=== PATIENT | male | born 1950 | race Caucasian/White ===

== ENCOUNTER 2016-07-10 18:04 | Emergency (ER) | payer MEDICARE, OTHER ==
[2016-07-10 18:10] VITALS: BP 161/73; PULSE 85; RESP 18; TEMP 97.9
[2016-07-10] MEDS ORDERED: DOXYCYCLINE 50 MG CAP PO STA (18:24)
--- NOTE | 2016-07-10 18:27 | ED ---
Skin/Abscess/FB HPI - General Chief complaint: Skin/Abscess/Foreign Body Stated complaint: tick bite Time Seen by Provider: 07/10/16 18:23 Source: patient Mode of arrival: ambulatory Limitations: no limitations - History of Present Illness Initial comments: Patient is a 65-year-old male presenting to the emergency department with complaints of tick bite to his anterior chest inferior to his right nipple. Patient states he was in the shower yesterday and noticed the tick on his chest. Patient states that he applied soap in the tick came off with the head intact. Patient wants to make sure that he doesn't get Lyme disease and states that he has a friend who from it. 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 Patient denies chills, fevers, nausea, vomiting, shortness of breath, chest pain, or abdominal pain. Patient denies myalgias. Patient denies headache. Patient denies any other symptoms. - Related Data Home Medications Medication Instructions Recorded Confirmed Aspirin 325 mg PO DAILY 12/21/13 07/10/16 Digoxin [Lanoxin] 125 mcg PO DAILY 12/21/13 07/10/16 Furosemide [Lasix] 40 mg PO DAILY 12/21/13 07/10/16 Losartan [Cozaar] 100 mg PO DAILY 12/21/13 07/10/16 Metoprolol Tartrate [Lopressor] 25 mg PO BID 12/21/13 07/10/16 Omeprazole 40 mg PO AC-BRKFST 12/21/13 07/10/16 Nitroglycerin Sl Tabs [Nitrostat] 0.4 mg SL ONCE PRN 08/30/14 07/10/16 hydrALAZINE HCL [Apresoline] 25 mg PO TID 08/30/14 07/10/16 Simvastatin [Zocor] 40 mg PO HS 02/14/15 07/10/16 Digoxin [Digitek] 125 mcg PO DAILY 02/01/16 07/10/16 Finasteride [Proscar] 5 mg PO DAILY 02/01/16 07/10/16 Gabapentin [Neurontin] 100 mg PO TID 02/01/16 07/10/16 Tamsulosin HCl [Flomax] 0.4 mg PO DAILY 02/01/16 07/10/16 Previous Rx's Medication Instructions Recorded Albuterol Inhaler [Ventolin Hfa 1 - 2 puff INHALATION Q4-6H PRN #1 02/14/15 Inhaler] inhaler Acetaminophen with Codeine 1 tab PO Q4H PRN #20 tab 02/01/16 [Tylenol w/codeine #3] Albuterol Sulfate [Proair Hfa] 1 - 2 puff INHALATION Q4H PRN #1 02/01/16 inhaler Azithromycin [Zithromax Z-pack] 0 mg PO DIRECTED #1 pack 02/01/16 predniSONE 50 mg PO DAILY #5 tab 02/01/16 Allergies Allergy/AdvReac Type Severity Reaction Status Date / Time No Known Allergies Allergy Verified 07/10/16 18:10 Review of Systems ROS Statement: Those systems with pertinent positive or pertinent negative responses have been documented in the HPI. ROS Other: All systems not noted in ROS Statement are negative. Past Medical History Past Medical History: Chest Pain / Angina, Heart Failure, Hyperlipidemia, Hypertension Additional Past Medical History / Comment(s): defibillator History of Any Multi-Drug Resistant Organisms: None Reported Past Surgical History: Joint Replacement Additional Past Surgical History / Comment(s): defibillator Past Psychological History: No Psychological Hx Reported Smoking Status: Former smoker Past Alcohol Use History: Occasional Past Drug Use History: None Reported General Exam - General Exam Comments Initial Comments: GENERAL: Pt awake and alert, well-appearing, well-nourished, and in no acute distress. HEAD: Atraumatic, normocephalic. EYES: Pupils equal, round, and reactive to light, extraocular movements intact, sclera anicteric, conjunctiva are normal. ENT: Oropharynx clear without exudates. Moist mucous membranes. NECK:Normal range of motion, supple without lymphadenopathy or JVD. LUNGS: Breath sounds clear to auscultation bilaterally. No wheezes, rales, or rhonchi. HEART: Heart S1, S2, no S3 or S4. Regular rate and rhythm. No murmurs, rubs or gallops. ABDOMEN: Soft, nontender, nondistended, normoactive bowel sounds. No guarding, no rebound. No masses or organomegaly appreciated. EXTREMITIES: 2+ peripheral pulses. No edema. Full range of motion. NEUROLOGICAL: Pt oriented x 3. No focal deficits noted. Strength and sensation grossly intact. PSYCH: Normal mood, normal affect. SKIN: Warm, dry. Small puncture site noted inferior to right nipple on anterior chest with mild swelling and erythema. No drainage. Limitations: no limitations Course Vital Signs 07/10/16 18:07 Temperature 97.9 F Pulse Rate 85 Respiratory 18 Rate Blood Pressure 161/73 O2 Sat by Pulse 97 Oximetry Medical Decision Making - Medical Decision Making Tick bite to right chest. Patient did bring in tick with head intact. Patient prescribed doxycycline 200 mg by mouth prophylactically and instructed to follow -up with primary care physician. Patient agrees with treatment plan. Discharge instructions and return parameters reviewed. Disposition Clinical Impression: Tick bite Disposition: HOME SELF-CARE Condition: Good Instructions: Tick Bite (ED) Additional Instructions: Follow-up with primary care physician and inform them you were given prophylactic doxycycline 200 mg by mouth 1 dose in the emergency department. Please return to the emergency department with new or worsening symptoms. Referrals: Bree Dias DO [Primary Care Provider] - 1-2 days Time of Disposition: 18:27
== END 2016-07-10 18:46 | disposition home or self-care (01) ==
LOC: EC 18:04
DX: S20.361A Insect bite (nonvenomous) of right front wall of thorax, initial encounter (principal); I10 Essential (primary) hypertension; E78.5 Hyperlipidemia, unspecified; I50.9 Heart failure, unspecified; Z87.891 Personal history of nicotine dependence; Z79.82 Long term (current) use of aspirin; Z79.899 Other long term (current) drug therapy; Z86.79 Personal history of other diseases of the circulatory system; W57.XXXA Bitten or stung by nonvenomous insect and other nonvenomous arthropods, initial encounter
CPT/HCPCS: 99282

== ENCOUNTER → 2016-10-11 | Outpatient (CLI) | payer MEDICARE, OTHER ==
[2016-10-11 08:28] LABS: CH 31.5; HCT 44.8 % (39.0-53.0); HDW 2.56; HGB 15.2 gm/dL (13.0-17.5); MCH 31.6 pg (25.0-35.0); MCHC 33.9 g/dL (31.0-37.0); MCV 93.3 fL (80.0-100.0); Mean Platelet Volume 10.1; RBC 4.81 m/uL (4.30-5.90); RDW 14.7 % (11.5-15.5); WBC 7.8 k/uL (3.8-10.6)
[2016-10-11 10:29] LABS: ALT 85 U/L (21-72); AST 39 U/L (17-59); Alkaline Phosphatase 86 U/L (38-126); Anion Gap 14 mmol/L; Blood Urea Nitrogen 18 mg/dL (9-20); Calcium 9.2 mg/dL (8.4-10.2); Carbon Dioxide 23 mmol/L (22-30); Chloride 105 mmol/L (98-107); Cholesterol 140 mg/dL (<200); Glucose 106 mg/dL (74-99); HDL Cholesterol 45 mg/dL (40-60); Non-African American GFR(MDRD) >60 (>60 ml/min/1.73 sqM); Potassium 4.3 mmol/L (3.5-5.1); Sodium 142 mmol/L (137-145); Total Bilirubin 0.4 mg/dL (0.2-1.3); Total Protein 7.1 g/dL (6.3-8.2)
[2016-10-11 10:51] LABS: Prostate Specific Antigen 1.49 ng/mL (0.00-4.00)
== END | disposition home or self-care (01) ==
LOC: LABWHC1 07:59
PROVIDERS: ATTEND Internal Medicine Clinical Cardiac Electrophysiology
DX: E78.2 Mixed hyperlipidemia (principal); I25.10 Atherosclerotic heart disease of native coronary artery without angina pectoris; I25.5 Ischemic cardiomyopathy; I10 Essential (primary) hypertension; Z95.810 Presence of automatic (implantable) cardiac defibrillator
CPT/HCPCS: 36415; 80053; 80061; 80162; 83036; 84153; 84443; 85027

== ENCOUNTER 2016-10-26 14:43 | Day surgery (SDC) | payer MEDICARE, OTHER ==
[2016-10-19 10:27] VITALS: BMI 32.8
[~2016-10-26 14:43] MED LIST: LACTATED RINGERS 1,000 ML IV ONE; ceFAZolin 1,000 MG in SODIUM CHLORIDE 0.9% IRRIGATIO 250 ML IRRIGATION ONE; ceFAZolin 2 GM in SODIUM CHLORIDE 0.9% 100 ML IVPB ONE
[2016-10-26] MEDS ORDERED: IV FLUID CONTINUATION 450 ML IV ONE (16:12)
[2016-10-26] MEDS ORDERED: MIDAZOLAM 2 MG/2 ML VIAL ONE (16:12)
[2016-10-26] MEDS ORDERED: PROPOFOL 10 MG/ML 20 ML VIAL IV ONE (16:12)
[2016-10-26] MEDS ORDERED: fentaNYL (PF) 50 MCG/ML 2 ML AMP ONE (16:12)
[2016-10-26] MEDS ORDERED: LIDOCAINE 1% INJ 10MG/ML (20 ML MDV) SQ ONE ×2 (16:45→16:55)
[2016-10-26] MEDS ORDERED: ACETAMINOPHEN IV (For NPO) 1,000 MG in EMPTY BAG 1 BAG IVPB ONE (17:17)
[2016-10-26] MEDS ORDERED: ACETAMINOPHEN TAB 325 MG TAB PO PRN (17:17)
[2016-10-26 18:28] VITALS: RESP 18
[2016-10-26] MEDS: SODIUM CHLORIDE 0.9% 1,000 ML IV SCH (18:49)
[2016-10-26] MEDS: HYDROcodone/APAP 5-325MG 1 EACH TAB PO PRN (19:54)
[2016-10-26] MEDS ORDERED: ATORVASTATIN 20 MG TAB PO SCH (21:00)
[2016-10-26] MEDS: METOPROLOL TARTRATE 25 MG TAB PO SCH (21:14)
[2016-10-26] MEDS: hydrALAZINE HCL 25 MG TAB PO SCH (21:15)
[2016-10-26] MEDS: GABAPENTIN 100 MG CAP PO SCH (21:15)
[2016-10-26] MEDS: ceFAZolin 2 GM in SODIUM CHLORIDE 0.9% 100 ML IVPB SCH (23:13)
[2016-10-27] MEDS: HYDROcodone/APAP 5-325MG 1 EACH TAB PO PRN ×3 (02:28→16:59)
[2016-10-27] MEDS: ceFAZolin 2 GM in SODIUM CHLORIDE 0.9% 100 ML IVPB SCH ×3 (05:09→16:04)
[2016-10-27] MEDS ORDERED: PANTOPRAZOLE 40 MG TABLET PO SCH (07:30)
[2016-10-27] MEDS: METOPROLOL TARTRATE 25 MG TAB PO SCH (07:52)
[2016-10-27] MEDS: GABAPENTIN 100 MG CAP PO SCH (07:52)
[2016-10-27] MEDS: hydrALAZINE HCL 25 MG TAB PO SCH (07:52)
[2016-10-27] MEDS: SODIUM CHLORIDE 0.9% 1,000 ML IV SCH (08:02)
--- NOTE | 2016-10-27 08:02 | P.DS ---
Providers Attending physician: Iain Sosa Primary care physician: Bree [facility] Course: Patient is doing well. Other than discomfort at the ICD generator change site he has no other pain. No shortness of breath no dizziness lightheadedness he is sitting comfortably in bed. Breath sounds are clear and normal no rhonchi no crackles. Heart sounds S1 and S2 are normal no murmurs no gallops abdomen is soft nontender. Extremities warm no edema ICD site is healed well there is minimal to no hematoma. Impression Ischemic cardio myopathy Status post ICD generator change for normal battery depletion CHF class II Single-chamber ICD dual coil, [employer] DFT at or below 10 J Plan Discharge home after completion of IV antibiotics and follow-up in the device clinic in 5 days No change in medications Patient Condition at Discharge: Stable Plan - Discharge Summary New Discharge Prescriptions: Continue Losartan [Cozaar] 100 mg PO DAILY Omeprazole 40 mg PO AC-BRKFST Metoprolol Tartrate [Lopressor] 25 mg PO BID Furosemide [Lasix] 40 mg PO DAILY Digoxin [Lanoxin] 125 mcg PO DAILY Aspirin 325 mg PO DAILY hydrALAZINE HCL [Apresoline] 25 mg PO BID Nitroglycerin Sl Tabs [Nitrostat] 0.4 mg SL ONCE PRN PRN Reason: Chest Pain Simvastatin [Zocor] 40 mg PO HS Gabapentin [Neurontin] 100 mg PO BID Finasteride [Proscar] 5 mg PO DAILY Discharge Medication List Aspirin 325 mg PO DAILY 12/21/13 [History] Digoxin [Lanoxin] 125 mcg PO DAILY 12/21/13 [History] Furosemide [Lasix] 40 mg PO DAILY 12/21/13 [History] Losartan [Cozaar] 100 mg PO DAILY 12/21/13 [History] Metoprolol Tartrate [Lopressor] 25 mg PO BID 12/21/13 [History] Omeprazole 40 mg PO AC-BRKFST 12/21/13 [History] Nitroglycerin Sl Tabs [Nitrostat] 0.4 mg SL ONCE PRN 08/30/14 [History] hydrALAZINE HCL [Apresoline] 25 mg PO BID 08/30/14 [History] Simvastatin [Zocor] 40 mg PO HS 02/14/15 [History] Finasteride [Proscar] 5 mg PO DAILY 02/01/16 [History] Gabapentin [Neurontin] 100 mg PO BID 02/01/16 [History] Activity/Diet/Wound Care/Special Instructions: PATIENT EDUCATION MATERIAL Instructions following a heart rhythm device implant. 1. Keep dressing DRY for ONE week. You may cover the area with Saran or Cling Wrap, prior to a shower. 2. The dressing will be removed after one week in the Device Clinic @ [facility]. Absorbable sutures were used to close the wound. 3. Avoid raising the [left] arm above the shoulder level. [6 week restriction] 4. Avoid arm movements, like backscratching, rubbing the head, or pulling on a cord. (6 weeks restriction) 5. Gentle range of motion movements of the shoulder, closest to the incision should be performed to avoid a frozen shoulder. (Pendulum exercises of the shoulder) 6. The opposite arm may be used freely. 7. Avoid driving for 7 days. 8. Avoid activities such as golfing, swimming, weed whacking, lifting more than 10 pounds weight, bowling, gymnastics and weight training/lifting. (6 weeks restriction) 9. Activities such as wood chopping with an axe, pull-ups in the gymnasium, power lifting, arc-welding, being close to home induction cooktops will always be a problem. In case of any problems, please call [facility], Laron Sims, @ [phone], Attention: Device Clinic Discharge Disposition: HOME SELF-CARE
[2016-10-27] MEDS ORDERED: DIGOXIN 125 MCG TAB PO SCH (09:00)
[2016-10-27] MEDS ORDERED: FUROSEMIDE 40 MG TAB PO SCH (09:00)
[2016-10-27] MEDS ORDERED: LOSARTAN 50 MG TAB PO SCH (09:00)
[2016-10-27] MEDS ORDERED: FINASTERIDE 5 MG TAB PO SCH (09:00)
[2016-10-27] MEDS ORDERED: ASPIRIN 325 MG TAB PO SCH (09:00)
--- NOTE | 2016-10-27 09:02 | PCN ---
PROCEDURE NOTE PROCEDURE PERFORMED: ICD generator change Mr. Ibarra is a 66 -year-old male patient with known ischemic cardiomyopathy, coronary artery disease, on appropriate guideline directed medical treatment with Class 2 CHF. He has hypertension, diabetes, dyslipidemia, adult-onset diabetes. His original ejection fraction in 2009 was severely reduced. Now his ejection fraction was 40%. His single-chamber ICD is now at [facility] and he underwent ICD generator change for normal battery depletion. DESCRIPTION OF PROCEDURE: The patient was brought to the EP lab in a fasting state. Written informed consent was obtained prior to the procedure. The left shoulder was prepped and draped as per protocol. 1% Lidocaine was used for local anesthesia. A 4 cm incision was made directly over the previous surgical site and carried down to the level of the generator. The generator was explanted. Partial capsulectomy was performed. The new generator was implanted. The leads were interrogated and following that, the wound was closed in 3 layers and dressed per protocol. Thereafter DFT testing was performed. The new device implanted is in an [employer] VR 1411-36 C ICD serial #[id number], Pacing thresholds are 0.25 V at 0.5 milliseconds. R-waves 11.7 mV, pacing impedance 380 ohms. High-voltage impedance 70 ohms. The device is then programed according to programming with appropriate antitachycardia pacing cardioversion defibrillation. DFT testing under anesthesia: DC fib shock was used to induce ventricular fibrillation. This was adequately and appropriately detected at least sensitivity and successfully internally defibrillated with a 10 joule shock, , including SVC coil, charge time 1.8 seconds and shock impedance 72 ohms. No post shock noise. The device was appropriately programmed for tachy therapies. RESULTS: 1. Successful single-chamber ICD generator change. 2. DFT at or below 10 joules. MMODL / IJN: [id number] /
[2016-10-27 15:44] VITALS: BP 131/70; PULSE 67; TEMP 98.4
== END 2016-10-27 17:48 | disposition home or self-care (01) ==
LOC: CATHEP 14:43 → 3OBS 17:14 → CATHEP 10-27 17:48
PROVIDERS: ATTEND Internal Medicine Clinical Cardiac Electrophysiology
DX: Z45.02 Encounter for adjustment and management of automatic implantable cardiac defibrillator (principal); I25.5 Ischemic cardiomyopathy; I11.0 Hypertensive heart disease with heart failure; I50.9 Heart failure, unspecified; Z87.891 Personal history of nicotine dependence; E78.5 Hyperlipidemia, unspecified; E11.8 Type 2 diabetes mellitus with unspecified complications; Z79.82 Long term (current) use of aspirin; Z79.899 Other long term (current) drug therapy
CPT/HCPCS: 93641; 33262; C1722; S0138; J2250; J0690 ×3; J2001; J3010; J2704

== ENCOUNTER → 2016-11-02 | Outpatient (CLI) | payer MEDICARE, OTHER ==
[2016-11-02 16:34] LABS: CH 30.5; CHCM 33.6; HDW 2.68; HGB 13.5 gm/dL (13.0-17.5); MCH 30.1 pg (25.0-35.0); MCHC 33.1 g/dL (31.0-37.0); MCV 91.1 fL (80.0-100.0); Mean Platelet Volume 9.4; RBC 4.49 m/uL (4.30-5.90); RDW 13.9 % (11.5-15.5); WBC 5.2 k/uL (3.8-10.6)
[2016-11-02 16:51] LABS: ALT 65 U/L (21-72); AST 36 U/L (17-59); Alkaline Phosphatase 66 U/L (38-126); Anion Gap 12 mmol/L; Blood Urea Nitrogen 17 mg/dL (9-20); Calcium 9.1 mg/dL (8.4-10.2); Carbon Dioxide 25 mmol/L (22-30); Chloride 100 mmol/L (98-107); Glucose 126 mg/dL (74-99); Non-African American GFR(MDRD) >60 (>60 ml/min/1.73 sqM); Sodium 137 mmol/L (137-145); Total Bilirubin 0.4 mg/dL (0.2-1.3); Total Protein 7.1 g/dL (6.3-8.2)
--- NOTE | 2016-11-03 07:20 | XR ---
EXAMINATION TYPE: XR chest 2V DATE OF EXAM: 11/02/2016 COMPARISON: 02/01/16 HISTORY: Shortness of breath TECHNIQUE: Frontal and lateral views of the chest are obtained. FINDINGS: Scattered senescent parenchymal changes noted. Hyperinflation compatible with COPD. No evidence for infiltrate. No evidence for atelectasis. Heart size is stable. Mediastinal structures are stable and grossly unremarkable. No evidence for hilar prominence. Degenerative changes dorsal spine. IMPRESSION: 1. No evidence for acute pulmonary disease.
== END | disposition home or self-care (01) ==
LOC: LABWHC1 16:01
PROVIDERS: ATTEND Internal Medicine Interventional Cardiology
DX: I25.5 Ischemic cardiomyopathy (principal); I25.10 Atherosclerotic heart disease of native coronary artery without angina pectoris
CPT/HCPCS: 36415; 71020; 80053; 83880; 85027

== ENCOUNTER 2017-06-22 09:14 | Emergency (ER) | payer MEDICARE, OTHER ==
[2017-06-22 09:22] VITALS: RESP 18
[2017-06-22] MEDS ORDERED: DIAZEPAM 5 MG/ML 2 ML INJ IM STA (09:45)
[2017-06-22] MEDS ORDERED: KETOROLAC 60 MG/2 ML VIAL IM STA (09:45)
--- NOTE | 2017-06-22 09:48 | ED ---
Extremity Problem HPI - General Chief complaint: Extremity Problem,Nontraumatic Stated complaint: Right Arm Numbness Time Seen by Provider: 06/22/17 09:23 Source: patient, RN notes reviewed Mode of arrival: ambulatory Limitations: no limitations - History of Present Illness Initial comments: This a 66-year-old male presents emergency department to complaining neck pain, right arm paresthesias. Patient states he woke up with pain in the right side of his neck and feels that his arm was very numb feeling patient states that he has no associated weakness no chest pain or shortness of breath. Patient states that he feels that he slipped on his neck on it is worse with movement he tried taking some callus morning with no relief. Patient denies any fever, chills, cough, nausea vomiting. Denies any trauma. - Related Data Home Medications Medication Instructions Recorded Confirmed Aspirin 325 mg PO DAILY 12/21/13 06/22/17 Digoxin [Lanoxin] 125 mcg PO DAILY 12/21/13 06/22/17 Furosemide [Lasix] 40 mg PO DAILY 12/21/13 06/22/17 Losartan [Cozaar] 100 mg PO DAILY 12/21/13 06/22/17 Metoprolol Tartrate [Lopressor] 25 mg PO BID 12/21/13 06/22/17 Omeprazole 40 mg PO BID 12/21/13 06/22/17 Nitroglycerin Sl Tabs [Nitrostat] 0.4 mg SL ONCE PRN 08/30/14 06/22/17 hydrALAZINE HCL [Apresoline] 25 mg PO BID 08/30/14 06/22/17 Simvastatin [Zocor] 40 mg PO HS 02/14/15 06/22/17 Finasteride [Proscar] 5 mg PO DAILY 02/01/16 06/22/17 Previous Rx's Medication Instructions Recorded Diazepam [Valium] 5 mg PO TID PRN #10 tab 06/22/17 Allergies Allergy/AdvReac Type Severity Reaction Status Date / Time No Known Allergies Allergy Verified 06/22/17 10:14 Review of Systems ROS Statement: Those systems with pertinent positive or pertinent negative responses have been documented in the HPI. ROS Other: All systems not noted in ROS Statement are negative. Past Medical History Past Medical History: Coronary Artery Disease (CAD), Heart Failure, COPD, Hyperlipidemia, Hypertension, Myocardial Infarction ([place]) Additional Past Medical History / Comment(s): defibillator History of Any Multi-Drug Resistant Organisms: None Reported Past Surgical History: AICD, Joint Replacement, Orthopedic Surgery Additional Past Surgical History / Comment(s): right knee replaced Past Psychological History: No Psychological Hx Reported Smoking Status: Former smoker Past Alcohol Use History: Occasional Past Drug Use History: None Reported General Exam Limitations: no limitations General appearance: alert, in no apparent distress Head exam: Present: atraumatic, normocephalic, normal inspection Eye exam: Present: normal appearance, PERRL, EOMI. Absent: scleral icterus, conjunctival injection, periorbital swelling ENT exam: Present: normal exam, normal oropharynx, mucous membranes moist Neck exam: Present: normal inspection, full ROM. Absent: tenderness, meningismus, lymphadenopathy Respiratory exam: Present: wheezes (Mild). Absent: normal lung sounds bilaterally, respiratory distress, rales, rhonchi, stridor Cardiovascular Exam: Present: regular rate, normal rhythm, normal heart sounds. Absent: systolic murmur, diastolic murmur, rubs, gallop, clicks Back exam: Absent: CVA tenderness (R), CVA tenderness (L) Neurological exam: Present: alert, oriented X3, CN II-XII intact, normal gait, reflexes normal, other ([id number] intact). Absent: motor sensory deficit Skin exam: Present: warm, dry, intact, normal color. Absent: rash Course Vital Signs 06/22/17 06/22/17 09:17 10:20 Pulse Rate 63 66 Respiratory 18 18 Rate Blood Pressure 170/88 139/68 O2 Sat by Pulse 94 L 94 L Oximetry Medical Decision Making - Medical Decision Making 66-year-old male present with Department chief complaint right arm numbness in rectal pain. Patient has pain with range of motion of neck is symptoms started after sleeping on it. Patient had no dramatic injury has a normal neuro exam. Patient has no focal weakness. X-ray cervical spine reviewed shows moderate to severe degenerative changes. Patient will be discharged follow-up with orthopedics. Disposition Clinical Impression: Cervical radiculopathy Disposition: HOME SELF-CARE Condition: Stable Instructions: Cervical Radiculopathy (ED) Additional Instructions: Please return to the Emergency Department if symptoms worsen or any other concerns. Prescriptions: Diazepam [Valium] 5 mg PO TID PRN #10 tab PRN Reason: muscle spasms Is patient prescribed a controlled substance at d/c from ED?: Yes If prescribed controlled substance>3 days was MAPS reviewed?: No When asked, does pt state using other controlled substances?: No Referrals: Bree Dias DO [Primary Care Provider] - 1-2 days Hanh Trujillo DO [Doctor of Osteopathic Medicine] - 1-2 days
--- NOTE | 2017-06-22 10:32 | XR ---
EXAMINATION TYPE: XR cervical spine comp DATE OF EXAM: 06/22/2017 COMPARISON: NONE HISTORY: 66-year-old male with neck pain and tingling in fingers today TECHNIQUE: 6 views FINDINGS: No predental space widening or prevertebral soft tissue swelling. There is preserved alignment of the cervical spine though it at least moderate disc/endplate cervical spine along with moderate to advan abhishek facet and uncovertebral joint arthropathy as well. Normal odontoid view. On the right, there is [id number] bony neural foraminal narrowing at C5-C6 and mild at C4-C5 an d C6-C7, and C7-T1. On the left, there is moderate to severe bony neural foraminal narrowing at C5-C6 and mild at C3-C4. IMPRESSION: 1. Moderate spondylotic changes especially in the mid to lower cervical spine. 2. Moderate to severe bony neural foraminal narrowing on the left at C5-C6. Variable mild neuroforami nal narrowing at additional levels, mild to moderate on the right at C5-C6.
[2017-06-22 11:24] VITALS: BP 135/64; PULSE 60; TEMP 97.9
== END 2017-06-22 11:24 | disposition home or self-care (01) ==
LOC: EC 09:14
DX: M54.12 Radiculopathy, cervical region (principal); I25.10 Atherosclerotic heart disease of native coronary artery without angina pectoris; I11.0 Hypertensive heart disease with heart failure; I50.9 Heart failure, unspecified; E78.5 Hyperlipidemia, unspecified; I25.2 Old myocardial infarction; Z87.891 Personal history of nicotine dependence; Z79.899 Other long term (current) drug therapy; Z79.82 Long term (current) use of aspirin; Z95.810 Presence of automatic (implantable) cardiac defibrillator
CPT/HCPCS: 99284; 96372 ×2; 72050; J3360; J1885

== ENCOUNTER → 2017-08-27 | Outpatient (CLI) | payer MEDICARE, OTHER ==
[2017-08-27 08:53] LABS: Albumin 3.9 g/dL (3.5-5.0); Potassium 4.7 mmol/L (3.5-5.1); Total Bilirubin 0.4 mg/dL (0.2-1.3); Total Protein 6.7 g/dL (6.3-8.2)
== END | disposition home or self-care (01) ==
LOC: LABWHC1 08:03
PROVIDERS: ATTEND Internal Medicine Interventional Cardiology
DX: E78.2 Mixed hyperlipidemia (principal)
CPT/HCPCS: 36415; 80053; 80061

== ENCOUNTER → 2017-12-01 | Outpatient (CLI) | payer MEDICARE, OTHER ==
--- NOTE | 2017-12-02 07:03 | US ---
EXAMINATION TYPE: US abdomen complete DATE OF EXAM: 12/01/2017 COMPARISON: CT & US 2016 CLINICAL HISTORY: R94.4 Abnormal renal function test. EXAM MEASUREMENTS: Liver Length: 19.5 cm Gallbladder Wall: 0.2 cm CBD: 0.4 cm Spleen: 12.5 cm Right Kidney: 9.6 x 5.5 x 5.0 cm Left Kidney: 10.2 x 5.8 x 5.1 cm Difficult and limited study due to patient body habitus Pancreas: visualized portions wnl, limited by overlying midline bowel Liver: enlarged, increased echogenicity, heterogeneous Gallbladder: wnl Evidence for sonographic Turk's sign: no CBD: wnl Spleen: wnl Right Kidney: 1.3 x 1.2 x 1.8cm exophytic simple cyst inferior pole Left Kidney: wnl Upper IVC: wnl Abd Aorta: visualized portions wnl, mid and distal obscured by overlying midline bowel gas IMPRESSION: 1. Simple right renal cyst. 2. Fatty infiltration and hepatomegaly. 3. Some limitation due to bowel gas
== END | disposition home or self-care (01) ==
LOC: RADUSWWP 11-28 10:53
PROVIDERS: ATTEND Family Medicine
DX: N28.1 Cyst of kidney, acquired (principal); K76.0 Fatty (change of) liver, not elsewhere classified
CPT/HCPCS: 76700

== ENCOUNTER → 2018-02-27 | Outpatient (CLI) | payer MEDICARE, OTHER ==
[2018-02-27 17:28] LABS: Albumin 4.4 g/dL (3.80-4.90); Albumin/Globulin Ratio 1.69 (1.20-2.10); Anion Gap 8.8 mmol/L (4.00-12.00); Calcium 9.3 mg/dL (8.7-10.3); Carbon Dioxide 30.2 mmol/L (21.6-31.8); Globulin 2.6 g/dL (1.6-3.3); LDL Cholesterol,Calculated 74.4 mg/dL (0.0-131.0); Potassium 4.7 mmol/L (3.5-5.5); Total Bilirubin 0.5 mg/dL (0.2-1.2); VLDL Calculation 37.6 mg/dL (5.00-40.00)
== END | disposition home or self-care (01) ==
LOC: LABWHC1 08:12
PROVIDERS: ATTEND Internal Medicine Interventional Cardiology
DX: E78.2 Mixed hyperlipidemia (principal)
CPT/HCPCS: 36415; 80053; 80061

== ENCOUNTER → 2018-05-02 | Outpatient (CLI) | payer MEDICARE, OTHER | LOC: LABWHC1 10:05 | PROVIDERS: ATTEND Surgery | DX: I71.4 Abdominal aortic aneurysm, without rupture (principal) | CPT/HCPCS: 36415; 82565; 84520 ==

== ENCOUNTER → 2018-09-01 | Outpatient (CLI) | payer MEDICARE, OTHER ==
[2018-09-01 16:11] LABS: African American GFR (CKD) 60.7 (60.0-200.0); Albumin 4.3 g/dL (3.80-4.90); Albumin/Globulin Ratio 1.87 (1.60-3.17); Anion Gap 9.7 mmol/L (4.00-12.00); Calcium 9.8 mg/dL (8.7-10.3); Carbon Dioxide 25.3 mmol/L (21.6-31.8); Globulin 2.3 g/dL (1.6-3.3); Potassium 5.1 mmol/L (3.5-5.5); Total Bilirubin 0.5 mg/dL (0.3-1.2); Total Protein 6.6 g/dL (6.2-8.2)
== END | disposition home or self-care (01) ==
LOC: LABWHC1 08:26
PROVIDERS: ATTEND Internal Medicine Interventional Cardiology
DX: E78.2 Mixed hyperlipidemia (principal)
CPT/HCPCS: 36415; 80053; 80061

== ENCOUNTER 2018-09-08 17:54 | Emergency (ER) | payer MEDICARE, OTHER ==
[2018-09-08 18:53] VITALS: TEMP 97.7
--- NOTE | 2018-09-08 21:09 | CT ---
EXAMINATION TYPE: CT brain wo con DATE OF EXAM: 09/08/2018 COMPARISON: 10/27/2017 HISTORY: Headache, RT side, along with head swelling RT side. Hx aneurysm CT DLP: 1126.4 mGycm Automated exposure control for dose reduction was used. FINDINGS: There is some cerebral cortical atrophy. There is no mass effect nor midline shift. There is no sign of intracranial hemorrhage. Calvarium is intact. IMPRESSION: CEREBRAL MILD ATROPHY. NO ACUTE INTRACRANIAL ABNORMALITY. NO CHANGE.
--- NOTE | 2018-09-08 21:28 | ED ---
Skin/Abscess/FB HPI - General Chief complaint: Skin/Abscess/Foreign Body Stated complaint: Headache, Head Swelling Time Seen by Provider: 09/08/18 20:11 Source: patient Mode of arrival: ambulatory - History of Present Illness Initial comments: Patient is a 67-year-old male who presents to the emergency Department with complaints of a bump on the back of his head 2 days. Patient states this bump is also causing him headaches and pain down the back of his head. Patient describes the pain as burning when touched. Patient has past medical history of a brain aneurysm that was diagnosed about a 6 months ago. Patient denies having numbness, tingling, blurred vision, difficulty with walking or talking. Patient admits to history of chickenpox when he was little. Patient denies fever, chills, nausea, vomiting. No other complaints at this time. - Related Data Home Medications Medication Instructions Recorded Confirmed Aspirin 325 mg PO DAILY 12/21/13 10/27/17 Digoxin [Lanoxin] 125 mcg PO DAILY 12/21/13 10/27/17 Furosemide [Lasix] 40 mg PO DAILY 12/21/13 10/27/17 Losartan [Cozaar] 100 mg PO DAILY 12/21/13 10/27/17 Metoprolol Tartrate [Lopressor] 25 mg PO BID 12/21/13 10/27/17 Omeprazole 40 mg PO BID 12/21/13 10/27/17 Nitroglycerin Sl Tabs [Nitrostat] 0.4 mg SUBLINGUAL Q5M PRN 08/30/14 10/27/17 hydrALAZINE HCL [Apresoline] 25 mg PO BID 08/30/14 10/27/17 Finasteride [Proscar] 5 mg PO DAILY 02/01/16 10/27/17 Gabapentin 600 mg PO BID 10/27/17 10/27/17 Previous Rx's Medication Instructions Recorded valACYclovir HCL [Valtrex] 1,000 mg PO Q8HR 7 Days #21 tab 09/08/18 Allergies Allergy/AdvReac Type Severity Reaction Status Date / Time No Known Allergies Allergy Verified 09/08/18 18:49 Review of Systems ROS Statement: Those systems with pertinent positive or pertinent negative responses have been documented in the HPI. ROS Other: All systems not noted in ROS Statement are negative. Past Medical History Past Medical History: Coronary Artery Disease (CAD), Heart Failure, COPD, Hyperlipidemia, Hypertension, Myocardial Infarction ([place]) Additional Past Medical History / Comment(s): defibillator Last Myocardial Infarction Date:: unknown History of Any Multi-Drug Resistant Organisms: None Reported Past Surgical History: AICD, Joint Replacement, Orthopedic Surgery Additional Past Surgical History / Comment(s): right knee replaced Past Anesthesia/Blood Transfusion Reactions: No Reported Reaction Type of Cardiac Device: AICD Device Placement Date:: 2009 Past Psychological History: No Psychological Hx Reported Smoking Status: Former smoker Past Alcohol Use History: Occasional Past Drug Use History: None Reported - Past Family History Mother Family Medical History: No Reported History Father Family Medical History: Liver Disease General Exam - General Exam Comments Initial Comments: GENERAL: Well-appearing, well-nourished and in no acute distress. HEAD: Atraumatic, normocephalic. EYES: Pupils equal round and reactive to light, extraocular movements intact, sclera anicteric, conjunctiva are normal. ENT: TMs normal, nares patent, oropharynx clear without exudates. Moist mucous membranes. NECK: Normal range of motion, supple without lymphadenopathy or JVD. LUNGS: Breath sounds clear to auscultation bilaterally and equal. No wheezes rales or rhonchi. HEART: Regular rate and rhythm without murmurs, rubs or gallops. ABDOMEN: Soft, nontender, normoactive bowel sounds. No guarding, no rebound. No masses appreciated. : Deferred EXTREMITIES: Normal range of motion, no pitting or edema. No clubbing or cyanosis. NEUROLOGICAL: Cranial nerves II through XII grossly intact. Normal speech, normal gait. PSYCH: Normal mood, normal affect. Expanded Type of lesion: Present: rash Distribution of rash: head (Right posterior scalp) Description of rash: Present: tenderness, erythematous, macular, papular, vesicular Course Vital Signs 09/08/18 09/08/18 18:49 21:45 Temperature 97.7 F Pulse Rate 67 70 Respiratory 18 16 Rate Blood Pressure 121/68 123/72 O2 Sat by Pulse 95 Oximetry Medical Decision Making - Medical Decision Making Patient is a 67-year-old male presenting with a bump on the back of his head 2 days. Patient states the bump is causing him pain and burning. On exam patient has a series of vesicle, papules on the posterior aspect the right side of his scalp. It is very painful to the touch and causes headache. Due to patient's history of brain aneurysm, a CT of his head was performed. There is no acute intercranial abnormality present. Patient was counseled on the shingles virus. He was started on antivirals today and will be discharged home. The patient is in agreement with this plan. Patient will follow up with PCP if symptoms continue. Return parameters were discussed with the patient he verbalizes understanding. Case was discussed with Dr. Diez. Disposition Clinical Impression: Herpes zoster, Headache Disposition: HOME SELF-CARE Condition: Stable Instructions (If sedation given, give patient instructions): Shingles (ED) Additional Instructions: Please return to the Emergency Department if symptoms worsen or any other concer ns. Prescriptions: valACYclovir HCL [Valtrex] 1,000 mg PO Q8HR 7 Days #21 tab Is patient prescribed a controlled substance at d/c from ED?: No Referrals: Bree Dias DO [Primary Care Provider] - 1-2 days
[2018-09-08 21:46] VITALS: BP 123/72; PULSE 70; RESP 16
== END 2018-09-08 21:45 | disposition home or self-care (01) ==
LOC: EC 17:54
DX: B02.9 Zoster without complications (principal); I11.0 Hypertensive heart disease with heart failure; I50.9 Heart failure, unspecified; I25.2 Old myocardial infarction; I25.10 Atherosclerotic heart disease of native coronary artery without angina pectoris; Z79.82 Long term (current) use of aspirin; Z79.899 Other long term (current) drug therapy; Z87.891 Personal history of nicotine dependence; Z86.69 Personal history of other diseases of the nervous system and sense organs; Z96.651 Presence of right artificial knee joint; Z95.810 Presence of automatic (implantable) cardiac defibrillator
CPT/HCPCS: 70450; 99284

== ENCOUNTER → 2018-10-03 | Outpatient (CLI) | payer MEDICARE, OTHER ==
[2018-10-03 11:13] LABS: Calcium 9.7 mg/dL (8.4-10.2); Potassium 5.1 mmol/L (3.5-5.1)
== END | disposition home or self-care (01) ==
LOC: LABPAT 09:49
PROVIDERS: ATTEND Internal Medicine Clinical Cardiac Electrophysiology
DX: Z01.812 Encounter for preprocedural laboratory examination (principal); I25.10 Atherosclerotic heart disease of native coronary artery without angina pectoris; I10 Essential (primary) hypertension
CPT/HCPCS: 36415; 80048

== ENCOUNTER → 2018-10-10 | Day surgery (SDC) | payer MEDICARE, OTHER ==
[2018-10-03 09:49] VITALS: BMI 31.8
[~2018-10-10] MED LIST changes: -LACTATED RINGERS 1,000 ML IV ONE; +LIDOCAINE 1% INJ 10MG/ML (20 ML MDV) ONE; +MIDAZOLAM 2 MG/2 ML VIAL ONE; +PROPOFOL 10 MG/ML 20 ML VIAL IV ONE; +SODIUM CHLORIDE 0.9% 1,000 ML IV SCH; -ceFAZolin 1,000 MG in SODIUM CHLORIDE 0.9% IRRIGATIO 250 ML IRRIGATION ONE; -ceFAZolin 2 GM in SODIUM CHLORIDE 0.9% 100 ML IVPB ONE
[2018-10-10 06:43] VITALS: RESP 18; TEMP 97.9
[2018-10-10 06:59] LABS: Glucose,Whole Blood 105 mg/dL (75-99)
[2018-10-10 07:01] LABS: Calcium 9.2 mg/dL (8.4-10.2); Potassium 4.4 mmol/L (3.5-5.1)
--- NOTE | 2018-10-10 07:46 | P.HPCAR ---
History of Present Illness This is Dr. 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 However he does complain of dyspnea on exertion of long-standing No fever chills or rigors no cough no pulmonary symptoms suggestive of any infection No syncope ROS: No fever chills or rigors, no cough, phlegm or expectoration, no nausea, vomiting or diarrhea, no hematuria, dysuria, no musculoskeletal complaints, no strokes or seizures, no skin lesions. EXAMINATION: 97.9F, pulse rate in the 70s normal respirations no orthopnea Blood pressure 156 was 87 mmHg 96% oxygen saturation on room air No JVD Obesity Breath sounds are reduced but after the third no rhonchi no crackles Heart sounds are normal normal S1 normal S2 no murmurs no gallops line abdomen is soft nontender No lower extremity edema REVIEW OF LABS, ECG & MEDICAL DATA Reduced LV systolic function ejection fraction 40-45% with mild tricuspid regurgitation and mild MR Coronary angiography in 2009 revealed 100% proximal RCA and mild LAD and left circumflex disease Patient has a single chamber ICD in situ for primary prevention of sudden cardiac Physical Exam Vitals: Vital Signs Temp Pulse Resp BP Pulse Ox 10/10/18 06:42 97.9 F 77 18 156/87 96 Intake and Output 10/09/18 10/10/18 10/10/18 22:59 06:59 14:59 Intake Total 20 100 Balance 20 100 Intake: IV 20 100 Past Medical History Past Medical History: Coronary Artery Disease (CAD), Heart Failure, COPD, Hyperlipidemia, Hypertension, Myocardial Infarction ([place]) Additional Past Medical History / Comment(s): seen in er 09/09/18-shingles to back of head-resolved now. BRAIN ANEURSYM-DX 2018-BEING FOLLOWING BY DR. GILLESPIE IN [place] Last Myocardial Infarction Date:: 04/2009 History of Any Multi-Drug Resistant Organisms: None Reported Past Surgical History: AICD, Heart Catheterization, Joint Replacement Additional Past Surgical History / Comment(s): right knee replaced. COLONOSCOPY Past Anesthesia/Blood Transfusion Reactions: No Reported Reaction Type of Cardiac Device: AICD Device Placement Date:: 2009 Smoking Status: Former smoker - Past Family History Mother Family Medical History: No Reported History Father Family Medical History: Liver Disease Physical Examination Vital Signs Temp Pulse Resp BP Pulse Ox 10/10/18 06:42 97.9 F 77 18 156/87 96 Intake and Output 10/09/18 10/10/18 10/10/18 22:59 06:59 14:59 Intake Total 20 100 Balance 20 100 Intake: IV 20 100 Results 10/10/18 06:38 Comprehensive Metabolic Panel 10/10/18 Range/Units 06:38 Sodium 141 (137-145) mmol/L Potassium 4.4 (3.5-5.1) mmol/L Chloride 107 (98-107) mmol/L Carbon Dioxide 25 (22-30) mmol/L BUN 26 H (9-20) mg/dL Creatinine 1.08 (0.66-1.25) mg/dL Glucose 102 H (74-99) mg/dL Calcium 9.2 (8.4-10.2) mg/dL Current Medications Generic Name Dose Route Start Last Admin Trade Name Freq PRN Reason Stop Dose Admin Sodium Chloride 1,000 mls @ 20 mls/hr 10/10/18 06:00 10/10/18 06:43 Saline 0.9% IV 120 mls .Q24H HEAVEN Administration Intake and Output 10/09/18 10/10/18 10/10/18 22:59 06:59 14:59 Intake Total 20 100 Balance 20 100 Intake: IV 20 100 10/10/18 06:38
[2018-10-10 08:14] VITALS: PULSE 73
[2018-10-10 08:22] VITALS: BP 123/63
--- NOTE | 2018-10-10 08:23 | CE ---
CARDIAC ELECTROPHYSIOLOGY REPORT The patient has a single-chamber ICD [employer] VR 1411-36c, serial #[id number]. Battery life greater than 5 years. The RV pacing threshold 0.25 V at 0.8 milliseconds, sensing 11.7 mV, pacing impedance 340 ohms and high-voltage impedance RV to SVC 85 ohms. One episode of VT VF since September 07, 2018 and one delivered ICD shock. DFT testing was performed. DC fibber shock was used to induce ventricular fibrillation. This was adequately and appropriately detected at least sensitivity with one dropout. This was adequately appropriately and successfully internally defibrillated with a 10-joule shock. No post shock noise. The charge time was appropriate. Shocking impedance was within normal limits. IMPRESSION: Successful DFT testing under anesthesia. The ICD was interrogated and then reprogrammed. First cardioversion at 10 joules and first defibrillation at 30 joules. The VT enhancement therapies were reprogrammed. MMODL / IJN: [id number] /
== END ==
LOC: CATHEP 06:04
PROVIDERS: ATTEND Internal Medicine Clinical Cardiac Electrophysiology
DX: I42.8 Other cardiomyopathies (principal); Z45.02 Encounter for adjustment and management of automatic implantable cardiac defibrillator; I25.10 Atherosclerotic heart disease of native coronary artery without angina pectoris; I11.0 Hypertensive heart disease with heart failure; I50.9 Heart failure, unspecified; Z87.891 Personal history of nicotine dependence; E11.51 Type 2 diabetes mellitus with diabetic peripheral angiopathy without gangrene; E78.5 Hyperlipidemia, unspecified; J44.9 Chronic obstructive pulmonary disease, unspecified; I25.2 Old myocardial infarction; I67.1 Cerebral aneurysm, nonruptured; Z96.651 Presence of right artificial knee joint; Z83.79 Family history of other diseases of the digestive system; N28.9 Disorder of kidney and ureter, unspecified; K21.9 Gastro-esophageal reflux disease without esophagitis; Z79.84 Long term (current) use of oral hypoglycemic drugs; Z79.82 Long term (current) use of aspirin; Z79.899 Other long term (current) drug therapy
CPT/HCPCS: 93642; 80048; J2250; J2001; J2704

== ENCOUNTER 2018-11-07 19:06 | Emergency (ER) | payer MEDICARE, OTHER ==
[2018-11-07 19:38] VITALS: BP 121/77; PULSE 98; RESP 18; TEMP 98.1
--- NOTE | 2018-11-07 19:58 | XR ---
EXAMINATION TYPE: XR foot complete LT DATE OF EXAM: 11/07/2018 COMPARISON: NONE HISTORY: Pain TECHNIQUE: 3 views FINDINGS: I see no fracture nor dislocation. Metatarsals are intact. There is vascular calcification. There are no erosions. IMPRESSION: No acute abnormality of the left foot.
--- NOTE | 2018-11-07 19:59 | XR ---
EXAMINATION TYPE: XR ankle complete LT DATE OF EXAM: 11/07/2018 COMPARISON: NONE HISTORY: Pain TECHNIQUE: 3 views FINDINGS: Ankle mortise is anatomic. There is vascular calcification. I see no fracture nor dislocati on. There is calcaneal spurring. IMPRESSION: Calcaneal spurring. No fracture seen.
--- NOTE | 2018-11-07 20:28 | ED ---
Lower Extremity Injury HPI - General Chief Complaint: Extremity Injury, Lower Stated Complaint: ankle pain Time Seen by Provider: 11/07/18 19:46 Source: patient Mode of arrival: wheelchair Limitations: no limitations - History of Present Illness Initial Comments: Patient is a 68-year-old male presenting to emergency Department with complaints of left ankle pain after slipping and falling off his porch 3 days ago. Patient denies any other injuries from falling. Patient states he's been trying to put weight on his left ankle but states the pain has been increasing. Patient admits to prior fracture in the left ankle but does not remember what bone. This was approximately 10 years ago. Patient denies any surgeries to left ankle. Patient has no other complaints at this time. Patient denies numbness and tingling. Upon arrival to ER, vital signs are stable. - Related Data Home Medications Medication Instructions Recorded Confirmed Aspirin 325 mg PO DAILY 12/21/13 10/10/18 Digoxin [Lanoxin] 125 mcg PO DAILY 12/21/13 10/10/18 Furosemide [Lasix] 40 mg PO DAILY 12/21/13 10/10/18 Nitroglycerin Sl Tabs [Nitrostat] 0.4 mg SUBLINGUAL Q5M PRN 08/30/14 10/10/18 hydrALAZINE HCL [Apresoline] 25 mg PO BID 08/30/14 10/10/18 Finasteride [Proscar] 5 mg PO DAILY 02/01/16 10/10/18 Gabapentin 600 mg PO BID 10/27/17 10/10/18 Atorvastatin [Lipitor] 80 mg PO HS 10/03/18 10/10/18 Metoprolol Tartrate [Lopressor] 50 mg PO BID 10/03/18 10/10/18 Omeprazole 20 mg PO DAILY 10/03/18 10/10/18 Valsartan 100 mg PO DAILY 10/03/18 10/10/18 metFORMIN HCL [Glucophage] 500 mg PO BID 10/03/18 10/10/18 Allergies Allergy/AdvReac Type Severity Reaction Status Date / Time No Known Allergies Allergy Verified 11/07/18 19:38 Review of Systems ROS Statement: Those systems with pertinent positive or pertinent negative responses have been documented in the HPI. ROS Other: All systems not noted in ROS Statement are negative. Past Medical History Past Medical History: Coronary Artery Disease (CAD), Heart Failure, COPD, Hyperlipidemia, Hypertension, Myocardial Infarction ([place]) Additional Past Medical History / Comment(s): seen in er 09/09/18-shingles to back of head-resolved now. BRAIN ANEURSYM-DX 2018-BEING FOLLOWING BY DR. GILLESPIE IN [place] Last Myocardial Infarction Date:: 04/2009 History of Any Multi-Drug Resistant Organisms: None Reported Past Surgical History: AICD, Heart Catheterization, Joint Replacement Additional Past Surgical History / Comment(s): right knee replaced. COLONOSCOPY Past Anesthesia/Blood Transfusion Reactions: No Reported Reaction Type of Cardiac Device: AICD Device Placement Date:: 2009 Past Psychological History: No Psychological Hx Reported Smoking Status: Former smoker - Past Family History Mother Family Medical History: No Reported History Father Family Medical History: Liver Disease General Exam - General Exam Comments Initial Comments: GENERAL: Well-appearing, well-nourished and in no acute distress. HEAD: Atraumatic, normocephalic. EYES: Pupils equal round and reactive to light, extraocular movements intact, sclera anicteric, conjunctiva are normal. ENT: TMs normal, nares patent, oropharynx clear without exudates. Moist mucous membranes. NECK: Normal range of motion, supple without lymphadenopathy or JVD. LUNGS: Breath sounds clear to auscultation bilaterally and equal. No wheezes rales or rhonchi. HEART: Regular rate and rhythm without murmurs, rubs or gallops. ABDOMEN: Soft, nontender, normoactive bowel sounds. No guarding, no rebound. No masses appreciated. : Deferred EXTREMITIES: Pain with palpation of the medial and lateral malleolus. Patient does have normal range of motion of the left ankle although tight at the end range. Rachel ent has mild edema around both malleolus. Neurovascular intact. No clubbing or cyanosis. NEUROLOGICAL: Cranial nerves II through XII grossly intact. Normal speech, normal gait. PSYCH: Normal mood, normal affect. SKIN: Warm, Dry, normal turgor, no rashes or lesions noted. Limitations: no limitations Course Vital Signs 11/07/18 19:36 Temperature 98.1 F Pulse Rate 98 Respiratory 18 Rate Blood Pressure 121/77 O2 Sat by Pulse 97 Oximetry Medical Decision Making - Medical Decision Making Patient is a 68-year-old male presenting with left ankle pain after falling off his porch 3 days ago. On exam patient has pain with palpation of the medial and lateral malleolus. Neurovascular intact. Patient has full left ankle range of motion. X-rays reveal no acute abnormalities of the left foot. There is vascular calcification. There is discussed with patient this is most likely an ankle sprain. Patient will use ice, compression, elevation for pain and swelling relief. Patient will follow up with his PCP if symptoms persist after one to 2 weeks. Patient can weight-bear as tolerated. Return parameters were discussed with the patient he verbalizes understanding. Case discussed with Dr. Julien. Disposition Clinical Impression: Left ankle sprain Disposition: HOME SELF-CARE Condition: Stable Instructions (If sedation given, give patient instructions): Ankle Sprain (ED) Additional Instructions: Please return to the Emergency Department if symptoms worsen or any other concerns. Use ice, Motrin for pain relief. Follow-up with PCP if symptoms persist after one to 2 weeks. Gentle range of motion. Weight bear as tolerated. Is patient prescribed a controlled substance at d/c from ED?: No Referrals: Bree Dias DO [Primary Care Provider] - 1-2 days
== END 2018-11-07 20:40 | disposition home or self-care (01) ==
LOC: EC 19:06
DX: S93.402A Sprain of unspecified ligament of left ankle, initial encounter (principal); I25.10 Atherosclerotic heart disease of native coronary artery without angina pectoris; I11.0 Hypertensive heart disease with heart failure; I50.9 Heart failure, unspecified; E78.5 Hyperlipidemia, unspecified; I25.2 Old myocardial infarction; Z79.82 Long term (current) use of aspirin; Z79.899 Other long term (current) drug therapy; Z95.810 Presence of automatic (implantable) cardiac defibrillator; Z95.5 Presence of coronary angioplasty implant and graft; Z96.651 Presence of right artificial knee joint; W13.0XXA Fall from, out of or through balcony, initial encounter; Y92.009 Unspecified place in unspecified non-institutional (private) residence as the place of occurrence of the external cause
CPT/HCPCS: 99283

== ENCOUNTER 2018-11-29 20:42 | Inpatient (IN) | payer MEDICARE, OTHER ==
--- NOTE | 2018-11-29 21:34 | ED ---
General Adult HPI - General Chief complaint: Chest Pain Stated complaint: chest pain Time Seen by Provider: 11/29/18 20:54 Source: EMS, RN notes reviewed Mode of arrival: EMS Limitations: no limitations - History of Present Illness Initial comments: Patient is a pleasant 68-year-old male presenting to the emergency department after being shocked 3 times. Patient did feel slightly lightheaded otherwise had no symptoms prior to this. Patient felt a sudden intense shock from his defibrillator. Patient has never had this before. Patient felt this 3 times prior to arrival. Patient knows at least one time he did pass out. Patient did notice some bruising on the right side of his head. Patient denies any weakness or confusion. Patient has some discomfort over the area of the defibrillator that was not present earlier. No associated dyspnea, nausea, or diaphoresis. Patient is unclear why his pacemaker however adds that he does have a history of congestive heart failure. - Related Data Home Medications Medication Instructions Recorded Confirmed Aspirin 325 mg PO DAILY 12/21/13 11/29/18 Digoxin [Lanoxin] 125 mcg PO DAILY 12/21/13 11/29/18 Furosemide [Lasix] 40 mg PO DAILY 12/21/13 11/29/18 Nitroglycerin Sl Tabs [Nitrostat] 0.4 mg SUBLINGUAL Q5M PRN 08/30/14 11/29/18 hydrALAZINE HCL [Apresoline] 25 mg PO BID 08/30/14 11/29/18 Finasteride [Proscar] 5 mg PO DAILY 02/01/16 11/29/18 Gabapentin 600 mg PO BID 10/27/17 11/29/18 Atorvastatin [Lipitor] 80 mg PO HS 10/03/18 11/29/18 Metoprolol Tartrate [Lopressor] 50 mg PO BID 10/03/18 11/29/18 Valsartan 320 mg PO DAILY 10/03/18 11/29/18 metFORMIN HCL [Glucophage] 500 mg PO BID 10/03/18 11/29/18 Omeprazole 40 mg PO DAILY 11/29/18 11/29/18 Allergies Allergy/AdvReac Type Severity Reaction Status Date / Time No Known Allergies Allergy Verified 11/29/18 20:53 Review of Systems ROS Statement: Those systems with pertinent positive or pertinent negative responses have been documented in the HPI. ROS Other: All systems not noted in ROS Statement are negative. Constitutional: Denies: fever Eyes: Denies: eye pain ENT: Denies: ear pain Respiratory: Denies: cough Cardiovascular: Reports: as per HPI, chest pain Endocrine: Denies: fatigue Gastrointestinal: Denies: abdominal pain Genitourinary: Denies: dysuria Musculoskeletal: Denies: back pain Skin: Denies: rash Neurological: Denies: headache, weakness, confusion Past Medical History Past Medical History: Coronary Artery Disease (CAD), Heart Failure, COPD, Hyperlipidemia, Hypertension, Myocardial Infarction ([place]) Additional Past Medical History / Comment(s): seen in er 09/09/18-shingles to back of head-resolved now. BRAIN ANEURSYM-DX 2018-BEING FOLLOWING BY DR. GILLESPIE IN [place] Last Myocardial Infarction Date:: 04/2009 History of Any Multi-Drug Resistant Organisms: None Reported Past Surgical History: AICD, Heart Catheterization, Joint Replacement Additional Past Surgical History / Comment(s): right knee replaced. COLONOSCOPY Past Anesthesia/Blood Transfusion Reactions: No Reported Reaction Type of Cardiac Device: AICD Device Placement Date:: 2009 Past Psychological History: No Psychological Hx Reported Smoking Status: Former smoker Past Alcohol Use History: None Reported Past Drug Use History: None Reported - Past Family History Mother Family Medical History: No Reported History Father Family Medical History: Liver Disease General Exam Limitations: no limitations General appearance: alert, in no apparent distress Head exam: Present: other (Soft tissue swelling right forehead small abrasion) Eye exam: Present: normal appearance, PERRL, EOMI. Absent: nystagmus ENT exam: Present: normal oropharynx Neck exam: Present: normal inspection. Absent: tenderness Respiratory exam: Present: normal lung sounds bilaterally, chest wall tenderness (There is some tenderness over the defibrillator left anterior chest wall.) Cardiovascular Exam: Present: regular rate, normal rhythm Expanded Peripheral pulses: 2+: Radial (R), Radial (L), Posterior Tibialis (R), Posterior Tibialis (L), Dorsalis Pedis (R), Dorsalis Pedis (L) GI/Abdominal exam: Present: soft. Absent: tenderness Extremities exam: Present: normal inspection. Absent: pedal edema, calf tende rness Neurological exam: Present: alert, oriented X3, CN II-XII intact. Absent: motor sensory deficit Expanded Motor strength exam: RUE: 5, LUE: 5, RLE: 5, LLE: 5 Psychiatric exam: Present: normal affect, normal mood Skin exam: Present: abrasion (Small abrasion and bruising right forehead) Course Vital Signs 11/29/18 20:53 Temperature 97.7 F Pulse Rate 84 Respiratory 16 Rate Blood Pressure 119/63 O2 Sat by Pulse 97 Oximetry EKG Findings - EKG Comments: EKG Findings:: Sinus rhythm at 92. PVC is present. WA 188. QRS 104. QT 360. QTC 445. Borderline left axis. Normal QRS. Nonspecific T waves. Medical Decision Making - Medical Decision Making Patient reevaluated and resting comfortably in bed. Patient symptom-free at this time. Case discussed in detail with Dr. Mckee with cardiology who will consult and does recommend admission with heparin and amiodarone. Case also discussed in detail with Dr. Hunt, who will admit. Patient and family family updated. - Lab Data Result diagrams: 11/29/18 21:02 11/29/18 21:02 Lab Results 11/29/18 11/29/18 11/29/18 Range/Units 21:02 21:02 21:02 WBC 6.5 (3.8-10.6) k/uL RBC 3.63 L (4.30-5.90) m/uL Hgb 11.2 L (13.0-17.5) gm/dL Hct 34.2 L (39.0-53.0) % MCV 94.2 (80.0-100.0) fL MCH 30.9 (25.0-35.0) pg MCHC 32.8 (31.0-37.0) g/dL RDW 14.0 (11.5-15.5) % Plt Count 117 L (150-450) k/uL Neutrophils % 57 % Lymphocytes % 27 % Monocytes % 7 % Eosinophils % 5 % Basophils % 0 % Neutrophils # 3.7 (1.3-7.7) k/uL Lymphocytes # 1.8 (1.0-4.8) k/uL Monocytes # 0.5 (0-1.0) k/uL Eosinophils # 0.3 (0-0.7) k/uL Basophils # 0.0 (0-0.2) k/uL PT 10.3 (9.0-12.0) sec INR 1.0 (<1.2) APTT 23.6 (22.0-30.0) sec Sodium 142 (137-145) mmol/L Potassium 4.1 (3.5-5.1) mmol/L Chloride 108 H (98-107) mmol/L Carbon Dioxide 24 (22-30) mmol/L Anion Gap 10 mmol/L BUN 27 H (9-20) mg/dL Creatinine 1.48 H (0.66-1.25) mg/dL Est GFR (CKD-EPI)AfAm 56 (>60 ml/min/1.73 sqM) Est GFR (CKD-EPI)NonAf 49 (>60 ml/min/1.73 sqM) Glucose 105 H (74-99) mg/dL Calcium 8.8 (8.4-10.2) mg/dL Magnesium 1.5 L (1.6-2.3) mg/dL Total Bilirubin 0.4 (0.2-1.3) mg/dL AST 44 (17-59) U/L ALT 49 (21-72) U/L Alkaline Phosphatase 73 (38-126) U/L Troponin I (0.000-0.034) ng/mL Total Protein 6.9 (6.3-8.2) g/dL Albumin 3.9 (3.5-5.0) g/dL TSH 2.060 (0.465-4.680) mIU/L Free T4 0.85 (0.78-2.19) ng/dL Free T3 pg/mL 4.5 (2.8-5.3) pg/ml Digoxin <0.4 ng/mL 11/29/18 Range/Units 21:02 WBC (3.8-10.6) k/uL RBC (4.30-5.90) m/uL Hgb (13.0-17.5) gm/dL Hct (39.0-53.0) % MCV (80.0-100.0) fL MCH (25.0-35.0) pg MCHC (31.0-37.0) g/dL RDW (11.5-15.5) % Plt Count (150-450) k/uL Neutrophils % % Lymphocytes % % Monocytes % % Eosinophils % % Basophils % % Neutrophils # (1.3-7.7) k/uL Lymphocytes # (1.0-4.8) k/uL Monocytes # (0-1.0) k/uL Eosinophils # (0-0.7) k/uL Basophils # (0-0.2) k/uL PT (9.0-12.0) sec INR (<1.2) APTT (22.0-30.0) sec Sodium (137-145) mmol/L Potassium (3.5-5.1) mmol/L Chloride (98-107) mmol/L Carbon Dioxide (22-30) mmol/L Anion Gap mmol/L BUN (9-20) mg/dL Creatinine (0.66-1.25) mg/dL Est GFR (CKD-EPI)AfAm (>60 ml/min/1.73 sqM) Est GFR (CKD-EPI)NonAf (>60 ml/min/1.73 sqM) Glucose (74-99) mg/dL Calcium (8.4-10.2) mg/dL Magnesium (1.6-2.3) mg/dL Total Bilirubin (0.2-1.3) mg/dL AST (17-59) U/L ALT (21-72) U/L Alkaline Phosphatase (38-126) U/L Troponin I 0.434 H* (0.000-0.034) ng/mL Total Protein (6.3-8.2) g/dL Albumin (3.5-5.0) g/dL TSH (0.465-4.680) mIU/L Free T4 (0.78-2.19) ng/dL Free T3 pg/mL (2.8-5.3) pg/ml Digoxin ng/mL - Radiology Data Radiology results: image reviewed (Chest x-ray shows no acute process computed tomography scan of the brain shows atrophy. No acute intercranial abnormality.) Critical Care Time Critical Care Time: Yes Total Critical Care Time: 32 Disposition Clinical Impression: Ventricular fibrillation Disposition: ADMITTED IP TO THIS [facility] Condition: Serious Is patient prescribed a controlled substance at d/c from ED?: No Referrals: Bree Dias DO [Primary Care Provider] - 1-2 days Decision Time: 22:29
[2018-11-29 21:42] LABS: Partial Thromboplastin Time 23.6 sec (22.0-30.0); Prothrombin Time 10.3 sec (9.0-12.0)
--- NOTE | 2018-11-29 21:44 | XR ---
EXAMINATION TYPE: XR chest 2V DATE OF EXAM: 11/29/2018 COMPARISON: NONE HISTORY: Shock. Dysrhythmia. TECHNIQUE: Frontal and lateral views of the chest are obtained. FINDINGS: There is no heart failure nor confluent pneumonic infiltrate. There is left axillary pacem kayla. There is no pleural effusion. Bony thorax is intact. IMPRESSION: No active cardiopulmonary disease. No change.
[2018-11-29 21:45] LABS: ALT 49 U/L (21-72); AST 44 U/L (17-59); African American GFR (CKD) 56 (>60 ml/min/1.73 sqM); Albumin 3.9 g/dL (3.5-5.0); Alkaline Phosphatase 73 U/L (38-126); Anion Gap 10 mmol/L; Blood Urea Nitrogen 27 mg/dL (9-20); Calcium 8.8 mg/dL (8.4-10.2); Carbon Dioxide 24 mmol/L (22-30); Chloride 108 mmol/L (98-107); Digoxin <0.4 ng/mL; Glucose 105 mg/dL (74-99); Magnesium 1.5 mg/dL (1.6-2.3); Potassium 4.1 mmol/L (3.5-5.1); Sodium 142 mmol/L (137-145); Total Bilirubin 0.4 mg/dL (0.2-1.3); Total Protein 6.9 g/dL (6.3-8.2)
[2018-11-29 21:56] LABS: Basophils % (A) 0 %; Eosinophils # (A) 0.3 k/uL (0-0.7); Eosinophils % (A) 5 %; HCT 34.2 % (39.0-53.0); HGB 11.2 gm/dL (13.0-17.5); Lymphocytes # (A) 1.8 k/uL (1.0-4.8); Lymphocytes % (A) 27 %; MCH 30.9 pg (25.0-35.0); MCHC 32.8 g/dL (31.0-37.0); MCV 94.2 fL (80.0-100.0); Mean Platelet Volume 8.2; Monocytes # (A) 0.5 k/uL (0-1.0); Monocytes % (A) 7 %; Neutrophils # (A) 3.7 k/uL (1.3-7.7); Neutrophils % (A) 57 %; Platelet Count 117 k/uL (150-450); RBC 3.63 m/uL (4.30-5.90); WBC 6.5 k/uL (3.8-10.6)
[2018-11-29 22:00] LABS: T4, Free (Free Thyroxine) 0.85 ng/dL (0.78-2.19)
[2018-11-29] MEDS ORDERED: MAGNESIUM SULFATE-D5W PMX 1 GM in DEXTROSE/WATER 1 100ML.BAG IVPB ONE (22:01)
--- NOTE | 2018-11-29 22:12 | CT ---
EXAMINATION TYPE: CT brain wo con DATE OF EXAM: 11/29/2018 COMPARISON: 09/08/2018 HISTORY: Syncope with head injury CT DLP: 1084.4 mGycm Automated exposure control for dose reduction was used. FINDINGS: There is mild cerebral atrophy. There is no mass effect nor midline shift. There is no sign of intrac ranial hemorrhage. There is mild scalp frontal soft tissue swelling. The calvarium is intact. IMPRESSION: CEREBRAL ATROPHY. NO ACUTE INTRACRANIAL ABNORMALITY. BRAIN UNCHANGED.
[2018-11-29] MEDS ORDERED: DEXTROSE 5% IN WATER 100 ML with AMIODARONE 150 MG IV ONE (22:29)
[2018-11-29] MEDS ORDERED: AMIODARONE 360 MG in DEXTROSE 5% IN WATER 200 ML IV ONE ×2 (22:29)
[2018-11-29] MEDS ORDERED: HEPARIN SOD,PORK IN 0.45% NACL 25,000 UNIT in 0.45% NACL 1 250ML.BAG IV SCH (22:30)
[2018-11-29] MEDS ORDERED: NITROGLYCERIN SL TABS 0.4 MG TAB SUBLINGUAL PRN (22:30)
[2018-11-29] MEDS ORDERED: ASPIRIN 81 MG PO STA (22:30)
[2018-11-29] MEDS ORDERED: HEPARIN SODIUM,PORCINE 5,000 UNIT/ML 1 ML VIAL IV PRN (22:30)
[2018-11-29] MEDS ORDERED: HEPARIN SODIUM,PORCINE 5,000 UNIT/ML 1 ML VIAL IV ONE (22:30)
[2018-11-29 23:43] LABS: Glucose,Whole Blood 159 mg/dL (75-99)
[2018-11-30 03:16] LABS: HCT 30.8 % (39.0-53.0); HGB 10.3 gm/dL (13.0-17.5); MCH 31.6 pg (25.0-35.0); MCHC 33.3 g/dL (31.0-37.0); MCV 94.7 fL (80.0-100.0); Mean Platelet Volume 9.5; Platelet Count 109 k/uL (150-450); RBC 3.25 m/uL (4.30-5.90); RDW 14.1 % (11.5-15.5); WBC 7.1 k/uL (3.8-10.6)
[2018-11-30 03:43] LABS: Magnesium 1.8 mg/dL (1.6-2.3); Potassium 4.1 mmol/L (3.5-5.1)
[2018-11-30 03:53] LABS: Calcium 8.5 mg/dL (8.4-10.2)
[2018-11-30] MEDS ORDERED: Magnesium Replacement Protocol 1 EACH MISC MISCELLANE PRN (04:23)
[2018-11-30] MEDS ORDERED: AMIODARONE 300 MG in DEXTROSE 5% IN WATER 250 ML IV SCH ×2 (04:28)
[2018-11-30] MEDS: MAGNESIUM SULFATE-D5W PMX 1 GM in DEXTROSE/WATER 1 100ML.BAG IVPB SCH ×2 (05:01→05:55)
[2018-11-30] MEDS ORDERED: PANTOPRAZOLE 40 MG TABLET PO SCH (07:30)
--- NOTE | 2018-11-30 08:05 | CONS ---
CONSULTATION This is a 68-year-old gentleman with a known history of a combination of ischemic and nonischemic cardiomyopathy who had a single-chamber ICD that was replaced with a new pulse generator in October of 2016 and as recently as September of 2018, he had defibrillation thresholds performed and the device was functioning well. This gentleman was out hunting and while he was standing by the car talking to his friend he felt a shock for the ICD. This apparently was the first shock ever felt. He felt after that 2 additional shocks and then he completely was knocked out and had one more shock when he was unresponsive and with that 911 was called and he was brought into the hospital here. He hurt his right shoulder and also some bruising on his head, but no major injuries. He was brought in by the EMS after having 4 shocks totally. In the emergency room, he had runs of nonsustained ventricular tachycardia, was placed on an amiodarone bolus and drip and also his magnesium was 1.5 and this was supplemented. This gentleman has history of a combination of ischemic and nonischemic cardiomyopathy, hypertension, hyperlipidemia, type 2 diabetes mellitus. 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 He apparently had an ID at that time. He also has intracranial aneurysm which is being followed by a neurosurgeon in the [place] area, details of which are not available. At the time of my evaluation, patient is comfortable, has some right shoulder discomfort where he fell. Has no chest pain. Has recollection of the shocks, but seems to be doing better. His troponin is elevated. The exact precipitating factor for his ICD discharge is unclear whether it is ischemia or scar is somewhat unclear. Echo performed in October 2017 revealed a global decrease in contractility with ejection fraction in the range of 40% to 45% without pulmonary hypertension. PAST MEDICAL HISTORY: 1. Ischemic and nonischemic cardiomyopathy with an ID in 2009 when he was found to have a total occlusion of the right coronary artery, whether it was an actual ID or a post infarct angina is unclear. However, he has mild disease in LAD and circumflex at that time. His ejection fraction has been in the range of 35% or to 45%. The clinical picture suggests a combination of both ischemic and nonischemic cardiomyopathy type picture. 2. Patient also has type 2 diabetes, hypertension, hyperlipidemia, and has had an ICD for the last 9 years. MEDICATIONS: Medications at home include aspirin, atorvastatin 40 mg daily, Lasix 20 mg daily, losartan 100 mg daily, metoprolol tartrate 50 mg b.i.d., omeprazole 40 mg daily, metformin 500 mg b.i.d. ALLERGIES: None. REVIEW OF SYSTEMS: Unremarkable other than the above-mentioned facts. PHYSICAL EXAMINATION: On examination, blood pressure is 140/70, pulse rate is 70 per minute, regular. HEENT: Unremarkable. Fundus was not examined by me. Neck is supple. There is no JVD. I do not hear a carotid bruit. Heart exam reveals S1, S2 with distant heart sounds. Lungs reveal a diminished air entry in both lung pritchett with scattered rhonchi. Abdomen is soft, nontender. Lower extremities reveal diminished pulses. CENTRAL NERVOUS SYSTEM: Grossly no focal deficits. EKG revealed sinus mechanism, nonspecific ST changes, no acute findings. LABORATORY DATA: Laboratory data reveals that his magnesium was down to 1.5 and this is being supplemented. Potassium is 4.1. Creatinine is 1.31. Troponin has gone up to 3.6. Thyroid functions are normal. Hemoglobin is normal. IMPRESSION: 1. Status post ICD shock for what seems to be ventricular tachycardia for which he received ATP therapy and then had a defibrillation for ventricular fibrillation. 2. Ischemic cardiomyopathy as well as nonischemic cardiomyopathy with ejection fraction in the 40% to 45% range with a known occlusion of right coronary artery, chronic, with mild disease in left anterior descending artery and circumflex based on a cardiac catheterization in 2009. 3. Type 2 diabetes mellitus. 4. Hypertension. 5. Hyperlipidemia. RECOMMENDATIONS: I am recommending that we will continue the heparin drip including the amiodarone drip. We will supplement magnesium. I will obtain echocardiogram. This patient also has COPD and is a past smoker, 9 years ago he quit. We will perform coronary angiography either later on today or tomorrow to assess for any ischemia causing this arrhythmia and also seek an EP evaluation. I discussed my thoughts in detail with the patient. Thank you very much for the consult. SHANNAN / MARISELA: [id number] /
[2018-11-30] MEDS ORDERED: metFORMIN 500 MG TAB PO SCH (09:00)
[2018-11-30] MEDS ORDERED: VALSARTAN 160 MG TAB PO SCH (09:00)
[2018-11-30] MEDS ORDERED: FUROSEMIDE 40 MG TAB PO SCH (09:00)
[2018-11-30] MEDS ORDERED: ASPIRIN 325 MG TAB PO SCH (09:00)
[2018-11-30] MEDS ORDERED: DIGOXIN 125 MCG TAB PO SCH (09:00)
[2018-11-30] MEDS: hydrALAZINE HCL 25 MG TAB PO SCH ×2 (09:32→21:17)
[2018-11-30] MEDS: GABAPENTIN 300 MG CAP PO SCH ×2 (09:32→21:16)
[2018-11-30] MEDS: METOPROLOL TARTRATE 50 MG TAB PO SCH ×2 (09:32→21:16)
[2018-11-30] MEDS: FINASTERIDE 5 MG TAB PO SCH (09:32)
[2018-11-30] MEDS ORDERED: LIDOCAINE 1% INJ 10MG/ML (20 ML MDV) ONE (11:42)
[2018-11-30] MEDS ORDERED: VERAPAMIL 2.5 MG/ML 2 ML AMP ONE (11:42)
[2018-11-30] MEDS ORDERED: fentaNYL (PF) 50 MCG/ML 2 ML AMP ONE (11:42)
[2018-11-30] MEDS ORDERED: HEPARIN SODIUM 1,000 UN/ML (10ML VL) ONE (11:42)
[2018-11-30] MEDS ORDERED: IV FLUID CONTINUATION 800 ML IV ONE (11:51)
[2018-11-30] MEDS ORDERED: fentaNYL (PF) 50 MCG/ML 2 ML AMP IV ONE (12:00)
[2018-11-30] MEDS ORDERED: LIDOCAINE 1% INJ 10MG/ML (20 ML MDV) SQ ONE (12:05)
[2018-11-30] MEDS ORDERED: VERAPAMIL SYRINGE (5 MG/10 ML) INTRAARTER ONE (12:09)
[2018-11-30] MEDS ORDERED: HEPARIN SODIUM 1,000 UN/ML (10ML VL) IV ONE (12:21)
[2018-11-30] MEDS ORDERED: IOPAMIDOL-370 125ML BTL INJ ONE (12:22)
[2018-11-30] MEDS ORDERED: RX INFO: IV CONTRAST WAS GIVEN 1 EACH MISC MISCELLANE PRN (12:37)
[2018-11-30] MEDS ORDERED: HEPARIN SODIUM,PORCINE 5,000 UNIT/ML 1 ML VIAL IV PRN (12:40)
[2018-11-30] MEDS ORDERED: SODIUM CHLORIDE 0.9% 1,000 ML IV SCH (12:45)
--- NOTE | 2018-11-30 12:50 | ECHOF ---
Referral Reason:Vfib/Vtach MEASUREMENTS -------- HEIGHT: 160.0 cm WEIGHT: 82.6 kg BP: 135/70 RVIDd: 3.7 cm (< 3.3) IVSd: 1.3 cm (0.6 - 1.1) LVIDd: 4.6 cm (3.9 - 5.3) LVPWd: 1.6 cm (0.6 - 1.1) IVSs: 1.4 cm LVIDs: 4.2 cm LVPWs: 1.4 cm LA Diam: 4.6 cm (2.7 - 3.8) LAESV Index (A-L): 37.23 ml/m Ao Diam: 3.3 cm (2.0 - 3.7) LA Diam: 3.4 cm (2.7 - 3.8) MV EXCURSION: 25.380 mm (> 18.000) MV EF SLOPE: 83 mm/s (70 - 150) EPSS: 1.2 cm MV E Patric: 0.72 m/s MV DecT: 140 ms MV A Patric: 0.90 m/s MV E/A Ratio: 0.81 RAP: 5.00 mmHg RVSP: 50.22 mmHg TAPSE: 23.90 mm FINDINGS -------- Paced rhythm. This was a technically adequate study. The left ventricular size is normal. Left ventricular wall thickness is normal. There is severe g lobal hypokinesis of LV . Overall left ventricular systolic function is moderate-severely impaired with, an EF between 30 - 35 %. Left ventricular fillimg pressure cannot be estimated due to paced r hythm. The right ventricle is normal in size. The left atrium is moderately dilated. LA is moderately dilated 34-39 ml/m2 The right atrial size is normal. There is mild aortic valve sclerosis. There is no evidence of aortic regurgitation. Mild mitral annular calcification present. Mild mitral regurgitation is present. Mild tricuspid regurgitation present. There is moderate pulmonary hypertension. The right ventric ular systolic pressure, as measured by Doppler, is 50.22mmHg. There is no pulmonic regurgitation present. The aortic root size is normal. There is no pericardial effusion. CONCLUSIONS -------- 1. Paced rhythm. 2. This was a technically adequate study. 3. The left ventricular size is normal. 4. Left ventricular wall thickness is normal. 5. There is severe global hypokinesis of LV . 6. Left ventricular fillimg pressure cannot be estimated due to paced rhythm. 7. The right ventricle is normal in size. 8. The left atrium is moderately dilated. 9. LA is moderately dilated 34-39 ml/m2 10. The right atrial size is normal. 11. There is mild aortic valve sclerosis. 12. Mild mitral annular calcification present. 13. Mild mitral regurgitation is present. 14. Mild tricuspid regurgitation present. 15. There is moderate pulmonary hypertension. 16. The right ventricular systolic pressure, as measured by Doppler, is 50.22mmHg. 17. There is no pulmonic regurgitation present. 18. The aortic root size is normal. 19. There is no pericardial effusion. MACHINIST SUPERVISOR OUTSIDE: Ute Smith RDCS
--- NOTE | 2018-11-30 12:52 | CC ---
CARDIAC CATHETERIZATION REPORT Mr. Vance is a 68-year-old male with a known history of coronary artery disease, history of severe ischemic cardiomyopathy, history of ICD implantation who presented with discharge from his device. He was evaluated by Dr. Concepcion and because of his presentation, recommendation made regarding cardiac catheterization. The procedures, risks, and complications were discussed with the patient who is in full understanding and agreement. PROCEDURE: Patient was brought to the orthodontic laboratory technician in a fasting semi-sedated state after receiving fentanyl and Benadryl and achieving moderate conscious sedated state. Using Xylocaine anesthesia and Seldinger technique, a 6-Haitian sheath was introduced in the right radial artery. Selective right and left coronary angiography performed using 5-Haitian 3.5 bend right and left Joslyn catheter, multiple views of the coronary artery including hemiaxial views were obtained. Following that, the 5-Haitian right Joslyn was used to cross the aortic valve and pressures were calculated. Following that, catheter and sheaths were removed. Hemostasis was obtained with deployment of a TR band. There was no immediate complication and patient was returned to his room in stable condition. Of note, the patient received 5000 units of intravenous heparin as well as intra- arterial verapamil. 1. FLUOROSCOPY: There was severe calcification involving the left main and the proximal LAD as well as the right coronary artery. 2. LEFT MAIN: This is a large-sized vessel, bifurcating into left circumflex, left anterior descending artery. Left main coronary artery has a tubular stenosis of about 70% to the bifurcation. 3. LEFT ANTERIOR DESCENDING ARTERY: This is a large-sized vessel, reaching toward the apex with a wraparound apex segment, giving rise to 2 diagonal branches. The second diagonal branch is large in caliber. It has a 60% to 70% stenosis. The LAD has no evidence of high-grade stenosis. 4. LEFT CIRCUMFLEX: This is a nondominant vessel. giving rise to 2 obtuse marginal branches. The second one is large in caliber. The left circumflex has mild intimal disease without any evidence of high-grade stenosis. 5. RIGHT CORONARY ARTERY: This vessel is totally occluded proximally with no antegrade flow. 6. COLLATERALS: There is good collateral from the left coronary system toward the right PDA and the right PLV and feeding the RCA toward the mid segment. 7. HEMODYNAMICS: There was no gradient across the aortic valve. The left ventricular end-diastolic pressure was 12 mmHg. 8. LEFT VENTRICULOGRAM: Left ventriculogram is not performed. CONCLUSION: 1. Heavily calcified coronary arteries. 2. Significant disease in the left main. 3. Chronic occluded right coronary artery with collateral from the left coronary system. RECOMMENDATION: In view of finding anatomy and the presentation, recommend proceeding with evaluation for coronary artery bypass grafting. Those findings and recommendation were discussed with the patient and his family who are in full understanding and agreement. Duration of procedure is 20 minutes. MMODL / IJN: [id number] /
[2018-11-30] MEDS ORDERED: MD COMMUNICATION TO PHARMACY 1 EACH MISC PO ONE (13:08)
[2018-11-30 13:24] LABS: Glucose,Whole Blood 112 mg/dL (75-99)
[2018-11-30 13:26] LABS: Basophils # (A) 0.1 k/uL (0-0.2); Basophils % (A) 1 %; Eosinophils # (A) 0.3 k/uL (0-0.7); Eosinophils % (A) 4 %; HCT 31.7 % (39.0-53.0); HGB 10.6 gm/dL (13.0-17.5); Lymphocytes # (A) 1.7 k/uL (1.0-4.8); Lymphocytes % (A) 22 %; MCH 31.8 pg (25.0-35.0); MCHC 33.6 g/dL (31.0-37.0); MCV 94.7 fL (80.0-100.0); Mean Platelet Volume 8.3; Monocytes # (A) 0.5 k/uL (0-1.0); Monocytes % (A) 6 %; Neutrophils # (A) 4.9 k/uL (1.3-7.7); Neutrophils % (A) 64 %; Platelet Count 129 k/uL (150-450); RBC 3.35 m/uL (4.30-5.90); RDW 14.2 % (11.5-15.5); WBC 7.7 k/uL (3.8-10.6)
[2018-11-30] MEDS ORDERED: HEPARIN SOD,PORK IN 0.45% NACL 25,000 UNIT in 0.45% NACL 1 250ML.BAG IV SCH (15:00)
--- NOTE | 2018-11-30 15:24 | US ---
EXAMINATION TYPE: US carotid duplex BILAT DATE OF EXAM: 11/30/2018 COMPARISON: NONE CLINICAL HISTORY: Pre-Op Cardiac Surgery. EXAM MEASUREMENTS: RIGHT: Peak Systolic Velocity (PSV) cm/sec ----- Right CCA: 79.7 ----- Right ICA: 111.0 ----- Right ECA: 100.0 ICA/CCA ratio: 1.4 RIGHT: End Diastole cm/sec ----- Right CCA: 40.4 ----- Right ICA: 31.2 ----- Right ECA: 17.1 LEFT: Peak Systolic Velocity (PSV) cm/sec ----- Left CCA: 42.8 ----- Left ICA: no flow ----- Left ECA: 61.8 ICA/CCA ratio: -- LEFT: End Diastole cm/sec ----- Left CCA: 0.0 ----- Left ICA: no flow ----- Left ECA: 61.8 VERTEBRALS (direction of flow): Right Vertebral: not seen Left Vertebral: not seen Rhythm: Arrhythmia Pt unable to stay awake during exam, pulsatile vessels, technically difficult. Mild plaque seen on right, left shows severe plaque with occluded ICA. 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 Unable to identify flow in either vertebral artery noted. Consider follow-up CTA or MRA of the neck to better evaluate. Criteria for Assigning % of Stenosis / Diameter reduction (Estimation based on the indirect measurements of the internal carotid artery velocities (ICA PSV). 1. Normal (no stenosis)=ICA PSV < 125 cm/s: ratio < 2.0: ICA EDV<40 cm/s. 2. Less than 50% stenosis=ICA PSV < 125 cm/s: ratio < 2.0: ICA EDV<40 cm/s. 3. 50 to 69% stenosis=ICA PSV of 125 to 230 cm/s: ration 2.0 ? 4.0: ICA EDV 40-100 cm/s. 4. Greater than 70% stenosis to near occlusion= ICA PSV > 230 cm/s: ratio > 4.0: ICA EDV > 100 cm/s. 5. Near occlusion= ICA PSV velocities may be low or undetectable: variable ratio and ICA EDV. 6. Total occlusion=unable to detect flow.
[2018-11-30] MEDS ORDERED: PHENYLEPHRINE 10 MG/ML VIAL IV ONE (17:29)
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
[2018-11-30] MEDS ORDERED: DEXTROSE 5% IN WATER 1,000 ML with POTASSIUM CHLORIDE 110 MEQ, MAGNESIUM SULFATE 16 MEQ... IV SCH ×5 (17:30)
[2018-11-30] MEDS ORDERED: DEXTROSE 5% IN WATER 1,000 ML with POTASSIUM CHLORIDE 25 MEQ, SODIUM CHLORIDE 2.5MEQ/ML... IV SCH ×6 (17:30)
[2018-11-30 17:53] LABS: Appearance,Urine Clear (Clear); Bilirubin,Urine Negative (Negative); Blood,Urine Negative (Negative); Color,Urine Light Yellow; Glucose,Urine (UA) Negative (Negative); Ketones,Urine Negative (Negative); Leukocyte Esterase,Urine Negative (Negative); Nitrite,Urine Negative (Negative); Protein,Urine Negative (Negative); Specific Gravity,Urine 1.016 (1.001-1.035); Urobilinogen,Urine <2.0 mg/dL (<2.0)
[2018-11-30] MEDS: SODIUM CHLORIDE 0.9% 1,000 ML IV SCH (19:30)
--- NOTE | 2018-11-30 19:44 | CONS ---
CONSULTATION This is a Pulmonary/Critical care consultation. Rajiv Ibarra is a 68-year-old male who presented to the emergency room on November 29. He apparently was out hunting. He apparently collapsed and was found to be in cardiopulmonary arrest. He apparently was defibrillated or cardioverted 3-4 times. The patient does have an internal defibrillator. The patient apparently did lose consciousness. The patient fell and hit his head. He bruised the right side of his head. He presented and was very confused and weak. The patient was taken to the catheterization laboratory and found to have significant left main coronary artery disease. Apparently he is scheduled for open-heart surgery tomorrow with Dr. Welch. The patient is currently resting comfortably in bed. Nasal O2 in place. A basic IV started. He is also on amiodarone. He does have a history of probable underlying COPD from tobacco use. He does get short of breath on exertion which could relate to either cardiac or pulmonary disease. He also complains of coughing and wheezing from time to time. He does not smoke currently. He quit in 2009. HOME MEDICATIONS: Include aspirin, digoxin, Lasix, sublingual nitroglycerin, Apresoline, Proscar, gabapentin, Lipitor, Lopressor, valsartan, Glucophage, omeprazole. ALLERGIES: Denied. PAST MEDICAL HISTORY: Positive for CAD, CHF, COPD, hyperlipidemia, hypertension, myocardial infarction. He also has a history of shingles. He also was diagnosed as having a brain aneurysm in 2018. His last myocardial infarction was in 2009. SURGICAL HISTORY: Includes AICD placement, heart catheterization, and right knee replacement. He has also had a colonoscopy. SOCIAL HISTORY: Positive for previous tobacco use. He quit in 2009. He smoked for a number of years. Social history is otherwise unremarkable for alcohol or illicit drug use. FAMILY HISTORY: Positive for father with chronic liver disease. REVIEW OF SYSTEMS: CONSTITUTIONAL: Weakness, fatigue. NEUROLOGIC: Negative. HEENT negative. CARDIOVASCULAR negative. PULMONARY: Shortness of breath on exertion, cough, wheezing on exertion. GI negative. negative. RHEUMATOLOGIC negative. IMMUNOLOGIC negative. DERMATOLOGIC negative. PHYSICAL EXAMINATION: VITAL SIGNS: Current vital signs are reviewed. Temperature 97.6. Heart rate 75, respiratory rate 14, blood pressure 134/88, mean 103. Room air saturation 95%. Appears in no acute distress. HEENT examination is grossly unremarkable. Mucous membranes are moist. No oral lesions. NECK: Supple. Full range of motion. No adenopathy. Neck veins are flat. CARDIOVASCULAR examination reveals regular rhythm rate. Heart rate mid 80s. S1, S2 normal. Heart sounds are distant. LUNGS: Reveal mostly clear breath sounds. A few scattered mild rhonchi. No wheezes or crackles. ABDOMEN: Soft. Bowel sounds are heard. EXTREMITIES are intact. No cyanosis, clubbing, or edema. SKIN: Without rash. He does have a bruise on the right side of his forehead. NEUROLOGIC examination is brief but nonfocal. IMAGING PROCEDURE: The patient had a chest x-ray. The chest x-ray shows no active disease. A brain CT scan showed cerebral atrophy but no acute abnormalities. LABS: Reviewed. White count 7.7, hemoglobin 10.6, hematocrit 31.7, platelet count 129,000, PTT 36.8. Sodium, potassium, chloride, CO2 normal. Anion gap normal. The BUN and creatinine were 25 and 1.31. Troponins were 3.630 and 2.860. The carotid Doppler is pending as well as an ultrasound. I did ask the cardiothoracic nurses to order a bedside spirometry. ASSESSMENT: 1. Significant coronary artery disease including left main disease. 2. Status post defibrillator pacemaker insertion. 3. History of coronary artery disease. 4. Heart failure. 5. Probable chronic obstructive pulmonary disease. 6. Hyperlipidemia. 7. Hypertension. 8. Myocardial infarction. 9. History of shingles. PLAN: The patient will have a bedside spirometry. He does not smoke currently. Quit in 2009. The patient is currently being evaluated by cardiothoracic surgery. The plan is to take him to the operating room in the morning. Additional recommendations and suggestions are forthcoming. Prognosis is guarded. MMODL / IJN: [id number] /
[2018-11-30 20:11] LABS: Hepatitis A Antibody IgM Non-Reactive (Non-Reactive); Hepatitis B Core IgM Non-Reactive (Non-Reactive); Hepatitis B Surface Antigen Non-Reactive (Non-Reactive); Hepatitis C IgG Antibody Non-Reactive (Non-Reactive)
[2018-11-30 20:43] LABS: Hemoglobin A1C 5.6 % (4.0-6.0)
[2018-11-30] MEDS ORDERED: ATORVASTATIN 80 MG TAB PO SCH (21:00)
[2018-11-30] MEDS ORDERED: MUPIROCIN 2% OINT 22 GM TUBE NASAL SCH (21:00)
[2018-11-30] MEDS: AMIODARONE 200 MG TAB PO SCH (21:17)
[2018-11-30] MEDS: HYDROcodone/APAP 5-325MG 1 EACH TAB PO PRN (21:17)
[2018-11-30 21:28] LABS: Glucose,Whole Blood 120 mg/dL (75-99)
--- NOTE | 2018-11-30 23:20 | P.HPIM ---
History of Present Illness H&P Date: 11/30/18 Chief Complaint: fabiola Ibarra is a 68 yo M with hx CAD, cardiomyopathy with ICD in place, HTN, HLD, tobacco abuse. He presented to [facility] via EMS after his ICD shocked him while hunting yesterday. He states he had been out hunting a few hours and was standing with his friend when he felt his ICD shock him. He states this happened twice then he collapsed and EMS was called. Pt notes he was asymptomatic until his ICD went off. In the ED CXR clear, EKG in NSR with PVC, troponin positive and peaked at 3.6. Hgb 11.5, Cr 1.5, Mg 1.5. Review of Systems All systems: negative Constitutional: Denies chills, Denies fever Eyes: denies blurred vision, denies pain Ears, nose, mouth and throat: Denies headache, Denies sore throat Cardiovascular: Reports chest pain, Reports dyspnea on exertion, Reports syncope, Denies leg edema, Denies lightheadedness, Denies palpitations, Denies shortness of breath Respiratory: Denies cough Gastrointestinal: Denies abdominal pain, Denies diarrhea, Denies nausea, Denies vomiting Musculoskeletal: Denies myalgias Integumentary: Denies pruritus, Denies rash Neurological: Denies numbness, Denies weakness Psychiatric: Denies anxiety, Denies depression Endocrine: Denies fatigue, Denies weight change Past Medical History Past Medical History: Coronary Artery Disease (CAD), Heart Failure, COPD, Diabetes Mellitus, Hyperlipidemia, Hypertension, Myocardial Infarction (ID), Sleep Apnea/CPAP/BIPAP Additional Past Medical History / Comment(s): seen in er 09/09/18-shingles to back of head-resolved now. BRAIN ANEURSYM-DX 2018-BEING FOLLOW[place] BY DR. [place] Last Myocardial Infarction Date:: 04/2009 History of Any Multi-Drug Resistant Organisms: None Reported Past Surgical History: AICD, Heart Catheterization, Joint Replacement Additional Past Surgical History / Comment(s): right knee replaced. COLONOSCOPY Past Anesthesia/Blood Transfusion Reactions: No Reported Reaction Type of Cardiac Device: AICD Device Placement Date:: 2009 Past Psychological History: No Psychological Hx Reported Smoking Status: Former smoker Past Alcohol Use History: None Reported Additional Past Alcohol Use History / Comment(s): QUIT SMOKING 2008 Past Drug Use History: None Reported - Past Family History Mother Family Medical History: No Reported History Father Family Medical History: Liver Disease Brother(s) Family Medical History: Coronary Artery Disease (CAD) Medications and Allergies Home Medications Medication Instructions Recorded Confirmed Type Aspirin 325 mg PO DAILY 12/21/13 11/29/18 History Furosemide [Lasix] 20 mg PO DAILY 12/21/13 11/29/18 History Nitroglycerin Sl Tabs [Nitrostat] 0.4 mg SUBLINGUAL Q5M PRN 08/30/14 11/29/18 History hydrALAZINE HCL [Apresoline] 25 mg PO BID 08/30/14 11/29/18 History Finasteride [Proscar] 5 mg PO DAILY 02/01/16 11/29/18 History Gabapentin 600 mg PO BID 10/27/17 11/29/18 History Atorvastatin [Lipitor] 40 mg PO HS 10/03/18 11/29/18 History Metoprolol Tartrate [Lopressor] 50 mg PO BID 10/03/18 11/29/18 History metFORMIN HCL [Glucophage] 500 mg PO BID 10/03/18 11/29/18 History Losartan Potassium 100 mg PO DAILY 11/29/18 11/29/18 History Omeprazole 40 mg PO DAILY 11/29/18 11/29/18 History Allergies Allergy/AdvReac Type Severity Reaction Status Date / Time No Known Allergies Allergy Verified 11/29/18 20:53 Physical Exam Vitals: Vital Signs Temp Pulse Pulse Resp BP BP Pulse Ox 11/30/18 22:00 98.3 F 80 15 134/85 95 11/30/18 16:15 70 18 123/74 95 11/30/18 16:00 98 F 70 11 L 115/67 94 L 11/30/18 15:45 72 18 115/67 95 11/30/18 15:30 72 18 109/68 94 L 11/30/18 15:15 76 18 109/68 96 11/30/18 15:00 69 16 116/72 95 11/30/18 14:45 73 16 116/72 95 11/30/18 14:30 72 17 132/84 96 11/30/18 14:15 72 23 132/84 95 11/30/18 14:00 70 17 122/84 93 L 11/30/18 13:45 72 17 118/77 11/30/18 13:30 64 16 122/82 95 11/30/18 13:15 67 17 117/83 94 L 11/30/18 13:00 67 21 126/85 95 11/30/18 12:45 98 F 78 18 121/80 94 L 11/30/18 12:15 140/71 11/30/18 12:00 140/71 11/30/18 08:00 97.6 F 86 14 134/88 95 11/30/18 04:00 98.5 F 75 20 135/70 96 11/30/18 00:00 97.8 F 87 10 L 147/93 96 11/29/18 23:45 97.8 F 78 17 147/93 96 Intake and Output 11/30/18 11/30/18 12/01/18 14:59 22:59 06:59 Intake Total 50 484 Output Total 145 410 Balance -95 74 Intake: IV 50 434 Amiodarone 300 mg In 134 Dextrose 5% in Water 250 ml @ 0.5 MG/MIN 25 mls/hr IV .Q10H [facility] Rx#: [id number] Sodium Chloride 0.9% 1, 300 000 ml @ 100 mls/hr IV . Q10H [facility] Rx#:[id number] Oral 50 Output: Urine 145 410 Other: # Voids 1 General: well nourished, well developed, NAD. Vitals reviewed Eyes: PERRL, EOMI, conjunctiva normal HENT: normocephalic, mucus membranes moist Neck: supple, no JVD Lungs: normal respiratory effort, no wheezes or rales CV: Regular rate and rhythm, no murmur. Peripheral pulses 2+. No edema Abdomen: soft, nondistended, no organomegaly Lymph: no cervical or axillary LAD Skin: warm and dry. Results CBC & Chem 7: 11/30/18 13:00 11/30/18 03:04 Labs: Abnormal Lab Results - Last 24 Hours (Table) 11/29/18 11/30/18 11/30/18 Range/Units 23:31 03:04 03:04 RBC 3.25 L (4.30-5.90) m/uL Hgb 10.3 L (13.0-17.5) gm/dL Hct 30.8 L (39.0-53.0) % Plt Count 109 L (150-450) k/uL APTT (22.0-30.0) sec BUN (9-20) mg/dL Creatinine (0.66-1.25) mg/dL Glucose (74-99) mg/dL POC Glucose (mg/dL) 159 H (75-99) mg/dL Troponin I 3.630 H* (0.000-0.034) ng/mL HDL Cholesterol (40-60) mg/dL Crossmatch 11/30/18 11/30/18 11/30/18 Range/Units 03:04 04:26 09:14 RBC (4.30-5.90) m/uL Hgb (13.0-17.5) gm/dL Hct (39.0-53.0) % Plt Count (150-450) k/uL APTT 36.8 H (22.0-30.0) sec BUN 25 H (9-20) mg/dL Creatinine 1.31 H (0.66-1.25) mg/dL Glucose 175 H (74-99) mg/dL POC Glucose (mg/dL) (75-99) mg/dL Troponin I 2.860 H* (0.000-0.034) ng/mL HDL Cholesterol 35 L (40-60) mg/dL Crossmatch 11/30/18 11/30/18 11/30/18 Range/Units 13:00 13:11 13:20 RBC 3.35 L (4.30-5.90) m/uL Hgb 10.6 L (13.0-17.5) gm/dL Hct 31.7 L (39.0-53.0) % Plt Count 129 L (150-450) k/uL APTT (22.0-30.0) sec BUN (9-20) mg/dL Creatinine (0.66-1.25) mg/dL Glucose (74-99) mg/dL POC Glucose (mg/dL) 112 H (75-99) mg/dL Troponin I (0.000-0.034) ng/mL HDL Cholesterol (40-60) mg/dL Crossmatch See Detail 11/30/18 Range/Units 21:17 RBC (4.30-5.90) m/uL Hgb (13.0-17.5) gm/dL Hct (39.0-53.0) % Plt Count (150-450) k/uL APTT (22.0-30.0) sec BUN (9-20) mg/dL Creatinine (0.66-1.25) mg/dL Glucose (74-99) mg/dL POC Glucose (mg/dL) 120 H (75-99) mg/dL Troponin I (0.000-0.034) ng/mL HDL Cholesterol (40-60) mg/dL Crossmatch Microbiology - Last 24 Hours (Table) 11/30/18 19:25 Nasal Screen MRSA/MSSA - Preliminary Nasal Swab Thrombosis Risk Factor Assmnt - Choose All That Apply Each Factor Represents 1 point: Obesity (BMI >25) Each Risk Factor Represents 2 Points: Age 61-74 years Thrombosis Risk Factor Assessment Total Risk Factor Score: 3 Thrombosis Risk Factor Assessment Level: Moderate Risk Assessment and Plan (1) Elevated troponin Current Visit: Yes Status: Acute Code(s): R79.89 - OTHER SPECIFIED ABNORMAL FINDINGS OF BLOOD CHEMISTRY SNOMED Code(s): 345541906 (2) Ventricular fibrillation Current Visit: Yes Status: Acute Code(s): I49.01 - VENTRICULAR FIBRILLATION SNOMED Code(s): 24600780 (3) NSTEMI (non-ST elevated myocardial infarction) Current Visit: Yes Status: Acute Code(s): I21.4 - NON-ST ELEVATION (NSTEMI) MYOCARDIAL INFARCTION SNOMED Code(s): 87397001 (4) Hypertension Current Visit: Yes Status: Acute Code(s): I10 - ESSENTIAL (PRIMARY) HYPERTENSION SNOMED Code(s): 48927440 (5) Hyperlipidemia Current Visit: Yes Status: Acute Code(s): E78.5 - HYPERLIPIDEMIA, UNSPECIFIED SNOMED Code(s): 66568453 (6) Hypomagnesemia Current Visit: Yes Status: Acute Code(s): E83.42 - HYPOMAGNESEMIA SNOMED Code(s): 794649567 (7) Coronary artery disease involving [place] coronary artery Current Visit: Yes Status: Acute Code(s): I25.10 - ATHSCL HEART DISEASE OF [place] CORONARY ARTERY W/O ANG PCTRS SNOMED Code(s): 6521481057192 (8) Type 2 diabetes mellitus Current Visit: Yes Status: Acute Code(s): E11.9 - TYPE 2 DIABETES MELLITUS WITHOUT COMPLICATIONS SNOMED Code(s): 41230468 Plan: 1. Ventricular fibrillation. CAD. Ischemic cardiomyopathy. Cardiology consulted pt started on amiodarone. Continue heparin. Continue statin, BB and lasix 2. NSTEMI. Elevated troponin from ICD shock vs VF 3. Hypertension. Continue ARB 4. HLD. Continue lipitor 5. Hypomagnesemia. Replete 6. T2DM. continue metformin DVT prophylaxis heparin Time with Patient: Greater than 30
[2018-12-01] MEDS: SODIUM CHLORIDE 0.9% 1,000 ML IV SCH
[2018-12-01] MEDS: HYDROcodone/APAP 5-325MG 1 EACH TAB PO PRN (04:18)
[2018-12-01] MEDS ORDERED: PHENYLEPHRINE 40 MG in SODIUM CHLORIDE 0.9% 250 ML IV ONE (05:00)
[2018-12-01] MEDS ORDERED: PAPAVERINE 360 MG in SODIUM CHLORIDE 0.9% 90 ML IV ONE ×2 (05:00→09:27)
[2018-12-01] MEDS ORDERED: ceFAZolin 1,000 MG in SODIUM CHLORIDE 0.9% IRRIGATIO 1,000 ML IRRIGATION ONE (05:00)
[2018-12-01] MEDS ORDERED: SODIUM BICARB 8.4% 50 ML SYR (1 MEQ/ML) IV ONE (05:00)
[2018-12-01] MEDS ORDERED: PROTAMINE SULFATE 10 MG/ML 25 ML VIAL IV ONE ×2 (05:00→07:34)
[2018-12-01] MEDS ORDERED: CALCIUM CHLORIDE 100 MG/ML 10 ML SYRINGE IVP ONE (05:00)
[2018-12-01] MEDS ORDERED: CHLORHEXIDINE GLUCONATE 15 ML CUP MUCOUS MEM ONE (05:00)
[2018-12-01] MEDS ORDERED: NOREPINEPHRINE 4 MG in SODIUM CHLORIDE 0.9% 250 ML IV SCH (05:00)
[2018-12-01] MEDS ORDERED: METOPROLOL TARTRATE 12.5 MG TAB PO ONE (05:00)
[2018-12-01] MEDS ORDERED: ALBUMIN HUMAN 5% 500 ML in EMPTY BAG 1 BAG IVPB ONE ×6 (05:00)
[2018-12-01] MEDS ORDERED: CLEVIDIPINE BUTYRATE 25 MG in EMPTY BAG 1 BAG IV SCH (05:00)
[2018-12-01] MEDS ORDERED: PROPOFOL 1,000 MG in EMPTY BAG 1 BAG IV PRN (05:00)
[2018-12-01] MEDS ORDERED: ALBUMIN HUMAN 25% 50 ML in EMPTY BAG 1 BAG IVPB ONE (05:00)
[2018-12-01] MEDS ORDERED: NITROGLYCERIN-D5W PMX 25 MG/250 ML BTL IV ONE (05:00)
[2018-12-01] MEDS ORDERED: MANNITOL 25% 12.5 GM/50 ML VIAL IV ONE ×2 (05:00)
[2018-12-01] MEDS ORDERED: HEPARIN SODIUM,PORCINE 5,000 UNIT in SODIUM CHLORIDE 0.9% 500 ML 500 ML IV ONE (05:00)
[2018-12-01] MEDS ORDERED: MAGNESIUM SULFATE SYG 4.06 MEQ/ML SYRINGE IV ONE (05:00)
[2018-12-01] MEDS ORDERED: ATORVASTATIN 10 MG TAB PO ONE (05:00)
[2018-12-01] MEDS ORDERED: ceFAZolin 2,000 MG in SODIUM CHLORIDE 0.9% 30 ML IVPB ONE (05:00)
[2018-12-01] MEDS ORDERED: HEPARIN SODIUM 1,000 UN/ML (10ML VL) IV ONE (05:00)
[2018-12-01] MEDS ORDERED: TRANEXAMIC ACID 2,000 MG in SODIUM CHLORIDE 0.9% 80 ML IV ONE (05:00)
[2018-12-01] MEDS ORDERED: DILTIAZEM 125 MG in SODIUM CHLORIDE 0.9% 100 ML IV SCH (05:00)
[2018-12-01] MEDS ORDERED: PROTAMINE SULFATE 250 MG in EMPTY BAG 1 BAG IV ONE (05:00)
[2018-12-01] MEDS ORDERED: ASPIRIN 325 MG TAB PO ONE (05:00)
[2018-12-01] MEDS ORDERED: LACTATED RINGERS 1,000 ML IV SCH (05:00)
[2018-12-01] MEDS ORDERED: ceFAZolin 2 GM in SODIUM CHLORIDE 0.9% 30 ML IVPB ONE (05:00)
[2018-12-01 05:14] LABS: Basophils % (A) 0 %; Eosinophils # (A) 0.3 k/uL (0-0.7); Eosinophils % (A) 5 %; HCT 31.6 % (39.0-53.0); HGB 10.3 gm/dL (13.0-17.5); Lymphocytes # (A) 1.6 k/uL (1.0-4.8); Lymphocytes % (A) 25 %; MCH 31.3 pg (25.0-35.0); MCHC 32.7 g/dL (31.0-37.0); MCV 95.5 fL (80.0-100.0); Mean Platelet Volume 8.8; Monocytes # (A) 0.4 k/uL (0-1.0); Monocytes % (A) 6 %; Neutrophils # (A) 3.7 k/uL (1.3-7.7); Neutrophils % (A) 59 %; Platelet Count 116 k/uL (150-450); RBC 3.31 m/uL (4.30-5.90); WBC 6.2 k/uL (3.8-10.6)
[2018-12-01 05:21] LABS: INR 0.9 (<1.2); Partial Thromboplastin Time 25.5 sec (22.0-30.0); Prothrombin Time 10.1 sec (9.0-12.0)
[2018-12-01 05:28] LABS: Calcium 8.5 mg/dL (8.4-10.2); Magnesium 1.8 mg/dL (1.6-2.3); Potassium 4.4 mmol/L (3.5-5.1)
[2018-12-01] MEDS: MAGNESIUM SULFATE-D5W PMX 1 GM in DEXTROSE/WATER 1 100ML.BAG IVPB SCH ×2 (06:43→19:51)
[2018-12-01] MEDS ORDERED: MAGNESIUM SULFATE 4 MEQ/ML 10ML VIAL ONE (07:34)
[2018-12-01] MEDS ORDERED: SODIUM BICARB 8.4% 50 ML SYR (1 MEQ/ML) ONE (07:34)
[2018-12-01] MEDS ORDERED: PHENYLEPHRINE-0.9% NACL SYG 1 MG/10 ML SYRINGE ONE (07:34)
[2018-12-01] MEDS ORDERED: HEPARIN SODIUM,PORCINE 10,000 UNIT/ML 1 ML VIAL ONE (07:34)
[2018-12-01] MEDS ORDERED: fentaNYL (PF) 50 MCG/ML 50 ML VIAL ONE (07:34)
[2018-12-01] MEDS ORDERED: NITROGLYCERIN-D5W PMX 50 MG/250 ML BOTTLE IV ONE (07:34)
[2018-12-01] MEDS ORDERED: SODIUM CHLORIDE 0.9% 250 ML BAG ONE (07:34)
[2018-12-01] MEDS ORDERED: ELECTROLYTE-R (PH 7.4) 1,000 ML IV.SOLN IV ONE (07:34)
[2018-12-01] MEDS ORDERED: TRANEXAMIC ACID 1,000 MG/10 ML VIAL ONE (07:34)
[2018-12-01] MEDS ORDERED: INSULIN REGULAR 100 UNIT/ML VIAL ONE (07:34)
[2018-12-01] MEDS ORDERED: ALBUMIN HUMAN 5% (25gm) 500 ML VIAL IVPB ONE (07:34)
[2018-12-01] MEDS ORDERED: fentaNYL (PF) 50 MCG/ML 2 ML AMP ONE (07:34)
[2018-12-01] MEDS ORDERED: LIDOCAINE 2% SYG (PF) 100 MG/5 ML ONE (07:34)
[2018-12-01] MEDS ORDERED: SODIUM CHLORIDE 0.9% IRRIG 1,000 ML BTL IRRIGATION ONE (07:34)
[2018-12-01] MEDS ORDERED: VASOPRESSIN 20 UNIT/ML 1 ML VIAL ONE (07:34)
[2018-12-01] MEDS ORDERED: PROPOFOL 10 MG/ML 20 ML VIAL IV ONE (07:34)
[2018-12-01] MEDS ORDERED: MIDAZOLAM 2 MG/2 ML VIAL ONE (07:34)
[2018-12-01] MEDS ORDERED: VECURONIUM 10 MG VIAL IV ONE (07:34)
--- NOTE | 2018-12-01 08:08 | PN ---
PROGRESS NOTE PULMONARY/CRITICAL CARE PROGRESS NOTE: DATE OF SERVICE: December 01, 2018 A 68-year-old male we saw yesterday in consultation. He has a history of recently discovered significant coronary artery disease including left main disease. The patient is status post pacemaker defibrillator insertion, has a history of CAD, heart failure, COPD, hyperlipidemia, hypertension, myocardial infarction, and shingles. The patient was apparently out hunting. He apparently sustained a cardiopulmonary arrest. The patient apparently was defibrillated by his AICD device 3 or 4 times. He apparently did lose consciousness. He hit his head. He was brought in and was seen by Cardiothoracic yesterday. He is currently heading to the operating room as we speak. The patient is doing reasonably well otherwise. Not on any supplemental oxygen. I did look at his breathing test. His FEV1 is less than a liter. He was a heavy smoker in the past. Based on his lung function including the FEV1 and MVV, I did pass on to Cardiothoracic that he was a moderate to high increased operative risk. PHYSICAL EXAMINATION: VITAL SIGNS: Anyway, current vital signs are reviewed. His temperature is 97.9, heart rate 75, respiratory rate 20, blood pressure 121/83, mean 95, saturations on room air 94%. GENERAL: Appears in no acute distress. HEENT: Examination is grossly unremarkable. Mucous membranes are moist. NECK: Supple. Full range of motion. No adenopathy or thyromegaly. Neck veins are flat. CARDIOVASCULAR: Examination reveals regular rhythm and rate. Heart rate in the mid 70s. S1, S2 normal. No murmur. LUNGS: Reveal mostly clear breath sounds. A few scattered rhonchi. No wheezes or crackles. ABDOMEN: Soft. Bowel sounds are heard. EXTREMITIES: Are intact. No cyanosis, clubbing, or edema. SKIN: Without rash. NEUROLOGIC: Examination is brief but nonfocal. White count 6.2, hemoglobin 10.3, hematocrit 31.6, platelet count 116,000. PT, INR, PTT all normal. Sodium, potassium, chloride, CO2 normal. Anion gap normal. BUN and creatinine were normal. Troponin level 2.860. Urine was negative. ASSESSMENT: 1. Significant coronary artery disease including left main disease, with anticipated bypass grafting today, December 01, 2018. 2. Status post AICD placement. 3. History of coronary artery disease. 4. History of congestive heart failure. 5. Moderately severe chronic obstructive pulmonary disease. 6. Hyperlipidemia. 7. Hypertension. 8. Myocardial infarction. 9. History of shingles. PLAN: The patient is going to the operating room this morning. Apparently Dr. Owen is doing the surgery. Once he gets back from the operating room, we will continue to follow him and evaluate and concern ourself with his pulmonary status. We will make sure that he is on updrafts as well as Pulmicort and Perforomist. We will encourage deep breathing, coughing and clearing of secretions post extubation as well as hourly use of incentive spirometer. Additional recommendations and suggestions are forthcoming. His operative risks were passed on to Cardiothoracic Surgery yesterday. MMODL / IJN: [id number] /
[2018-12-01 08:55] LABS: ABG Base Excess -3.1 mmol/L; ABG Glucose Whole Blood 106 mg/dL (75-99); ABG HCO3 22 mmol/L (21-25); ABG Hematocrit 27 % (34.0-46.0); ABG Ionized Calcium 4.3 mg/dL (4.5-5.3); ABG Lactic Acid Whole Blood 1.2 mmol/L (0.5-1.6); ABG Oxygen Saturation 98.7 % (94-97); ABG PCO2 38 mmHg (35-45); ABG PH 7.37 (7.35-7.45); ABG PO2 125 mmHg (83-108); ABG Potassium Whole Blood 4.2 mmol/L (3.4-4.5); ABG Sodium Whole Blood 138 mmol/L (135-146); ABG TCO2 23 mmol/L (19-24)
[2018-12-01] MEDS ORDERED: ASPIRIN 81 MG PO SCH (09:00)
[2018-12-01] MEDS ORDERED: ceFAZolin 1,000 MG in SODIUM CHLORIDE 0.9% 1,000 ML IRRIGATION ONE (09:27)
[2018-12-01] MEDS ORDERED: SODIUM CHLORIDE 0.9% 500 ML 500 ML with HEPARIN SODIUM,PORCINE 5,000 UNIT IV ONE ×2 (09:27)
[2018-12-01 09:51] LABS: ABG Base Excess -2.8 mmol/L; ABG Glucose Whole Blood 119 mg/dL (75-99); ABG HCO3 23 mmol/L (21-25); ABG Hematocrit 28 % (34.0-46.0); ABG Ionized Calcium 4.5 mg/dL (4.5-5.3); ABG Lactic Acid Whole Blood 1.1 mmol/L (0.5-1.6); ABG PCO2 45 mmHg (35-45); ABG PH 7.32 (7.35-7.45); ABG PO2 166 mmHg (83-108); ABG Potassium Whole Blood 4.6 mmol/L (3.4-4.5); ABG Sodium Whole Blood 138 mmol/L (135-146); ABG TCO2 25 mmol/L (19-24)
[2018-12-01 11:05] LABS: ABG Base Excess -3.9 mmol/L; ABG Glucose Whole Blood 178 mg/dL (75-99); ABG HCO3 21 mmol/L (21-25); ABG Ionized Calcium 3.8 mg/dL (4.5-5.3); ABG Lactic Acid Whole Blood 1.4 mmol/L (0.5-1.6); ABG Oxygen Saturation 99.8 % (94-97); ABG PCO2 35 mmHg (35-45); ABG PH 7.38 (7.35-7.45); ABG PO2 381 mmHg (83-108); ABG Potassium Whole Blood 5.4 mmol/L (3.4-4.5); ABG Sodium Whole Blood 133 mmol/L (135-146); ABG TCO2 22 mmol/L (19-24)
[2018-12-01 11:30] LABS: ABG Base Excess -1.1 mmol/L; ABG Glucose Whole Blood 192 mg/dL (75-99); ABG HCO3 24 mmol/L (21-25); ABG Ionized Calcium 3.9 mg/dL (4.5-5.3); ABG Oxygen Saturation 99.9 % (94-97); ABG PCO2 38 mmHg (35-45); ABG PO2 383 mmHg (83-108); ABG Potassium Whole Blood 5.2 mmol/L (3.4-4.5); ABG Sodium Whole Blood 136 mmol/L (135-146); ABG TCO2 25 mmol/L (19-24)
[2018-12-01 11:48] LABS: ABG Hematocrit 22 % (34.0-46.0)
[2018-12-01 11:49] LABS: ABG Hematocrit 22 % (34.0-46.0); ABG Lactic Acid Whole Blood 2.3 mmol/L (0.5-1.6)
--- NOTE | 2018-12-01 14:11 | PN ---
PROGRESS NOTE This gentleman presented with multiple shocks of his AICD. Cardiac cath revealed that he had a significant left main lesion. He is going for aortocoronary bypass surgery, which will be performed today by Dr. Owen. Patient is hemodynamically stable, he is resting comfortably without symptoms. His vitals are stable. His cath site is clean and dry. Physical exam reveals S1, S2 heard normally, short systolic murmur. Lungs are clear. Abdomen and lower extremity exam unchanged. The patient will have aortocoronary bypass surgery today. He has a very calcified left main that is at least 60% to 70%. LAD is free of significant disease and diagonal is free of significant disease. The ostium of the circumflex also seems to have significant disease as well. Right coronary is chronically occluded totally. MMODL / IJN: [id number] /
--- NOTE | 2018-12-01 14:56 | P.ANPRN ---
Procedure Note - Anesthesia - Invasive Line Right Arterial Line Time Out Performed: Yes Date of Procedure: 12/01/18 Time of Procedure: 07:20 Location of Patient Procedure: PACU Preparation: Sterile Prep, Sterile Dressing Arterial Line Location: Radial Ultrasound Used: No Purpose - Visualization and Identification of Vasculature: No Needle Guage: 20 Image Stored and Saved: No Narrative: Right radial arterial line placement per sterile protocol utilized. Right Central Line Time Out Performed: Yes Date of Procedure: 12/01/18 Time of Procedure: 07:35 Location of Patient Procedure: PACU Preparation: Sterile Prep, Sterile Dressing Ultrasound Used: Yes Purpose - Visualization and Identification of Vasculature: Yes Needle Guage: 18 Image Stored and Saved: Yes Narrative: Central line placement per sterile protocol utilized. Right Eldridge Rosie Time Out Performed: Yes Date of Procedure: 12/01/18 Time of Procedure: 07:45 Location of Patient Procedure: PACU Preparation: Sterile Prep, Sterile Dressing Narrative: Eldridge Rosie secured at 42 cm - EDWAR Intraop Pre Bypass EDWAR Intraop - Anesthesia Indication: CABG Date of Procedure: 12/01/18 Pre-operative Diagnosis: CAD, CHF Post-operative Diagnosis: Same Surgeon: Iggy Owen Ejection Fraction: Other (EF 30%) Regional Wall Motion Abnormalities: Other (global hypokinesis. Akinesis inferoseptal) Left Ventricle Hypertrophy: No R. Ventricle Function: Hypokinesis Mild Anatomy: Trileaflet Aortic Stenosis: None Aortic Regurgitation: None Mitral Stenosis: None Mitral Regurgitation: Mild Tricuspid Stenosis: None Tricuspid Regurgitation: Moderate Pulmonic Stenosis: None Pulmonic Regurgitation: Trace R. Atrial Dilation: No R. Atrial PFO: No L. Atrial Dilation: No Aortic Dissection: No Aortic Calcification: Moderate Plural Effusion: None - EDWAR Intraop Post Bypass EDWAR Intraop Post Bypass Procedure Performed: CABG x 3 Ejection Fraction: Other (EF 45%) Regional Wall Motion Abnormalities: Other (Inferoseptal hypokinesis) R. Ventricle Function: Hypokinesis Mild Aortic Valve: Unchanged Mitral Valve: Unchanged Tricuspid: Unchanged Pulmonic: Unchanged Aortic Dissection: No
--- NOTE | 2018-12-01 15:01 | P.PN ---
<Jacque Pineda - Last Filed: 12/01/18 15:04> Subjective Progress Note Date: 12/01/18 Rajiv Ibarra is a 68 yo M with hx CAD, cardiomyopathy with ICD in place, HTN, HLD, tobacco abuse. He presented to [facility] via EMS after his ICD shocked him while hunting yesterday. He states he had been out hunting a few hours and was st anding with his friend when he felt his ICD shock him. He states this happened twice then he collapsed and EMS was called. Pt notes he was asymptomatic until his ICD went off. In the ED CXR clear, EKG in NSR with PVC, troponin positive and peaked at 3.6. Hgb 11.5, Cr 1.5, Mg 1.5. 12/01/2018 completed cardiac catheterization yesterday reporting 70% calcified left main stenosis, second diagonal branch of the LAD 60-70% stenosis and chronic total occlusion of RCA with collateral from left coronary system. Evaluated by cardiothoracic surgery, underwent CABG this morning. Objective - Vital Signs Vital signs: Vital Signs Temp 97.9 F 12/01/18 04:00 Pulse 75 12/01/18 04:00 Resp 21 12/01/18 04:00 BP 121/83 12/01/18 04:00 Pulse Ox 94 L 12/01/18 04:00 Intake & Output 11/30/18 12/01/18 12/01/18 18:59 06:59 18:59 Intake Total 534 1450 806 Output Total 555 1150 300 Balance -21 300 506 Weight 83.7 kg Intake: IV 484 950 806 Amiodarone 300 mg In 134 150 Dextrose 5% in Water 250 ml @ 0.5 MG/MIN 25 mls/hr IV .Q10H [facility] Rx#: [id number] Sodium Chloride 0.9% 1, 300 800 800 000 ml @ 100 mls/hr IV . Q10H [facility] Rx#:[id number] Oral 50 500 Output: Urine 555 1150 300 Other: # Voids 1 - Exam General: Lying in bed, intubated on mechanical ventilation and sedated Eyes: PERRL, EOMI, conjunctiva normal HENT: normocephalic Neck: supple, no JVD Lungs: normal respiratory effort, no wheezes or rales CV: Regular rate and rhythm, no murmur. Peripheral pulses 2+. No edema Abdomen: soft, nondistended, no organomegaly Lymph: no cervical or axillary LAD Skin: warm and dry. - Labs CBC & Chem 7: 12/01/18 04:42 12/01/18 04:42 Labs: Abnormal Lab Results - Last 24 Hours (Table) 11/30/18 11/30/18 11/30/18 Range/Units 13:00 13:11 13:20 RBC 3.35 L (4.30-5.90) m/uL Hgb 10.6 L (13.0-17.5) gm/dL Hct 31.7 L (39.0-53.0) % Plt Count 129 L (150-450) k/uL Glucose (74-99) mg/dL POC Glucose (mg/dL) 112 H (75-99) mg/dL Crossmatch See Detail 11/30/18 12/01/18 12/01/18 Range/Units 21:17 04:42 04:42 RBC 3.31 L (4.30-5.90) m/uL Hgb 10.3 L (13.0-17.5) gm/dL Hct 31.6 L (39.0-53.0) % Plt Count 116 L (150-450) k/uL Glucose 104 H (74-99) mg/dL POC Glucose (mg/dL) 120 H (75-99) mg/dL Crossmatch Microbiology - Last 24 Hours (Table) 11/30/18 19:25 Nasal Screen MRSA/MSSA - Preliminary Nasal Swab Assessment and Plan Assessment: (1)NSTEMI (non-ST elevated myocardial infarction),S/P cardiac catheterization reporting 70% calcified left main stenosis, second diagonal branch of the LAD 60-70% stenosis with chronic total occlusion of RCA.S/P CABG. Current Visit: Yes Status: Acute Code(s): I21.4 - NON-ST ELEVATION (NSTEMI) MYOCARDIAL INFARCTION SNOMED Code(s): 01253616 (2) Ventricular fibrillation Current Visit: Yes Status: Acute Code(s): I49.01 - VENTRICULAR FIBRILLATION SNOMED Code(s): 67718779 (3) Elevated troponin, Current Visit: Yes Status: Acute Code(s): R79.89 - OTHER SPECIFIED ABNORMAL FINDINGS OF BLOOD CHEMISTRY SNOMED Code(s): 733123893 (4) Hypertension Current Visit: Yes Status: Acute Code(s): I10 - ESSENTIAL (PRIMARY) HYPE RTENSION SNOMED Code(s): 99257029 (5) Hyperlipidemia Current Visit: Yes Status: Acute Code(s): E78.5 - HYPERLIPIDEMIA, UNSPECIFIED SNOMED Code(s): 12602953 (6) Hypomagnesemia Current Visit: Yes Status: Acute Code(s): E83.42 - HYPOMAGNESEMIA SNOMED Code(s): 426460148 (7) Coronary artery disease involving nooksack coronary artery Current Visit: Yes Status: Acute Code(s): I25.10 - ATHSCL HEART DISEASE OF [place] CORONARY ARTERY W/O ANG PCTRS SNOMED Code(s): 0921350613988 (8) Type 2 diabetes mellitus Current Visit: Yes Status: Acute Code(s): E11.9 - TYPE 2 DIABETES MELLITUS WITHOUT COMPLICATIONS SNOMED Code(s): 42661999 Plan: Continue on current medication regime ,monitoring and symptomatic treatment. Close monitoring of Accu-Cheks. The impression and plan of care has been dictated as directed. : I performed a history and examination of this patient, discussed the same with the dictator. I agree with the dictator's note ,documented as a scribe. Any ad ditional findings or plans will be noted. <Ed Dias - Last Filed: 12/01/18 23:27> Objective - Vital Signs Vital signs: Vital Signs Temp 98.6 F 12/01/18 18:11 Pulse 80 12/01/18 22:00 Resp 8 L 12/01/18 22:00 BP 93/57 12/01/18 21:30 Pulse Ox 99 12/01/18 22:00 Intake & Output 12/01/18 12/01/18 12/02/18 06:59 18:59 06:59 Intake Total 1450 1593 333.896 Output Total 1150 1983 252 Balance 300 -390 81.896 Weight 83.7 kg 84.2 kg Intake: IV 950 1066 288 Amiodarone 300 mg In 150 Dextrose 5% in Water 250 ml @ 0.5 MG/MIN 25 mls/hr IV .Q10H [facility] Rx#: [id number] Injectate 60 70 Kefzol 100 LR 100 200 Pressure bags 18 Sodium Chloride 0.9% 1, 800 800 000 ml @ 100 mls/hr IV . Q10H [facility] Rx#:[id number] Intake, IV Titration 45.896 Amount Dexmedetomidine/0.9% NaCl 14.033 (Pmx) 400 mcg In Empty Bag 1 bag @ Titrate IV . Q0M [facility] Rx#:[id number] Insulin Regular 100 unit 2.308 In Sodium Chloride 0.9% 100 ml @ Titrate IV .Q0M [facility] Rx#:[id number] Propofol 1,000 mg In 29.555 Empty Bag 1 bag @ Titrate IV .Q0M [facility] Rx#: [id number] Oral 500 Blood Product 527 Ffp 24 Cpda Unit 0 [id number] Platelet Pheresis Acda2 217 Unit [id number] Rc Pheresis 2 As3 Unit 310 [id number] Output: Chest Tube Drainage 123 47 LP 5 11 MS 118 36 Urine 1150 860 205 Estimated Blood Loss 1000 Other: Voiding Method Indwelling Catheter ABP, PAP, CO, CI - Last Documented Arterial Blood Pressure 121/62 Pulmonary Artery Pressure 47/28 Cardiac Output 5.6 Cardiac Index 2.9 - Labs CBC & Chem 7: 12/01/18 23:00 12/01/18 15:30 Labs: Abnormal Lab Results - Last 24 Hours (Table) 11/30/18 12/01/18 12/01/18 Range/Units 13:20 04:42 04:42 RBC 3.31 L (4.30-5.90) m/uL Hgb 10.3 L (13.0-17.5) gm/dL Hct 31.6 L (39.0-53.0) % Plt Count 116 L (150-450) k/uL Lymphocytes # (1.0-4.8) k/uL ABG pH (7.35-7.45) ABG pCO2 (35-45) mmHg ABG pO2 (83-108) mmHg ABG HCO3 (21-25) mmol/L ABG Total CO2 (19-24) mmol/L ABG O2 Saturation (94-97) % ABG Hematocrit (34.0-46.0) % ABG Sodium (135-146) mmol/L ABG Potassium (3.4-4.5) mmol/L ABG Ionized Calcium (4.5-5.3) mg/dL ABG Glucose (75-99) mg/dL ABG Lactic Acid (0.5-1.6) mmol/L Hemoglobin (13.0-17.5) gm/dL Chloride (98-107) mmol/L Glucose 104 H (74-99) mg/dL POC Glucose (mg/dL) (75-99) mg/dL Calcium (8.4-10.2) mg/dL Magnesium (1.6-2.3) mg/dL Alkaline Phosphatase (38-126) U/L Total Protein (6.3-8.2) g/dL Albumin (3.5-5.0) g/dL Arterial Blood Potassium (3.4-4.5) mmol/L Arterial Blood Glucose (75-99) mg/dL Crossmatch See Detail 12/01/18 12/01/18 12/01/18 Range/Units 08:58 09:54 11:08 RBC (4.30-5.90) m/uL Hgb (13.0-17.5) gm/dL Hct (39.0-53.0) % Plt Count (150-450) k/uL Lymphocytes # (1.0-4.8) k/uL ABG pH 7.32 L (7.35-7.45) ABG pCO2 (35-45) mmHg ABG pO2 125 H 166 H 381 H (83-108) mmHg ABG HCO3 (21-25) mmol/L ABG Total CO2 25 H (19-24) mmol/L ABG O2 Saturation 98.7 H 99.0 H 99.8 H (94-97) % ABG Hematocrit 27 L 28 L 22 L (34.0-46.0) % ABG Sodium 133 L (135-146) mmol/L ABG Potassium 4.6 H 5.4 H (3.4-4.5) mmol/L ABG Ionized Calcium 4.3 L 3.8 L (4.5-5.3) mg/dL ABG Glucose 106 H 119 H 178 H (75-99) mg/dL ABG Lactic Acid (0.5-1.6) mmol/L Hemoglobin 8.8 L 9.3 L 7.1 L (13.0-17.5) gm/dL Chloride (98-107) mmol/L Glucose (74-99) mg/dL POC Glucose (mg/dL) (75-99) mg/dL Calcium (8.4-10.2) mg/dL Magnesium (1.6-2.3) mg/dL Alkaline Phosphatase (38-126) U/L Total Protein (6.3-8.2) g/dL Albumin (3.5-5.0) g/dL Arterial Blood Potassium 4.6 H 5.4 H (3.4-4.5) mmol/L Arterial Blood Glucose 106 H 119 H 178 H (75-99) mg/dL Crossmatch 12/01/18 12/01/18 12/01/18 Range/Units 11:33 15:30 15:30 RBC 2.53 L (4.30-5.90) m/uL Hgb 7.9 L D (13.0-17.5) gm/dL Hct 24.0 L (39.0-53.0) % Plt Count 92 L (150-450) k/uL Lymphocytes # 0.9 L (1.0-4.8) k/uL ABG pH (7.35-7.45) ABG pCO2 (35-45) mmHg ABG pO2 383 H (83-108) mmHg ABG HCO3 (21-25) mmol/L ABG Total CO2 25 H (19-24) mmol/L ABG O2 Saturation 99.9 H (94-97) % ABG Hematocrit 22 L (34.0-46.0) % ABG Sodium (135-146) mmol/L ABG Potassium 5.2 H (3.4-4.5) mmol/L ABG Ionized Calcium 3.9 L (4.5-5.3) mg/dL ABG Glucose 192 H (75-99) mg/dL ABG Lactic Acid 2.3 H* (0.5-1.6) mmol/L Hemoglobin 7.2 L (13.0-17.5) gm/dL Chloride 109 H (98-107) mmol/L Glucose (74-99) mg/dL POC Glucose (mg/dL) (75-99) mg/dL Calcium 7.8 L (8.4-10.2) mg/dL Magnesium 3.0 H (1.6-2.3) mg/dL Alkaline Phosphatase 37 L (38-126) U/L Total Protein 4.4 L (6.3-8.2) g/dL Albumin 2.5 L (3.5-5.0) g/dL Arterial Blood Potassium 5.2 H (3.4-4.5) mmol/L Arterial Blood Glucose 192 H (75-99) mg/dL Crossmatch 12/01/18 12/01/18 12/01/18 Range/Units 16:07 18:08 19:00 RBC 2.30 L (4.30-5.90) m/uL Hgb 7.2 L (13.0-17.5) gm/dL Hct 21.7 L (39.0-53.0) % Plt Count 78 L (150-450) k/uL Lymphocytes # 0.3 L (1.0-4.8) k/uL ABG pH 7.32 L (7.35-7.45) ABG pCO2 52 H (35-45) mmHg ABG pO2 306 H (83-108) mmHg ABG HCO3 26 H (21-25) mmol/L ABG Total CO2 28 H (19-24) mmol/L ABG O2 Saturation 99.4 H (94-97) % ABG Hematocrit (34.0-46.0) % ABG Sodium (135-146) mmol/L ABG Potassium (3.4-4.5) mmol/L ABG Ionized Calcium (4.5-5.3) mg/dL ABG Glucose (75-99) mg/dL ABG Lactic Acid (0.5-1.6) mmol/L Hemoglobin (13.0-17.5) gm/dL Chloride (98-107) mmol/L Glucose (74-99) mg/dL POC Glucose (mg/dL) 145 H (75-99) mg/dL Calcium (8.4-10.2) mg/dL Magnesium (1.6-2.3) mg/dL Alkaline Phosphatase (38-126) U/L Total Protein (6.3-8.2) g/dL Albumin (3.5-5.0) g/dL Arterial Blood Potassium (3.4-4.5) mmol/L Arterial Blood Glucose (75-99) mg/dL Crossmatch 12/01/18 12/01/18 12/01/18 Range/Units 19:15 20:09 21:08 RBC (4.30-5.90) m/uL Hgb (13.0-17.5) gm/dL Hct (39.0-53.0) % Plt Count (150-450) k/uL Lymphocytes # (1.0-4.8) k/uL ABG pH (7.35-7.45) ABG pCO2 (35-45) mmHg ABG pO2 (83-108) mmHg ABG HCO3 (21-25) mmol/L ABG Total CO2 (19-24) mmol/L ABG O2 Saturation (94-97) % ABG Hematocrit (34.0-46.0) % ABG Sodium (135-146) mmol/L ABG Potassium (3.4-4.5) mmol/L ABG Ionized Calcium (4.5-5.3) mg/dL ABG Glucose (75-99) mg/dL ABG Lactic Acid (0.5-1.6) mmol/L Hemoglobin (13.0-17.5) gm/dL Chloride (98-107) mmol/L Glucose (74-99) mg/dL POC Glucose (mg/dL) 138 H 137 H 146 H (75-99) mg/dL Calcium (8.4-10.2) mg/dL Magnesium (1.6-2.3) mg/dL Alkaline Phosphatase (38-126) U/L Total Protein (6.3-8.2) g/dL Albumin (3.5-5.0) g/dL Arterial Blood Potassium (3.4-4.5) mmol/L Arterial Blood Glucose (75-99) mg/dL Crossmatch 12/01/18 12/01/18 12/01/18 Range/Units 22:04 23:00 23:04 RBC 2.26 L (4.30-5.90) m/uL Hgb 7.1 L (13.0-17.5) gm/dL Hct 21.2 L (39.0-53.0) % Plt Count 66 L (150-450) k/uL Lymphocytes # 0.5 L (1.0-4.8) k/uL ABG pH (7.35-7.45) ABG pCO2 (35-45) mmHg ABG pO2 (83-108) mmHg ABG HCO3 (21-25) mmol/L ABG Total CO2 (19-24) mmol/L ABG O2 Saturation (94-97) % ABG Hematocrit (34.0-46.0) % ABG Sodium (135-146) mmol/L ABG Potassium (3.4-4.5) mmol/L ABG Ionized Calcium (4.5-5.3) mg/dL ABG Glucose (75-99) mg/dL ABG Lactic Acid (0.5-1.6) mmol/L Hemoglobin (13.0-17.5) gm/dL Chloride (98-107) mmol/L Glucose (74-99) mg/dL POC Glucose (mg/dL) 138 H 141 H (75-99) mg/dL Calcium (8.4-10.2) mg/dL Magnesium (1.6-2.3) mg/dL Alkaline Phosphatase (38-126) U/L Total Protein (6.3-8.2) g/dL Albumin (3.5-5.0) g/dL Arterial Blood Potassium (3.4-4.5) mmol/L Arterial Blood Glucose (75-99) mg/dL Crossmatch Microbiology - Last 24 Hours (Table) 11/30/18 19:25 Nasal Screen MRSA/MSSA - Final Nasal Swab Assessment and Plan (1) Elevated troponin Current Visit: Yes Status: Acute Code(s): R79.89 - OTHER SPECIFIED ABNORMAL FINDINGS OF BLOOD CHEMISTRY SNOMED Code(s): 518076130 (2) Ventricular fibrillation Current Visit: Yes Status: Acute Code(s): I49.01 - VENTRICULAR FIBRILLATION SNOMED Code(s): 49386721 (3) NSTEMI (non-ST elevated myocardial infarction) Current Visit: Yes Status: Acute Code(s): I21.4 - NON-ST ELEVATION (NSTEMI) MYOCARDIAL INFARCTION SNOMED Code(s): 84356300 (4) Hypertension Current Visit: Yes Status: Acute Code(s): I10 - ESSENTIAL (PRIMARY) HYPERTENSION SNOMED Code(s): 36288799 (5) Hyperlipidemia Current Visit: Yes Status: Acute Code(s): E78.5 - HYPERLIPIDEMIA, UNSPECIFIED SNOMED Code(s): 27125242 (6) Hypomagnesemia Current Visit: Yes Status: Acute Code(s): E83.42 - HYPOMAGNESEMIA SNOMED Code(s): 742975265 (7) Coronary artery disease involving [place] coronary artery Current Visit: Yes Status: Acute Code(s): I25.10 - ATHSCL HEART DISEASE OF [place] CORONARY ARTERY W/O ANG PCTRS SNOMED Code(s): 1585284857720 (8) Type 2 diabetes mellitus Current Visit: Yes Status: Acute Code(s): E11.9 - TYPE 2 DIABETES MELLITUS WITHOUT COMPLICATIONS SNOMED Code(s): 67144297
[2018-12-01] MEDS ORDERED: PROPOFOL 1,000 MG in EMPTY BAG 1 BAG IV SCH (15:18)
[2018-12-01] MEDS ORDERED: Phosphorus Replacement Protoco 1 EACH MISC MISCELLANE PRN (15:18)
[2018-12-01] MEDS ORDERED: CALCIUM GLUCONATE 2 GM in SODIUM CHLORIDE 0.9% 100 ML IVPB PRN (15:18)
[2018-12-01] MEDS ORDERED: METOCLOPRAMIDE 5 MG/ML 2 ML VIAL IVP PRN (15:18)
[2018-12-01] MEDS ORDERED: BENZOCAINE/MENTHOL LOZENG 1 EACH LOZENGE MUCOUS MEM PRN (15:18)
[2018-12-01] MEDS ORDERED: DEXTROSE 5% IN WATER 100 ML with AMIODARONE 150 MG IV PRN (15:18)
[2018-12-01] MEDS ORDERED: IPRATROPIUM-ALBUTEROL 3 ML NEB INHALATION PRN (15:18)
[2018-12-01] MEDS ORDERED: Potassium Replacement Protocol 1 EACH MISC MISCELLANE PRN (15:18)
[2018-12-01] MEDS ORDERED: Magnesium Replacement Protocol 1 EACH MISC MISCELLANE PRN (15:18)
[2018-12-01 15:59] LABS: Glucose,Whole Blood 97 mg/dL (75-99)
[2018-12-01 16:17] LABS: Allen Test Performed? Yes
[2018-12-01 16:18] LABS: ABG Base Excess 0.2 mmol/L; ABG HCO3 26 mmol/L (21-25); ABG Oxygen Saturation 99.4 % (94-97); ABG PCO2 52 mmHg (35-45); ABG PH 7.32 (7.35-7.45); ABG PO2 306 mmHg (83-108); ABG TCO2 28 mmol/L (19-24)
[2018-12-01 16:21] LABS: Ionized Calcium 5.1 mg/dL (4.5-5.3)
[2018-12-01 16:22] LABS: Basophils # (A) 0.1 k/uL (0-0.2); Basophils % (A) 1 %; Eosinophils # (A) 0.1 k/uL (0-0.7); Eosinophils % (A) 1 %; Lymphocytes # (A) 0.9 k/uL (1.0-4.8); Lymphocytes % (A) 11 %; MCH 31.3 pg (25.0-35.0); MCHC 32.9 g/dL (31.0-37.0); MCV 94.9 fL (80.0-100.0); Mean Platelet Volume 8.7; Monocytes # (A) 0.8 k/uL (0-1.0); Monocytes % (A) 10 %; Neutrophils # (A) 6.3 k/uL (1.3-7.7); Neutrophils % (A) 76 %; RBC 2.53 m/uL (4.30-5.90); RDW 14.4 % (11.5-15.5); WBC 8.3 k/uL (3.8-10.6)
[2018-12-01 16:25] LABS: HGB 7.9 gm/dL (13.0-17.5)
[2018-12-01] MEDS ORDERED: SODIUM CHLORIDE 0.9% 150 ML with VASOPRESSIN 60 UNIT IV SCH ×2 (16:30)
[2018-12-01 16:32] LABS: INR 1.1 (<1.2); Partial Thromboplastin Time 29.9 sec (22.0-30.0); Prothrombin Time 11.5 sec (9.0-12.0)
--- NOTE | 2018-12-01 16:32 | XR ---
EXAMINATION TYPE: XR chest 1V portable DATE OF EXAM: 12/01/2018 CLINICAL HISTORY: Postopen cardiac surgery. TECHNIQUE: Single AP portable semiupright view of the chest is obtained. COMPARISON: Chest x-ray from 2 days earlier FINDINGS: An endotracheal tube terminates at superior clavicular level approximately 5 to 6 cm abov e mirian. There is new orogastric tube projecting below hemidiaphragm. There is new right internal ju gular Burna-Rosie catheter terminating at level of pulmonary outflow tract. There are 2 mediastinal simon inage catheters and left-sided chest tube. There is new right suprahilar linear atelectasis. Left candido g is clear. Cardiac size remains enlarged. Tracheal narrowing again seen. Osseous structures are inta ct. Diminished inspiration is noted. IMPRESSION: 1. New tubes and lines are satisfactory in position. 2. Cardiomegaly with new right suprahilar atelectasis.
[2018-12-01 16:34] LABS: Albumin 2.5 g/dL (3.5-5.0); Calcium 7.8 mg/dL (8.4-10.2); Potassium 4.1 mmol/L (3.5-5.1); Total Bilirubin 0.8 mg/dL (0.2-1.3); Total Protein 4.4 g/dL (6.3-8.2)
[2018-12-01 16:51] LABS: Platelet Count 92 k/uL (150-450)
[2018-12-01] MEDS: IPRATROPIUM-ALBUTEROL 3 ML NEB INHALATION SCH ×3 (17:14→19:39)
[2018-12-01 18:09] LABS: Glucose,Whole Blood 145 mg/dL (75-99)
[2018-12-01] MEDS: ACETAMINOPHEN IV (For NPO) 1,000 MG in EMPTY BAG 1 BAG IVPB SCH ×2 (18:35→23:18)
[2018-12-01 19:16] LABS: Glucose,Whole Blood 138 mg/dL (75-99)
[2018-12-01] MEDS: NITROGLYCERIN-D5W PMX 50 MG in DEXTROSE/WATER 1 250ML.BAG IV SCH (19:50)
[2018-12-01] MEDS: FINASTERIDE 5 MG TAB PO SCH (19:51)
[2018-12-01] MEDS: GABAPENTIN 300 MG CAP PO SCH ×2 (19:51→20:24)
[2018-12-01] MEDS: AMIODARONE 200 MG TAB PO SCH ×2 (19:51→20:24)
[2018-12-01] MEDS: CLEVIDIPINE BUTYRATE 25 MG in EMPTY BAG 1 BAG IV SCH (19:52)
[2018-12-01] MEDS: LACTATED RINGERS 1,000 ML IV SCH (19:52)
[2018-12-01] MEDS: NOREPINEPHRINE 4 MG in SODIUM CHLORIDE 0.9% 250 ML IV SCH (19:52)
[2018-12-01 20:05] LABS: Basophils % (A) 1 %; Eosinophils % (A) 1 %; HCT 21.7 % (39.0-53.0); HGB 7.2 gm/dL (13.0-17.5); Lymphocytes # (A) 0.3 k/uL (1.0-4.8); Lymphocytes % (A) 7 %; MCH 31.4 pg (25.0-35.0); MCHC 33.3 g/dL (31.0-37.0); MCV 94.4 fL (80.0-100.0); Mean Platelet Volume 8.9; Monocytes # (A) 0.4 k/uL (0-1.0); Monocytes % (A) 8 %; Neutrophils # (A) 3.8 k/uL (1.3-7.7); Neutrophils % (A) 81 %; RDW 14.4 % (11.5-15.5); WBC 4.7 k/uL (3.8-10.6)
[2018-12-01 20:11] LABS: Glucose,Whole Blood 137 mg/dL (75-99)
[2018-12-01 20:54] LABS: Platelet Count 78 k/uL (150-450)
--- NOTE | 2018-12-01 21:00 | OP ---
OPERATIVE REPORT DATE OF SURGERY: 12/01/2018 PREOPERATIVE DIAGNOSIS: Coronary artery disease. POSTOPERATIVE DIAGNOSIS: Coronary artery disease. PROCEDURES: 1. Coronary artery bypass grafting x4 vessels (left internal mammary artery to left anterior descending artery, saphenous vein graft to diagonal artery, saphenous vein graft to obtuse marginal artery, saphenous vein graft to posterolateral branch). 2. Endoscopic harvest of right greater saphenous vein. 3. Epiaortic ultrasound. 4. Transesophageal echocardiogram. SURGEON: Iggy Owen MD. ASSISTANTS: 1. HUBERT Alonso. 2. Suresh Long NP. ANESTHESIA: General. SPECIMENS: None. COMPLICATIONS: None. INDICATION: The patient is a 68-year-old male with a history of multiple medical problems, including myocardial infarction, hypertension, hyperlipidemia, chronic systolic heart failure, status post AICD, history of tobacco use, COPD, obstructive sleep apnea, diabetes mellitus and carotid artery disease, who presented to the hospital after an episode of unresponsiveness. Apparently the patient was shocked 4 times with his AICD secondary to ventricular fibrillation and he was brought emergently to [facility]. Cardiac catheterization did reveal a 70% lesion in the left main artery along with a chronic total occlusion of the right coronary artery with collateral flow noted. Echocardiogram revealed an ejection fraction of about 30% with mild mitral regurgitation. Preoperative workup revealed an FEV1 of 37% or less than 1 L along with a complete total occlusion of the left carotid artery. Despite these findings, it was felt that his ventricular fibrillation arrest necessitated urgent coronary revascularization. The risks, benefits and alternatives to coronary artery bypass, including but not limited to the risk of stroke, infection, bleeding, need for blood transfusion, prolonged ventilatory support, hemodialysis and , were discussed with the patient. All his questions were answered. Consent was obtained. FINDINGS: The left internal mammary artery was a good conduit with brisk flow. The saphenous vein was good conduit. The left radial artery appeared to be dependent based on our bedside examination. The LAD measured 1.5 mm. The diagonal artery measured 1.5 mm. The obtuse marginal artery measured 1.0 mm. The PLV measured 1.3 mm. PROCEDURE IN DETAIL: The patient was taken to the operating room, placed supine on the operating table. After induction of general anesthesia, he was prepped and draped in the usual sterile fashion. Preoperative transesophageal cardiogram confirmed an ejection fraction of about 25% to 30% with global hypokinesis. There was trace to mild mitral regurgitation noted. There was mild to moderate tricuspid regurgitation. The patient's systolic pulmonary artery pressures were in the 50s. A median sternotomy was performed. The left internal mammary artery was harvested in standard fashion, taking care to clip all branches. Intravenous heparin was administered and the vessel was transected distally, revealing brisk flow. Of note, there was a significant amount of fat noted on the chest wall. Simultaneously, greater saphenous vein was harvested from the right lower extremity using endoscopic technique. All branches were tied. The vein was a good conduit. A pericardial cradle was created. The ascending aorta was palpated. There was a small area of calcific plaque noted along the inferior wall of the aortic arch. Epiaortic ultrasound confirmed this area of calcific plaque, but there was no other obvious atheromatous or calcific disease noted. An arterial cannula was placed in an area free of disease in the distal ascending aorta. A venous cannula was placed through the right atrial appendage and directed into the IVC. Both antegrade and retrograde catheters were placed as well. The patient was then placed on cardiopulmonary bypass with good decompression of the heart. The aortic cross-clamp was applied. Cold blood potassium cardioplegia was delivered in both antegrade and retrograde fashion to achieve arrest of the heart. Of note, cardioplegia was delivered down a vein graft to the posterolateral branch with every dose of retrograde cardioplegia delivered as well. The inferior wall was inspected. The PDA was identified and appeared to be quite small. The PLV was then identified in its proximity. A small arteriotomy was created. This vessel accepted a 1 mm probe. Using the saphenous vein in reverse fashion, an end- to-side anastomosis was created. This was performed using running 7-0 Prolene suture. The graft was hemostatic and had great flow. This graft was then attached to the retrograde plegia line. Attention was then turned to the lateral wall. The obtuse marginal artery was identified. It appeared to be small in diameter, but I felt it was amenable for bypass. A small arteriotomy was created. This vessel accepted a 1 mm probe. Using saphenous vein in a reverse fashion, an end-to-side anastomosis was created. This was performed using running 7-0 Prolene suture. The graft was hemostatic and had good flow. Next, the anterior wall was identified. The diagonal artery was dissected free. A small arteriotomy was created. This vessel accepted a 1.5 mm probe. Using saphenous vein in a reverse fashion, end-to-side anastomosis was created. This was performed using running 7-0 Prolene suture. The graft was hemostatic and had great flow. Finally, the left anterior descending artery was identified in its mid portion. It was dissected free. A small arteriotomy was created. This vessel accepted a 1.5 mm probe. Using the left internal mammary artery, an end-to-side anastomosis was created. This was performed using running 8-0 Prolene suture. The graft was hemostatic. The mammary pedicle was then tacked on to the anterior surface of the heart. Attention was then turned to the proximal anastomoses. These were all performed in an end-to-side fashion using running 6-0 Prolene suture. One liter of warm blood was delivered in retrograde fashion. Both lidocaine and magnesium were administered as well. The aortic cross-clamp was removed. The grafts were de-aired in standard fashion. The retrograde catheter was removed. Temporary atrial and ventricular pacing wires were placed and brought through the skin. The patient was then carefully weaned off cardiopulmonary bypass. He with addition of Levophed and vasopressin. Follow-up transesophageal echocardiogram confirmed improvement of the left ventricular ejection fraction and no change in the trivial mitral regurgitation or mild to moderate tricuspid regurgitation. Protamine was administered. There were no adverse reactions. The remaining cannulas were then removed. The mediastinum was copiously irrigated with warm saline solution. All surgical sites were inspected and appeared to be hemostatic. Soft tissue was reapproximated over the ascending aorta as well as over the apex of the heart. Straight 32-Malian chest tubes were placed in both the left pleural space as well as the mediastinum. These were also secured to the skin using sutures. The sternum was then reapproximated using the [place] cable system. The wires were placed in a [id number] fashion. At the completion of the closure, the sternum was well aligned. The remainder of the wound was closed in layers. A sterile dressing was applied. The patient appeared to tolerate the procedure well. Every attempt was made to keep his perfusion pressure elevated. There were no immediate complications. He returned to the ICU in critical but stable condition. MMODL / IJN: [id number] /
[2018-12-01 21:09] LABS: Glucose,Whole Blood 146 mg/dL (75-99)
[2018-12-01] MEDS: INSULIN REGULAR 100 UNIT in SODIUM CHLORIDE 0.9% 100 ML IV SCH (21:13)
[2018-12-01] MEDS ORDERED: DEXMEDETOMIDINE/0.9% NACL(PMX) 400 MCG in EMPTY BAG 1 BAG IV SCH (21:15)
[2018-12-01] MEDS: MUPIROCIN 2% OINT 22 GM TUBE NASAL SCH (21:51)
[2018-12-01 22:06] LABS: Glucose,Whole Blood 138 mg/dL (75-99)
[2018-12-01 23:06] LABS: Glucose,Whole Blood 141 mg/dL (75-99)
[2018-12-01 23:11] LABS: Basophils % (A) 0 %; Eosinophils # (A) 0.1 k/uL (0-0.7); Eosinophils % (A) 1 %; HCT 21.2 % (39.0-53.0); HGB 7.1 gm/dL (13.0-17.5); Lymphocytes # (A) 0.5 k/uL (1.0-4.8); Lymphocytes % (A) 11 %; MCH 31.3 pg (25.0-35.0); MCHC 33.2 g/dL (31.0-37.0); Mean Platelet Volume 10.9; Monocytes # (A) 0.3 k/uL (0-1.0); Monocytes % (A) 7 %; Neutrophils # (A) 3.6 k/uL (1.3-7.7); Neutrophils % (A) 78 %; RBC 2.26 m/uL (4.30-5.90); RDW 14.2 % (11.5-15.5); WBC 4.6 k/uL (3.8-10.6)
[2018-12-01] MEDS: HEPARIN SODIUM,PORCINE 5,000 UNIT/ML 1 ML VIAL SQ SCH (23:16)
[2018-12-01 23:19] LABS: Platelet Count 66 k/uL (150-450)
[2018-12-01] MEDS: ALBUMIN HUMAN 5% 250 ML in EMPTY BAG 1 BAG IVPB PRN (23:42)
[2018-12-02 00:04] LABS: Glucose,Whole Blood 123 mg/dL (75-99)
[2018-12-02] MEDS: ALBUMIN HUMAN 5% 250 ML in EMPTY BAG 1 BAG IVPB PRN ×2 (00:24→01:44)
[2018-12-02 00:51] LABS: Glucose,Whole Blood 132 mg/dL (75-99)
[2018-12-02 00:54] LABS: ABG HCO3 24 mmol/L (21-25); ABG Oxygen Saturation 99.4 % (94-97); ABG PCO2 35 mmHg (35-45); ABG PH 7.45 (7.35-7.45); ABG PO2 209 mmHg (83-108); ABG TCO2 25 mmol/L (19-24); Allen Test Performed? Yes
[2018-12-02] MEDS: NOREPINEPHRINE 4 MG in SODIUM CHLORIDE 0.9% 250 ML IV SCH (01:45)
[2018-12-02 03:05] LABS: Glucose,Whole Blood 151 mg/dL (75-99)
[2018-12-02] MEDS ORDERED: HYDROcodone/APAP 5-325MG 1 EACH TAB PO PRN ×2 (03:11)
[2018-12-02 03:58] LABS: Glucose,Whole Blood 151 mg/dL (75-99)
[2018-12-02 04:14] LABS: Ionized Calcium 4.7 mg/dL (4.5-5.3)
[2018-12-02 04:20] LABS: Calcium 7.7 mg/dL (8.4-10.2); Magnesium 2.4 mg/dL (1.6-2.3); Potassium 5.3 mmol/L (3.5-5.1); Total Bilirubin 0.5 mg/dL (0.2-1.3)
[2018-12-02 04:24] LABS: Basophils % (A) 0 %; Eosinophils # (A) 0.1 k/uL (0-0.7); Eosinophils % (A) 2 %; Lymphocytes # (A) 0.6 k/uL (1.0-4.8); Lymphocytes % (A) 14 %; MCH 30.9 pg (25.0-35.0); MCHC 32.8 g/dL (31.0-37.0); MCV 94.2 fL (80.0-100.0); Mean Platelet Volume 9.9; Monocytes # (A) 0.3 k/uL (0-1.0); Monocytes % (A) 7 %; Neutrophils # (A) 2.9 k/uL (1.3-7.7); Neutrophils % (A) 73 %; RBC 2.03 m/uL (4.30-5.90); RDW 14.4 % (11.5-15.5)
[2018-12-02 04:29] LABS: HCT 19.1 % (39.0-53.0); HGB 6.3 gm/dL (13.0-17.5)
[2018-12-02 04:30] LABS: Platelet Count 60 k/uL (150-450)
[2018-12-02 05:14] LABS: Glucose,Whole Blood 143 mg/dL (75-99)
[2018-12-02] MEDS: NITROGLYCERIN-D5W PMX 50 MG in DEXTROSE/WATER 1 250ML.BAG IV SCH (05:14)
[2018-12-02 06:05] LABS: Glucose,Whole Blood 137 mg/dL (75-99)
--- NOTE | 2018-12-02 06:08 | XR ---
EXAMINATION TYPE: XR chest 1V portable DATE OF EXAM: 12/02/2018 HISTORY: Post Operative Cardiac Surgery. REFERENCE: Previous study dated 12/01/2018. FINDINGS: The patient has been extubated. The patient is NG tube is been removed. Duchesne-Rosie catheter is in place via a right internal jugular approach. Its tip is in the right interlobar artery. There i s a left pleural drain in place. There is a unipolar pacemaker place on the left. There has been a mi dline sternotomy. IMPRESSION: CONTINUING POSTOPERATIVE CHANGE.
[2018-12-02 06:10] LABS: HCT 20.8 % (39.0-53.0); MCH 30.3 pg (25.0-35.0); MCHC 31.9 g/dL (31.0-37.0); MCV 95.1 fL (80.0-100.0); Mean Platelet Volume 10.1; RBC 2.19 m/uL (4.30-5.90); RDW 14.6 % (11.5-15.5); WBC 5.4 k/uL (3.8-10.6)
[2018-12-02 06:16] LABS: HGB 6.6 gm/dL (13.0-17.5); Platelet Count 77 k/uL (150-450)
[2018-12-02 07:02] LABS: Glucose,Whole Blood 138 mg/dL (75-99)
[2018-12-02] MEDS: IPRATROPIUM-ALBUTEROL 3 ML NEB INHALATION SCH ×4 (07:57→19:28)
--- NOTE | 2018-12-02 08:23 | P.PN ---
Progress Note - Text Progress Note Date: 12/02/18 This is a pleasant 68-year-old gentleman who was admitted to the hospital initially was AICD shocks. He underwent a heart catheterization which revealed severe left main coronary artery disease. Subsequently the patient underwent coronary artery that is grafting. On follow-up with him today, he seems to be hemodynamically stable. The hemoglobin is below 7 and he is in process of receiving one unit of packed RBC. Otherwise he is on maximize medical treatment consistent of dual antiplatelet therapy along with beta jayant along with a statin.
[2018-12-02 08:24] LABS: Glucose,Whole Blood 132 mg/dL (75-99)
[2018-12-02] MEDS: GABAPENTIN 300 MG CAP PO SCH ×2 (08:30→21:13)
[2018-12-02] MEDS: METOPROLOL TARTRATE 12.5 MG TAB PO SCH ×2 (08:30→21:13)
[2018-12-02] MEDS: AMIODARONE 200 MG TAB PO SCH ×2 (08:30→21:14)
[2018-12-02] MEDS: ATORVASTATIN 40 MG TAB PO SCH (08:30)
[2018-12-02] MEDS: HEPARIN SODIUM,PORCINE 5,000 UNIT/ML 1 ML VIAL SQ SCH ×2 (08:30→16:21)
[2018-12-02] MEDS: CLOPIDOGREL 75 MG TAB PO SCH (08:31)
[2018-12-02] MEDS: FINASTERIDE 5 MG TAB PO SCH (08:31)
[2018-12-02] MEDS: MUPIROCIN 2% OINT 22 GM TUBE NASAL SCH ×2 (08:32→21:14)
[2018-12-02] MEDS: ASPIRIN 81 MG PO SCH (08:34)
[2018-12-02] MEDS ORDERED: PANTOPRAZOLE 40 MG/10 ML VIAL IVP SCH (09:00)
[2018-12-02] MEDS ORDERED: ASPIRIN 325 MG TAB PO SCH (09:00)
[2018-12-02] MEDS ORDERED: MAGNESIUM HYDROXIDE 2,400 MG/10 ML CUP PO PRN (09:00)
[2018-12-02] MEDS ORDERED: BISACODYL 10 MG SUPP RECTAL PRN (09:00)
--- NOTE | 2018-12-02 09:13 | P.PN ---
Subjective Progress Note Date: 12/02/18 Principal diagnosis: Coronary artery disease with left main disease, chronic total occlusion of the RCA, non-STEMI, V. tach/V. fib status post ICD shock, complete occlusion of the left internal carotid artery. Previous medical history of myocardial infarction, hypertension, hyperlipidemia, chronic systolic heart failure status post ICD placement, previous tobacco dependence, severe COPD with preoperative FEV1 37%, obstructive sleep apnea without home CPAP use, type 2 diabetes mellitus with preopertive HgbA1c 5.6%, family history of premature coronary artery disease. POD #1 urgent coronary artery bypass grafting 4 vessels, left internal mammary artery to the left anterior descending artery, reverse saphenous vein graft to the diagonal artery, reverse saphenous vein graft to the obtuse marginal artery, reverse saphenous vein graft to the posterior lateral branch of the RCA. Endoscopic harvest of the right greater saphenous vein. Epi-aortic ultrasound. Intraoperative transesophageal echocardiogram. Postoperative acute blood loss anemia, expected from hemodilution and cardiopulmonary bypass pump as well as preoperative anemia Postoperative thrombocytopenia, expected from hemodilution as well as preoperative thrombocytopenia The patient is sitting up in a recliner in no acute distress in the intensive care unit. He was successfully extubated at 1:24 AM. He does complain of postsurgical sternal pain, denies shortness of breath. Hemodynamically stable on no inotropes or pressors. Underlying rhythm normal sinus with heart rate in the 70s. Mediastinal and left pleural chest tubes in place. Hemoglobin low this morning at 6.6. No new complaints. Objective - Vital Signs Vital signs: Vital Signs Temp 98.6 F 12/01/18 18:11 Pulse 89 12/02/18 07:59 Resp 15 12/02/18 07:00 BP 85/62 12/02/18 02:00 Pulse Ox 98 12/02/18 08:01 Intake & Output 12/01/18 12/02/18 12/02/18 18:59 06:59 18:59 Intake Total 1593 1857.947 59 Output Total 1983 822 168 Balance -390 1035.947 -109 Weight 84.2 kg 88.2 kg Intake: IV 1066 1750 59 ACETAMINOPHEN IV (For NPO 100 ) 1,000 mg In Empty Bag 1 bag @ 400 mls/hr IVPB Q6HR [facility] Rx#:[id number] Albumin Human 5% 500 ml 750 In Empty Bag 1 bag @ 250 mls/hr IVPB ONCE ONE Rx#: [id number] Injectate 60 110 Kefzol 100 LR 100 600 50 Pressure bags 90 9 Sodium Chloride 0.9% 1, 800 000 ml @ 100 mls/hr IV . Q10H [facility] Rx#:[id number] ceFAZolin 2 gm In Sodium 100 Chloride 0.9% 50 ml @ 100 mls/hr IVPB Q8HR [facility] Rx# :[id number] Intake, IV Titration 107.947 Amount Dexmedetomidine/0.9% NaCl 45.257 (Pmx) 400 mcg In Empty Bag 1 bag @ Titrate IV . Q0M [facility] Rx#:[id number] Insulin Regular 100 unit 10.599 In Sodium Chloride 0.9% 100 ml @ Titrate IV .Q0M [facility] Rx#:[id number] Norepinephrine 4 mg In 22.536 Sodium Chloride 0.9% 250 ml @ 0.02 MCG/KG/MIN 6. 378 mls/hr IV .Q24H [facility] Rx#:[id number] Propofol 1,000 mg In 29.555 Empty Bag 1 bag @ Titrate IV .Q0M [facility] Rx#: [id number] Blood Product 527 Ffp 24 Cpda Unit 0 [id number] Platelet Pheresis Acda2 217 Unit [id number] Rc Pheresis 2 As3 Unit 310 [id number] Output: Chest Tube Drainage 123 232 118 LP 5 62 78 MS 118 170 40 Urine 860 590 50 Estimated Blood Loss 1000 Other: Voiding Method Indwelling Catheter ABP, PAP, CO, CI - Last Documented Arterial Blood Pressure 111/58 Pulmonary Artery Pressure 48/24 Cardiac Output 4.8 Cardiac Index 2.5 - Constitutional General appearance: Present: cooperative, no acute distress, obese - Respiratory Details: Lungs sounds diminished bilaterally. Respirations even, nonlabored. Currently on 5 L nasal cannula with oxygen saturation 97%. Only able to achieve 500 mL on his incentive spirometry. Weak cough. Mediastinal chest tube to continuous wall suction, 155 mL serosanguineous drainage overnight, 350 mL since surgery. Left pleural chest tube to continuous wall suction, 90 mL serosanguineous drainage overnight, 100 mL since surgery. No air leaks present. - Cardiovascular Details: S1, S2 present. Regular rate and rhythm, sinus rhythm on telemetry. Sternum stable. A/V epicardial pacemaker wires present, connected to generator, AAI mode with backup rate 50 bpm. Palpable peripheral pulses bilaterally. Bilateral upper extremity edema is present. No lower extremity edema present. Right internal jugular [place]ordis, right radial arterial line present. Last CO/CI 5.6/2.9 on no inotropes or pressors. Heart hugger in place with patient demonstrating appropriate use. Antiembolism stockings, SCDs present. - Gastrointestinal Gastrointestinal Comment(s): Abdomen soft, nontender, nondistended. Hypoactive bowel sounds present 4 quad rants. Tolerating clear liquids. Denies flatus. - Genitourinary Genitourinary Comment(s): Mejia present draining clear, yellow urine. Output 30-50 mL per hour overnight. - Integumentary Integumentary Comment(s): Skin is warm and dry with evidence of good perfusion. Anterior chest incision well approximated and covered with dry intact dressing. Right lower extremity EVH site well approximated, ecchymotic. - Neurologic Neurologic: Present: CNII-XII intact - Musculoskeletal Musculoskeletal: Present: generalized weakness, strength equal bilaterally - Psychiatric Psychiatric: Present: A&O x's 3, appropriate affect, intact judgment & insight - Allied health notes Allied health notes reviewed: nursing - Labs CBC & Chem 7: 12/02/18 05:00 12/02/18 04:00 Labs: Abnormal Lab Results - Last 24 Hours (Table) 11/30/18 12/01/18 12/01/18 Range/Units 13:20 08:58 09:54 RBC (4.30-5.90) m/uL Hgb (13.0-17.5) gm/dL Hct (39.0-53.0) % Plt Count (150-450) k/uL Lymphocytes # (1.0-4.8) k/uL ABG pH 7.32 L (7.35-7.45) ABG pCO2 (35-45) mmHg ABG pO2 125 H 166 H (83-108) mmHg ABG HCO3 (21-25) mmol/L ABG Total CO2 25 H (19-24) mmol/L ABG O2 Saturation 98.7 H 99.0 H (94-97) % ABG Hematocrit 27 L 28 L (34.0-46.0) % ABG Sodium (135-146) mmol/L ABG Potassium 4.6 H (3.4-4.5) mmol/L ABG Ionized Calcium 4.3 L (4.5-5.3) mg/dL ABG Glucose 106 H 119 H (75-99) mg/dL ABG Lactic Acid (0.5-1.6) mmol/L Hemoglobin 8.8 L 9.3 L (13.0-17.5) gm/dL Potassium (3.5-5.1) mmol/L Chloride (98-107) mmol/L BUN (9-20) mg/dL Creatinine (0.66-1.25) mg/dL Glucose (74-99) mg/dL POC Glucose (mg/dL) (75-99) mg/dL Calcium (8.4-10.2) mg/dL Magnesium (1.6-2.3) mg/dL AST (17-59) U/L Alkaline Phosphatase (38-126) U/L Total Protein (6.3-8.2) g/dL Albumin (3.5-5.0) g/dL Arterial Blood Potassium 4.6 H (3.4-4.5) mmol/L Arterial Blood Glucose 106 H 119 H (75-99) mg/dL Crossmatch See Detail 12/01/18 12/01/18 12/01/18 Range/Units 11:08 11:33 15:30 RBC 2.53 L (4.30-5.90) m/uL Hgb 7.9 L D (13.0-17.5) gm/dL Hct 24.0 L (39.0-53.0) % Plt Count 92 L (150-450) k/uL Lymphocytes # 0.9 L (1.0-4.8) k/uL ABG pH (7.35-7.45) ABG pCO2 (35-45) mmHg ABG pO2 381 H 383 H (83-108) mmHg ABG HCO3 (21-25) mmol/L ABG Total CO2 25 H (19-24) mmol/L ABG O2 Saturation 99.8 H 99.9 H (94-97) % ABG Hematocrit 22 L 22 L (34.0-46.0) % ABG Sodium 133 L (135-146) mmol/L ABG Potassium 5.4 H 5.2 H (3.4-4.5) mmol/L ABG Ionized Calcium 3.8 L 3.9 L (4.5-5.3) mg/dL ABG Glucose 178 H 192 H (75-99) mg/dL ABG Lactic Acid 2.3 H* (0.5-1.6) mmol/L Hemoglobin 7.1 L 7.2 L (13.0-17.5) gm/dL Potassium (3.5-5.1) mmol/L Chloride (98-107) mmol/L BUN (9-20) mg/dL Creatinine (0.66-1.25) mg/dL Glucose (74-99) mg/dL POC Glucose (mg/dL) (75-99) mg/dL Calcium (8.4-10.2) mg/dL Magnesium (1.6-2.3) mg/dL AST (17-59) U/L Alkaline Phosphatase (38-126) U/L Total Protein (6.3-8.2) g/dL Albumin (3.5-5.0) g/dL Arterial Blood Potassium 5.4 H 5.2 H (3.4-4.5) mmol/L Arterial Blood Glucose 178 H 192 H (75-99) mg/dL Crossmatch 12/01/18 12/01/18 12/01/18 Range/Units 15:30 16:07 18:08 RBC (4.30-5.90) m/uL Hgb (13.0-17.5) gm/dL Hct (39.0-53.0) % Plt Count (150-450) k/uL Lymphocytes # (1.0-4.8) k/uL ABG pH 7.32 L (7.35-7.45) ABG pCO2 52 H (35-45) mmHg ABG pO2 306 H (83-108) mmHg ABG HCO3 26 H (21-25) mmol/L ABG Total CO2 28 H (19-24) mmol/L ABG O2 Saturation 99.4 H (94-97) % ABG Hematocrit (34.0-46.0) % ABG Sodium (135-146) mmol/L ABG Potassium (3.4-4.5) mmol/L ABG Ionized Calcium (4.5-5.3) mg/dL ABG Glucose (75-99) mg/dL ABG Lactic Acid (0.5-1.6) mmol/L Hemoglobin (13.0-17.5) gm/dL Potassium (3.5-5.1) mmol/L Chloride 109 H (98-107) mmol/L BUN (9-20) mg/dL Creatinine (0.66-1.25) mg/dL Glucose (74-99) mg/dL POC Glucose (mg/dL) 145 H (75-99) mg/dL Calcium 7.8 L (8.4-10.2) mg/dL Magnesium 3.0 H (1.6-2.3) mg/dL AST (17-59) U/L Alkaline Phosphatase 37 L (38-126) U/L Total Protein 4.4 L (6.3-8.2) g/dL Albumin 2.5 L (3.5-5.0) g/dL Arterial Blood Potassium (3.4-4.5) mmol/L Arterial Blood Glucose (75-99) mg/dL Crossmatch 12/01/18 12/01/18 12/01/18 Range/Units 19:00 19:15 20:09 RBC 2.30 L (4.30-5.90) m/uL Hgb 7.2 L (13.0-17.5) gm/dL Hct 21.7 L (39.0-53.0) % Plt Count 78 L (150-450) k/uL Lymphocytes # 0.3 L (1.0-4.8) k/uL ABG pH (7.35-7.45) ABG pCO2 (35-45) mmHg ABG pO2 (83-108) mmHg ABG HCO3 (21-25) mmol/L ABG Total CO2 (19-24) mmol/L ABG O2 Saturation (94-97) % ABG Hematocrit (34.0-46.0) % ABG Sodium (135-146) mmol/L ABG Potassium (3.4-4.5) mmol/L ABG Ionized Calcium (4.5-5.3) mg/dL ABG Glucose (75-99) mg/dL ABG Lactic Acid (0.5-1.6) mmol/L Hemoglobin (13.0-17.5) gm/dL Potassium (3.5-5.1) mmol/L Chloride (98-107) mmol/L BUN (9-20) mg/dL Creatinine (0.66-1.25) mg/dL Glucose (74-99) mg/dL POC Glucose (mg/dL) 138 H 137 H (75-99) mg/dL Calcium (8.4-10.2) mg/dL Magnesium (1.6-2.3) mg/dL AST (17-59) U/L Alkaline Phosphatase (38-126) U/L Total Protein (6.3-8.2) g/dL Albumin (3.5-5.0) g/dL Arterial Blood Potassium (3.4-4.5) mmol/L Arterial Blood Glucose (75-99) mg/dL Crossmatch 12/01/18 12/01/18 12/01/18 Range/Units 21:08 22:04 23:00 RBC 2.26 L (4.30-5.90) m/uL Hgb 7.1 L (13.0-17.5) gm/dL Hct 21.2 L (39.0-53.0) % Plt Count 66 L (150-450) k/uL Lymphocytes # 0.5 L (1.0-4.8) k/uL ABG pH (7.35-7.45) ABG pCO2 (35-45) mmHg ABG pO2 (83-108) mmHg ABG HCO3 (21-25) mmol/L ABG Total CO2 (19-24) mmol/L ABG O2 Saturation (94-97) % ABG Hematocrit (34.0-46.0) % ABG Sodium (135-146) mmol/L ABG Potassium (3.4-4.5) mmol/L ABG Ionized Calcium (4.5-5.3) mg/dL ABG Glucose (75-99) mg/dL ABG Lactic Acid (0.5-1.6) mmol/L Hemoglobin (13.0-17.5) gm/dL Potassium (3.5-5.1) mmol/L Chloride (98-107) mmol/L BUN (9-20) mg/dL Creatinine (0.66-1.25) mg/dL Glucose (74-99) mg/dL POC Glucose (mg/dL) 146 H 138 H (75-99) mg/dL Calcium (8.4-10.2) mg/dL Magnesium (1.6-2.3) mg/dL AST (17-59) U/L Alkaline Phosphatase (38-126) U/L Total Protein (6.3-8.2) g/dL Albumin (3.5-5.0) g/dL Arterial Blood Potassium (3.4-4.5) mmol/L Arterial Blood Glucose (75-99) mg/dL Crossmatch 12/01/18 12/02/18 12/02/18 Range/Units 23:04 00:03 00:49 RBC (4.30-5.90) m/uL Hgb (13.0-17.5) gm/dL Hct (39.0-53.0) % Plt Count (150-450) k/uL Lymphocytes # (1.0-4.8) k/uL ABG pH (7.35-7.45) ABG pCO2 (35-45) mmHg ABG pO2 (83-108) mmHg ABG HCO3 (21-25) mmol/L ABG Total CO2 (19-24) mmol/L ABG O2 Saturation (94-97) % ABG Hematocrit (34.0-46.0) % ABG Sodium (135-146) mmol/L ABG Potassium (3.4-4.5) mmol/L ABG Ionized Calcium (4.5-5.3) mg/dL ABG Glucose (75-99) mg/dL ABG Lactic Acid (0.5-1.6) mmol/L Hemoglobin (13.0-17.5) gm/dL Potassium (3.5-5.1) mmol/L Chloride (98-107) mmol/L BUN (9-20) mg/dL Creatinine (0.66-1.25) mg/dL Glucose (74-99) mg/dL POC Glucose (mg/dL) 141 H 123 H 132 H (75-99) mg/dL Calcium (8.4-10.2) mg/dL Magnesium (1.6-2.3) mg/dL AST (17-59) U/L Alkaline Phosphatase (38-126) U/L Total Protein (6.3-8.2) g/dL Albumin (3.5-5.0) g/dL Arterial Blood Potassium (3.4-4.5) mmol/L Arterial Blood Glucose (75-99) mg/dL Crossmatch 12/02/18 12/02/18 12/02/18 Range/Units 00:50 03:03 03:57 RBC (4.30-5.90) m/uL Hgb (13.0-17.5) gm/dL Hct (39.0-53.0) % Plt Count (150-450) k/uL Lymphocytes # (1.0-4.8) k/uL ABG pH (7.35-7.45) ABG pCO2 (35-45) mmHg ABG pO2 209 H (83-108) mmHg ABG HCO3 (21-25) mmol/L ABG Total CO2 25 H (19-24) mmol/L ABG O2 Saturation 99.4 H (94-97) % ABG Hematocrit (34.0-46.0) % ABG Sodium (135-146) mmol/L ABG Potassium (3.4-4.5) mmol/L ABG Ionized Calcium (4.5-5.3) mg/dL ABG Glucose (75-99) mg/dL ABG Lactic Acid (0.5-1.6) mmol/L Hemoglobin (13.0-17.5) gm/dL Potassium (3.5-5.1) mmol/L Chloride (98-107) mmol/L BUN (9-20) mg/dL Creatinine (0.66-1.25) mg/dL Glucose (74-99) mg/dL POC Glucose (mg/dL) 151 H 151 H (75-99) mg/dL Calcium (8.4-10.2) mg/dL Magnesium (1.6-2.3) mg/dL AST (17-59) U/L Alkaline Phosphatase (38-126) U/L Total Protein (6.3-8.2) g/dL Albumin (3.5-5.0) g/dL Arterial Blood Potassium (3.4-4.5) mmol/L Arterial Blood Glucose (75-99) mg/dL Crossmatch 12/02/18 12/02/18 12/02/18 Range/Units 04:00 04:00 05:00 RBC 2.03 L 2.19 L (4.30-5.90) m/uL Hgb 6.3 L* 6.6 L* (13.0-17.5) gm/dL Hct 19.1 L* 20.8 L (39.0-53.0) % Plt Count 60 L 77 L (150-450) k/uL Lymphocytes # 0.6 L (1.0-4.8) k/uL ABG pH (7.35-7.45) ABG pCO2 (35-45) mmHg ABG pO2 (83-108) mmHg ABG HCO3 (21-25) mmol/L ABG Total CO2 (19-24) mmol/L ABG O2 Saturation (94-97) % ABG Hematocrit (34.0-46.0) % ABG Sodium (135-146) mmol/L ABG Potassium (3.4-4.5) mmol/L ABG Ionized Calcium (4.5-5.3) mg/dL ABG Glucose (75-99) mg/dL ABG Lactic Acid (0.5-1.6) mmol/L Hemoglobin (13.0-17.5) gm/dL Potassium 5.3 H (3.5-5.1) mmol/L Chloride (98-107) mmol/L BUN 21 H (9-20) mg/dL Creatinine 1.48 H (0.66-1.25) mg/dL Glucose 132 H (74-99) mg/dL POC Glucose (mg/dL) (75-99) mg/dL Calcium 7.7 L (8.4-10.2) mg/dL Magnesium 2.4 H (1.6-2.3) mg/dL AST 70 H (17-59) U/L Alkaline Phosphatase 36 L (38-126) U/L Total Protein 5.0 L (6.3-8.2) g/dL Albumin 3.0 L (3.5-5.0) g/dL Arterial Blood Potassium (3.4-4.5) mmol/L Arterial Blood Glucose (75-99) mg/dL Crossmatch 12/02/18 12/02/18 12/02/18 Range/Units 05:07 06:03 07:01 RBC (4.30-5.90) m/uL Hgb (13.0-17.5) gm/dL Hct (39.0-53.0) % Plt Count (150-450) k/uL Lymphocytes # (1.0-4.8) k/uL ABG pH (7.35-7.45) ABG pCO2 (35-45) mmHg ABG pO2 (83-108) mmHg ABG HCO3 (21-25) mmol/L ABG Total CO2 (19-24) mmol/L ABG O2 Saturation (94-97) % ABG Hematocrit (34.0-46.0) % ABG Sodium (135-146) mmol/L ABG Potassium (3.4-4.5) mmol/L ABG Ionized Calcium (4.5-5.3) mg/dL ABG Glucose (75-99) mg/dL ABG Lactic Acid (0.5-1.6) mmol/L Hemoglobin (13.0-17.5) gm/dL Potassium (3.5-5.1) mmol/L Chloride (98-107) mmol/L BUN (9-20) mg/dL Creatinine (0.66-1.25) mg/dL Glucose (74-99) mg/dL POC Glucose (mg/dL) 143 H 137 H 138 H (75-99) mg/dL Calcium (8.4-10.2) mg/dL Magnesium (1.6-2.3) mg/dL AST (17-59) U/L Alkaline Phosphatase (38-126) U/L Total Protein (6.3-8.2) g/dL Albumin (3.5-5.0) g/dL Arterial Blood Potassium (3.4-4.5) mmol/L Arterial Blood Glucose (75-99) mg/dL Crossmatch Microbiology - Last 24 Hours (Table) 11/30/18 19:25 Nasal Screen MRSA/MSSA - Final Nasal Swab - Imaging and Cardiology Chest x-ray: report reviewed, image reviewed Assessment and Plan Assessment: 1. Coronary artery disease with left main disease, chronic total occlusion of the RCA 2. Previous myocardial infarction, non-STEMI this admission 3. V. tach/V. fib prehospital with ICD shock 4. Complete occlusion of the left internal carotid artery. 5. Hypertension 6. Hyperlipidemia 7. Chronic systolic heart failure status post ICD placement 8. Previous tobacco dependence 9. Severe COPD with preoperative FEV1 37% 10. Obstructive sleep apnea without home CPAP use 11. Type 2 diabetes with preoperative hemoglobin A1c 5.6% 12. Family history of premature coronary artery disease 13. Postoperative acute blood loss anemia 14. Postoperative thrombocytopenia Plan: 1. Continue low-dose aspirin, statin, beta jayant therapy. Will increase beta jayant therapy as tolerated. Will hold Plavix today secondary to thrombocytopenia 2. Continue amiodarone for DVT prophylaxis. [employer] rep to turn ICD back on. 3. Wean O2 as tolerated. Encourage incentive spirometry use 10 times every hour while awake. 4. Increase activity, ambulate as tolerated. PT/OT/cardiac rehab following. 5. Will monitor daily labs and x-rays. Electrolyte replacement per protocol. Will transfuse 1 unit packed red blood cells today. 6. Discontinue [place]-Rosie catheter. Connected Cordis to continue CVP monitoring. 7. GI/DVT prophylaxis. 8. Insulin management per primary care service. 9. Pain control with current medication regimen. No Toradol secondary to increased creatinine, thrombocytopenia 10. Continue chest tubes for another 24 hours. Continue Mejia for another 24 hours for strict accurate intake and output. 11. More recommendations to follow based on patient's progress Time with Patient: Greater than 30
[2018-12-02] MEDS: HYDROcodone/APAP 7.5-325MG 1 EACH TAB PO PRN ×5 (09:31→21:58)
[2018-12-02 09:42] LABS: Glucose,Whole Blood 135 mg/dL (75-99)
--- NOTE | 2018-12-02 10:30 | PN ---
PROGRESS NOTE Pulmonary/Critical Care Progress Note DATE OF SERVICE: 12/02/2018 This is a 68-year-old male who is postop day #1 status post 4-vessel bypass grafting. The surgery was done by Dr. Owen. He was found on catheterization to have left main disease. He has a history of previous AICD placement, CAD, heart failure, COPD, hyperlipidemia, hypertension, myocardial infarction, and shingles. The patient had an FEV1 that was less than a L. Based on lung function, he was at moderately high increased operative risk. He was extubated after surgery at 1:24 am. Currently, he is on 5 L nasal cannula. He is getting lactated Ringer's fluid at 30 mL an hour and 1.5 units of insulin per hour. He is also going to receive 1 unit of PRBCs for hemoglobin less than 7. Currently, the patient is doing reasonably well. Only getting about 500 on his incentive spirometer. I did speak to Dr. Owen after the surgery about the patient, yesterday. PHYSICAL EXAMINATION: VITAL SIGNS: Currently, his vital signs are reviewed. Temperature 99. Heart rate 79, respiratory rate 16, blood pressure 145/68, and saturations are 98% on 5 L. Appears in no acute distress. HEENT examination is grossly unremarkable. Nasal O2 in place. NECK: Supple. Full range of motion. No adenopathy. CARDIOVASCULAR examination reveals regular rhythm rate. Heart rate 84 beats per minute. S1, S2 normal. Heart sounds are distant. LUNGS: Reveal severely diminished breath sounds. He does not take deep breaths. A few scattered rhonchi noted. ABDOMEN: Soft. Bowel sounds are heard. EXTREMITIES are intact. No cyanosis, clubbing, or edema. SKIN: Without rash. NEUROLOGIC: Examination is nonfocal. LABS: Reviewed. White count 5.4, hemoglobin 6.6, hematocrit 20.8, platelet count 77,000. Blood gases this morning included a pO2 of 209, pCO2 of 35, and a pH is 7.45. These blood gases consistent with hyperoxia and mild respiratory alkalosis. Sodium 138, potassium 5.3, chloride 107, CO2 24, BUN and creatinine were 21 and 1.48. Calcium 7.7, albumin 3. X-RAY: Chest x-ray shows postsurgical changes. Appears to have some fluid overload. There is bibasilar atelectasis, left side worse than right. There are small bilateral pleural effusions. Lung volumes are small. ASSESSMENT: 1. Postoperative day #1 status post 4-vessel bypass grafting. 2. Severe left main disease. 3. Status post AICD placement. 4. History of coronary artery disease. 5. History of congestive heart failure. 6. Moderately severe chronic obstructive pulmonary disease. 7. Hyperlipidemia. 8. Hypertension. 9. Myocardial infarction. 10.History of shingles. PLAN: We will encourage deep breathing, coughing, clearing of secretions. The patient was extubated at 1:24 am. The patient is currently still on 5 L nasal cannula. He is on an insulin drip at 1.5 units an hour. Because of postoperative anemia, the patient will get 1 unit of blood. Medications are reviewed. Lab data reviewed. I did speak to the cardiothoracic nurse. Additional recommendations and suggestions are forthcoming. The nurses are really focused on deep breathing coughing clearing of secretions and hourly use of incentive spirometer. Critical care time 32 minutes. MMCANDIDOL / IJN: [id number] /
[2018-12-02 10:44] LABS: Glucose,Whole Blood 139 mg/dL (75-99)
[2018-12-02 11:51] LABS: Glucose,Whole Blood 140 mg/dL (75-99)
[2018-12-02 12:12] LABS: Basophils % (A) 0 %; Eosinophils # (A) 0.1 k/uL (0-0.7); Eosinophils % (A) 2 %; Lymphocytes # (A) 0.7 k/uL (1.0-4.8); Lymphocytes % (A) 11 %; MCH 31.5 pg (25.0-35.0); MCHC 33.2 g/dL (31.0-37.0); MCV 94.8 fL (80.0-100.0); Mean Platelet Volume 9.8; Monocytes # (A) 0.5 k/uL (0-1.0); Monocytes % (A) 7 %; Neutrophils % (A) 76 %; RBC 2.53 m/uL (4.30-5.90); RDW 14.2 % (11.5-15.5); WBC 6.5 k/uL (3.8-10.6)
[2018-12-02 12:17] LABS: Platelet Count 70 k/uL (150-450)
[2018-12-02 13:22] LABS: Glucose,Whole Blood 143 mg/dL (75-99)
[2018-12-02] MEDS: LACTATED RINGERS 1,000 ML IV SCH (13:27)
[2018-12-02 14:15] VITALS: BMI 34.4
[2018-12-02 14:20] LABS: Glucose,Whole Blood 164 mg/dL (75-99)
[2018-12-02] MEDS: CLEVIDIPINE BUTYRATE 25 MG in EMPTY BAG 1 BAG IV SCH (14:59)
[2018-12-02 15:15] LABS: Glucose,Whole Blood 172 mg/dL (75-99)
[2018-12-02 16:25] LABS: Glucose,Whole Blood 168 mg/dL (75-99)
[2018-12-02] MEDS: FERROUS SULFATE 325 MG TAB PO SCH (17:25)
[2018-12-02] MEDS: ASCORBIC ACID 500 MG TAB PO SCH (17:25)
[2018-12-02] MEDS ORDERED: metFORMIN 500 MG TAB PO SCH (17:30)
[2018-12-02 17:38] LABS: Glucose,Whole Blood 155 mg/dL (75-99)
[2018-12-02 18:29] LABS: Glucose,Whole Blood 130 mg/dL (75-99)
[2018-12-02 19:47] LABS: Glucose,Whole Blood 127 mg/dL (75-99)
[2018-12-02 21:04] LABS: Glucose,Whole Blood 108 mg/dL (75-99)
[2018-12-02] MEDS: SENNOSIDES-DOCUSATE SODIUM 1 EACH TAB PO SCH (21:13)
--- NOTE | 2018-12-02 21:28 | P.PN ---
Subjective Progress Note Date: 12/02/18 Principal diagnosis: CAD - s/p CABG - post op Day #1 Rajiv Ibarra is a 68 yo M with hx CAD, cardiomyopathy with ICD in place, HTN, HLD, tobacco abuse. He presented to [facility] via EMS after his ICD shocked him while hunting yesterday. He states he had been out hunting a few hours and was standing with his friend when he felt his ICD shock him. He states this happened twice then he collapsed and EMS was called. Pt notes he was asymptomatic until his ICD went off. In the ED CXR clear, EKG in NSR with PVC, troponin positive and peaked at 3.6. Hgb 11.5, Cr 1.5, Mg 1.5. On 11/30/2018 completed cardiac catheterization - reporting 70% calcified left main stenosis, second diagonal branch of the LAD 60-70% stenosis and chronic total occlusion of RCA with collateral from left coronary system. Evaluated by cardiothoracic surgery, underwent CABG on 12/01/18. On 12/02/18 - He is POD #1 . Pt has been extubated around 1 AM today. Postop he had acute blood loss anemia and thrombocytopenia. So he received 1 # PRBCs today. The patient is sitting up in a chair by the bed side having some juice. He is in no acute distress in the intensive care unit. He has chest discomfort and soreness at the surgical site. Both the mediastinal and left pleural chest tubes in place. Hemoglobin low this morning at 6.6. He also c/o swelling in all his 4 extremities. No SOB. He has Mejia's catheter in place with good urine output. Active Medications Hydrocodone Bitart/Acetaminophen ([place] 7.5-325) 1 each PO Q4H PRN PRN Reason: Pain SCALE 1-5 Last Admin: 12/02/18 10:29 Dose: 1 each Documented by: Hydrocodone Bitart/Acetaminophen ([place] 7.5-325) 2 each PO Q4H PRN PRN Reason: Pain SCALE 6-10 Last Admin: 12/02/18 18:21 Dose: 2 each Documented by: Albuterol/Ipratropium (Duoneb 0.5 Mg-3 Mg/3 Ml Soln) 3 ml INHALATION RT-Q2H PRN PRN Reason: Shortness Of Breath Or Wheezing Last Admin: 12/02/18 01:25 Dose: 3 ml Documented by: Albuterol/Ipratropium (Duoneb 0.5 Mg-3 Mg/3 Ml Soln) 3 ml INHALATION RT-QID [facility] Last Admin: 12/02/18 19:28 Dose: 3 ml Documented by: Amiodarone HCl (Cordarone) 400 mg PO BID [facility] Last Admin: 12/02/18 21:14 Dose: 400 mg Documented by: Ascorbic Acid (Vitamin C) 500 mg PO BID-W/MEALS [facility] Last Admin: 12/02/18 17:25 Dose: 500 mg Documented by: Aspirin (Aspirin) 81 mg PO DAILY [facility] Last Admin: 12/02/18 08:34 Dose: 81 mg Documented by: Atorvastatin Calcium (Lipitor) 40 mg PO DAILY [facility] Last Admin: 12/02/18 08:30 Dose: 40 mg Documented by: Benzocaine/Menthol (Cepacol Lozenge) 1 each MUCOUS MEM Q2H PRN PRN Reason: Sore Throat Bisacodyl (Dulcolax) 10 mg RECTAL DAILY PRN PRN Reason: Constipation Clopidogrel Bisulfate (Plavix) 75 mg PO DAILY [facility] Last Admin: 12/02/18 08:31 Dose: Not Given Documented by: Ferrous Sulfate (Feosol) 325 mg PO BID-W/MEALS [facility] Last Admin: 12/02/18 17:25 Dose: 325 mg Documented by: Finasteride (Proscar) 5 mg PO DAILY [facility] Last Admin: 12/02/18 08:31 Dose: 5 mg Documented by: Gabapentin (Neurontin) 600 mg PO BID [facility] Last Admin: 12/02/18 21:13 Dose: 600 mg Documented by: Heparin Sodium (Porcine) (Heparin) 5,000 unit SQ Q8HR [facility] Last Admin: 12/02/18 16:21 Dose: 5,000 unit Documented by: Insulin Human Regular 100 unit (/ Sodium Chloride) 100 mls @ 0 mls/hr IV .Q0M [facility]; Protocol Last Titration: 12/02/18 21:10 Dose: 0 units/hr, 0 mls/hr Documented by: Clevidipine 25 mg/ IV Solution 50 mls @ 2 mls/hr IV .Q24H [facility]; Protocol Last Admin: 12/02/18 14:59 Dose: Not Given Documented by: Amiodarone HCl 150 mg/ (Dextrose/Water) 103 mls @ 618 mls/hr IV .Q10M PRN; Protocol PRN Reason: A.FIB/FLUTTER Albumin Human 250 ml/ IV (Solution) 250 mls @ 250 mls/hr IVPB Q1HR PRN PRN Reason: For Volume Stop: 12/03/18 15:19 Last Admin: 12/02/18 01:44 Dose: 250 mls/hr Documented by: Lactated Ringer's (Lactated Ringers) 1,000 mls @ 30 mls/hr IV .Q24H [facility] Last Admin: 12/02/18 13:27 Dose: 30 mls/hr Documented by: Calcium Gluconate 2 gm/ Sodium (Chloride) 120 mls @ 100 mls/hr IVPB ONCE PRN PRN Reason: Ionized Calcium less than 4.4 Stop: 12/31/18 15:19 Magnesium Hydroxide (Milk Of Magnesia) 2,400 mg PO BID PRN PRN Reason: Constipation Metoclopramide HCl (Reglan) 10 mg IVP Q4H PRN PRN Reason: Nausea And Vomiting Metoprolol Tartrate (Lopressor) 12.5 mg PO BID [facility] Last Admin: 12/02/18 21:13 Dose: 12.5 mg Documented by: Miscellaneous Information (Magnesium Per Protocol) 1 each MISCELLANE DAILY PRN; Protocol PRN Reason: Per Protocol Miscellaneous Information (Potassium Per Protocol) 1 each MISCELLANE DAILY PRN; Protocol PRN Reason: Per Protocol Miscellaneous Information (Phosphorus Per Protocol) 1 each MISCELLANE DAILY PRN; Protocol PRN Reason: Per Protocol Mupirocin (Bactroban Oint) 1 applic NASAL BID [facility] Stop: 12/04/18 21:01 Last Admin: 12/02/18 21:14 Dose: 1 applic Documented by: Ondansetron HCl (Zofran) 4 mg IVP Q6HR PRN PRN Reason: Nausea And Vomiting Pantoprazole Sodium (Protonix) 40 mg PO AC-BRKFST [facility] Senna/Docusate Sodium (Senokot-S) 2 each PO HS [facility] Last Admin: 12/02/18 21:13 Dose: 2 each Documented by: Sodium Chloride (Saline Flush) 10 ml IV BID [facility] Last Admin: 12/02/18 21:14 Dose: 10 ml Documented by: Objective - Vital Signs Vital signs: Vital Signs Temp 98 F 12/02/18 16:00 Pulse 85 12/02/18 17:00 Resp 15 12/02/18 17:00 BP 85/62 12/02/18 10:00 Pulse Ox 98 12/02/18 17:00 Intake & Output 12/01/18 12/02/18 12/02/18 18:59 06:59 18:59 Intake Total 1593 0048.276 7741.800 Output Total 1983 822 678 Balance -390 1035.947 635.800 Weight 84.2 kg 88.2 kg 88.2 kg Intake: IV 1066 1750 198 ACETAMINOPHEN IV (For NPO 100 ) 1,000 mg In Empty Bag 1 bag @ 400 mls/hr IVPB Q6HR [facility] Rx#:[id number] Albumin Human 5% 500 ml 750 In Empty Bag 1 bag @ 250 mls/hr IVPB ONCE ONE Rx#: [id number] Injectate 60 110 20 Kefzol 100 LR 100 600 50 Pressure bags 90 78 Sodium Chloride 0.9% 1, 800 000 ml @ 100 mls/hr IV . Q10H [facility] Rx#:[id number] ceFAZolin 2 gm In Sodium 100 50 Chloride 0.9% 50 ml @ 100 mls/hr IVPB Q8HR [facility] Rx# :[id number] Intake, IV Titration 107.947 295.800 Amount Dexmedetomidine/0.9% NaCl 45.257 (Pmx) 400 mcg In Empty Bag 1 bag @ Titrate IV . Q0M [facility] Rx#:[id number] Insulin Regular 100 unit 10.599 25.800 In Sodium Chloride 0.9% 100 ml @ Titrate IV .Q0M [facility] Rx#:[id number] Lactated Ringers 1,000 ml 270 @ 30 mls/hr IV .Q24H [facility] Rx#:[id number] Norepinephrine 4 mg In 22.536 Sodium Chloride 0.9% 250 ml @ 0.02 MCG/KG/MIN 6. 378 mls/hr IV .Q24H [facility] Rx#:[id number] Propofol 1,000 mg In 29.555 Empty Bag 1 bag @ Titrate IV .Q0M [facility] Rx#: [id number] Oral 460 Blood Product 527 310 Ffp 24 Cpda Unit 0 [id number] Platelet Pheresis Acda2 217 Unit [id number] Rc As-1 Unit 310 [id number] Pheresis 2 As3 Unit 310 [id number] Other 50 Rc As-1 Unit 50 [id number] Output: Chest Tube Drainage 123 232 308 LP 5 62 158 MS 118 170 150 Urine 860 590 370 Estimated Blood Loss 1000 Other: Voiding Method Indwelling Catheter Indwelling Catheter ABP, PAP, CO, CI - Last Documented Arterial Blood Pressure 103/54 Pulmonary Artery Pressure 51/22 Cardiac Output 5.6 Cardiac Index 2.9 - Exam General: sittng up in a chair by the bed side. No acute distress. Eyes: Mild pallor , No icterus. HENT: normocephalic Neck: supple, no JVD Lungs: Bilateral BS psoitive. No wheezing , few crackles at he lower lung bases. CV: S 1 , S2 heard. Mediastinal and left pleural chest tubes in place. Heart hugger in place. Abdomen: soft, nondistended, no organomegaly. Floey's catheter in place. Extremitie: slight edema in both the hands. Lymph: no cervical or axillary LAD Skin: warm and dry. - Labs CBC & Chem 7: 12/02/18 11:50 12/02/18 04:00 Labs: Abnormal Lab Results - Last 24 Hours (Table) 11/30/18 12/01/18 12/01/18 Range/Units 13:20 18:08 19:00 RBC 2.30 L (4.30-5.90) m/uL Hgb 7.2 L (13.0-17.5) gm/dL Hct 21.7 L (39.0-53.0) % Plt Count 78 L (150-450) k/uL Lymphocytes # 0.3 L (1.0-4.8) k/uL ABG pO2 (83-108) mmHg ABG Total CO2 (19-24) mmol/L ABG O2 Saturation (94-97) % Potassium (3.5-5.1) mmol/L BUN (9-20) mg/dL Creatinine (0.66-1.25) mg/dL Glucose (74-99) mg/dL POC Glucose (mg/dL) 145 H (75-99) mg/dL Calcium (8.4-10.2) mg/dL Magnesium (1.6-2.3) mg/dL AST (17-59) U/L Alkaline Phosphatase (38-126) U/L Total Protein (6.3-8.2) g/dL Albumin (3.5-5.0) g/dL Crossmatch See Detail 12/01/18 12/01/18 12/01/18 Range/Units 19:15 20:09 21:08 RBC (4.30-5.90) m/uL Hgb (13.0-17.5) gm/dL Hct (39.0-53.0) % Plt Count (150-450) k/uL Lymphocytes # (1.0-4.8) k/uL ABG pO2 (83-108) mmHg ABG Total CO2 (19-24) mmol/L ABG O2 Saturation (94-97) % Potassium (3.5-5.1) mmol/L BUN (9-20) mg/dL Creatinine (0.66-1.25) mg/dL Glucose (74-99) mg/dL POC Glucose (mg/dL) 138 H 137 H 146 H (75-99) mg/dL Calcium (8.4-10.2) mg/dL Magnesium (1.6-2.3) mg/dL AST (17-59) U/L Alkaline Phosphatase (38-126) U/L Total Protein (6.3-8.2) g/dL Albumin (3.5-5.0) g/dL Crossmatch 12/01/18 12/01/18 12/01/18 Range/Units 22:04 23:00 23:04 RBC 2.26 L (4.30-5.90) m/uL Hgb 7.1 L (13.0-17.5) gm/dL Hct 21.2 L (39.0-53.0) % Plt Count 66 L (150-450) k/uL Lymphocytes # 0.5 L (1.0-4.8) k/uL ABG pO2 (83-108) mmHg ABG Total CO2 (19-24) mmol/L ABG O2 Saturation (94-97) % Potassium (3.5-5.1) mmol/L BUN (9-20) mg/dL Creatinine (0.66-1.25) mg/dL Glucose (74-99) mg/dL POC Glucose (mg/dL) 138 H 141 H (75-99) mg/dL Calcium (8.4-10.2) mg/dL Magnesium (1.6-2.3) mg/dL AST (17-59) U/L Alkaline Phosphatase (38-126) U/L Total Protein (6.3-8.2) g/dL Albumin (3.5-5.0) g/dL Crossmatch 12/02/18 12/02/18 12/02/18 Range/Units 00:03 00:49 00:50 RBC (4.30-5.90) m/uL Hgb (13.0-17.5) gm/dL Hct (39.0-53.0) % Plt Count (150-450) k/uL Lymphocytes # (1.0-4.8) k/uL ABG pO2 209 H (83-108) mmHg ABG Total CO2 25 H (19-24) mmol/L ABG O2 Saturation 99.4 H (94-97) % Potassium (3.5-5.1) mmol/L BUN (9-20) mg/dL Creatinine (0.66-1.25) mg/dL Glucose (74-99) mg/dL POC Glucose (mg/dL) 123 H 132 H (75-99) mg/dL Calcium (8.4-10.2) mg/dL Magnesium (1.6-2.3) mg/dL AST (17-59) U/L Alkaline Phosphatase (38-126) U/L Total Protein (6.3-8.2) g/dL Albumin (3.5-5.0) g/dL Crossmatch 12/02/18 12/02/18 12/02/18 Range/Units 03:03 03:57 04:00 RBC 2.03 L (4.30-5.90) m/uL Hgb 6.3 L* (13.0-17.5) gm/dL Hct 19.1 L* (39.0-53.0) % Plt Count 60 L (150-450) k/uL Lymphocytes # 0.6 L (1.0-4.8) k/uL ABG pO2 (83-108) mmHg ABG Total CO2 (19-24) mmol/L ABG O2 Saturation (94-97) % Potassium (3.5-5.1) mmol/L BUN (9-20) mg/dL Creatinine (0.66-1.25) mg/dL Glucose (74-99) mg/dL POC Glucose (mg/dL) 151 H 151 H (75-99) mg/dL Calcium (8.4-10.2) mg/dL Magnesium (1.6-2.3) mg/dL AST (17-59) U/L Alkaline Phosphatase (38-126) U/L Total Protein (6.3-8.2) g/dL Albumin (3.5-5.0) g/dL Crossmatch 12/02/18 12/02/18 12/02/18 Range/Units 04:00 05:00 05:07 RBC 2.19 L (4.30-5.90) m/uL Hgb 6.6 L* (13.0-17.5) gm/dL Hct 20.8 L (39.0-53.0) % Plt Count 77 L (150-450) k/uL Lymphocytes # (1.0-4.8) k/uL ABG pO2 (83-108) mmHg ABG Total CO2 (19-24) mmol/L ABG O2 Saturation (94-97) % Potassium 5.3 H (3.5-5.1) mmol/L BUN 21 H (9-20) mg/dL Creatinine 1.48 H (0.66-1.25) mg/dL Glucose 132 H (74-99) mg/dL POC Glucose (mg/dL) 143 H (75-99) mg/dL Calcium 7.7 L (8.4-10.2) mg/dL Magnesium 2.4 H (1.6-2.3) mg/dL AST 70 H (17-59) U/L Alkaline Phosphatase 36 L (38-126) U/L Total Protein 5.0 L (6.3-8.2) g/dL Albumin 3.0 L (3.5-5.0) g/dL Crossmatch 12/02/18 12/02/18 12/02/18 Range/Units 06:03 07:01 08:20 RBC (4.30-5.90) m/uL Hgb (13.0-17.5) gm/dL Hct (39.0-53.0) % Plt Count (150-450) k/uL Lymphocytes # (1.0-4.8) k/uL ABG pO2 (83-108) mmHg ABG Total CO2 (19-24) mmol/L ABG O2 Saturation (94-97) % Potassium (3.5-5.1) mmol/L BUN (9-20) mg/dL Creatinine (0.66-1.25) mg/dL Glucose (74-99) mg/dL POC Glucose (mg/dL) 137 H 138 H 132 H (75-99) mg/dL Calcium (8.4-10.2) mg/dL Magnesium (1.6-2.3) mg/dL AST (17-59) U/L Alkaline Phosphatase (38-126) U/L Total Protein (6.3-8.2) g/dL Albumin (3.5-5.0) g/dL Crossmatch 12/02/18 12/02/18 12/02/18 Range/Units 09:40 10:39 11:49 RBC (4.30-5.90) m/uL Hgb (13.0-17.5) gm/dL Hct (39.0-53.0) % Plt Count (150-450) k/uL Lymphocytes # (1.0-4.8) k/uL ABG pO2 (83-108) mmHg ABG Total CO2 (19-24) mmol/L ABG O2 Saturation (94-97) % Potassium (3.5-5.1) mmol/L BUN (9-20) mg/dL Creatinine (0.66-1.25) mg/dL Glucose (74-99) mg/dL POC Glucose (mg/dL) 135 H 139 H 140 H (75-99) mg/dL Calcium (8.4-10.2) mg/dL Magnesium (1.6-2.3) mg/dL AST (17-59) U/L Alkaline Phosphatase (38-126) U/L Total Protein (6.3-8.2) g/dL Albumin (3.5-5.0) g/dL Crossmatch 12/02/18 12/02/18 12/02/18 Range/Units 11:50 13:15 14:18 RBC 2.53 L (4.30-5.90) m/uL Hgb 8.0 L (13.0-17.5) gm/dL Hct 24.0 L (39.0-53.0) % Plt Count 70 L (150-450) k/uL Lymphocytes # 0.7 L (1.0-4.8) k/uL ABG pO2 (83-108) mmHg ABG Total CO2 (19-24) mmol/L ABG O2 Saturation (94-97) % Potassium (3.5-5.1) mmol/L BUN (9-20) mg/dL Creatinine (0.66-1.25) mg/dL Glucose (74-99) mg/dL POC Glucose (mg/dL) 143 H 164 H (75-99) mg/dL Calcium (8.4-10.2) mg/dL Magnesium (1.6-2.3) mg/dL AST (17-59) U/L Alkaline Phosphatase (38-126) U/L Total Protein (6.3-8.2) g/dL Albumin (3.5-5.0) g/dL Crossmatch 12/02/18 12/02/18 12/02/18 Range/Units 15:13 16:16 17:27 RBC (4.30-5.90) m/uL Hgb (13.0-17.5) gm/dL Hct (39.0-53.0) % Plt Count (150-450) k/uL Lymphocytes # (1.0-4.8) k/uL ABG pO2 (83-108) mmHg ABG Total CO2 (19-24) mmol/L ABG O2 Saturation (94-97) % Potassium (3.5-5.1) mmol/L BUN (9-20) mg/dL Creatinine (0.66-1.25) mg/dL Glucose (74-99) mg/dL POC Glucose (mg/dL) 172 H 168 H 155 H (75-99) mg/dL Calcium (8.4-10.2) mg/dL Magnesium (1.6-2.3) mg/dL AST (17-59) U/L Alkaline Phosphatase (38-126) U/L Total Protein (6.3-8.2) g/dL Albumin (3.5-5.0) g/dL Crossmatch Microbiology - Last 24 Hours (Table) 11/30/18 19:25 Nasal Screen MRSA/MSSA - Final Nasal Swab Assessment and Plan Assessment: Assessment: Coronary artery disease s/p CABD - post op day #1 Acute blood loss anemia - s/p surgery Thromobcytopenia NSTEMI V. tach/V. fib prehospital with ICD shock Hypertension Hyperlipidemia Chronic systolic heart failure status post ICD placement Previous tobacco dependence Severe COPD Obstructive sleep apnea without home CPAP use Type 2 diabetes Plan: He got 2 unit of PRBCs and 1 platelets transfused for post - op blood loss anemia and Thrombocytopenia . Continue low-dose aspirin, statin, beta jayant therapy. Plavix on hold due to thrombocytopenia. No active signs of bleeding. Continue to monitor blood glucose levels, he is on an Insulin drip. CT surgery, Cardiology following him closely. Continue with the current medication regimen.
[2018-12-02 22:02] LABS: Glucose,Whole Blood 119 mg/dL (75-99)
[2018-12-03 00:18] LABS: Glucose,Whole Blood 167 mg/dL (75-99)
[2018-12-03] MEDS: HEPARIN SODIUM,PORCINE 5,000 UNIT/ML 1 ML VIAL SQ SCH ×3 (00:20→16:31)
[2018-12-03] MEDS ORDERED: AMIODARONE 360 MG in DEXTROSE 5% IN WATER 200 ML IV ONE ×2 (00:29)
[2018-12-03] MEDS: HYDROcodone/APAP 7.5-325MG 1 EACH TAB PO PRN ×2 (00:42→05:51)
[2018-12-03 00:54] LABS: Glucose,Whole Blood 146 mg/dL (75-99)
[2018-12-03 03:06] LABS: Glucose,Whole Blood 124 mg/dL (75-99)
[2018-12-03 03:59] LABS: Glucose,Whole Blood 131 mg/dL (75-99)
[2018-12-03 04:04] LABS: Basophils % (A) 0 %; Eosinophils # (A) 0.2 k/uL (0-0.7); Eosinophils % (A) 3 %; HCT 24.2 % (39.0-53.0); HGB 7.7 gm/dL (13.0-17.5); Lymphocytes % (A) 15 %; MCH 30.6 pg (25.0-35.0); MCHC 31.9 g/dL (31.0-37.0); MCV 95.9 fL (80.0-100.0); Mean Platelet Volume 11.1; Monocytes # (A) 0.6 k/uL (0-1.0); Monocytes % (A) 9 %; Neutrophils # (A) 4.7 k/uL (1.3-7.7); Neutrophils % (A) 68 %; RBC 2.52 m/uL (4.30-5.90); RDW 14.5 % (11.5-15.5); WBC 6.9 k/uL (3.8-10.6)
[2018-12-03 04:08] LABS: Ionized Calcium 4.8 mg/dL (4.5-5.3)
[2018-12-03 04:13] LABS: Platelet Count 82 k/uL (150-450)
[2018-12-03 04:17] LABS: Albumin 3.1 g/dL (3.5-5.0); Calcium 8.1 mg/dL (8.4-10.2); Potassium 4.6 mmol/L (3.5-5.1); Total Bilirubin 0.5 mg/dL (0.2-1.3); Total Protein 5.5 g/dL (6.3-8.2)
[2018-12-03] MEDS: INSULIN REGULAR 100 UNIT in SODIUM CHLORIDE 0.9% 100 ML IV SCH (05:38)
[2018-12-03] MEDS: AMIODARONE 300 MG in DEXTROSE 5% IN WATER 250 ML IV SCH ×4 (05:38→16:31)
[2018-12-03 05:55] LABS: Glucose,Whole Blood 127 mg/dL (75-99)
--- NOTE | 2018-12-03 06:09 | XR ---
EXAMINATION TYPE: XR chest 1V portable DATE OF EXAM: 12/03/2018 HISTORY: Post Operative Cardiac Surgery. REFERENCE: Previous study dated 12/02/2018. FINDINGS: There has been a midline sternotomy. A unipolar pacemaker is in place on the left. A left p leural drain remains in place. The patient [place] catheter is been removed. There is mild cardiomegaly. There is vascular congestion without santiago edema. There is left basilar a irspace disease, likely representing atelectasis. This has improved. I suspect small, bilateral effus ions. IMPRESSION: IMPROVING POSTOPERATIVE CHANGE.
[2018-12-03 07:01] LABS: Glucose,Whole Blood 128 mg/dL (75-99)
[2018-12-03] MEDS: IPRATROPIUM-ALBUTEROL 3 ML NEB INHALATION SCH ×4 (07:36→20:41)
[2018-12-03 08:10] LABS: Glucose,Whole Blood 121 mg/dL (75-99)
--- NOTE | 2018-12-03 08:11 | P.PN ---
Subjective Progress Note Date: 12/03/18 Principal diagnosis: Coronary artery disease with left main disease, chronic total occlusion of the RCA, non-STEMI, V. tach/V. fib status post ICD shock, complete occlusion of the left internal carotid artery. Previous medical history of myocardial infarction, hypertension, hyperlipidemia, chronic systolic heart failure status post ICD placement, previous tobacco dependence, severe COPD with preoperative FEV1 37%, obstructive sleep apnea without home CPAP use, type 2 diabetes mellitus with preopertive HgbA1c 5.6%, family history of premature coronary artery disease. POD #2 urgent coronary artery bypass grafting 4 vessels, left internal mammary artery to the left anterior descending artery, reverse saphenous vein graft to the diagonal artery, reverse saphenous vein graft to the obtuse marginal artery, reverse saphenous vein graft to the posterior lateral branch of the RCA. Endoscopic harvest of the right greater saphenous vein. Epi-aortic ultrasound. Intraoperative transesophageal echocardiogram. Postoperative acute blood loss anemia, expected from hemodilution and cardiopulmonary bypass pump as well as preoperative anemia Postoperative thrombocytopenia, expected from hemodilution as well as preoperative thrombocytopenia Postoperative atrial fibrillation, unexpected but potential and common outcome secondary to inflammatory process of surgery The patient is sitting up in a recliner in no acute distress in the intensive care unit. He continues to complain of postsurgical sternal pain although he falls back to sleep readily when no one is in the room, denies shortness of breath. Hemodynamically stable on no inotropes or pressors. He did go into atrial fibrillation this morning, re-started on IV amiodarone, remains in a fib with heart rate in the 90s. Mediastinal and left pleural chest tubes in place. Hemoglobin 6.6 yesterday morning, received 1 unit PRBCs, hgb 8.0 2 hours post transfusion and 7.7 this morning. AICD was turned back on yesterday by [employer] rep. No new complaints. Objective - Vital Signs Vital signs: Vital Signs Temp 98.4 F 12/03/18 04:00 Pulse 86 12/03/18 07:45 Resp 15 12/03/18 07:00 BP 85/62 12/02/18 10:00 Pulse Ox 95 12/03/18 07:00 Intake & Output 12/02/18 12/03/18 12/03/18 18:59 06:59 18:59 Intake Total 1473.300 708.059 36 Output Total 718 545 30 Balance 755.300 163.059 6 Weight 88.2 kg Intake: IV 204 405 36 Injectate 20 LR 50 Lactated Ringers 1,000 ml 330 30 @ 30 mls/hr IV .Q24H [facility] Rx#:[id number] Pressure bags 84 75 6 ceFAZolin 2 gm In Sodium 50 Chloride 0.9% 50 ml @ 100 mls/hr IVPB Q8HR [facility] Rx# :[id number] Intake, IV Titration 329.300 53.059 Amount Insulin Regular 100 unit 29.300 23.059 In Sodium Chloride 0.9% 100 ml @ Titrate IV .Q0M [facility] Rx#:[id number] Lactated Ringers 1,000 ml 300 30 @ 30 mls/hr IV .Q24H [facility] Rx#:[id number] Oral 580 250 Blood Product 310 Rc As-1 Unit 310 [id number] Other 50 Rc As-1 Unit 50 [id number] Output: Chest Tube Drainage 318 120 LP 168 40 MS 150 80 Urine 400 425 30 Other: Voiding Method Indwelling Catheter Indwelling Catheter ABP, PAP, CO, CI - Last Documented Arterial Blood Pressure 105/57 Pulmonary Artery Pressure 51/22 Cardiac Output 5.6 Cardiac Index 2.9 - Constitutional General appearance: Present: cooperative, no acute distress, obese - Respiratory Details: Lungs sounds diminished bilaterally with expiratory wheeze present. Respirations even, nonlabored. Currently on 3 L nasal cannula with oxygen saturation 95%. Only able to achieve 750 mL on his incentive spirometry. Weak cough unless encouraged to cough hard. Mediastinal chest tube to continuous wall suction, 60 mL serosanguineous drainage overnight, 250 mL in the last 24 hours. Left pleural chest tube to continuous wall suction, 28 mL serosanguineous drainage overnight, 150 mL in the last 24 hours. No air leaks present. - Cardiovascular Details: S1, S2 present. Irregular rate and rhythm, atrial fibrillation on telemetry. Sternum stable. A/V epicardial pacemaker wires present, grounded. Palpable peripheral pulses bilaterally. Bilateral upper extremity edema is present. No lower extremity edema present. Right internal jugular Cordis, right radial arterial line present. Heart hugger in place with patient demonstrating appropriate use. Antiembolism stockings, SCDs present. - Gastrointestinal Gastrointestinal Comment(s): Abdomen soft, nontender, nondistended. Hypoactive bowel sounds present 4 quadrants. Tolerating clear liquids. Positive flatus, negative bowel movement. - Genitourinary Genitourinary Comment(s): Mejia catheter discontinued this morning, drained clear yellow urine over night, output 30-50 mL per hour. - Integumentary Integumentary Comment(s): Skin is warm and dry with evidence of good perfusion. Anterior chest incision well approximated and covered with dry intact dressing. Right lower extremity EVH site well approximated, ecchymotic. - Neurologic Neurologic: Present: CNII-XII intact - Musculoskeletal Musculoskeletal: Present: strength equal bilaterally - Psychiatric Psychiatric: Present: A&O x's 3, appropriate affect - Allied health notes Allied health notes reviewed: nursing - Labs CBC & Chem 7: 12/03/18 04:00 12/03/18 04:00 Labs: Abnormal Lab Results - Last 24 Hours (Table) 11/30/18 12/02/18 12/02/18 Range/Units 13:20 08:20 09:40 RBC (4.30-5.90) m/uL Hgb (13.0-17.5) gm/dL Hct (39.0-53.0) % Plt Count (150-450) k/uL Lymphocytes # (1.0-4.8) k/uL Sodium (137-145) mmol/L BUN (9-20) mg/dL Creatinine (0.66-1.25) mg/dL Glucose (74-99) mg/dL POC Glucose (mg/dL) 132 H 135 H (75-99) mg/dL Calcium (8.4-10.2) mg/dL Alkaline Phosphatase (38-126) U/L Total Protein (6.3-8.2) g/dL Albumin (3.5-5.0) g/dL Crossmatch See Detail 12/02/18 12/02/18 12/02/18 Range/Units 10:39 11:49 11:50 RBC 2.53 L (4.30-5.90) m/uL Hgb 8.0 L (13.0-17.5) gm/dL Hct 24.0 L (39.0-53.0) % Plt Count 70 L (150-450) k/uL Lymphocytes # 0.7 L (1.0-4.8) k/uL Sodium (137-145) mmol/L BUN (9-20) mg/dL Creatinine (0.66-1.25) mg/dL Glucose (74-99) mg/dL POC Glucose (mg/dL) 139 H 140 H (75-99) mg/dL Calcium (8.4-10.2) mg/dL Alkaline Phosphatase (38-126) U/L Total Protein (6.3-8.2) g/dL Albumin (3.5-5.0) g/dL Crossmatch 12/02/18 12/02/18 12/02/18 Range/Units 13:15 14:18 15:13 RBC (4.30-5.90) m/uL Hgb (13.0-17.5) gm/dL Hct (39.0-53.0) % Plt Count (150-450) k/uL Lymphocytes # (1.0-4.8) k/uL Sodium (137-145) mmol/L BUN (9-20) mg/dL Creatinine (0.66-1.25) mg/dL Glucose (74-99) mg/dL POC Glucose (mg/dL) 143 H 164 H 172 H (75-99) mg/dL Calcium (8.4-10.2) mg/dL Alkaline Phosphatase (38-126) U/L Total Protein (6.3-8.2) g/dL Albumin (3.5-5.0) g/dL Crossmatch 12/02/18 12/02/18 12/02/18 Range/Units 16:16 17:27 18:26 RBC (4.30-5.90) m/uL Hgb (13.0-17.5) gm/dL Hct (39.0-53.0) % Plt Count (150-450) k/uL Lymphocytes # (1.0-4.8) k/uL Sodium (137-145) mmol/L BUN (9-20) mg/dL Creatinine (0.66-1.25) mg/dL Glucose (74-99) mg/dL POC Glucose (mg/dL) 168 H 155 H 130 H (75-99) mg/dL Calcium (8.4-10.2) mg/dL Alkaline Phosphatase (38-126) U/L Total Protein (6.3-8.2) g/dL Albumin (3.5-5.0) g/dL Crossmatch 12/02/18 12/02/18 12/02/18 Range/Units 19:45 21:03 22:01 RBC (4.30-5.90) m/uL Hgb (13.0-17.5) gm/dL Hct (39.0-53.0) % Plt Count (150-450) k/uL Lymphocytes # (1.0-4.8) k/uL Sodium (137-145) mmol/L BUN (9-20) mg/dL Creatinine (0.66-1.25) mg/dL Glucose (74-99) mg/dL POC Glucose (mg/dL) 127 H 108 H 119 H (75-99) mg/dL Calcium (8.4-10.2) mg/dL Alkaline Phosphatase (38-126) U/L Total Protein (6.3-8.2) g/dL Albumin (3.5-5.0) g/dL Crossmatch 12/03/18 12/03/18 12/03/18 Range/Units 00:16 00:53 03:04 RBC (4.30-5.90) m/uL Hgb (13.0-17.5) gm/dL Hct (39.0-53.0) % Plt Count (150-450) k/uL Lymphocytes # (1.0-4.8) k/uL Sodium (137-145) mmol/L BUN (9-20) mg/dL Creatinine (0.66-1.25) mg/dL Glucose (74-99) mg/dL POC Glucose (mg/dL) 167 H 146 H 124 H (75-99) mg/dL Calcium (8.4-10.2) mg/dL Alkaline Phosphatase (38-126) U/L Total Protein (6.3-8.2) g/dL Albumin (3.5-5.0) g/dL Crossmatch 12/03/18 12/03/18 12/03/18 Range/Units 03:57 04:00 04:00 RBC 2.52 L (4.30-5.90) m/uL Hgb 7.7 L (13.0-17.5) gm/dL Hct 24.2 L (39.0-53.0) % Plt Count 82 L (150-450) k/uL Lymphocytes # (1.0-4.8) k/uL Sodium 135 L (137-145) mmol/L BUN 32 H (9-20) mg/dL Creatinine 1.67 H (0.66-1.25) mg/dL Glucose 119 H (74-99) mg/dL POC Glucose (mg/dL) 131 H (75-99) mg/dL Calcium 8.1 L (8.4-10.2) mg/dL Alkaline Phosphatase 33 L (38-126) U/L Total Protein 5.5 L (6.3-8.2) g/dL Albumin 3.1 L (3.5-5.0) g/dL Crossmatch 12/03/18 12/03/18 Range/Units 05:53 07:00 RBC (4.30-5.90) m/uL Hgb (13.0-17.5) gm/dL Hct (39.0-53.0) % Plt Count (150-450) k/uL Lymphocytes # (1.0-4.8) k/uL Sodium (137-145) mmol/L BUN (9-20) mg/dL Creatinine (0.66-1.25) mg/dL Glucose (74-99) mg/dL POC Glucose (mg/dL) 127 H 128 H (75-99) mg/dL Calcium (8.4-10.2) mg/dL Alkaline Phosphatase (38-126) U/L Total Protein (6.3-8.2) g/dL Albumin (3.5-5.0) g/dL Crossmatch - Imaging and Cardiology Chest x-ray: report reviewed, image reviewed Assessment and Plan Assessment: 1. Coronary artery disease with left main disease, chronic total occlusion of the RCA 2. Previous myocardial infarction, non-STEMI this admission 3. V. tach/V. fib prehospital with ICD shock 4. Complete occlusion of the left internal carotid artery. 5. Hypertension 6. Hyperlipidemia 7. Chronic systolic heart failure status post ICD placement 8. Previous tobacco dependence 9. Severe COPD with preoperative FEV1 37% 10. Obstructive sleep apnea without home CPAP use 11. Type 2 diabetes with preoperative hemoglobin A1c 5.6% 12. Family history of premature coronary artery disease 13. Postoperative acute blood loss anemia 14. Postoperative thrombocytopenia 15. Postoperative atrial fibrillation Plan: 1. Continue low-dose aspirin, statin, Plavix, beta jayant therapy. Will increase beta jayant therapy as tolerated. 2. Continue amiodarone for VT prophylaxis, a fib. No anticoagulation at this time, will need to have all lines and tubes removed first. 3. Wean O2 as tolerated. Encourage incentive spirometry use 10 times every hour while awake. 4. Increase activity, ambulate as tolerated. PT/OT/cardiac rehab following. Patient needs much encouragement for activity. 5. Will monitor daily labs and x-rays. Electrolyte replacement per protocol. No further transfusions at this time. No lasix at this time 6. Will discontinue mediastinal chest tubes. Keep pleural chest tubes for another 24 hours 7. GI/DVT prophylaxis. 8. Insulin management per primary care service. 9. Pain control with current medication regimen. No Toradol secondary to increased creatinine, thrombocytopenia 10. Mejia discontinued. Monitor for voiding. Bladder scan every 6 hours, may straight cath for residual > 300 cc. 11. More recommendations to follow based on patient's progress Time with Patient: Greater than 30
--- NOTE | 2018-12-03 08:42 | P.PN ---
Subjective Progress Note Date: 12/03/18 Principal diagnosis: This is a pleasant 68-year-old gentleman with a past medical history significant for cardiomyopathy and status post AICD who was admitted to the hospital with AICD shocks and underwent a heart catheterization which revealed severe disease involving the left main coronary artery and subsequently the patient underwent coronary artery bypass grafting. On follow-up with him today, 12/03/2018, the patient did go into atrial fibrillation last night and he was started on amiodarone IV. He continues to be in atrial fibrillation. Her pressure has been marginally low. The creatinine is worse as well which could be related to the marginally low blood pressure. The hemoglobin has improved after he received one unit of packed RBC. Hemoglobin this morning is about 7. He continues to be on dual antiplatelet therapy as well as he is on metoprolol. Objective - Vital Signs Vital signs: Vital Signs Temp 98.4 F 12/03/18 04:00 Pulse 86 12/03/18 07:45 Resp 15 12/03/18 07:00 BP 85/62 12/02/18 10:00 Pulse Ox 95 12/03/18 07:00 Intake & Output 12/02/18 12/03/18 12/03/18 18:59 06:59 18:59 Intake Total 1473.300 708.059 42.583 Output Total 718 545 30 Balance 755.300 163.059 12.583 Weight 88.2 kg Intake: IV 204 405 36 Injectate 20 LR 50 Lactated Ringers 1,000 ml 330 30 @ 30 mls/hr IV .Q24H [facility] Rx#:[id number] Pressure bags 84 75 6 ceFAZolin 2 gm In Sodium 50 Chloride 0.9% 50 ml @ 100 mls/hr IVPB Q8HR [facility] Rx# :[id number] Intake, IV Titration 329.300 53.059 6.583 Amount Insulin Regular 100 unit 29.300 23.059 6.583 In Sodium Chloride 0.9% 100 ml @ Titrate IV .Q0M [facility] Rx#:[id number] Lactated Ringers 1,000 ml 300 30 @ 30 mls/hr IV .Q24H [facility] Rx#:[id number] Oral 580 250 Blood Product 310 Rc As-1 Unit 310 [id number] Other 50 Rc As-1 Unit 50 [id number] Output: Chest Tube Drainage 318 120 LP 168 40 MS 150 80 Urine 400 425 30 Other: Voiding Method Indwelling Catheter Indwelling Catheter ABP, PAP, CO, CI - Last Documented Arterial Blood Pressure 105/57 Pulmonary Artery Pressure 51/22 Cardiac Output 5.6 Cardiac Index 2.9 - Constitutional General appearance: Present: no acute distress - Respiratory Respiratory: bilateral: diminished - Cardiovascular Rhythm: irregularly irregular Heart sounds: normal: S1, S2 - Labs CBC & Chem 7: 12/03/18 04:00 12/03/18 04:00 Labs: Abnormal Lab Results - Last 24 Hours (Table) 11/30/18 12/02/18 12/02/18 Range/Units 13:20 09:40 10:39 RBC (4.30-5.90) m/uL Hgb (13.0-17.5) gm/dL Hct (39.0-53.0) % Plt Count (150-450) k/uL Lymphocytes # (1.0-4.8) k/uL Sodium (137-145) mmol/L BUN (9-20) mg/dL Creatinine (0.66-1.25) mg/dL Glucose (74-99) mg/dL POC Glucose (mg/dL) 135 H 139 H (75-99) mg/dL Calcium (8.4-10.2) mg/dL Alkaline Phosphatase (38-126) U/L Total Protein (6.3-8.2) g/dL Albumin (3.5-5.0) g/dL Crossmatch See Detail 12/02/18 12/02/18 12/02/18 Range/Units 11:49 11:50 13:15 RBC 2.53 L (4.30-5.90) m/uL Hgb 8.0 L (13.0-17.5) gm/dL Hct 24.0 L (39.0-53.0) % Plt Count 70 L (150-450) k/uL Lymphocytes # 0.7 L (1.0-4.8) k/uL Sodium (137-145) mmol/L BUN (9-20) mg/dL Creatinine (0.66-1.25) mg/dL Glucose (74-99) mg/dL POC Glucose (mg/dL) 140 H 143 H (75-99) mg/dL Calcium (8.4-10.2) mg/dL Alkaline Phosphatase (38-126) U/L Total Protein (6.3-8.2) g/dL Albumin (3.5-5.0) g/dL Crossmatch 12/02/18 12/02/18 12/02/18 Range/Units 14:18 15:13 16:16 RBC (4.30-5.90) m/uL Hgb (13.0-17.5) gm/dL Hct (39.0-53.0) % Plt Count (150-450) k/uL Lymphocytes # (1.0-4.8) k/uL Sodium (137-145) mmol/L BUN (9-20) mg/dL Creatinine (0.66-1.25) mg/dL Glucose (74-99) mg/dL POC Glucose (mg/dL) 164 H 172 H 168 H (75-99) mg/dL Calcium (8.4-10.2) mg/dL Alkaline Phosphatase (38-126) U/L Total Protein (6.3-8.2) g/dL Albumin (3.5-5.0) g/dL Crossmatch 12/02/18 12/02/18 12/02/18 Range/Units 17:27 18:26 19:45 RBC (4.30-5.90) m/uL Hgb (13.0-17.5) gm/dL Hct (39.0-53.0) % Plt Count (150-450) k/uL Lymphocytes # (1.0-4.8) k/uL Sodium (137-145) mmol/L BUN (9-20) mg/dL Creatinine (0.66-1.25) mg/dL Glucose (74-99) mg/dL POC Glucose (mg/dL) 155 H 130 H 127 H (75-99) mg/dL Calcium (8.4-10.2) mg/dL Alkaline Phosphatase (38-126) U/L Total Protein (6.3-8.2) g/dL Albumin (3.5-5.0) g/dL Crossmatch 12/02/18 12/02/18 12/03/18 Range/Units 21:03 22:01 00:16 RBC (4.30-5.90) m/uL Hgb (13.0-17.5) gm/dL Hct (39.0-53.0) % Plt Count (150-450) k/uL Lymphocytes # (1.0-4.8) k/uL Sodium (137-145) mmol/L BUN (9-20) mg/dL Creatinine (0.66-1.25) mg/dL Glucose (74-99) mg/dL POC Glucose (mg/dL) 108 H 119 H 167 H (75-99) mg/dL Calcium (8.4-10.2) mg/dL Alkaline Phosphatase (38-126) U/L Total Protein (6.3-8.2) g/dL Albumin (3.5-5.0) g/dL Crossmatch 12/03/18 12/03/18 12/03/18 Range/Units 00:53 03:04 03:57 RBC (4.30-5.90) m/uL Hgb (13.0-17.5) gm/dL Hct (39.0-53.0) % Plt Count (150-450) k/uL Lymphocytes # (1.0-4.8) k/uL Sodium (137-145) mmol/L BUN (9-20) mg/dL Creatinine (0.66-1.25) mg/dL Glucose (74-99) mg/dL POC Glucose (mg/dL) 146 H 124 H 131 H (75-99) mg/dL Calcium (8.4-10.2) mg/dL Alkaline Phosphatase (38-126) U/L Total Protein (6.3-8.2) g/dL Albumin (3.5-5.0) g/dL Crossmatch 12/03/18 12/03/18 12/03/18 Range/Units 04:00 04:00 05:53 RBC 2.52 L (4.30-5.90) m/uL Hgb 7.7 L (13.0-17.5) gm/dL Hct 24.2 L (39.0-53.0) % Plt Count 82 L (150-450) k/uL Lymphocytes # (1.0-4.8) k/uL Sodium 135 L (137-145) mmol/L BUN 32 H (9-20) mg/dL Creatinine 1.67 H (0.66-1.25) mg/dL Glucose 119 H (74-99) mg/dL POC Glucose (mg/dL) 127 H (75-99) mg/dL Calcium 8.1 L (8.4-10.2) mg/dL Alkaline Phosphatase 33 L (38-126) U/L Total Protein 5.5 L (6.3-8.2) g/dL Albumin 3.1 L (3.5-5.0) g/dL Crossmatch 12/03/18 12/03/18 Range/Units 07:00 08:06 RBC (4.30-5.90) m/uL Hgb (13.0-17.5) gm/dL Hct (39.0-53.0) % Plt Count (150-450) k/uL Lymphocytes # (1.0-4.8) k/uL Sodium (137-145) mmol/L BUN (9-20) mg/dL Creatinine (0.66-1.25) mg/dL Glucose (74-99) mg/dL POC Glucose (mg/dL) 128 H 121 H (75-99) mg/dL Calcium (8.4-10.2) mg/dL Alkaline Phosphatase (38-126) U/L Total Protein (6.3-8.2) g/dL Albumin (3.5-5.0) g/dL Crossmatch Assessment and Plan Assessment: Assessment #1 severe coronary artery disease and status post coronary artery bypass grafting #2 cardio myopathy #3 status post AICD #4 paroxysmal atrial fibrillation Plan #1 continue the amiodarone IV #2 start the patient on oral anticoagulation if she continues to be in atrial fibrillation after 48 hours #3 continue monitoring the kidney function and electrolytes #4 continue the current medical regimen including dual antiplatelet therapy as well as high intensity statin #5 continue monitoring the hemoglobin
[2018-12-03 09:16] LABS: Glucose,Whole Blood 155 mg/dL (75-99)
[2018-12-03] MEDS: PANTOPRAZOLE 40 MG TABLET PO SCH (09:22)
[2018-12-03] MEDS: ASCORBIC ACID 500 MG TAB PO SCH ×2 (09:22→16:31)
[2018-12-03] MEDS: AMIODARONE 200 MG TAB PO SCH ×2 (09:22→21:07)
[2018-12-03] MEDS: ASPIRIN 81 MG PO SCH (09:22)
[2018-12-03] MEDS: FERROUS SULFATE 325 MG TAB PO SCH ×2 (09:22→16:31)
[2018-12-03] MEDS: CLOPIDOGREL 75 MG TAB PO SCH (09:23)
[2018-12-03] MEDS: METOPROLOL TARTRATE 12.5 MG TAB PO SCH ×2 (09:23→21:07)
[2018-12-03] MEDS: GABAPENTIN 300 MG CAP PO SCH ×2 (09:23→21:07)
[2018-12-03] MEDS: ATORVASTATIN 40 MG TAB PO SCH (09:23)
[2018-12-03] MEDS: MUPIROCIN 2% OINT 22 GM TUBE NASAL SCH ×2 (09:24→21:07)
[2018-12-03] MEDS: FINASTERIDE 5 MG TAB PO SCH (09:26)
--- NOTE | 2018-12-03 09:43 | PN ---
PROGRESS NOTE DATE OF SERVICE: December 03, 2018 This is a 68-year-old male, postop day #2, status post 4-vessel bypass grafting. The surgery was done by Dr. Owen. Last night, he developed atrial fibrillation, was started on amiodarone. He remains on amiodarone at 0.5 mg/minute. He is getting lactated Ringer's at 30 mL an hour and insulin drip at 3 units an hour. He is getting O2 at 3 L by nasal cannula. His chest x-ray is actually a bit improved. The patient really does need to be up out of bed and up out of the chair. He needs to walk in the unit. He needs to deep breathe, cough, clear secretions and use the incentive spirometer more. The patient otherwise is doing reasonably well. Denies any pain. He is not short of breath. No fever or chills. No cough or phlegm production. PHYSICAL EXAMINATION: VITAL SIGNS: Currently, vital signs are relatively stable. His temperature is 98.4, heart rate 86, respiratory rate 15, blood pressure 105/57, mean is 88. His saturations are 95% on 3 L. GENERAL: Appears in no acute distress. HEENT examination is grossly unremarkable. Mucous membranes are moist. Nasal O2 noted. NECK: Supple. Full range of motion. No adenopathy, thyromegaly or neck vein distention. CARDIOVASCULAR examination reveals a regular rhythm and rate. Heart rate about 100 beats per minute. S1, S2 normal. No murmur. LUNGS: A few scattered coarse rhonchi. There are some crackles. Breath sounds equal bilaterally. He does not take deep breaths. ABDOMEN: Soft. Bowel sounds are heard. EXTREMITIES are intact. No cyanosis, clubbing, or edema. SKIN: Without rash. NEUROLOGIC: Examination is brief but nonfocal. LABS: Reviewed. White count 6.9, hemoglobin 7.7, hematocrit 24.2, platelet count 82,000. Sodium 135, potassium 4.6, chloride 103, CO2 22, anion gap is 10, BUN and creatinine were 32 and 1.67. Albumin 3.1. Chest x-ray shows postsurgical changes. There are some bibasilar atelectasis. There are small effusions. His device is noted. Sternal wires are intact. Medications are reviewed. ASSESSMENT: 1. Postoperative day number two status post 4-vessel bypass grafting. 2. Severe left main coronary artery disease. 3. New onset atrial fibrillation, now on Cordarone. 4. Status post AICD placement. 5. History of coronary artery disease. 6. History of congestive heart failure. 7. Mildly severe chronic obstructive pulmonary disease. 8. Hyperlipidemia. 9. Hypertension. 10.Previous history of myocardial infarction. 11.History of shingles. PLAN: The patient is stable. I am concerned because the patient really is not working real hard on his deep breathing, coughing, clearing of secretions and incentive spirometer. In addition, unfortunately, he developed atrial fibrillation last night. He is currently on amiodarone drip 0.5 mg/minute. We encourage him to take deep breaths and use his incentive spirometer. Hopefully, the nurse will get him up out of bed and get him walking in the hallway. Additional recommendations and suggestions are forthcoming. MMODL / IJN: [id number] /
[2018-12-03 11:06] LABS: Glucose,Whole Blood 117 mg/dL (75-99)
[2018-12-03 14:28] LABS: Glucose,Whole Blood 129 mg/dL (75-99)
[2018-12-03 16:09] LABS: Glucose,Whole Blood 130 mg/dL (75-99)
[2018-12-03] MEDS: LACTATED RINGERS 1,000 ML IV SCH (16:28)
--- NOTE | 2018-12-03 17:36 | P.PN ---
Subjective Progress Note Date: 12/03/18 Principal diagnosis: CAD - s/p CABG - post op Day # 2 Rajiv Ibarra is a 68 yo M with hx CAD, cardiomyopathy with ICD in place, HTN, HLD, tobacco abuse. He presented to [facility] via EMS after his ICD shocked him while hunting yesterday. He states he had been out hunting a few hours and was standing with his friend when he felt his ICD shock him. He states this happened twice then he collapsed and EMS was called. Pt notes he was asymptomatic until his ICD went off. In the ED CXR clear, EKG in NSR with PVC, troponin positive and peaked at 3.6. Hgb 11.5, Cr 1.5, Mg 1.5. On 11/30/2018 completed cardiac catheterization - reporting 70% calcified left main stenosis, second diagonal branch of the LAD 60-70% stenosis and chronic total occlusion of RCA with collateral from left coronary system. Evaluated by cardiothoracic surgery, underwent CABG on 12/01/18. On 12/02/18 - He is POD #1 . Pt has been extubated around 1 AM today. Postop he had acute blood loss anemia and thrombocytopenia. So he received 1 # PRBCs today. The patient is sitting up in a chair by the bed side having some juice. He is in no acute distress in the intensive care unit. He has chest discomfort and soreness at the surgical site. Both the mediastinal and left pleural chest tubes in place. Hemoglobin low this morning at 6.6. He also c/o swelling in all his 4 extremities. No SOB. He has Mejia's catheter in place with good urine output. On 12/03/2018 - overnight patient went to atrial fibrillation, so he was started on amiodarone drip. Patient's blood pressure also was running on the lower side and his creatinine creep up this morning. Patient's Mejia's catheter has been discontinued. His mediastinal chest tubes have been removed. Patient's hemoglobin has been stable around 7.5-8. Now patient's heart rate is around 60s. He continues to be on the insulin drip. Overall the patient has generalized weakness and fatigue. He states that he is trying to do his incentive spirometry but has chest soreness. He denies having any chest pain or palpitations. Denies having any fevers chills or rigors. No reports of coughing. Active Medications Hydrocodone Bitart/Acetaminophen ([place] 7.5-325) 1 each PO Q4H PRN PRN Reason: Pain SCALE 1-5 Last Admin: 12/02/18 10:29 Dose: 1 each Documented by: Hydrocodone Bitart/Acetaminophen ([place] 7.5-325) 2 each PO Q4H PRN PRN Reason: Pain SCALE 6-10 Last Admin: 12/03/18 05:51 Dose: 2 each Documented by: Albuterol/Ipratropium (Duoneb 0.5 Mg-3 Mg/3 Ml Soln) 3 ml INHALATION RT-Q2H PRN PRN Reason: Shortness Of Breath Or Wheezing Last Admin: 12/02/18 01:25 Dose: 3 ml Documented by: Albuterol/Ipratropium (Duoneb 0.5 Mg-3 Mg/3 Ml Soln) 3 ml INHALATION RT-QID [facility] Last Admin: 12/03/18 15:30 Dose: 3 ml Documented by: Amiodarone HCl (Cordarone) 400 mg PO BID [facility] Last Admin: 12/03/18 09:22 Dose: 400 mg Documented by: Ascorbic Acid (Vitamin C) 500 mg PO BID-W/MEALS [facility] Last Admin: 12/03/18 16:31 Dose: 500 mg Documented by: Aspirin (Aspirin) 81 mg PO DAILY [facility] Last Admin: 12/03/18 09:22 Dose: 81 mg Documented by: Atorvastatin Calcium (Lipitor) 40 mg PO DAILY [facility] Last Admin: 12/03/18 09:23 Dose: 40 mg Documented by: Benzocaine/Menthol (Cepacol Lozenge) 1 each MUCOUS MEM Q2H PRN PRN Reason: Sore Throat Bisacodyl (Dulcolax) 10 mg RECTAL DAILY PRN PRN Reason: Constipation Clopidogrel Bisulfate (Plavix) 75 mg PO DAILY [facility] Last Admin: 12/03/18 09:23 Dose: 75 mg Documented by: Ferrous Sulfate (Feosol) 325 mg PO BID-W/MEALS [facility] Last Admin: 12/03/18 16:31 Dose: 325 mg Documented by: Finasteride (Proscar) 5 mg PO DAILY [facility] Last Admin: 12/03/18 09:26 Dose: 5 mg Documented by: Gabapentin (Neurontin) 600 mg PO BID [facility] Last Admin: 12/03/18 09:23 Dose: 600 mg Documented by: Heparin Sodium (Porcine) (Heparin) 5,000 unit SQ Q8HR [facility] Last Admin: 12/03/18 16:31 Dose: 5,000 unit Documented by: Insulin Human Regular 100 unit (/ Sodium Chloride) 100 mls @ 0 mls/hr IV .Q0M [facility]; Protocol Last Titration: 12/03/18 16:00 Dose: 2.5 units/hr, 2.5 mls/hr Documented by: Amiodarone HCl 150 mg/ (Dextrose/Water) 103 mls @ 618 mls/hr IV .Q10M PRN; Pro tocol PRN Reason: A.FIB/FLUTTER Last Admin: 12/03/18 00:10 Dose: 618 mls/hr Documented by: Lactated Ringer's (Lactated Ringers) 1,000 mls @ 30 mls/hr IV .Q24H [facility] Last Admin: 12/03/18 16:28 Dose: 30 mls/hr Documented by: Amiodarone HCl 300 mg/ (Dextrose/Water) 250 mls @ 25 mls/hr IV .Q10H [facility]; Protocol Stop: 12/04/18 00:29 Last Admin: 12/03/18 16:31 Dose: Not Given Documented by: Magnesium Hydroxide (Milk Of Magnesia) 2,400 mg PO BID PRN PRN Reason: Constipation Metoclopramide HCl (Reglan) 10 mg IVP Q4H PRN PRN Reason: Nausea And Vomiting Metoprolol Tartrate (Lopressor) 12.5 mg PO BID [facility] Last Admin: 12/03/18 09:23 Dose: 12.5 mg Documented by: Miscellaneous Information (Magnesium Per Protocol) 1 each MISCELLANE DAILY PRN; Protocol PRN Reason: Per Protocol Miscellaneous Information (Potassium Per Protocol) 1 each MISCELLANE DAILY PRN; Protocol PRN Reason: Per Protocol Miscellaneous Information (Phosphorus Per Protocol) 1 each MISCELLANE DAILY PRN; Protocol PRN Reason: Per Protocol Mupirocin (Bactroban Oint) 1 applic NASAL BID [facility] Stop: 12/04/18 21:01 Last Admin: 12/03/18 09:24 Dose: 1 applic Documented by: Ondansetron HCl (Zofran) 4 mg IVP Q6HR PRN PRN Reason: Nausea And Vomiting Pantoprazole Sodium (Protonix) 40 mg PO AC-BRKFST [facility] Last Admin: 12/03/18 09:22 Dose: 40 mg Documented by: Senna/Docusate Sodium (Senokot-S) 2 each PO HS [facility] Last Admin: 12/02/18 21:13 Dose: 2 each Documented by: Sodium Chloride (Saline Flush) 10 ml IV BID [facility] Last Admin: 12/03/18 09:23 Dose: 10 ml Documented by: Objective - Vital Signs Vital signs: Vital Signs Temp 98.1 F 12/03/18 16:00 Pulse 61 12/03/18 16:00 Resp 15 12/03/18 16:00 BP 85/54 12/03/18 12:00 Pulse Ox 98 12/03/18 15:30 Intake & Output 12/02/18 12/03/18 12/03/18 18:59 06:59 18:59 Intake Total 1473.300 708.059 564.200 Output Total 718 545 140 Balance 755.300 163.059 424.200 Weight 88.2 kg Intake: IV 204 405 510.3 Amiodarone 300 mg In 150.3 Dextrose 5% in Water 250 ml @ 0.5 MG/MIN 25 mls/hr IV .Q10H [facility] Rx#: [id number] Injectate 20 LR 50 Lactated Ringers 1,000 ml 330 300 @ 30 mls/hr IV .Q24H [facility] Rx#:[id number] Pressure bags 84 75 60 ceFAZolin 2 gm In Sodium 50 Chloride 0.9% 50 ml @ 100 mls/hr IVPB Q8HR [facility] Rx# :[id number] Intake, IV Titration 329.300 53.059 23.900 Amount Insulin Regular 100 unit 29.300 23.059 23.900 In Sodium Chloride 0.9% 100 ml @ Titrate IV .Q0M [facility] Rx#:[id number] Lactated Ringers 1,000 ml 300 30 @ 30 mls/hr IV .Q24H [facility] Rx#:[id number] Oral 580 250 30 Blood Product 310 Rc As-1 Unit 310 [id number] Other 50 Rc As-1 Unit 50 [id number] Output: Chest Tube Drainage 318 120 10 LP 168 40 10 MS 150 80 Urine 400 425 130 Other: Voiding Method Indwelling Catheter Indwelling Catheter ABP, PAP, CO, CI - Last Documented Arterial Blood Pressure 104/56 Pulmonary Artery Pressure 51/22 Cardiac Output 5.6 Cardiac Index 2.9 - Exam General: sittng up in a chair by the bed side. No acute distress. Eyes: Mild pallor , No icterus. HENT: normocephalic Neck: supple, no JVD Lungs: Bilateral BS psoitive. No wheezing , few crackles at he lower lung bases. CV: S 1 , S2 heard. Left pleural chest tubes in place. Heart hugger in place. Abdomen: soft, nondistended, no organomegaly. Extremitie: slight edema in both the hands. Lymph: no cervical or axillary lymphadenopathy Skin: warm and dry. - Labs CBC & Chem 7: 12/03/18 04:00 12/03/18 04:00 Labs: Abnormal Lab Results - Last 24 Hours (Table) 12/02/18 12/02/18 12/02/18 Range/Units 17:27 18:26 19:45 RBC (4.30-5.90) m/uL Hgb (13.0-17.5) gm/dL Hct (39.0-53.0) % Plt Count (150-450) k/uL Sodium (137-145) mmol/L BUN (9-20) mg/dL Creatinine (0.66-1.25) mg/dL Glucose (74-99) mg/dL POC Glucose (mg/dL) 155 H 130 H 127 H (75-99) mg/dL Calcium (8.4-10.2) mg/dL Alkaline Phosphatase (38-126) U/L Total Protein (6.3-8.2) g/dL Albumin (3.5-5.0) g/dL 12/02/18 12/02/18 12/03/18 Range/Units 21:03 22:01 00:16 RBC (4.30-5.90) m/uL Hgb (13.0-17.5) gm/dL Hct (39.0-53.0) % Plt Count (150-450) k/uL Sodium (137-145) mmol/L BUN (9-20) mg/dL Creatinine (0.66-1.25) mg/dL Glucose (74-99) mg/dL POC Glucose (mg/dL) 108 H 119 H 167 H (75-99) mg/dL Calcium (8.4-10.2) mg/dL Alkaline Phosphatase (38-126) U/L Total Protein (6.3-8.2) g/dL Albumin (3.5-5.0) g/dL 12/03/18 12/03/18 12/03/18 Range/Units 00:53 03:04 03:57 RBC (4.30-5.90) m/uL Hgb (13.0-17.5) gm/dL Hct (39.0-53.0) % Plt Count (150-450) k/uL Sodium (137-145) mmol/L BUN (9-20) mg/dL Creatinine (0.66-1.25) mg/dL Glucose (74-99) mg/dL POC Glucose (mg/dL) 146 H 124 H 131 H (75-99) mg/dL Calcium (8.4-10.2) mg/dL Alkaline Phosphatase (38-126) U/L Total Protein (6.3-8.2) g/dL Albumin (3.5-5.0) g/dL 12/03/18 12/03/18 12/03/18 Range/Units 04:00 04:00 05:53 RBC 2.52 L (4.30-5.90) m/uL Hgb 7.7 L (13.0-17.5) gm/dL Hct 24.2 L (39.0-53.0) % Plt Count 82 L (150-450) k/uL Sodium 135 L (137-145) mmol/L BUN 32 H (9-20) mg/dL Creatinine 1.67 H (0.66-1.25) mg/dL Glucose 119 H (74-99) mg/dL POC Glucose (mg/dL) 127 H (75-99) mg/dL Calcium 8.1 L (8.4-10.2) mg/dL Alkaline Phosphatase 33 L (38-126) U/L Total Protein 5.5 L (6.3-8.2) g/dL Albumin 3.1 L (3.5-5.0) g/dL 12/03/18 12/03/18 12/03/18 Range/Units 07:00 08:06 09:14 RBC (4.30-5.90) m/uL Hgb (13.0-17.5) gm/dL Hct (39.0-53.0) % Plt Count (150-450) k/uL Sodium (137-145) mmol/L BUN (9-20) mg/dL Creatinine (0.66-1.25) mg/dL Glucose (74-99) mg/dL POC Glucose (mg/dL) 128 H 121 H 155 H (75-99) mg/dL Calcium (8.4-10.2) mg/dL Alkaline Phosphatase (38-126) U/L Total Protein (6.3-8.2) g/dL Albumin (3.5-5.0) g/dL 12/03/18 12/03/18 12/03/18 Range/Units 11:04 14:26 16:06 RBC (4.30-5.90) m/uL Hgb (13.0-17.5) gm/dL Hct (39.0-53.0) % Plt Count (150-450) k/uL Sodium (137-145) mmol/L BUN (9-20) mg/dL Creatinine (0.66-1.25) mg/dL Glucose (74-99) mg/dL POC Glucose (mg/dL) 117 H 129 H 130 H (75-99) mg/dL Calcium (8.4-10.2) mg/dL Alkaline Phosphatase (38-126) U/L Total Protein (6.3-8.2) g/dL Albumin (3.5-5.0) g/dL Assessment and Plan Assessment: Assessment: Coronary artery disease s/p CABD - post op day #2 Acute blood loss anemia - s/p surgery Thromobcytopenia NSTEMI V. tach/V. fib prehospital with ICD shock Hypertension Hyperlipidemia Chronic systolic heart failure status post ICD placement Previous tobacco dependence Severe COPD Obstructive sleep apnea without home CPAP use Type 2 diabetes Plan: Patient continues to be on amiodarone drip, as he was in A. fib last night. He is on insulin drip as well. Currently his heart rate is in sinus rhythm and rate controlled. His Mejia's catheter and his mediastinal chest tubes have been discontinued. Patient is encouraged to continue using his incentive spirometer. We will continue to monitor his electrolytes and hemoglobin. As the patient's blood pressure is slowly improving, hopefully his kidney functioning will improve by tomorrow. We will repeat electrolytes for tomorrow morning. Continue with the rest of his current medication regimen. Further recommendations to follow depending on the progress of the patient.
[2018-12-03 18:36] LABS: Glucose,Whole Blood 119 mg/dL (75-99)
[2018-12-03 20:05] LABS: Glucose,Whole Blood 118 mg/dL (75-99)
[2018-12-03] MEDS: SENNOSIDES-DOCUSATE SODIUM 1 EACH TAB PO SCH (21:06)
[2018-12-03 22:07] LABS: Glucose,Whole Blood 106 mg/dL (75-99)
[2018-12-04 00:09] LABS: Glucose,Whole Blood 109 mg/dL (75-99)
[2018-12-04] MEDS: HEPARIN SODIUM,PORCINE 5,000 UNIT/ML 1 ML VIAL SQ SCH ×4 (00:42→23:52)
[2018-12-04 02:08] LABS: Glucose,Whole Blood 103 mg/dL (75-99)
[2018-12-04 03:59] LABS: Glucose,Whole Blood 112 mg/dL (75-99)
[2018-12-04 04:22] LABS: Albumin 3.2 g/dL (3.5-5.0); Calcium 8.5 mg/dL (8.4-10.2); Potassium 5.8 mmol/L (3.5-5.1); Total Bilirubin 0.7 mg/dL (0.2-1.3); Total Protein 5.7 g/dL (6.3-8.2)
[2018-12-04 04:35] LABS: Basophils % (A) 0 %; Eosinophils # (A) 0.2 k/uL (0-0.7); Eosinophils % (A) 2 %; HCT 25.9 % (39.0-53.0); HGB 8.7 gm/dL (13.0-17.5); Lymphocytes # (A) 1.3 k/uL (1.0-4.8); Lymphocytes % (A) 15 %; MCH 32.4 pg (25.0-35.0); MCHC 33.6 g/dL (31.0-37.0); MCV 96.5 fL (80.0-100.0); Mean Platelet Volume 10.2; Monocytes # (A) 0.6 k/uL (0-1.0); Monocytes % (A) 7 %; Neutrophils # (A) 5.9 k/uL (1.3-7.7); Neutrophils % (A) 72 %; Platelet Count 119 k/uL (150-450); RBC 2.69 m/uL (4.30-5.90); RDW 14.5 % (11.5-15.5); WBC 8.3 k/uL (3.8-10.6)
[2018-12-04 06:02] LABS: Glucose,Whole Blood 114 mg/dL (75-99)
--- NOTE | 2018-12-04 06:33 | P.CONS ---
History of Present Illness - Chief Complaint Cardiac debility - History of Present Illness I had the opportunity to see patient for inpatient rehab consultation with regard to cardiac debility. He was admitted to [facility] November 29 with V. fib and elevated troponin. Evaluated and underwent [address] Owen. Chest x-rays followed for atelectasis and postoperative change. PT and OT prescribed. Previous functional history as elicited patient: 68-year-old left-handed white male who is lives in one floor home with grandson and great granddaughter. Patient independent with driving, standing shower and gait without device. Patient on disability. works full-time and does cooking and laundry. Dr. Dias is regular doctor. Patient denies tobacco and has occasional alcohol. Family history mother with stroke. Review of Systems Review of systems: ENT: Denies sneezes or discharge. Eyes: Denies discharge or photophobia. Cardiac: Mild sternal discomfort. Pulmonary: Mild shortness of breath. Gastrointestinal: Denies nausea, emesis, constipation, diarrhea. Genitourinary: Denies discharge or frequency. Musculoskeletal: Denies muscle or bone aches. Neurologic: Generalized weakness. Endocrine: Denies shakes or sweats. Oncology: Denies cancers. Dermatologic: Denies rash, itching, pruritus. ALLERGY/immunology: Denies sneezes, rashes. Past Medical History Past Medical History: Coronary Artery Disease (CAD), Heart Failure, COPD, Diabetes Mellitus, Hyperlipidemia, Hypertension, Myocardial Infarction ([place]), Sleep Apnea/CPAP/BIPAP Additional Past Medical History / Comment(s): seen in er 09/09/18-shingles to back of head-resolved now. BRAIN ANEURSYM-DX 2018-BEING FOLLOWING BY DR. GILLESPIE IN [place] Last Myocardial Infarction Date:: 04/2009 History of Any Multi-Drug Resistant Organisms: None Reported Past Surgical History: AICD, Heart Catheterization, Joint Replacement Additional Past Surgical History / Comment(s): right knee replaced. COLONOSCOPY Past Anesthesia/Blood Transfusion Reactions: No Reported Reaction Type of Cardiac Device: AICD Device Placement Date:: 2009 Past Psychological History: No Psychological Hx Reported Smoking Status: Former smoker Past Alcohol Use History: None Reported Additional Past Alcohol Use History / Comment(s): QUIT SMOKING 2008 Past Drug Use History: None Reported - Past Family History Mother Family Medical History: No Reported History Father Family Medical History: Liver Disease Brother(s) Family Medical History: Coronary Artery Disease (CAD) Medications and Allergies Home Medications Medication Instructions Recorded Confirmed Type Aspirin 325 mg PO DAILY 12/21/13 11/29/18 History Furosemide [Lasix] 20 mg PO DAILY 12/21/13 11/29/18 History Nitroglycerin Sl Tabs [Nitrostat] 0.4 mg SUBLINGUAL Q5M PRN 08/30/14 11/29/18 History hydrALAZINE HCL [Apresoline] 25 mg PO BID 08/30/14 11/29/18 History Finasteride [Proscar] 5 mg PO DAILY 02/01/16 11/29/18 History Gabapentin 600 mg PO BID 10/27/17 11/29/18 History Atorvastatin [Lipitor] 40 mg PO HS 10/03/18 11/29/18 History Metoprolol Tartrate [Lopressor] 50 mg PO BID 10/03/18 11/29/18 History metFORMIN HCL [Glucophage] 500 mg PO BID 10/03/18 11/29/18 History Losartan Potassium 100 mg PO DAILY 11/29/18 11/29/18 History Omeprazole 40 mg PO DAILY 11/29/18 11/29/18 History Allergies Allergy/AdvReac Type Severity Reaction Status Date / Time No Known Allergies Allergy Verified 11/29/18 20:53 Physical Exam Vitals: Vital Signs Temp Pulse Resp BP Pulse Ox 12/04/18 05:00 63 8 L 95 12/04/18 04:00 98.0 F 73 17 96 12/04/18 03:00 70 10 L 95 12/04/18 02:00 66 11 L 97 12/04/18 01:00 62 8 L 96 12/04/18 00:00 98.0 F 64 10 L 95 12/03/18 23:00 66 9 L 94 L 12/03/18 22:08 70 12 94 L 12/03/18 22:00 74 8 L 95 12/03/18 21:00 65 8 L 96 12/03/18 20:56 64 12/03/18 20:41 64 12/03/18 20:00 97.7 F 63 7 L 97 12/03/18 19:00 63 12 98 12/03/18 18:00 61 13 95 12/03/18 17:00 61 15 96 12/03/18 16:00 98.1 F 61 15 12/03/18 15:41 62 12/03/18 15:30 64 98 12/03/18 15:00 59 L 15 12/03/18 14:00 61 13 12/03/18 13:00 60 15 97 12/03/18 12:00 97.9 F 59 L 13 85/54 97 12/03/18 11:54 68 12/03/18 11:42 60 12/03/18 11:00 62 13 84/61 90 L 12/03/18 10:00 90 12 134/84 95 12/03/18 09:00 95 12 95 12/03/18 08:00 98.3 F 101 H 12 94 L 12/03/18 07:45 86 12/03/18 07:38 92 12/03/18 07:00 98 15 95 Intake and Output 12/03/18 12/03/18 12/04/18 14:59 22:59 06:59 Intake Total 449.000 944.908 252 Output Total 40 230 360 Balance 409.000 714.908 -108 Intake: IV 404.9 371.5 252 Amiodarone 300 mg In 116.9 83.5 Dextrose 5% in Water 250 ml @ 0.5 MG/MIN 25 mls/hr IV .Q10H [facility] Rx#: [id number] Lactated Ringers 1,000 ml 240 240 210 @ 30 mls/hr IV .Q24H [facility] Rx#:[id number] Pressure bags 48 48 42 Intake, IV Titration 14.100 23.408 Amount Insulin Regular 100 unit 14.100 23.408 In Sodium Chloride 0.9% 100 ml @ Titrate IV .Q0M [facility] Rx#:[id number] Oral 30 550 Output: Chest Tube Drainage 10 30 60 LP 10 30 60 Urine 30 200 300 Other: Voiding Method Urinal Urinal ABP, PAP, CO, CI - Last 8 Hours Arterial Blood Pressure 112/54 Arterial Blood Pressure 147/68 Arterial Blood Pressure 121/59 Arterial Blood Pressure 117/58 Arterial Blood Pressure 102/52 Arterial Blood Pressure 116/57 Arterial Blood Pressure 113/55 Cardiac Output 5.6 Cardiac Output 5.6 Cardiac Index 2.9 Cardiac Index 2.9 Skin: Good color, texture, turgor. General: Obese build and comfortable appearance. Head: Normocephalic, atraumatic. Eyes: Symmetric. Pupils equal round. Ears: Symmetric. Hearing within normal limits. Mouth: Clear. Neck: Supple. Carotid without bruit. Cardiac: Regular rate and rhythm. Wearing harness. Sternum clean and dressed. Lungs: Clear anteriorly and posteriorly. Abdomen: Soft active nontender. Extremities: Normal tone. At least mild edema lower legs. Neurological: Mental status: Alert, cooperative, pleasant. Cranial nerves: Symmetric facial tone and trapezius. Motor: Active movement and elevation all 4 limbs. Sensation: Intact throughout. DTRs: Symmetric and equal throughout. Mobility: Requires assistance from nursing for bedside transferred to [facility] chair. Results CBC & Chem 7: 12/04/18 04:00 12/04/18 04:00 Labs: Abnormal Lab Results - Last 24 Hours (Table) 12/03/18 12/03/18 12/03/18 Range/Units 07:00 08:06 09:14 RBC (4.30-5.90) m/uL Hgb (13.0-17.5) gm/dL Hct (39.0-53.0) % Plt Count (150-450) k/uL Sodium (137-145) mmol/L Potassium (3.5-5.1) mmol/L BUN (9-20) mg/dL Creatinine (0.66-1.25) mg/dL Glucose (74-99) mg/dL POC Glucose (mg/dL) 128 H 121 H 155 H (75-99) mg/dL AST (17-59) U/L ALT (21-72) U/L Total Protein (6.3-8.2) g/dL Albumin (3.5-5.0) g/dL 12/03/18 12/03/18 12/03/18 Range/Units 11:04 14:26 16:06 RBC (4.30-5.90) m/uL Hgb (13.0-17.5) gm/dL Hct (39.0-53.0) % Plt Count (150-450) k/uL Sodium (137-145) mmol/L Potassium (3.5-5.1) mmol/L BUN (9-20) mg/dL Creatinine (0.66-1.25) mg/dL Glucose (74-99) mg/dL POC Glucose (mg/dL) 117 H 129 H 130 H (75-99) mg/dL AST (17-59) U/L ALT (21-72) U/L Total Protein (6.3-8.2) g/dL Albumin (3.5-5.0) g/dL 12/03/18 12/03/18 12/03/18 Range/Units 18:34 20:04 22:05 RBC (4.30-5.90) m/uL Hgb (13.0-17.5) gm/dL Hct (39.0-53.0) % Plt Count (150-450) k/uL Sodium (137-145) mmol/L Potassium (3.5-5.1) mmol/L BUN (9-20) mg/dL Creatinine (0.66-1.25) mg/dL Glucose (74-99) mg/dL POC Glucose (mg/dL) 119 H 118 H 106 H (75-99) mg/dL AST (17-59) U/L ALT (21-72) U/L Total Protein (6.3-8.2) g/dL Albumin (3.5-5.0) g/dL 12/04/18 12/04/18 12/04/18 Range/Units 00:07 02:05 03:57 RBC (4.30-5.90) m/uL Hgb (13.0-17.5) gm/dL Hct (39.0-53.0) % Plt Count (150-450) k/uL Sodium (137-145) mmol/L Potassium (3.5-5.1) mmol/L BUN (9-20) mg/dL Creatinine (0.66-1.25) mg/dL Glucose (74-99) mg/dL POC Glucose (mg/dL) 109 H 103 H 112 H (75-99) mg/dL AST (17-59) U/L ALT (21-72) U/L Total Protein (6.3-8.2) g/dL Albumin (3.5-5.0) g/dL 12/04/18 12/04/18 12/04/18 Range/Units 04:00 04:00 06:01 RBC 2.69 L (4.30-5.90) m/uL Hgb 8.7 L (13.0-17.5) gm/dL Hct 25.9 L (39.0-53.0) % Plt Count 119 L (150-450) k/uL Sodium 132 L (137-145) mmol/L Potassium 5.8 H (3.5-5.1) mmol/L BUN 49 H (9-20) mg/dL Creatinine 2.08 H (0.66-1.25) mg/dL Glucose 103 H (74-99) mg/dL POC Glucose (mg/dL) 114 H (75-99) mg/dL AST 290 H (17-59) U/L ALT 270 H (21-72) U/L Total Protein 5.7 L (6.3-8.2) g/dL Albumin 3.2 L (3.5-5.0) g/dL Assessment and Plan (1) Coronary artery disease involving [place] coronary artery Current Visit: Yes Status: Acute Code(s): I25.10 - ATHSCL HEART DISEASE OF [place] CORONARY ARTERY W/O ANG PCTRS SNOMED Code(s): 0232378674054 (2) NSTEMI (non-ST elevated myocardial infarction) Current Visit: Yes Status: Acute Code(s): I21.4 - NON-ST ELEVATION (NSTEMI) MYOCARDIAL INFARCTION SNOMED Code(s): 09447676 (3) Ventricular fibrillation Current Visit: Yes Status: Acute Code(s): I49.01 - VENTRICULAR FIBRILLATION SNOMED Code(s): 64587560 Plan: Impression: 1. Cardiac debility. 2. Non-STEMI, coronary disease with recent 4 vessel CABG. 3. V. fib. 4. Diabetes. 5. Obese. 6. COPD. 7. Dyslipidemia. Constant plan: At this time PT and OT prescribed. We will follow therapies with yourself. Discussed possible inpatient rehab with patient and he seems agreeable if necessary.
[2018-12-04] MEDS ORDERED: HYDROcodone/APAP 5-325MG 1 EACH TAB PO PRN (06:45)
[2018-12-04] MEDS ORDERED: SODIUM CHLORIDE 0.9% 1,000 ML IV SCH (06:45)
[2018-12-04] MEDS: ASCORBIC ACID 500 MG TAB PO SCH (06:55)
[2018-12-04] MEDS: PANTOPRAZOLE 40 MG TABLET PO SCH (06:55)
[2018-12-04] MEDS: FERROUS SULFATE 325 MG TAB PO SCH (06:55)
--- NOTE | 2018-12-04 07:22 | XR ---
EXAMINATION TYPE: XR chest 1V portable DATE OF EXAM: 12/04/2018 COMPARISON: 12/03/2018 HISTORY: Status post cardiac surgery TECHNIQUE: Single frontal view of the chest is obtained. FINDINGS: Multifocal linear opacities are seen in the upper lobes representing atelectasis. Overall low lung volumes. Left thoracostomy tube remains in place. No gross residual pneumothorax. Again trac e left pleural effusion is suspected. Pulmonary vascular congestion has resolved area The cardiac yasmine houette size is enlarged with postoperative changes and single lead left-sided cardiac device. The osseous structures are intact. IMPRESSION: Resolved pulmonary vascular congestion with multifocal atelectasis remaining. No residua l pneumothorax is seen in this patient with left thoracostomy tube.
[2018-12-04] MEDS: IPRATROPIUM-ALBUTEROL 3 ML NEB INHALATION SCH ×4 (07:24→19:58)
--- NOTE | 2018-12-04 07:41 | P.PN ---
Subjective Progress Note Date: 12/04/18 Principal diagnosis: Coronary artery disease with left main disease, chronic total occlusion of the RCA, non-STEMI, V. tach/V. fib status post ICD shock, complete occlusion of the left internal carotid artery. Previous medical history of myocardial infarction, hypertension, hyperlipidemia, chronic systolic heart failure status post ICD placement, previous tobacco dependence, severe COPD with preoperative FEV1 37%, obstructive sleep apnea without home CPAP use, type 2 diabetes mellitus with preopertive HgbA1c 5.6%, family history of premature coronary artery disease. POD #3 urgent coronary artery bypass grafting 4 vessels, left internal mammary artery to the left anterior descending artery, reverse saphenous vein graft to the diagonal artery, reverse saphenous vein graft to the obtuse marginal artery, reverse saphenous vein graft to the posterior lateral branch of the RCA. Endoscopic harvest of the right greater saphenous vein. Epi-aortic ultrasound. Intraoperative transesophageal echocardiogram. Postoperative acute blood loss anemia, expected from hemodilution and cardiopulmonary bypass pump as well as preoperative anemia Postoperative thrombocytopenia, expected from hemodilution as well as preoperative thrombocytopenia Postoperative atrial fibrillation, unexpected but potential and common outcome secondary to inflammatory process of surgery Postoperative transaminitis, unexpected, possibly from amiodarone The patient is sitting up in a recliner in mild distress in the intensive care unit. He continues to complain of postsurgical sternal pain, complains of shortness of breath. Exhibits expiratory wheezes, no nebulizer treatments since last night, has been coughing up yellow sputum. Hemodynamically stable on no inotropes or pressors. Currently in normal sinus. Mediastinal chest tube discontinued yesterday, left pleural chest tube in place. No new complaints. Objective - Vital Signs Vital signs: Vital Signs Temp 98.0 F 12/04/18 04:00 Pulse 73 12/04/18 07:00 Resp 23 12/04/18 07:00 BP 128/70 12/04/18 07:00 Pulse Ox 94 L 12/04/18 07:00 Intake & Output 12/03/18 12/04/18 12/04/18 18:59 06:59 18:59 Intake Total 1176.475 505.433 36 Output Total 140 590 Balance 1036.475 -84.567 36 Weight 99.2 kg Intake: IV 615.7 448.7 36 Amiodarone 300 mg In 183.7 16.7 Dextrose 5% in Water 250 ml @ 0.5 MG/MIN 25 mls/hr IV .Q10H [facility] Rx#: [id number] Lactated Ringers 1,000 ml 360 360 @ 30 mls/hr IV .Q24H [facility] Rx#:[id number] Pressure bags 72 72 6 Sodium Chloride 0.9% 1, 30 000 ml @ 30 mls/hr IV . Q24H [facility] Rx#:[id number] Intake, IV Titration 30.775 6.733 Amount Insulin Regular 100 unit 30.775 6.733 In Sodium Chloride 0.9% 100 ml @ Titrate IV .Q0M [facility] Rx#:[id number] Oral 530 50 Output: Chest Tube Drainage 10 90 LP 10 90 Urine 130 500 Other: Voiding Method Urinal ABP, PAP, CO, CI - Last Documented Arterial Blood Pressure 144/64 Pulmonary Artery Pressure 51/22 Cardiac Output 5.6 Cardiac Index 2.9 - Constitutional General appearance: Present: cooperative, mild distress, obese - Respiratory Details: Lungs sounds diminished bilaterally with expiratory wheeze present. Respirations even, slightly labored. Currently on 3 L nasal cannula with oxygen saturation 95%. Only able to achieve 750 mL on his incentive spirometry. Strong cough with occasional productive yellow sputum. Left pleural chest tube to continuous wall suction, 60 mL serous drainage overnight, 100 mL in the last 24 hours. No air leaks present. - Cardiovascular Details: S1, S2 present. Regular rate and rhythm, sinus rhythm on telemetry. Sternum stable. A/V epicardial pacemaker wires present, grounded. Palpable peripheral pulses bilaterally. Bilateral upper extremity edema is present. No lower extremity edema present. Right internal jugular Cordis, right radial arterial line present. Heart hugger in place with patient demonstrating appropriate use. Antiembolism stockings, SCDs present. - Gastrointestinal Gastrointestinal Comment(s): Abdomen soft, nontender, nondistended. Hypoactive bowel sounds present 4 quadrants. Tolerating diet but only eating minimal amounts of food. Positive flatus, negative bowel movement. - Genitourinary Genitourinary Comment(s): Mejia discontinued yesterday, continues to void clear yellow urine, 100-200 mL at a time. - Integumentary Integumentary Comment(s): Skin is warm and dry with evidence of good perfusion. Anterior chest incision well approximated and covered with dry intact dressing. Right lower extremity EVH site well approximated, ecchymotic. - Neurologic Neurologic: Present: CNII-XII intact - Musculoskeletal Musculoskeletal: Present: generalized weakness, strength equal bilaterally - Psychiatric Psychiatric: Present: A&O x's 3, appropriate affect - Allied health notes Allied health notes reviewed: nursing - Labs CBC & Chem 7: 12/04/18 04:00 12/04/18 04:00 Labs: Abnormal Lab Results - Last 24 Hours (Table) 12/03/18 12/03/18 12/03/18 Range/Units 08:06 09:14 11:04 RBC (4.30-5.90) m/uL Hgb (13.0-17.5) gm/dL Hct (39.0-53.0) % Plt Count (150-450) k/uL Sodium (137-145) mmol/L Potassium (3.5-5.1) mmol/L BUN (9-20) mg/dL Creatinine (0.66-1.25) mg/dL Glucose (74-99) mg/dL POC Glucose (mg/dL) 121 H 155 H 117 H (75-99) mg/dL AST (17-59) U/L ALT (21-72) U/L Total Protein (6.3-8.2) g/dL Albumin (3.5-5.0) g/dL 12/03/18 12/03/18 12/03/18 Range/Units 14:26 16:06 18:34 RBC (4.30-5.90) m/uL Hgb (13.0-17.5) gm/dL Hct (39.0-53.0) % Plt Count (150-450) k/uL Sodium (137-145) mmol/L Potassium (3.5-5.1) mmol/L BUN (9-20) mg/dL Creatinine (0.66-1.25) mg/dL Glucose (74-99) mg/dL POC Glucose (mg/dL) 129 H 130 H 119 H (75-99) mg/dL AST (17-59) U/L ALT (21-72) U/L Total Protein (6.3-8.2) g/dL Albumin (3.5-5.0) g/dL 12/03/18 12/03/18 12/04/18 Range/Units 20:04 22:05 00:07 RBC (4.30-5.90) m/uL Hgb (13.0-17.5) gm/dL Hct (39.0-53.0) % Plt Count (150-450) k/uL Sodium (137-145) mmol/L Potassium (3.5-5.1) mmol/L BUN (9-20) mg/dL Creatinine (0.66-1.25) mg/dL Glucose (74-99) mg/dL POC Glucose (mg/dL) 118 H 106 H 109 H (75-99) mg/dL AST (17-59) U/L ALT (21-72) U/L Total Protein (6.3-8.2) g/dL Albumin (3.5-5.0) g/dL 12/04/18 12/04/18 12/04/18 Range/Units 02:05 03:57 04:00 RBC 2.69 L (4.30-5.90) m/uL Hgb 8.7 L (13.0-17.5) gm/dL Hct 25.9 L (39.0-53.0) % Plt Count 119 L (150-450) k/uL Sodium (137-145) mmol/L Potassium (3.5-5.1) mmol/L BUN (9-20) mg/dL Creatinine (0.66-1.25) mg/dL Glucose (74-99) mg/dL POC Glucose (mg/dL) 103 H 112 H (75-99) mg/dL AST (17-59) U/L ALT (21-72) U/L Total Protein (6.3-8.2) g/dL Albumin (3.5-5.0) g/dL 12/04/18 12/04/18 Range/Units 04:00 06:01 RBC (4.30-5.90) m/uL Hgb (13.0-17.5) gm/dL Hct (39.0-53.0) % Plt Count (150-450) k/uL Sodium 132 L (137-145) mmol/L Potassium 5.8 H (3.5-5.1) mmol/L BUN 49 H (9-20) mg/dL Creatinine 2.08 H (0.66-1.25) mg/dL Glucose 103 H (74-99) mg/dL POC Glucose (mg/dL) 114 H (75-99) mg/dL AST 290 H (17-59) U/L ALT 270 H (21-72) U/L Total Protein 5.7 L (6.3-8.2) g/dL Albumin 3.2 L (3.5-5.0) g/dL - Imaging and Cardiology Chest x-ray: report reviewed, image reviewed Assessment and Plan Assessment: 1. Coronary artery disease with left main disease, chronic total occlusion of the RCA 2. Previous myocardial infarction, non-STEMI this admission 3. V. tach/V. fib prehospital with ICD shock 4. Complete occlusion of the left internal carotid artery. 5. Hypertension 6. Hyperlipidemia 7. Chronic systolic heart failure status post ICD placement 8. Previous tobacco dependence 9. Severe COPD with preoperative FEV1 37% 10. Obstructive sleep apnea without home CPAP use 11. Type 2 diabetes with preoperative hemoglobin A1c 5.6% 12. Family history of premature coronary artery disease 13. Postoperative acute blood loss anemia 14. Postoperative thrombocytopenia 15. Postoperative atrial fibrillation 16. Postoperative transaminitis Plan: 1. Continue low-dose aspirin, Plavix, beta jayant therapy. Will increase beta jayant therapy as tolerated. Hold statin secondary to increased liver enzymes. 2. Continue amiodarone for VT prophylaxis, a fib, decrease to 200 mg twice daily. No anticoagulation at this time. 3. Wean O2 as tolerated. Encourage incentive spirometry use 10 times every hour while awake. 4. Increase activity, ambulate as tolerated. PT/OT/cardiac rehab following. Patient needs much encouragement for activity. 5. Will monitor daily labs and x-rays. Electrolyte replacement per protocol. No further transfusions at this time. No lasix at this time 6. Will discontinue left pleural chest tube. 7. GI/DVT prophylaxis. 8. Insulin management per primary care service. 9. Pain control with current medication regimen. No Toradol secondary to increased creatinine, thrombocytopenia 10. Dr. Grayson consulted for recommendations for inpatient rehab at discharge. 11. More recommendations to follow based on patient's progress Time with Patient: Greater than 30
[2018-12-04] MEDS ORDERED: guaiFENesin 600 MG TABLET.ER PO PRN (08:08)
[2018-12-04 08:12] LABS: Glucose,Whole Blood 154 mg/dL (75-99)
[2018-12-04] MEDS: METOPROLOL TARTRATE 12.5 MG TAB PO SCH (08:12)
[2018-12-04] MEDS: FINASTERIDE 5 MG TAB PO SCH (08:12)
[2018-12-04] MEDS: AMIODARONE 200 MG TAB PO SCH ×2 (08:13→21:06)
[2018-12-04] MEDS: SODIUM POLYSTYRENE SULFONATE 15 GM/60 ML BOTTLE PO STA ×2 (08:13→08:25)
[2018-12-04] MEDS: CLOPIDOGREL 75 MG TAB PO SCH (08:13)
[2018-12-04] MEDS: GABAPENTIN 300 MG CAP PO SCH ×2 (08:13→21:06)
[2018-12-04] MEDS: ASPIRIN 81 MG PO SCH (08:13)
[2018-12-04] MEDS ORDERED: METOPROLOL TARTRATE 12.5 MG TAB PO STA (09:03)
[2018-12-04] MEDS ORDERED: FUROSEMIDE 10 MG/ML 4 ML VIAL IV STA (11:10)
[2018-12-04 12:02] LABS: Glucose,Whole Blood 142 mg/dL (75-99)
[2018-12-04] MEDS: INSULIN ASPART (NovoLOG) 100 UNIT/ML VIAL SQ SCH ×3 (12:24→21:06)
--- NOTE | 2018-12-04 12:55 | P.PN ---
Subjective Patient is stable from a cardiac standpoint but he is in a lot of pain and is unable to take a deep breath. He is mildly short of breath today. His incisional pain and is unable to take a full breath In addition he has bilateral rhonchi with reduced breath sounds Pulse rate in the 80s afebrile 98.1F respirations 16-18 and somewhat labored and he is short of breath Blood pressure 124/68 and 138/70 mmHg Breath sounds are reduced bilaterally with bilateral rhonchi Heart sounds are distant but soft Impression Known cardiac myopathy Recent coronary artery bypass grafting for left main disease Suggest His BUN/creatinine is elevated, but may give small dose of IV Lasix today. Discussed with CT surgery team Bronchodilators Incentive spirometry Continue cardiac medications Objective - Vital Signs Vital signs: Vital Signs Temp 98.1 F 12/04/18 12:00 Pulse 80 12/04/18 12:00 Resp 16 12/04/18 12:00 BP 124/68 12/04/18 12:00 Pulse Ox 94 L 12/04/18 12:00 Intake & Output 12/03/18 12/04/18 12/04/18 18:59 06:59 18:59 Intake Total 1176.475 505.433 387 Output Total 140 590 825 Balance 1036.475 -84.567 -438 Weight 99.2 kg Intake: IV 615.7 448.7 174 Amiodarone 300 mg In 183.7 16.7 Dextrose 5% in Water 250 ml @ 0.5 MG/MIN 25 mls/hr IV .Q10H [facility] Rx#: [id number] Lactated Ringers 1,000 ml 360 360 @ 30 mls/hr IV .Q24H [facility] Rx#:[id number] Pressure bags 72 72 24 Sodium Chloride 0.9% 1, 150 000 ml @ 30 mls/hr IV . Q24H [facility] Rx#:[id number] Intake, IV Titration 30.775 6.733 Amount Insulin Regular 100 unit 30.775 6.733 In Sodium Chloride 0.9% 100 ml @ Titrate IV .Q0M [facility] Rx#:[id number] Oral 530 50 Blood Product 213 Ffp 24 Cpda Unit 213 [id number] Output: Chest Tube Drainage 10 90 LP 10 90 Urine 130 500 825 Other: Voiding Method Urinal Urinal ABP, PAP, CO, CI - Last Documented Arterial Blood Pressure 141/66 Pulmonary Artery Pressure 51/22 Cardiac Output 5.6 Cardiac Index 2.9 - Labs CBC & Chem 7: 12/04/18 04:00 12/04/18 04:00 Labs: Abnormal Lab Results - Last 24 Hours (Table) 12/03/18 12/03/18 12/03/18 Range/Units 14:26 16:06 18:34 RBC (4.30-5.90) m/uL Hgb (13.0-17.5) gm/dL Hct (39.0-53.0) % Plt Count (150-450) k/uL Sodium (137-145) mmol/L Potassium (3.5-5.1) mmol/L BUN (9-20) mg/dL Creatinine (0.66-1.25) mg/dL Glucose (74-99) mg/dL POC Glucose (mg/dL) 129 H 130 H 119 H (75-99) mg/dL AST (17-59) U/L ALT (21-72) U/L Total Protein (6.3-8.2) g/dL Albumin (3.5-5.0) g/dL 12/03/18 12/03/18 12/04/18 Range/Units 20:04 22:05 00:07 RBC (4.30-5.90) m/uL Hgb (13.0-17.5) gm/dL Hct (39.0-53.0) % Plt Count (150-450) k/uL Sodium (137-145) mmol/L Potassium (3.5-5.1) mmol/L BUN (9-20) mg/dL Creatinine (0.66-1.25) mg/dL Glucose (74-99) mg/dL POC Glucose (mg/dL) 118 H 106 H 109 H (75-99) mg/dL AST (17-59) U/L ALT (21-72) U/L Total Protein (6.3-8.2) g/dL Albumin (3.5-5.0) g/dL 12/04/18 12/04/18 12/04/18 Range/Units 02:05 03:57 04:00 RBC 2.69 L (4.30-5.90) m/uL Hgb 8.7 L (13.0-17.5) gm/dL Hct 25.9 L (39.0-53.0) % Plt Count 119 L (150-450) k/uL Sodium (137-145) mmol/L Potassium (3.5-5.1) mmol/L BUN (9-20) mg/dL Creatinine (0.66-1.25) mg/dL Glucose (74-99) mg/dL POC Glucose (mg/dL) 103 H 112 H (75-99) mg/dL AST (17-59) U/L ALT (21-72) U/L Total Protein (6.3-8.2) g/dL Albumin (3.5-5.0) g/dL 12/04/18 12/04/18 12/04/18 Range/Units 04:00 06:01 08:10 RBC (4.30-5.90) m/uL Hgb (13.0-17.5) gm/dL Hct (39.0-53.0) % Plt Count (150-450) k/uL Sodium 132 L (137-145) mmol/L Potassium 5.8 H (3.5-5.1) mmol/L BUN 49 H (9-20) mg/dL Creatinine 2.08 H (0.66-1.25) mg/dL Glucose 103 H (74-99) mg/dL POC Glucose (mg/dL) 114 H 154 H (75-99) mg/dL AST 290 H (17-59) U/L ALT 270 H (21-72) U/L Total Protein 5.7 L (6.3-8.2) g/dL Albumin 3.2 L (3.5-5.0) g/dL 12/04/18 Range/Units 12:01 RBC (4.30-5.90) m/uL Hgb (13.0-17.5) gm/dL Hct (39.0-53.0) % Plt Count (150-450) k/uL Sodium (137-145) mmol/L Potassium (3.5-5.1) mmol/L BUN (9-20) mg/dL Creatinine (0.66-1.25) mg/dL Glucose (74-99) mg/dL POC Glucose (mg/dL) 142 H (75-99) mg/dL AST (17-59) U/L ALT (21-72) U/L Total Protein (6.3-8.2) g/dL Albumin (3.5-5.0) g/dL
[2018-12-04 16:49] LABS: Glucose,Whole Blood 145 mg/dL (75-99)
[2018-12-04] MEDS: HYDROcodone/APAP 5-325MG 1 EACH TAB PO PRN ×2 (16:54→23:52)
--- NOTE | 2018-12-04 16:59 | P.PN ---
Subjective Progress Note Date: 12/04/18 On today's evaluation of 12/04/2018 the patient is postop day #3 following an urgent coronary artery bypass surgery and the patient had a four-vessel bypass. The patient is doing well. All of the chest is a been removed. The patient had an expected drop in hemoglobin postop and the patient also developed some thrombocytopenia. The patient also developed postoperative atrial fibrillation. The patient is back to normal sinus rhythm. Sternum stable clean and intact. No chest pain. No respiratory difficulties. No cough or sputum production. Pain is under good control. Mother the patient has severe COPD secondary to smoking and the patient's preop FEV1 is in the order of 37% of predicted. The patient has obstructive sleep apnea without CPAP therapy and the patient is diabetic with a preoperative hemoglobin A1c of 5.6. No nausea. No vomiting. No altered mentation. His resting comfortably. Objective - Vital Signs Vital signs: Vital Signs Temp 98.1 F 12/04/18 12:00 Pulse 74 12/04/18 16:25 Resp 14 12/04/18 16:00 BP 138/80 12/04/18 16:00 Pulse Ox 97 12/04/18 16:00 Intake & Output 12/03/18 12/04/18 12/04/18 18:59 06:59 18:59 Intake Total 1176.475 505.433 387 Output Total 051 982 6199 Balance 1036.475 -84.567 -988 Weight 99.2 kg Intake: IV 615.7 448.7 174 Amiodarone 300 mg In 183.7 16.7 Dextrose 5% in Water 250 ml @ 0.5 MG/MIN 25 mls/hr IV .Q10H [facility] Rx#: [id number] Lactated Ringers 1,000 ml 360 360 @ 30 mls/hr IV .Q24H [facility] Rx#:[id number] Pressure bags 72 72 24 Sodium Chloride 0.9% 1, 150 000 ml @ 30 mls/hr IV . Q24H [facility] Rx#:[id number] Intake, IV Titration 30.775 6.733 Amount Insulin Regular 100 unit 30.775 6.733 In Sodium Chloride 0.9% 100 ml @ Titrate IV .Q0M [facility] Rx#:[id number] Oral 530 50 Blood Product 213 Ffp 24 Cpda Unit 213 [id number] Output: Chest Tube Drainage 10 90 LP 10 90 Urine 107 654 5751 Other: Voiding Method Urinal Urinal ABP, PAP, CO, CI - Last Documented Arterial Blood Pressure 141/66 Pulmonary Artery Pressure 51/22 Cardiac Output 5.6 Cardiac Index 2.9 - Exam - Constitutional General appearance: Present: cooperative, mild distress, obese - Respiratory Details: Lungs sounds diminished bilaterally with expiratory wheeze present. Respirations even, slightly labored. Currently on 3 L nasal cannula with oxygen saturation 95%. Only able to achieve 750 mL on his incentive spirometry. Strong cough with occasional productive yellow sputum. Left pleural chest tube to continuous wall suction, 60 mL serous drainage overnight, 100 mL in the last 24 hours. No air leaks present. - Cardiovascular Details: S1, S2 present. Regular rate and rhythm, sinus rhythm on telemetry. Sternum stable. A/V epicardial pacemaker wires present, grounded. Palpable peripheral pulses bilaterally. Bilateral upper extremity edema is present. No lower extremity edema present. Right internal jugular Cordis, right radial arterial line present. Heart hugger in place with patient demonstrating appropriate use. Antiembolism stockings, SCDs present. - Gastrointestinal Gastrointestinal Comment(s): Abdomen soft, nontender, nondistended. Hypoactive bowel sounds present 4 quadrants. Tolerating diet but only eating minimal amounts of food. Positive flatus, negative bowel movement. - Genitourinary Genitourinary Comment(s): Mejia discontinued yesterday, continues to void clear yellow urine, 100-200 mL at a time. - Integumentary Integumentary Comment(s): Skin is warm and dry with evidence of good perfusion. Anterior chest incision well approximated and covered with dry intact dressing. Right lower extremity EVH site well approximated, ecchymotic. - Neurologic Neurologic: Present: CNII-XII intact - Musculoskeletal Musculoskeletal: Present: generalized weakness, strength equal bilaterally - Psychiatric Psychiatric: Present: A&O x's 3, appropriate affect - Labs CBC & Chem 7: 12/04/18 04:00 12/04/18 14:45 Labs: Abnormal Lab Results - Last 24 Hours (Table) 12/03/18 12/03/18 12/03/18 Range/Units 18:34 20:04 22:05 RBC (4.30-5.90) m/uL Hgb (13.0-17.5) gm/dL Hct (39.0-53.0) % Plt Count (150-450) k/uL Sodium (137-145) mmol/L Potassium (3.5-5.1) mmol/L BUN (9-20) mg/dL Creatinine (0.66-1.25) mg/dL Glucose (74-99) mg/dL POC Glucose (mg/dL) 119 H 118 H 106 H (75-99) mg/dL AST (17-59) U/L ALT (21-72) U/L Total Protein (6.3-8.2) g/dL Albumin (3.5-5.0) g/dL 12/04/18 12/04/18 12/04/18 Range/Units 00:07 02:05 03:57 RBC (4.30-5.90) m/uL Hgb (13.0-17.5) gm/dL Hct (39.0-53.0) % Plt Count (150-450) k/uL Sodium (137-145) mmol/L Potassium (3.5-5.1) mmol/L BUN (9-20) mg/dL Creatinine (0.66-1.25) mg/dL Glucose (74-99) mg/dL POC Glucose (mg/dL) 109 H 103 H 112 H (75-99) mg/dL AST (17-59) U/L ALT (21-72) U/L Total Protein (6.3-8.2) g/dL Albumin (3.5-5.0) g/dL 12/04/18 12/04/18 12/04/18 Range/Units 04:00 04:00 06:01 RBC 2.69 L (4.30-5.90) m/uL Hgb 8.7 L (13.0-17.5) gm/dL Hct 25.9 L (39.0-53.0) % Plt Count 119 L (150-450) k/uL Sodium 132 L (137-145) mmol/L Potassium 5.8 H (3.5-5.1) mmol/L BUN 49 H (9-20) mg/dL Creatinine 2.08 H (0.66-1.25) mg/dL Glucose 103 H (74-99) mg/dL POC Glucose (mg/dL) 114 H (75-99) mg/dL AST 290 H (17-59) U/L ALT 270 H (21-72) U/L Total Protein 5.7 L (6.3-8.2) g/dL Albumin 3.2 L (3.5-5.0) g/dL 12/04/18 12/04/18 12/04/18 Range/Units 08:10 12:01 16:47 RBC (4.30-5.90) m/uL Hgb (13.0-17.5) gm/dL Hct (39.0-53.0) % Plt Count (150-450) k/uL Sodium (137-145) mmol/L Potassium (3.5-5.1) mmol/L BUN (9-20) mg/dL Creatinine (0.66-1.25) mg/dL Glucose (74-99) mg/dL POC Glucose (mg/dL) 154 H 142 H 145 H (75-99) mg/dL AST (17-59) U/L ALT (21-72) U/L Total Protein (6.3-8.2) g/dL Albumin (3.5-5.0) g/dL Assessment and Plan Plan: 1 coronary artery bypass surgery. The patient underwent four-vessel bypass surgery for severe coronary artery disease involving left main and chronic a totally occluded RCA. Patient is postop day #3 2 previous non-STEMI related to multivessel coronary artery disease 3 V. tach/V. fib with AICD shock 4 left internal carotid artery occlusion 5 hypertension 6 hyperlipidemia 7 systolic heart failure post AICD placement 8 severe COPD with an FEV1 of 37% of predicted 9 smoker 10 obstructive sleep apnea without CPAP therapy 11 diabetes mellitus type 2 12 acute anemia, expected outcome of surgery, hemoglobin is at 8.7 13 atrial fibrillation, expected outcome of surgery and current rhythm is sinus 14 acute kidney injury on top of chronic kidney disease, and expected outcome of surgery, and the creatinine is at 2.08. Plan Continue same treatment. Encouraged increased level of activity as tolerated. Low-dose aspirin and Plavix. Continue beta blockers. Continue amiodarone drop the dose to 20 mg by mouth twice a day. Chest x-ray was reviewed. Avoid nephrotoxic agents. Encourage oral intake. Blood sugar control. Blood pressure control. We'll continue to follow.
[2018-12-04 20:26] LABS: Glucose,Whole Blood 140 mg/dL (75-99)
[2018-12-04] MEDS ORDERED: METOPROLOL TARTRATE 25 MG TAB PO SCH (21:00)
[2018-12-04 21:03] LABS: Glucose,Whole Blood 140 mg/dL (75-99)
[2018-12-04] MEDS: SENNOSIDES-DOCUSATE SODIUM 1 EACH TAB PO SCH (21:06)
[2018-12-04] MEDS: ONDANSETRON 4 MG/2 ML VIAL IVP PRN (23:56)
[2018-12-05 04:53] LABS: HGB 8.4 gm/dL (13.0-17.5); MCH 31.1 pg (25.0-35.0); MCHC 32.4 g/dL (31.0-37.0); Mean Platelet Volume 7.7; Platelet Count 177 k/uL (150-450); RBC 2.71 m/uL (4.30-5.90); RDW 14.1 % (11.5-15.5); WBC 7.8 k/uL (3.8-10.6)
[2018-12-05 05:03] LABS: Albumin 3.2 g/dL (3.5-5.0); Calcium 8.9 mg/dL (8.4-10.2); Magnesium 2.5 mg/dL (1.6-2.3); Potassium 5.2 mmol/L (3.5-5.1); Total Bilirubin 0.7 mg/dL (0.2-1.3); Total Protein 5.9 g/dL (6.3-8.2)
[2018-12-05] MEDS: HYDROcodone/APAP 5-325MG 1 EACH TAB PO PRN (05:46)
[2018-12-05] MEDS: ONDANSETRON 4 MG/2 ML VIAL IVP PRN (06:06)
[2018-12-05] MEDS ORDERED: ACETAMINOPHEN TAB 500 MG TAB PO PRN (06:33)
[2018-12-05 06:56] LABS: Glucose,Whole Blood 145 mg/dL (75-99)
[2018-12-05] MEDS: INSULIN ASPART (NovoLOG) 100 UNIT/ML VIAL SQ SCH ×4 (07:10→20:22)
[2018-12-05] MEDS: PANTOPRAZOLE 40 MG TABLET PO SCH (07:11)
[2018-12-05] MEDS ORDERED: FUROSEMIDE 10 MG/ML 4 ML VIAL IV STA (07:14)
[2018-12-05] MEDS: IPRATROPIUM-ALBUTEROL 3 ML NEB INHALATION SCH ×4 (07:17→19:17)
--- NOTE | 2018-12-05 07:45 | P.PN ---
Subjective Progress Note Date: 12/05/18 Principal diagnosis: Coronary artery disease with left main disease, chronic total occlusion of the RCA, non-STEMI, V. tach/V. fib status post ICD shock, complete occlusion of the left internal carotid artery. Previous medical history of myocardial infarction, hypertension, hyperlipidemia, chronic systolic heart failure status post ICD placement, previous tobacco dependence, severe COPD with preoperative FEV1 37%, obstructive sleep apnea without home CPAP use, type 2 diabetes mellitus with preopertive HgbA1c 5.6%, family history of premature coronary artery disease. POD #4 urgent coronary artery bypass grafting 4 vessels, left internal mammary artery to the left anterior descending artery, reverse saphenous vein graft to the diagonal artery, reverse saphenous vein graft to the obtuse marginal artery, reverse saphenous vein graft to the posterior lateral branch of the RCA. Endoscopic harvest of the right greater saphenous vein. Epi-aortic ultrasound. Intraoperative transesophageal echocardiogram. Postoperative acute blood loss anemia, expected from hemodilution and cardiopulmonary bypass pump as well as preoperative anemia Postoperative thrombocytopenia, expected from hemodilution as well as preoperative thrombocytopenia Postoperative atrial fibrillation, unexpected but potential and common outcome secondary to inflammatory process of surgery Postoperative transaminitis, unexpected, possibly from amiodarone The patient is sitting up in a recliner in no acute distress in the intensive care unit. He continues to complain of postsurgical sternal pain, complains of shortness of breath, did have emesis x 1 last night. Hemodynamically stable on no inotropes or pressors. Currently in normal sinus, no more afib. Left pleural chest tube, arterial line, cordis discontinued yesterday, transfer orders placed for 3S cardiac step-down unit. He did ambulate in the hallway yesterday 3 times with assist x 3-4, was unable to go far secondary to hip pain which he states is chronic. No new complaints. Objective - Vital Signs Vital signs: Vital Signs Temp 98.2 F 12/05/18 04:00 Pulse 86 12/05/18 07:17 Resp 15 12/05/18 07:17 BP 157/88 12/05/18 04:00 Pulse Ox 94 L 12/05/18 04:00 Intake & Output 12/04/18 12/05/18 12/05/18 18:59 06:59 18:59 Intake Total 387 240 Output Total 1525 500 Balance -1138 -260 Intake: IV 174 Pressure bags 24 Sodium Chloride 0.9% 1, 150 000 ml @ 30 mls/hr IV . Q24H [facility] Rx#:[id number] Oral 240 Blood Product 213 Ffp 24 Cpda Unit 213 [id number] Output: Urine 1525 500 Other: Voiding Method Urinal Urinal # Voids 3 ABP, PAP, CO, CI - Last Documented Arterial Blood Pressure 141/66 Pulmonary Artery Pressure 51/22 Cardiac Output 5.6 Cardiac Index 2.9 - Constitutional General appearance: Present: cooperative, no acute distress, obese - Respiratory Details: Lungs sounds diminished bilaterally. Respirations even, non-labored. Currently on room air with oxygen saturation 95%. Able to achieve 1495-0271 mL on his incentive spirometry. Strong cough with occasional productive yellow sputum. - Cardiovascular Details: S1, S2 present. Regular rate and rhythm, sinus rhythm on telemetry. Sternum stable. A/V epicardial pacemaker wires present, grounded. Palpable peripheral pulses bilaterally. Bilateral upper extremity edema is present but much less than yesterday. No lower extremity edema present. Heart hugger in place with patient demonstrating appropriate use. Antiembolism stockings, SCDs present. - Gastrointestinal Gastrointestinal Comment(s): Abdomen soft, nontender, slightly distended. Active bowel sounds present 4 quadrants. Tolerating diet. Positive flatus, negative bowel movement. - Genitourinary Genitourinary Comment(s): Continues to void clear yellow urine per urinal, excellent diuresis after IV lasix yesterday - Integumentary Integumentary Comment(s): Skin is warm and dry with evidence of good perfusion. Anterior chest incision well approximated and covered with dry intact dressing. Right lower extremity EVH site well approximated, ecchymotic. - Neurologic Neurologic: Present: CNII-XII intact - Musculoskeletal Musculoskeletal: Present: generalized weakness, strength equal bilaterally - Psychiatric Psychiatric: Present: A&O x's 3, appropriate affect, intact judgment & insight - Allied health notes Allied health notes reviewed: nursing - Labs CBC & Chem 7: 12/05/18 03:48 12/05/18 03:52 Labs: Abnormal Lab Results - Last 24 Hours (Table) 12/04/18 12/04/18 12/04/18 Range/Units 08:10 12:01 16:47 RBC (4.30-5.90) m/uL Hgb (13.0-17.5) gm/dL Hct (39.0-53.0) % Potassium (3.5-5.1) mmol/L BUN (9-20) mg/dL Creatinine (0.66-1.25) mg/dL Glucose (74-99) mg/dL POC Glucose (mg/dL) 154 H 142 H 145 H (75-99) mg/dL Magnesium (1.6-2.3) mg/dL AST (17-59) U/L ALT (21-72) U/L Total Protein (6.3-8.2) g/dL Albumin (3.5-5.0) g/dL 12/04/18 12/04/18 12/05/18 Range/Units 20:25 21:01 03:48 RBC 2.71 L (4.30-5.90) m/uL Hgb 8.4 L (13.0-17.5) gm/dL Hct 26.0 L (39.0-53.0) % Potassium (3.5-5.1) mmol/L BUN (9-20) mg/dL Creatinine (0.66-1.25) mg/dL Glucose (74-99) mg/dL POC Glucose (mg/dL) 140 H 140 H (75-99) mg/dL Magnesium (1.6-2.3) mg/dL AST (17-59) U/L ALT (21-72) U/L Total Protein (6.3-8.2) g/dL Albumin (3.5-5.0) g/dL 12/05/18 12/05/18 Range/Units 03:52 06:54 RBC (4.30-5.90) m/uL Hgb (13.0-17.5) gm/dL Hct (39.0-53.0) % Potassium 5.2 H (3.5-5.1) mmol/L BUN 45 H (9-20) mg/dL Creatinine 1.50 H (0.66-1.25) mg/dL Glucose 121 H (74-99) mg/dL POC Glucose (mg/dL) 145 H (75-99) mg/dL Magnesium 2.5 H (1.6-2.3) mg/dL AST 127 H (17-59) U/L ALT 201 H (21-72) U/L Total Protein 5.9 L (6.3-8.2) g/dL Albumin 3.2 L (3.5-5.0) g/dL - Imaging and Cardiology Chest x-ray: image reviewed Assessment and Plan Assessment: 1. Coronary artery disease with left main disease, chronic total occlusion of the RCA, status post 4 vessel bypass 2. Previous myocardial infarction, non-STEMI this admission 3. V. tach/V. fib prehospital with ICD shock 4. Complete occlusion of the left internal carotid artery. 5. Hypertension 6. Hyperlipidemia 7. Chronic systolic heart failure status post ICD placement 8. Previous tobacco dependence 9. Severe COPD with preoperative FEV1 37% 10. Obstructive sleep apnea without home CPAP use 11. Type 2 diabetes with preoperative hemoglobin A1c 5.6% 12. Family history of premature coronary artery disease 13. Postoperative acute blood loss anemia, status post blood transfusion 14. Postoperative thrombocytopenia 15. Postoperative atrial fibrillation, currently sinus rhythm 16. Postoperative transaminitis, resolving Plan: 1. Continue low-dose aspirin, Plavix, beta jayant therapy. Will increase beta jayant therapy as tolerated. Hold statin secondary to increased liver enzymes, will re-initiate when liver enzymes normalize. 2. Continue amiodarone for VT prophylaxis, a fib. No anticoagulation at this time. 3. Encourage incentive spirometry use 10 times every hour while awake. 4. Increase activity, ambulate as tolerated. PT/OT/cardiac rehab following. Patient needs much encouragement for activity. 5. Will monitor daily labs and x-rays. Electrolyte replacement per protocol. No further transfusions at this time. Lasix 40 mg IVP x 1 today 6. Will discontinue epicardial pacemaker wires. Bedrest x 1 hour post. 7. GI/DVT prophylaxis. 8. Insulin/diabetic management per primary care service. 9. Pain control with current medication regimen. No Toradol. Decrease narcotic use 10. Dr. Grayson consulted for recommendations for inpatient rehab at discharge. 11. Transfer orders placed yesterday for 3S cardiac step-down unit. May tr [facility] when bed available. 12. Discharge planning in progress. Anticipate discharge to [facility] in the next 24-48 hours. 13. More recommendations to follow based on patient's progress Time with Patient: Greater than 30
--- NOTE | 2018-12-05 08:15 | P.PN ---
Subjective Progress Note Date: 12/05/18 Today's evaluation of 12/05/2018 the patient is postop day #4 following coronary bypass surgery. The patient underwent four-vessel bypass. The patient is doing well. All of the chest is a been removed. The pacemaker needs will be also removed today. Sternum stable clean and intact. Chest x-ray shows some atelectatic changes and left lung base along with some mild component of pulmonary vessel congestion. The patient otherwise doing well. No chest pain. He is pulling more than 1500 on the incentive spirometer. His abdomen is slightly distended. He is having some issues with constipation and is placed on a combination of laxatives including Dulcolax, MiraLAX and Senokot. The patient has bowel sounds. Has not had any bowel activity yet. He is ambulating in the ablated around 3 times yesterday. He is known to have COPD which is currently inactive in stable with an FEV1 of 37% of predicted. He also has history of obstructive sleep apnea without CPAP therapy. Is diabetic. No nausea. No vomiting. As mentioned, abdomen is slightly distended and the patient is being given laxatives for now. At the jayant doses and increase in the patient is currently on Lopressor 50 mg by mouth twice a day. Objective - Vital Signs Vital signs: Vital Signs Temp 98.2 F 12/05/18 04:00 Pulse 86 12/05/18 07:17 Resp 15 12/05/18 07:17 BP 157/88 12/05/18 04:00 Pulse Ox 94 L 12/05/18 04:00 Intake & Output 12/04/18 12/05/18 12/05/18 18:59 06:59 18:59 Intake Total 387 240 Output Total 1525 500 Balance -1138 -260 Intake: IV 174 Pressure bags 24 Sodium Chloride 0.9% 1, 150 000 ml @ 30 mls/hr IV . Q24H [facility] Rx#:[id number] Oral 240 Blood Product 213 Ffp 24 Cpda Unit 213 [id number] Output: Urine 1525 500 Other: Voiding Method Urinal Urinal # Voids 3 ABP, PAP, CO, CI - Last Documented Arterial Blood Pressure 141/66 Pulmonary Artery Pressure 51/22 Cardiac Output 5.6 Cardiac Index 2.9 - Exam - Constitutional General appearance: Present: cooperative, no acute distress, obese - Respiratory Details: Lungs sounds diminished bilaterally. Respirations even, non-labored. Currently on room air with oxygen saturation 95%. Able to achieve 4106-1760 mL on his incentive spirometry. Strong cough with occasional productive yellow sputum. - Cardiovascular Details: S1, S2 present. Regular rate and rhythm, sinus rhythm on telemetry. Sternum stable. A/V epicardial pacemaker wires present, grounded. Palpable peripheral pulses bilaterally. Bilateral upper extremity edema is present but much less than yesterday. No lower extremity edema present. Heart hugger in place with patient demonstrating appropriate use. Antiembolism stockings, SCDs present. - Gastrointestinal Gastrointestinal Comment(s): Abdomen soft, nontender, slightly distended. Active bowel sounds present 4 quadrants. Tolerating diet. Positive flatus, negative bowel movement. - Genitourinary Genitourinary Comment(s): Continues to void clear yellow urine per urinal, excellent diuresis after IV lasix yesterday - Integumentary Integumentary Comment(s): Skin is warm and dry with evidence of good perfusion. Anterior chest incision well approximated and covered with dry intact dressing. Right lower extremity EVH site well approximated, ecchymotic. - Neurologic Neurologic: Present: CNII-XII intact - Musculoskeletal Musculoskeletal: Present: generalized weakness, strength equal bilaterally - Psychiatric Psychiatric: Present: A&O x's 3, appropriate affect, intact judgment & insight - Labs CBC & Chem 7: 12/05/18 03:48 12/05/18 03:52 Labs: Abnormal Lab Results - Last 24 Hours (Table) 12/04/18 12/04/18 12/04/18 Range/Units 08:10 12:01 16:47 RBC (4.30-5.90) m/uL Hgb (13.0-17.5) gm/dL Hct (39.0-53.0) % Potassium (3.5-5.1) mmol/L BUN (9-20) mg/dL Creatinine (0.66-1.25) mg/dL Glucose (74-99) mg/dL POC Glucose (mg/dL) 154 H 142 H 145 H (75-99) mg/dL Magnesium (1.6-2.3) mg/dL AST (17-59) U/L ALT (21-72) U/L Total Protein (6.3-8.2) g/dL Albumin (3.5-5.0) g/dL 12/04/18 12/04/18 12/05/18 Range/Units 20:25 21:01 03:48 RBC 2.71 L (4.30-5.90) m/uL Hgb 8.4 L (13.0-17.5) gm/dL Hct 26.0 L (39.0-53.0) % Potassium (3.5-5.1) mmol/L BUN (9-20) mg/dL Creatinine (0.66-1.25) mg/dL Glucose (74-99) mg/dL POC Glucose (mg/dL) 140 H 140 H (75-99) mg/dL Magnesium (1.6-2.3) mg/dL AST (17-59) U/L ALT (21-72) U/L Total Protein (6.3-8.2) g/dL Albumin (3.5-5.0) g/dL 12/05/18 12/05/18 Range/Units 03:52 06:54 RBC (4.30-5.90) m/uL Hgb (13.0-17.5) gm/dL Hct (39.0-53.0) % Potassium 5.2 H (3.5-5.1) mmol/L BUN 45 H (9-20) mg/dL Creatinine 1.50 H (0.66-1.25) mg/dL Glucose 121 H (74-99) mg/dL POC Glucose (mg/dL) 145 H (75-99) mg/dL Magnesium 2.5 H (1.6-2.3) mg/dL AST 127 H (17-59) U/L ALT 201 H (21-72) U/L Total Protein 5.9 L (6.3-8.2) g/dL Albumin 3.2 L (3.5-5.0) g/dL Assessment and Plan Plan: 1 coronary artery bypass surgery. The patient underwent four-vessel bypass surgery for severe coronary artery disease involving left main and chronic a totally occluded RCA. Patient is postop day #4 2 previous non-STEMI related to multivessel coronary artery disease 3 V. tach/V. fib with AICD shock 4 left internal carotid artery occlusion 5 hypertension 6 hyperlipidemia 7 systolic heart failure post AICD placement 8 severe COPD with an FEV1 of 37% of predicted 9 smoker 10 obstructive sleep apnea without CPAP therapy 11 diabetes mellitus type 2 12 acute anemia, expected outcome of surgery, hemoglobin is at 8.4 13 atrial fibrillation, expected outcome of surgery and current rhythm is sinus 14 acute kidney injury on top of chronic kidney disease, and expected outcome of surgery, and the creatinine is improving and the creatinine is down to 1.50. 15 constipation along with some abdominal distention. No indication of bowel obstruction. Plan Continue same treatment. Encouraged increased level of activity as tolerated. Low-dose aspirin and Plavix. Continue beta blockers and the patient is on Lopressor 50 mg by mouth twice a day.. Continue amiodarone drop the dose to 200 mg by mouth twice a day. Chest x-ray was reviewed. Avoid nephrotoxic agents. The renal function continues to improve. Proceed with laxatives regarding his abdominal distention and constipation. Ambulate this patient the hallway. Given another dose of Lasix. Chest x-ray was reviewed. Cardiac rhythm is sinus. Remove epicardial leads. Encourage oral intake. Blood sugar control. Blood pressure control. We'll continue to follow.
[2018-12-05] MEDS: POLYETHYLENE GLYCOL 3350 17 GM POWD.PACK PO SCH (08:30)
[2018-12-05] MEDS: HEPARIN SODIUM,PORCINE 5,000 UNIT/ML 1 ML VIAL SQ SCH ×3 (08:30→22:39)
[2018-12-05] MEDS: METOPROLOL TARTRATE 50 MG TAB PO SCH ×2 (08:31→20:29)
[2018-12-05] MEDS: AMIODARONE 200 MG TAB PO SCH ×2 (08:31→20:29)
--- NOTE | 2018-12-05 08:47 | P.PN ---
Subjective Progress Note Date: 12/04/18 Pt is POD#3 after CABG x4 complicated by post operative anemia and atrial fibrillation. He was transfused 1 U PRBC and remains on amiodarone. He is hemodynamically stable and has been ambulatory today. Complaining of chest pain with inspiration. Blood sugars controlled with sliding scale. Objective - Vital Signs Vital signs: Vital Signs Temp 98.2 F 12/05/18 04:00 Pulse 86 12/05/18 07:17 Resp 15 12/05/18 07:17 BP 157/88 12/05/18 04:00 Pulse Ox 94 L 12/05/18 04:00 Intake & Output 12/04/18 12/05/18 12/05/18 18:59 06:59 18:59 Intake Total 387 240 Output Total 1525 500 Balance -1138 -260 Intake: IV 174 Pressure bags 24 Sodium Chloride 0.9% 1, 150 000 ml @ 30 mls/hr IV . Q24H [facility] Rx#:[id number] Oral 240 Blood Product 213 Ffp 24 Cpda Unit 213 [id number] Output: Urine 1525 500 Other: Voiding Method Urinal Urinal # Voids 3 ABP, PAP, CO, CI - Last Documented Arterial Blood Pressure 141/66 Pulmonary Artery Pressure 51/22 Cardiac Output 5.6 Cardiac Index 2.9 - Exam Gen: well developed, well nourished, NAD CV: regular rate and rhythm, distant heart sounds Lungs: clear throughout Abd: soft, nontender Ext: no edema Neuro: alert and oriented x3 - Labs CBC & Chem 7: 12/05/18 03:48 12/05/18 03:52 Labs: Abnormal Lab Results - Last 24 Hours (Table) 12/04/18 12/04/18 12/04/18 Range/Units 12:01 16:47 20:25 RBC (4.30-5.90) m/uL Hgb (13.0-17.5) gm/dL Hct (39.0-53.0) % Potassium (3.5-5.1) mmol/L BUN (9-20) mg/dL Creatinine (0.66-1.25) mg/dL Glucose (74-99) mg/dL POC Glucose (mg/dL) 142 H 145 H 140 H (75-99) mg/dL Magnesium (1.6-2.3) mg/dL AST (17-59) U/L ALT (21-72) U/L Total Protein (6.3-8.2) g/dL Albumin (3.5-5.0) g/dL 12/04/18 12/05/18 12/05/18 Range/Units 21:01 03:48 03:52 RBC 2.71 L (4.30-5.90) m/uL Hgb 8.4 L (13.0-17.5) gm/dL Hct 26.0 L (39.0-53.0) % Potassium 5.2 H (3.5-5.1) mmol/L BUN 45 H (9-20) mg/dL Creatinine 1.50 H (0.66-1.25) mg/dL Glucose 121 H (74-99) mg/dL POC Glucose (mg/dL) 140 H (75-99) mg/dL Magnesium 2.5 H (1.6-2.3) mg/dL AST 127 H (17-59) U/L ALT 201 H (21-72) U/L Total Protein 5.9 L (6.3-8.2) g/dL Albumin 3.2 L (3.5-5.0) g/dL 12/05/18 Range/Units 06:54 RBC (4.30-5.90) m/uL Hgb (13.0-17.5) gm/dL Hct (39.0-53.0) % Potassium (3.5-5.1) mmol/L BUN (9-20) mg/dL Creatinine (0.66-1.25) mg/dL Glucose (74-99) mg/dL POC Glucose (mg/dL) 145 H (75-99) mg/dL Magnesium (1.6-2.3) mg/dL AST (17-59) U/L ALT (21-72) U/L Total Protein (6.3-8.2) g/dL Albumin (3.5-5.0) g/dL Assessment and Plan (1) Elevated troponin Current Visit: Yes Status: Acute Code(s): R79.89 - OTHER SPECIFIED ABNORMAL FINDINGS OF BLOOD CHEMISTRY SNOMED Code(s): 447213466 (2) Ventricular fibrillation Current Visit: Yes Status: Acute Code(s): I49.01 - VENTRICULAR FIBRILLATION SNOMED Code(s): 87703423 (3) NSTEMI (non-ST elevated myocardial infarction) Current Visit: Yes Status: Acute Code(s): I21.4 - NON-ST ELEVATION (NSTEMI) MYOCARDIAL INFARCTION SNOMED Code(s): 63057536 (4) Hypertension Current Visit: Yes Status: Acute Code(s): I10 - ESSENTIAL (PRIMARY) HYPERTENSION SNOMED Code(s): 98957109 (5) Hyperlipidemia Current Visit: Yes Status: Acute Code(s): E78.5 - HYPERLIPIDEMIA, UNSPECIF IED SNOMED Code(s): 87059414 (6) Hypomagnesemia Current Visit: Yes Status: Acute Code(s): E83.42 - HYPOMAGNESEMIA SNOMED Code(s): 794115161 (7) Coronary artery disease involving [place] coronary artery Current Visit: Yes Status: Acute Code(s): I25.10 - ATHSCL HEART DISEASE OF [place] CORONARY ARTERY W/O ANG PCTRS SNOMED Code(s): 7868363601745 (8) Type 2 diabetes mellitus Current Visit: Yes Status: Acute Code(s): E11.9 - TYPE 2 DIABETES MELLITUS WITHOUT COMPLICATIONS SNOMED Code(s): 59497593 Plan: Continue with current medications and therapies. Agree with lasix today. Insulin gtt discontinued and sliding scale. Encourage ambulation. PMR consulted for cardiac rehab
--- NOTE | 2018-12-05 09:09 | XR ---
EXAMINATION TYPE: XR chest 2V DATE OF EXAM: 12/05/2018 COMPARISON: 04/06/2018 HISTORY: Status post cardiac surgery. Follow-up evaluation. TECHNIQUE: Frontal and lateral views of the chest are obtained. FINDINGS: There are trace bilateral pleural effusions. Left perihilar airspace disease remains. No d iscrete pulmonary vascular congestion. Cardia mediastinal silhouette is enlarged with post CABG jackson e in single lead cardiac defibrillator. Mild degenerative changes of the spine. IMPRESSION: Left perihilar airspace disease is unchanged. No residual pneumothorax.
[2018-12-05] MEDS: CLOPIDOGREL 75 MG TAB PO SCH (09:38)
[2018-12-05] MEDS: GABAPENTIN 300 MG CAP PO SCH ×2 (09:38→20:29)
[2018-12-05] MEDS: FINASTERIDE 5 MG TAB PO SCH (09:38)
[2018-12-05] MEDS: ASPIRIN 81 MG PO SCH (09:38)
--- NOTE | 2018-12-05 10:09 | CDI ---
Documentation Clarification Form Date: 12/05/2018 9:49:22 AM From: Nida Gonzalez RN, CCDS Admit Date: 11/29/2018 10:30:00 PM Patient Name: Rajiv Ibarra Visit Number: [id number] ATTENTION: The Clinical Documentation Specialists (CDI) and [facility] Coding Staff appreciate your assistance in clarifying documentation. Please respond to the clarification below the line at the bottom and electronically sign. The CDI & [facility] Coding staff will review the response and follow-up if needed. Please note: Queries are made part of the Legal Health Record. If you have any questions, please contact the author of this message via ITS. Dr. Iggy Owen DEVIN with CKD is now documented in the Medical record and requires further clarification History/Risk Factors: NSTEMI, AICD Fired for V-Tach/VFIB, DM2, HTN, CAD, Chronic Left ICA occlusion, Chronic RCA occlusion, smoker, HTN 10/10/18 Patients baseline BUN/CR/GFR: 26/1. Clinical Indicators: 12/03 Medical Progress Note: "As the patient's blood pressure is slowly improving, hopefully his kidney functioning will improve by tomorrow. 12/04 -12/05 Pulmonary Progress Notes: "acute kidney injury on top of chronic kidney disease, and expected outcome of surgery, and the creatinine is at 2.08." Current BUN: 27/25/17/21/32/49/45 Cr: 1.48/1.31/1.17/1.48/1.67/ 2.08/1.5 GFR: 49/57/65/49/42/32/48 Treatment: IVF at varying rates throughout stay ranging from 100 cc /hr, to 75 cc/hr to KVO 500ml Albumin given 2 Units PRBC's transfused, 1 unit FFP transfused, 1 unit Platelets transfused Lasix 40 mg IVP QD x 2 days followed by 40 mg PO QD d/c 11/30 In order to capture the severity of condition, please clarify if the condition signifies: Acute renal failure, Please specify etiology (if known): Cortical Necrosis Medullary Necrosis Tubular Necrosis Acute kidney injury Acute on chronic renal failure CKD Stage 1 GFR >90 CKD Stage 2 GFR 60-89 CKD Stage 3 GFR 30-59 CKD Stage 4 GFR 15-29 CKD Stage 5 GFR <15 Chronic renal failure/Chronic Kidney disease (CKD) please stage (if known): CKD Stage 1 GFR >90 CKD Stage 2 GFR 60-89 CKD Stage 3 GFR 30-59 CKD Stage 4 GFR 15-29 CKD Stage 5 GFR <15 Other, please specify Unable to determine Please also identify onset of condition. Condition was POA and is unrelated to surgical procedure An expected post-procedural or post-surgical condition An unexpected post-procedural or post-surgical condition related to surgical care (a complication of care) An unexpected post-procedural or post-surgical condition, related to the patients underlying medical comorbidities Other, please specify ____ Unable to determine (Last Revision: May 2017) MTDD
--- NOTE | 2018-12-05 11:19 | P.PN ---
Subjective This is Adelia Grissom PA-C dictating a progress note on this patient The patient was interviewed and examined by me as well as by Dr. Sosa Case discussed with Dr. Sosa and he agrees with the plan of care IMPRESSION / ASSESSMENT: CAD status post CABG 4, postop day #4 Ischemic cardiomyopathy status post ICD NSTEMI V. tach status post ICD shock post operative a fib, currently in sinus rhythm Hypertension Dyslipidemia COPD Diabetes PLAN: Continue maximizing medical management of CAD as tolerated Continue to encourage ambulation as tolerated and incentive spirometry HPI/interval history Patient is a 68-year-old male with a past medical history significant for CAD, [place], hypertension, dyslipidemia, ischemic cardiomyopathy status post ICD placement, COPD, diabetes who presented after an ICD shock and was diagnosed with an NSTEMI. He underwent a coronary angiogram and was found to have significant disease in the left main and chronically occluded RCA. He subsequently underwent a coronary artery bypass graft 4. Patient seen and examined sitting up in his chair. Continues to complain of postoperative pain and shortness of breath secondary to the pain. Also complains of pain in his legs. He is going to get up and walk with the nurses. EXAMINATION Temperature 97.4F, pulse 75, respirations 13, blood pressure 125/86, oxygen saturation 95% on room air Patient seen and examined sitting up in his chair, in no acute distress Lungs slightly diminished bilaterally secondary to decreased effort Heart is regular, no murmurs appreciated No elevated JVD No lower extremity edema REVIEW OF LABS, ECG Bedside telemetry revealed sinus rhythm WBC 7.8, hemoglobin 8.4, platelets 177, potassium 5.2, BUN 45, creatinine 1.5, magnesium 2.5 Objective - Vital Signs Vital signs: Vital Signs Temp 97.4 F L 12/05/18 08:01 Pulse 75 12/05/18 10:00 Resp 13 12/05/18 10:00 BP 125/86 12/05/18 10:00 Pulse Ox 95 12/05/18 10:00 Intake & Output 12/04/18 12/05/18 12/05/18 18:59 06:59 18:59 Intake Total 387 240 Output Total 2359 500 725 Balance -1138 -260 -725 Intake: IV 174 Pressure bags 24 Sodium Chloride 0.9% 1, 150 000 ml @ 30 mls/hr IV . Q24H [facility] Rx#:[id number] Oral 240 Blood Product 213 Ffp 24 Cpda Unit 213 [id number] Output: Urine 1525 500 725 Other: Voiding Method Urinal Urinal Urinal # Voids 3 # Bowel Movements 1 ABP, PAP, CO, CI - Last Documented Arterial Blood Pressure 141/66 Pulmonary Artery Pressure 51/22 Cardiac Output 5.6 Cardiac Index 2.9 - Labs CBC & Chem 7: 12/05/18 03:48 12/05/18 03:52 Labs: Abnormal Lab Results - Last 24 Hours (Table) 12/04/18 12/04/18 12/04/18 Range/Units 12:01 16:47 20:25 RBC (4.30-5.90) m/uL Hgb (13.0-17.5) gm/dL Hct (39.0-53.0) % Potassium (3.5-5.1) mmol/L BUN (9-20) mg/dL Creatinine (0.66-1.25) mg/dL Glucose (74-99) mg/dL POC Glucose (mg/dL) 142 H 145 H 140 H (75-99) mg/dL Magnesium (1.6-2.3) mg/dL AST (17-59) U/L ALT (21-72) U/L Total Protein (6.3-8.2) g/dL Albumin (3.5-5.0) g/dL 12/04/18 12/05/18 12/05/18 Range/Units 21:01 03:48 03:52 RBC 2.71 L (4.30-5.90) m/uL Hgb 8.4 L (13.0-17.5) gm/dL Hct 26.0 L (39.0-53.0) % Potassium 5.2 H (3.5-5.1) mmol/L BUN 45 H (9-20) mg/dL Creatinine 1.50 H (0.66-1.25) mg/dL Glucose 121 H (74-99) mg/dL POC Glucose (mg/dL) 140 H (75-99) mg/dL Magnesium 2.5 H (1.6-2.3) mg/dL AST 127 H (17-59) U/L ALT 201 H (21-72) U/L Total Protein 5.9 L (6.3-8.2) g/dL Albumin 3.2 L (3.5-5.0) g/dL 12/05/18 Range/Units 06:54 RBC (4.30-5.90) m/uL Hgb (13.0-17.5) gm/dL Hct (39.0-53.0) % Potassium (3.5-5.1) mmol/L BUN (9-20) mg/dL Creatinine (0.66-1.25) mg/dL Glucose (74-99) mg/dL POC Glucose (mg/dL) 145 H (75-99) mg/dL Magnesium (1.6-2.3) mg/dL AST (17-59) U/L ALT (21-72) U/L Total Protein (6.3-8.2) g/dL Albumin (3.5-5.0) g/dL
[2018-12-05 11:58] LABS: Glucose,Whole Blood 123 mg/dL (75-99)
--- NOTE | 2018-12-05 13:54 | P.PN ---
Subjective Progress Note Date: 12/05/18 Pt is POD#4 after CABG x4 complicated by post operative anemia and atrial fibrillation. 12/05. He is feeling better today but continues to complain of chest pain with movement. His vitals are stable and he remains on amiodarone. He did vomit after eating a hamburger last night. His abdomen is distended today and he is receiving miralax and sennekot. Objective - Vital Signs Vital signs: Vital Signs Temp 97.4 F L 12/05/18 12:00 Pulse 70 12/05/18 12:00 Resp 22 12/05/18 12:00 BP 125/86 12/05/18 12:00 Pulse Ox 97 12/05/18 12:00 Intake & Output 12/04/18 12/05/18 12/05/18 18:59 06:59 18:59 Intake Total 387 240 Output Total 2474 409 9509 Balance -1138 -260 -1025 Intake: IV 174 Pressure bags 24 Sodium Chloride 0.9% 1, 150 000 ml @ 30 mls/hr IV . Q24H [facility] Rx#:[id number] Oral 240 Blood Product 213 Ffp 24 Cpda Unit 213 [id number] Output: Urine 2472 013 0076 Other: Voiding Method Urinal Urinal Urinal # Voids 3 # Bowel Movements 1 ABP, PAP, CO, CI - Last Documented Arterial Blood Pressure 141/66 Pulmonary Artery Pressure 51/22 Cardiac Output 5.6 Cardiac Index 2.9 - Exam Gen: well developed, well nourished, NAD CV: regular rate and rhythm, distant heart sounds Lungs: clear throughout Abd: soft, nontender. mildly distended Ext: no edema Neuro: alert and oriented x3 - Labs CBC & Chem 7: 12/05/18 03:48 12/05/18 03:52 Labs: Abnormal Lab Results - Last 24 Hours (Table) 12/04/18 12/04/18 12/04/18 Range/Units 16:47 20:25 21:01 RBC (4.30-5.90) m/uL Hgb (13.0-17.5) gm/dL Hct (39.0-53.0) % Potassium (3.5-5.1) mmol/L BUN (9-20) mg/dL Creatinine (0.66-1.25) mg/dL Glucose (74-99) mg/dL POC Glucose (mg/dL) 145 H 140 H 140 H (75-99) mg/dL Magnesium (1.6-2.3) mg/dL AST (17-59) U/L ALT (21-72) U/L Total Protein (6.3-8.2) g/dL Albumin (3.5-5.0) g/dL 12/05/18 12/05/18 12/05/18 Range/Units 03:48 03:52 06:54 RBC 2.71 L (4.30-5.90) m/uL Hgb 8.4 L (13.0-17.5) gm/dL Hct 26.0 L (39.0-53.0) % Potassium 5.2 H (3.5-5.1) mmol/L BUN 45 H (9-20) mg/dL Creatinine 1.50 H (0.66-1.25) mg/dL Glucose 121 H (74-99) mg/dL POC Glucose (mg/dL) 145 H (75-99) mg/dL Magnesium 2.5 H (1.6-2.3) mg/dL AST 127 H (17-59) U/L ALT 201 H (21-72) U/L Total Protein 5.9 L (6.3-8.2) g/dL Albumin 3.2 L (3.5-5.0) g/dL 12/05/18 Range/Units 11:57 RBC (4.30-5.90) m/uL Hgb (13.0-17.5) gm/dL Hct (39.0-53.0) % Potassium (3.5-5.1) mmol/L BUN (9-20) mg/dL Creatinine (0.66-1.25) mg/dL Glucose (74-99) mg/dL POC Glucose (mg/dL) 123 H (75-99) mg/dL Magnesium (1.6-2.3) mg/dL AST (17-59) U/L ALT (21-72) U/L Total Protein (6.3-8.2) g/dL Albumin (3.5-5.0) g/dL Assessment and Plan (1) Elevated troponin Current Visit: Yes Status: Acute Code(s): R79.89 - OTHER SPECIFIED ABNORMAL FINDINGS OF BLOOD CHEMISTRY SNOMED Code(s): 435952175 (2) Ventricular fibrillation Current Visit: Yes Status: Acute Code(s): I49.01 - VENTRICULAR FIBRILLATION SNOMED Code(s): 21576845 (3) NSTEMI (non-ST elevated myocardial infarction) Current Visit: Yes Status: Acute Code(s): I21.4 - NON-ST ELEVATION (NSTEMI) MYOCARDIAL INFARCTION SNOMED Code(s): 55448084 (4) Hypertension Current Visit: Yes Status: Acute Code(s): I10 - ESSENTIAL (PRIMARY) HYPERTENSION SNOMED Code(s): 92784588 (5) Hyperlipidemia Current Visit: Yes Status: Acute Code(s): E78.5 - HYPERLIPIDEMIA, UNSPECIFIED SNOMED Code(s): 72225448 (6) Hypomagnesemia Current Visit: Yes Status: Acute Code(s): E83.42 - HYPOMAGNESEMIA SNOMED Code(s): 720701942 (7) Coronary artery disease involving [place] coronary artery Current Visit: Yes Status: Acute Code(s): I25.10 - ATHSCL HEART DISEASE OF [place] CORONARY ARTERY W/O ANG PCTRS SNOMED Code(s): 8051144268751 (8) Type 2 diabetes mellitus Current Visit: Yes Status: Acute Code(s): E11.9 - TYPE 2 DIABETES MELLITUS WITHOUT COMPLICATIONS SNOMED Code(s): 59992766 Plan: Continue with current medications and therapies. Encourage ambulation. Miralax today for constipation. Continue insulin sliding scale
[2018-12-05 17:06] LABS: Glucose,Whole Blood 109 mg/dL (75-99)
[2018-12-05] MEDS: SENNOSIDES-DOCUSATE SODIUM 1 EACH TAB PO SCH (20:30)
[2018-12-05 20:34] LABS: Glucose,Whole Blood 104 mg/dL (75-99)
[2018-12-05] MEDS ORDERED: LOSARTAN 25 MG TAB PO SCH (21:00)
[2018-12-06] MEDS: INSULIN ASPART (NovoLOG) 100 UNIT/ML VIAL SQ SCH (07:44)
[2018-12-06 07:45] LABS: Glucose,Whole Blood 105 mg/dL (75-99)
[2018-12-06 07:48] LABS: HCT 26.8 % (39.0-53.0); HGB 8.3 gm/dL (13.0-17.5); MCH 30.2 pg (25.0-35.0); MCHC 31.1 g/dL (31.0-37.0); MCV 97.2 fL (80.0-100.0); Platelet Count 211 k/uL (150-450); RBC 2.76 m/uL (4.30-5.90); RDW 14.4 % (11.5-15.5)
[2018-12-06 08:04] LABS: Albumin 3.1 g/dL (3.5-5.0); Calcium 8.7 mg/dL (8.4-10.2); Potassium 4.9 mmol/L (3.5-5.1); Total Bilirubin 0.9 mg/dL (0.2-1.3); Total Protein 5.8 g/dL (6.3-8.2)
--- NOTE | 2018-12-06 08:10 | XR ---
EXAMINATION TYPE: XR chest 2V DATE OF EXAM: 12/06/2018 COMPARISON: 12/05/2018 INDICATION: Post cardiac surgery TECHNIQUE: Single frontal view of the chest is obtained. FINDINGS: The heart size is enlarged. The pulmonary vasculature is normal. The lungs are clear. Sternotomy wires are present from prior surgery. Electronic device overlies left chest. IMPRESSION: 1. No acute pulmonary process. 2. Cardiomegaly
[2018-12-06] MEDS: IPRATROPIUM-ALBUTEROL 3 ML NEB INHALATION SCH (08:12)
[2018-12-06 08:16] VITALS: RESP 17
[2018-12-06] MEDS: GABAPENTIN 300 MG CAP PO SCH (08:22)
[2018-12-06] MEDS: CLOPIDOGREL 75 MG TAB PO SCH (08:22)
[2018-12-06] MEDS: POLYETHYLENE GLYCOL 3350 17 GM POWD.PACK PO SCH (08:22)
[2018-12-06] MEDS: PANTOPRAZOLE 40 MG TABLET PO SCH (08:22)
[2018-12-06] MEDS: METOPROLOL TARTRATE 50 MG TAB PO SCH (08:22)
[2018-12-06] MEDS: HEPARIN SODIUM,PORCINE 5,000 UNIT/ML 1 ML VIAL SQ SCH (08:22)
[2018-12-06] MEDS: FINASTERIDE 5 MG TAB PO SCH (08:22)
[2018-12-06] MEDS: ASPIRIN 81 MG PO SCH (08:22)
[2018-12-06] MEDS: AMIODARONE 200 MG TAB PO SCH (08:22)
[2018-12-06] MEDS: HYDROcodone/APAP 5-325MG 1 EACH TAB PO PRN (08:24)
[2018-12-06 08:26] VITALS: BP 141/77; PULSE 74; TEMP 98.2
--- NOTE | 2018-12-06 09:20 | P.PN ---
Subjective Progress Note Date: 12/06/18 On today's evaluation of 12/06/2018 the patient is postop day #5 following four-vessel bypass surgery. He is still having some substernal chest chest wall pain. He is taking [place] for pain control. His cough and is bringing up some clear sputum. On the incentive spirometer and is pulling approximately 1000. The chest x-ray showing no acute abnormalities. There is some cardiomegaly. Sternum stable clean and intact. Some atelectatic changes are seen in the lung bases. Of significance also is improvement in his bowel activity. He had several bowel movements and since then his breathing is improved as abdominal distention is also improved. The patient is being considered for rehabilitation at [facility] and he may be transferred today. He is known to have COPD with an FEV1 of 37%. His cardiac rhythm is sinus. There are have a short bout of atrial fibrillation postop which recovers. Adequate urine output. No Mejia catheter. He is on oxygen at 2 L per minute nasal cannula. Objective - Vital Signs Vital signs: Vital Signs Temp 98.2 F 12/06/18 08:00 Pulse 74 12/06/18 08:23 Resp 17 12/06/18 08:12 BP 141/77 12/06/18 08:00 Pulse Ox 97 12/06/18 08:00 Intake & Output 12/05/18 12/06/18 12/06/18 18:59 06:59 18:59 Intake Total 660 240 Output Total 1225 700 250 Balance -1225 -40 -10 Weight 86.5 kg Intake: Oral 660 240 Output: Urine 1225 700 250 Other: Voiding Method Urinal Urinal Urinal # Bowel Movements 1 ABP, PAP, CO, CI - Last Documented Arterial Blood Pressure 141/66 Pulmonary Artery Pressure 51/22 Cardiac Output 5.6 Cardiac Index 2.9 - Exam - Constitutional General appearance: Present: cooperative, no acute distress, obese - Respiratory Details: Lungs sounds diminished bilaterally. Respirations even, non-labored. Currently on room air with oxygen saturation 95%. Able to achieve 1524-7769 mL on his incentive spirometry. Strong cough with occasional productive yellow sputum. - Cardiovascular Details: S1, S2 present. Regular rate and rhythm, sinus rhythm on telemetry. Sternum stable. A/V epicardial pacemaker wires present, grounded. Palpable peripheral pulses bilaterally. Bilateral upper extremity edema is present but much less than yesterday. No lower extremity edema present. Heart hugger in place with patient demonstrating appropriate use. Antiembolism stockings, SCDs present. - Gastrointestinal Gastrointestinal Comment(s): Abdomen soft, nontender, slightly distended. Active bowel sounds present 4 quadrants. Tolerating diet. Positive flatus, negative bowel movement. - Genitourinary Genitourinary Comment(s): Continues to void clear yellow urine per urinal, excellent diuresis after IV lasix yesterday - Integumentary Integumentary Comment(s): Skin is warm and dry with evidence of good perfusion. Anterior chest incision well approximated and covered with dry intact dressing. Right lower extremity EVH site well approximated, ecchymotic. - Neurologic Neurologic: Present: CNII-XII intact - Musculoskeletal Musculoskeletal: Present: generalized weakness, strength equal bilaterally - Psychiatric Psychiatric: Present: A&O x's 3, appropriate affect, intact judgment & insight - Labs CBC & Chem 7: 12/05/18 03:48 12/05/18 03:52 Labs: Abnormal Lab Results - Last 24 Hours (Table) 12/05/18 12/05/18 12/05/18 Range/Units 11:57 17:04 20:22 POC Glucose (mg/dL) 123 H 109 H 104 H (75-99) mg/dL 12/06/18 Range/Units 07:43 POC Glucose (mg/dL) 105 H (75-99) mg/dL Assessment and Plan Plan: 1 coronary artery bypass surgery. The patient underwent four-vessel bypass surgery for severe coronary artery disease involving left main and chronic a totally occluded RCA. Patient is postop day #5 2 previous non-STEMI related to multivessel coronary artery disease, post carotid bypass surgery 3 V. tach/V. fib with AICD shock, current rhythm is sinus. This was noted preoperatively. 4 left internal carotid artery occlusion 5 hypertension 6 hyperlipidemia 7 systolic heart failure post AICD placement 8 severe COPD with an FEV1 of 37% of predicted 9 smoker 10 obstructive sleep apnea without CPAP therapy 11 diabetes mellitus type 2 12 acute anemia, expected outcome of surgery, hemoglobin is at 8.3 13 atrial fibrillation, expected outcome of surgery and current rhythm is sinus 14 acute kidney injury on top of chronic kidney disease, improving and the creatinine is down to 1.19 15 constipation along with some abdominal distention. Improved with a combination of laxatives. Plan Continue same treatment. Encouraged increased level of activity as tolerated. Low-dose aspirin and Plavix. Continue beta blockers and the patient is on Lopressor 50 mg by mouth twice a day.. Continue amiodarone drop the dose to 200 mg by mouth twice a day. Chest x-ray was reviewed. He continues to improve. We will was stable at 8.3. The patient is ambulating. Pain is under good control. Is having good bowel movements. The patient will be transferred to [facility] today.
[2018-12-06] MEDS ORDERED: FUROSEMIDE 10 MG/ML 4 ML VIAL IV STA (09:41)
--- NOTE | 2018-12-06 10:17 | P.DS ---
Providers Date of admission: 11/29/18 22:30 Expected date of discharge: 12/06/18 Attending physician: Ed Dias MD Consults: 11/30/18 12:40 Consult Physician Routine Consulting Provider: Mat Welch Consult Reason/Comments: cabg Do you want consulting provider notified?: Yes 11/30/18 13:08 Consult Physician Routine Consulting Provider: Ranjeet Porras Consult Reason/Comments: preop cabg Do you want consulting provider notified?: Yes 11/30/18 17:30 Consult to Anesthesia Routine Consulting Provider: Anesthesia,Services Consult Reason/Comments: Cardiac Surgery Pre-Op 12/01/18 15:18 Consult Physician Routine Consulting Provider: Ed Dias Consult Reason/Comments: med mgmt Do you want consulting provider notified?: Already Contacted Consult Physician Routine Consulting Provider: Jose L Duong Consult Reason/Comments: Rrt Consult: post cardiac surgery Do you want consulting provider notified?: Yes 12/03/18 09:08 Consult Physician Routine Consulting Provider: Uriah Grayson Consult Reason/Comments: inpatient rehab Do you want consulting provider notified?: Yes Primary care physician: Bree Dias Hospital Course: FINAL DIAGNOSIS: 1. Coronary artery disease with left main disease, chronic total occlusion of the RCA 2. Previous myocardial infarction, non-STEMI this admission 3. V. tach/V. fib prehospital with multiple ICD shocks 4. Complete occlusion of the left internal carotid artery 5. Hypertension 6. Hyperlipidemia 7. Chronic systolic heart failure status post [facility] [place] ICD placement 8. Previous tobacco dependence 9. Severe COPD with preoperative FEV1 37% of predicted 10. Obstructive sleep apnea without home CPAP use 11. Type 2 diabetes with preoperative hemoglobin A1c 5.6% 12. Family history of premature coronary artery disease 13. Postoperative acute blood loss anemia, status post blood transfusion 14. Postoperative thrombocytopenia 15. Postoperative atrial fibrillation, currently sinus rhythm 16. Postoperative transaminitis, resolving 17. Acute on chronic kidney disease, stage III, present on admission PRINCIPAL PROCEDURE: 1. Left heart catheterization 2. Urgent coronary artery bypass grafting 4 vessels, left internal mammary artery to the left anterior descending artery, reverse saphenous vein graft to the diagonal artery, reverse saphenous vein graft to the obtuse marginal artery, reverse saphenous vein graft to the posterior lateral branch of the RCA 3. Endoscopic harvesting of the right greater saphenous vein 4. Epi-aortic ultrasound 5. Intraoperative transesophageal echocardiogram HISTORY OF PRESENT ILLNESS: This is a 68-year-old gentleman who follows on an outpatient basis with Dr. Bree Dias. Apparently he was hunting with a friend, was taking a break and standing at the friends truck when he experienced V. tach then V. fib, he was shocked and subsequently became unresponsive, and was shocked again from his ICD. EMS was called and he was brought to [facility] emergency room for evaluation and treatment. EKG demonstrated sinus rhythm with frequent PVCs. Troponins were positive, and he was ruled in for non-STEMI. He was admitted for further evaluation and treatment with consultation placed to cardiology. Transesophageal echocardiogram and was completed demonstrate severe global hypokinesis of the left ventricle, moderate to severely impaired left ventricular systolic function with EF 30-35%, mild mitral regurgitation, and mild tricuspid regurgitation. Heart catheterization was completed by Dr. Duong demonstrating calcified left main stenosis 70%, second diagonal branch of the LAD with 60-70% stenosis, and chronic total occlusion of the right coronary artery with good collateral flow from the left coronary system. Consultation was placed to Dr. Welch from cardiothoracic surgery. He was recommended to undergo urgent coronary artery bypass surgery. The usual perioperative course was discussed in detail with the patient and his family, all risks and benefits were explained, all questions were answered, and consent was obtained to proceed with surgery. The patient was kept inpatient due to the nature of his disease process. HOSPITAL COURSE: The patient was brought to the preoperative area in 12/01/2018, prepared in the usual fashion, and subsequently taken to the operating room where Dr. Owen performed urgent coronary artery bypass grafting 4 vessels, left internal mammary artery to the left anterior descending artery, reverse saphenous vein graft to the diagonal artery, reverse saphenous vein graft to the obtuse marginal artery, reverse saphenous vein graft to the posterior lateral branch of the RCA, endoscopic harvesting of the right greater saphenous vein, epi-aortic ultrasound, and intraoperative transesophageal echocardiogram. Upon completion of surgery the patient was transferred to the cardiovascular intensive care unit where he was recovered, monitored hemodynamically, and where he progressed to cardiac rehabilitation phase 1. He was extubated, all lines, tubes, and drips were discontinued when appropriate, and transfer orders were placed for 3 S. cardiac stepdown unit, however there was no bed availability and the patient remained on ICU as a stepdown patient until discharge. He did develop intraoperative and postoperative acute blood loss anemia which was treat ed with blood transfusion, postoperative thrombocytopenia, postoperative atrial fibrillation which was successfully treated with amiodarone, and postoperative transaminitis which continues to resolve. His oxygen was titrated down, he continued to work with physical and occupational therapy, he was tolerating oral diet, his pain was controlled, and he was ready to be discharged to [facility] inpatient rehab on postoperative day #5. He received written and verbal instruction regarding his medications, activity restrictions, signs and symptoms requiring physician notification, and follow-up appointments. COMPLICATIONS: The patient experienced postoperative complications of acute blood loss anemia, thrombocytopenia, atrial fibrillation, and transaminitis, all of which were treated accordingly. Patient Condition at Discharge: Stable Plan - Discharge Summary Discharge Rx Participant: Yes New Discharge Prescriptions: New Aspirin 81 mg PO DAILY chew Amiodarone [Cordarone] 200 mg PO BID tab Losartan [Cozaar] 50 mg PO HS tab Ipratropium-Albuterol Nebulize [Duoneb 0.5 mg-3 mg/3 ml Soln] 3 ml INHALATION RT-QID ampul.neb Ipratropium-Albuterol Nebulize [Duoneb 0.5 mg-3 mg/3 ml Soln] 3 ml INHALATION RT-Q2H PRN ampul.neb PRN Reason: Shortness Of Breath Or Wheezing Heparin Sodium,Porcine [Heparin Sodium] 5,000 unit SQ Q8HR vial Magnesium Hydroxide [Milk of Magnesia Concentrate] 2,400 mg PO BID PRN ml PRN Reason: Constipation guaiFENesin [Mucinex] 600 mg PO Q12HR PRN tablet.er PRN Reason: Cough INSULIN ASPART (NovoLOG) [NovoLOG (formulary)] 0 unit SQ ACHS vial Clopidogrel [Plavix] 75 mg PO DAILY tab Pantoprazole [Protonix] 40 mg PO AC-BRKFST tablet. Sennosideruy-Docusate Sodium [Senokot-S] 2 each PO HS tab Acetaminophen Tab [Tylenol] 1,000 mg PO Q6HR PRN #0 tab PRN Reason: Fever And/ Or Pain Continue Finasteride [Proscar] 5 mg PO DAILY Gabapentin 600 mg PO BID metFORMIN HCL [Glucophage] 500 mg PO BID Metoprolol Tartrate [Lopressor] 50 mg PO BID Atorvastatin [Lipitor] 40 mg PO HS Changed Furosemide [Lasix] 40 mg PO DAILY #0 Discontinued Aspirin 325 mg PO DAILY hydrALAZINE HCL [Apresoline] 25 mg PO BID Nitroglycerin Sl Tabs [Nitrostat] 0.4 mg SUBLINGUAL Q5M PRN PRN Reason: Chest Pain Omeprazole 40 mg PO DAILY Losartan Potassium 100 mg PO DAILY Discharge Medication List Finasteride [Proscar] 5 mg PO DAILY 02/01/16 [History] Gabapentin 600 mg PO BID 10/27/17 [History] Atorvastatin [Lipitor] 40 mg PO HS 10/03/18 [History] Metoprolol Tartrate [Lopressor] 50 mg PO BID 10/03/18 [History] metFORMIN HCL [Glucophage] 500 mg PO BID 10/03/18 [History] Acetaminophen Tab [Tylenol] 1,000 mg PO Q6HR PRN #0 tab 12/06/18 [Rx] Amiodarone [Cordarone] 200 mg PO BID tab 12/06/18 [Rx] Aspirin 81 mg PO DAILY chew 12/06/18 [Rx] Clopidogrel [Plavix] 75 mg PO DAILY tab 12/06/18 [Rx] Furosemide [Lasix] 40 mg PO DAILY #0 12/06/18 [Rx] Heparin Sodium,Porcine [Heparin Sodium] 5,000 unit SQ Q8HR vial 12/06/18 [Rx] INSULIN ASPART (NovoLOG) [NovoLOG (formulary)] 0 unit SQ ACHS vial 12/06/18 [Rx] Ipratropium-Albuterol Nebulize [Duoneb 0.5 mg-3 mg/3 ml Soln] 3 ml INHALATION RT-Q2H PRN ampul.neb 12/06/18 [Rx] Ipratropium-Albuterol Nebulize [Duoneb 0.5 mg-3 mg/3 ml Soln] 3 ml INHALATION RT-QID ampul.neb 12/06/18 [Rx] Losartan [Cozaar] 50 mg PO HS tab 12/06/18 [Rx] Magnesium Hydroxide [Milk of Magnesia Concentrate] 2,400 mg PO BID PRN ml 12/06/18 [Rx] Pantoprazole [Protonix] 40 mg PO AC-BRKFST tablet. 12/06/18 [Rx] Sennosides-Docusate Sodium [Senokot-S] 2 each PO HS tab 12/06/18 [Rx] guaiFENesin [Mucinex] 600 mg PO Q12HR PRN tablet.er 12/06/18 [Rx] Follow up Appointment(s)/Referral(s): Jose L Duong MD [STAFF PHYSICIAN] - 1 Week (Please call to make appointment upon discharge from [facility]patient [facility]) Bree Dias DO [Primary Care Provider] - 1 Week (Please call to make appointment upon discharge from [facility]) Ranjeet Porras DO [Doctor of Osteopathic Medicine] - 1 Week (Please call to make appointment upon discharge from [facility]) Iggy Owen MD [STAFF PHYSICIAN] - 01/05/19 10:00 am Activity/Diet/Wound Care/Special Instructions: CONSULTS AT [facility] IN[facility]IENT [facility]: 1. Dr. Duong for cardiology 2. Dr. Porras for pulmonology DISCHARGE INSTRUCTIONS: 1. No driving for 4 weeks, or until physician gives their ok. 2. The patient should sleep in their own bed, no medical bed needed. 3. Stairs are not an issue. If the bedroom is upstairs, it is advised that the patient go up at night and down in the morning for the first week. Go slowly, using handrail and take 1 step at a time. 4. SHARONA hose are to be worn for 30 days or until physician discontinues. 5. Heart hugger is to be worn 100% of the time until physician discontinues.(except when showering) 6. No lifting, pushing, or pulling more than 10 pounds for 12 weeks. The physician will advise of any restriction changes. 7. The patient is expected to continue the prescribed walking program. 8. Continue pain control per as needed orders. 9. Continue with incentive spirometry and splinting/heart hugger until otherwise directed by the physician. 10. Must shower daily using liquid antibacterial soap and a separate white washcloth for each individual incision. 11. Routine sternal incision care. No powders, lotions, ointments on incisions. 12. Please call surgeon/CLERGY MEMBER for temp greater than 101 F or purulent drainage from incisions. 13. All prescriptions given by surgeon for 30 days. Refills need to be filled through family dinner service specialist/primary care physician. 14. A Red armband has been placed on the patient. It should be worn for 30 days post surgery and will be removed by the cardiac surgeons. If an ER visit is necessary, please make sure the number on the Red armband is called. 15. ABSOLUTELY NO NARCOTICS EXCEPT GABAPENTIN. IF PATIENT NEEDS NARCOTIC PAIN MEDICATION PLEASE CALL SURGEON. REHAB/HOME HEALTH SERVICES TO PROVIDE: RN SKILLED HOME CARE SERVICES FOR POST-OP SURGICAL PATIENTS WITH THE FOLLOWING: Coronary Artery Bypass Surgery (CABG), Mitral Valve Replacement/Repair ( MVR), Aortic Valve Replacement/Repair (AVR) RN TO CONTINUE EDUCATION FROM ``ROAD TO A HEALTH HEART PATIENT EDUCATION MANUAL (GIVEN TO PATIENT IN THE HOSPITAL) MEDICATION RECONCILIATION WITH EDUCATION NEEDED ON FIRST HOME VISIT EMPHASIZE IMPORTANCE OF WEARING BREAST SUPPORT/HEART HUGGER ENCOURAGE USE OF INCENTIVE SPIROMETER 10 X EVERY HOUR WHILE AWAKE ENCOURAGE UTILIZATION OF LOWER EXTREMITY COMPRESSION STOCKINGS/SHARONA HOSE and ELEVATE LEGS ABOVE LEVEL OF HEART WHILE AT REST. ENCOURAGE AMBULATION 3-5x/day INCREASING TOLERATES, WHILE AVOID EXTREMES IN TEMPERATURE FREQUENCY: RN TO OPEN THE PATIENT WITHIN 24 HOURS OF DISCHARGE FROM REHAB WITH TELEHEALTH INSTALLED AT [facility], RN TO VISIT 2-3 X A WEEK FOR 4 WEEKS ESTABLISHED BY PATIENT NEEDS. LABORATORY: CBC, CMP TO BE DRAWN PER REHAB PROTOCOL, (RAN STAT) FAX RESULTS TO [phone]. TELEHEALTH PARAMETERS: WEIGHT: NOTIFY MD OF WEIGHT GAIN OF 2 LBS IN 24 HOURS OR 5 LBS IN ONE WEEK HR: NOTIFY MD OF HR <55 BPM OR HR>100 BPM BP: NOTIFY MD IF BP <90/55 OR BP>140/100 O2 SAT: NOTIFY MD IF PO2<93% ON ROOM AIR SEND TELEHEALTH REPORT TO ATTENDANT COIN OPERATED LAUNDRY AND CARDIOVASCULAR SURGEON THE FIRST WEEK OF CARE AND THEN BI-WEEKLY. PLEASE ADDITIONALLY COMMUNICATE ANY ABNORMALS AND NEW FINDINGS TO THE SURGEONS OFFICE. Discharge Disposition: DISCH/TRANS TO A [facility]
--- NOTE | 2018-12-06 13:15 | P.PN ---
Subjective This is Adelia Grissom PA-C dictating a progress note on this patient The patient was interviewed and examined by me as well as by Dr. Sosa Case discussed with Dr. Sosa and he agrees with the plan of care IMPRESSION / ASSESSMENT: CAD status post CABG 4, postop day #5 Ischemic cardiomyopathy status post ICD NSTEMI V. tach status post ICD shock post operative a fib, has been maintaining in sinus rhythm Hypertension Dyslipidemia COPD Diabetes PLAN: Continue maximizing medical management of CAD as tolerated he is being discharged to rehab today HPI/interval history Patient is a 68-year-old male with a past medical history significant for CAD, VA, hypertension, dyslipidemia, ischemic cardiomyopathy status post ICD placement, COPD, diabetes who presented after an ICD shock and was diagnosed with an NSTEMI. He underwent a coronary angiogram and was found to have significant disease in the left main and chronically occluded RCA. He subsequently underwent a coronary artery bypass graft 4. Bedside telemetry reveals sinus rhythm. Patient seen and examined laying in bed. Continues to complain of postoperative pain and soreness in his chest. Also complains of pain in his legs. Has been up walking with the nurses. No dizziness. EXAMINATION Temperature 98.2F, pulse 70, respirations 14, blood pressure 141/77, oxygen saturation 97% on 2 L nasal cannula Patient seen and examined laying in bed, in no acute distress Lungs mildly diminished bilaterally Heart is regular, no murmurs appreciated No elevated JVD No lower extremity edema REVIEW OF LABS, ECG Bedside telemetry revealed sinus rhythm WBC 7.0, hemoglobin 8.3, platelets 211, potassium 4.9, BUN 43, creatinine 1.19, Objective - Vital Signs Vital signs: Vital Signs Temp 98.2 F 12/06/18 08:00 Pulse 74 12/06/18 08:23 Resp 17 12/06/18 08:12 BP 141/77 12/06/18 08:00 Pulse Ox 97 12/06/18 08:00 Intake & Output 12/05/18 12/06/18 12/06/18 18:59 06:59 18:59 Intake Total 660 240 Output Total 1225 700 750 Balance -1225 -40 -510 Weight 86.5 kg Intake: Oral 660 240 Output: Urine 1225 700 750 Other: Voiding Method Urinal Urinal Urinal # Bowel Movements 1 1 ABP, PAP, CO, CI - Last Documented Arterial Blood Pressure 141/66 Pulmonary Artery Pressure 51/22 Cardiac Output 5.6 Cardiac Index 2.9 - Labs CBC & Chem 7: 12/06/18 04:51 12/06/18 04:51 Labs: Abnormal Lab Results - Last 24 Hours (Table) 11/30/18 12/05/18 12/05/18 Range/Units 13:20 17:04 20:22 RBC (4.30-5.90) m/uL Hgb (13.0-17.5) gm/dL Hct (39.0-53.0) % BUN (9-20) mg/dL Glucose (74-99) mg/dL POC Glucose (mg/dL) 109 H 104 H (75-99) mg/dL AST (17-59) U/L ALT (21-72) U/L Total Protein (6.3-8.2) g/dL Albumin (3.5-5.0) g/dL Crossmatch See Detail 12/06/18 12/06/18 12/06/18 Range/Units 04:51 04:51 07:43 RBC 2.76 L (4.30-5.90) m/uL Hgb 8.3 L (13.0-17.5) gm/dL Hct 26.8 L (39.0-53.0) % BUN 43 H (9-20) mg/dL Glucose 105 H (74-99) mg/dL POC Glucose (mg/dL) 105 H (75-99) mg/dL AST 113 H (17-59) U/L ALT 191 H (21-72) U/L Total Protein 5.8 L (6.3-8.2) g/dL Albumin 3.1 L (3.5-5.0) g/dL Crossmatch
--- NOTE | 2018-12-06 15:18 | P.VSCSTY ---
Greater Saphenous Vein Mapping This is bilateral lower extremity greater saphenous vein mapping. Date of service: 11/30/2018 Vein quality and ultrasound appearance: No endoluminal thrombus or wall changes are seen. Vein size groin right : 4.9 x 4.9 groin left: 4.9 x 3.8 High thigh right: 4.1 x 4.7 high thigh left: 5.8 x 4.2 Mid thigh right: 4.3 x 2.6 mid thigh left: 3.9 x 4.5 Above-knee right: 3.5 x 3.3 above- knee left: 3.6 x 3.2 Below knee right: 3.6 x 2.4 below-knee left: 4.1 x 2.6 Mid calf right: 3.0 x 2.4 mid calf left: 1.7 x 1.4 Ankle right: 2.2 x 1.7 ankle left: 2.8 x 1.6 Impression: Usable bilateral greater saphenous vein. Small mid calf on the left and below and small at the right ankle..
[2018-12-06] MEDS ORDERED: LOSARTAN 50 MG TAB PO SCH (21:00)
[2018-12-06] MEDS ORDERED: ATORVASTATIN 40 MG TAB PO SCH (21:00)
== END 2018-12-06 11:41 | DRG 233 ==
LOC: EC 20:42 → 2SICU 22:30
PROVIDERS: ADMIT Family Medicine; ATTEND Family Medicine
PROC: 4A023N7 Measurement of Cardiac Sampling and Pressure, Left Heart, Percutaneous Approach (ICD-10-PCS; 2018-11-30)
PROC: B2111ZZ Fluoroscopy of Multiple Coronary Arteries using Low Osmolar Contrast (ICD-10-PCS; 2018-11-30)
PROC: B246ZZ4 Ultrasonography of Right and Left Heart, Transesophageal (ICD-10-PCS; principal; 2018-11-30 11:30)
PROC: 021209W Bypass Coronary Artery, Three Arteries from Aorta with Autologous Venous Tissue, Open Approach (ICD-10-PCS; principal; 2018-11-30 11:30)
PROC: B241ZZ3 Ultrasonography of Multiple Coronary Arteries, Intravascular (ICD-10-PCS; principal; 2018-11-30 11:30)
PROC: 02100Z9 Bypass Coronary Artery, One Artery from Left Internal Mammary, Open Approach (ICD-10-PCS; principal; 2018-11-30 11:30)
PROC: 06BP4ZZ Excision of Right Saphenous Vein, Percutaneous Endoscopic Approach (ICD-10-PCS; principal; 2018-11-30 11:30)
DX: I21.4 Non-ST elevation (NSTEMI) myocardial infarction (principal); I49.01 Ventricular fibrillation; D62 Acute posthemorrhagic anemia; I13.0 Hypertensive heart and chronic kidney disease with heart failure and stage 1 through stage 4 chronic kidney disease, or unspecified chronic kidney disease; I47.2 Ventricular tachycardia; I48.92 Unspecified atrial flutter; I50.22 Chronic systolic (congestive) heart failure; J98.11 Atelectasis; N17.9 Acute kidney failure, unspecified; D69.6 Thrombocytopenia, unspecified; E11.22 Type 2 diabetes mellitus with diabetic chronic kidney disease; E66.9 Obesity, unspecified; Z68.33 Body mass index [BMI] 33.0-33.9, adult; E78.5 Hyperlipidemia, unspecified; E83.42 Hypomagnesemia; F17.200 Nicotine dependence, unspecified, uncomplicated; G47.33 Obstructive sleep apnea (adult) (pediatric); I07.1 Rheumatic tricuspid insufficiency; I25.10 Atherosclerotic heart disease of native coronary artery without angina pectoris; I25.2 Old myocardial infarction; I25.5 Ischemic cardiomyopathy; I48.0 Paroxysmal atrial fibrillation; I49.3 Ventricular premature depolarization; I65.22 Occlusion and stenosis of left carotid artery; I67.1 Cerebral aneurysm, nonruptured; J44.9 Chronic obstructive pulmonary disease, unspecified; K59.00 Constipation, unspecified; N18.3 Chronic kidney disease, stage 3 (moderate); W19.XXXA Unspecified fall, initial encounter; Z79.02 Long term (current) use of antithrombotics/antiplatelets; Z79.82 Long term (current) use of aspirin; Z79.84 Long term (current) use of oral hypoglycemic drugs; Z79.899 Other long term (current) drug therapy; Z82.3 Family history of stroke; Z82.49 Family history of ischemic heart disease and other diseases of the circulatory system; Z86.19 Personal history of other infectious and parasitic diseases; Z95.1 Presence of aortocoronary bypass graft; Z95.810 Presence of automatic (implantable) cardiac defibrillator; Z96.651 Presence of right artificial knee joint; T46.2X5A Adverse effect of other antidysrhythmic drugs, initial encounter; R74.0 Nonspecific elevation of levels of transaminase and lactic acid dehydrogenase [LDH]
CPT/HCPCS: 36415; 70450; 71045; 71046; 80048; 80053; 80061; 80074; 80162; 81003; 82330; 82805; 83036; 83735; 84132; 84439; 84443; 84481; 84484; 85025; 85027; 85049; 85520; 85610; 85730; 86850; 86891; 86900; 86901; 86920; 87070; 93306; 93458; 93880; 93970; 94002; 94003; 94150; 94640

== ENCOUNTER → 2019-01-10 | Outpatient (CLI) | payer MEDICARE, OTHER ==
[2019-01-10 16:05] LABS: African American GFR (CKD) 90.5 (60.0-200.0); Albumin 4.3 g/dL (3.80-4.90); Albumin/Globulin Ratio 1.79 (1.60-3.17); Calcium 9.1 mg/dL (8.7-10.3); Chol/HDL Ratio 3.19; Globulin 2.4 g/dL (1.6-3.3); Non-African American GFR(CKD) 78.1 (60.0-200.0); Potassium 4.1 mmol/L (3.5-5.5); Total Bilirubin 0.3 mg/dL (0.3-1.2); Total Protein 6.7 g/dL (6.2-8.2)
== END | disposition home or self-care (01) ==
LOC: LABWHC1 07:45
PROVIDERS: ATTEND Internal Medicine Interventional Cardiology
DX: E78.2 Mixed hyperlipidemia (principal); I47.2 Ventricular tachycardia
CPT/HCPCS: 36415; 80053; 80061; 84443

== ENCOUNTER 2019-03-29 07:07 | Emergency (ER) | payer MEDICARE, OTHER ==
[2019-03-29 07:17] VITALS: TEMP 97.8
[2019-03-29] MEDS ORDERED: IPRATROPIUM-ALBUTEROL 3 ML NEB INHALATION STA (07:32)
--- NOTE | 2019-03-29 07:53 | ED ---
SOB HPI - General Chief Complaint: Shortness of Breath Stated Complaint: SOB Time Seen by Provider: 03/29/19 07:16 Source: patient Mode of arrival: ambulatory Limitations: no limitations - History of Present Illness Initial Comments: Patient is a 68-year-old male past medical history of coronary disease with bypass who presents emergency room with reported cough since Tuesday. He states that he was by his grandson who has been sick and diagnosed with influenza B. Patient reports that it is a productive cough with thick sputum. He reports to chest wall pain because of his persistent cough. Denies any shortness of breath. He has been drinking whiskey at home in order to help the symptoms which he states has helped the cough. He denies any chest palpitations or hemoptysis. Denies abdominal pain. No fevers reports to chills. Denies rippin g or tearing sensation to his back. No numbness or tingling in his lower trauma. There are alleviating, precipitating or modifying factors - Related Data Home Medications Medication Instructions Recorded Confirmed Finasteride [Proscar] 5 mg PO DAILY 02/01/16 11/29/18 Gabapentin 600 mg PO BID 10/27/17 11/29/18 Atorvastatin [Lipitor] 40 mg PO HS 10/03/18 11/29/18 Metoprolol Tartrate [Lopressor] 50 mg PO BID 10/03/18 11/29/18 metFORMIN HCL [Glucophage] 500 mg PO BID 10/03/18 11/29/18 Previous Rx's Medication Instructions Recorded Acetaminophen Tab [Tylenol] 1,000 mg PO Q6HR PRN #0 tab 12/06/18 Amiodarone [Cordarone] 200 mg PO BID tab 12/06/18 Aspirin 81 mg PO DAILY chew 12/06/18 Clopidogrel [Plavix] 75 mg PO DAILY tab 12/06/18 Furosemide [Lasix] 40 mg PO DAILY #0 12/06/18 Heparin Sodium,Porcine [Heparin 5,000 unit SQ Q8HR vial 12/06/18 Sodium] INSULIN ASPART (NovoLOG) [NovoLOG 0 unit SQ ACHS vial 12/06/18 (formulary)] Ipratropium-Albuterol Nebulize 3 ml INHALATION RT-Q2H PRN 12/06/18 [Duoneb 0.5 mg-3 mg/3 ml Soln] ampul.neb Ipratropium-Albuterol Nebulize 3 ml INHALATION RT-QID ampul.neb 12/06/18 [Duoneb 0.5 mg-3 mg/3 ml Soln] Losartan [Cozaar] 50 mg PO HS tab 12/06/18 Magnesium Hydroxide [Milk of 2,400 mg PO BID PRN ml 12/06/18 Magnesia Concentrate] Pantoprazole [Protonix] 40 mg PO AC-BRKFST tablet. 12/06/18 Sennosides-Docusate Sodium 2 each PO HS tab 12/06/18 [Senokot-S] guaiFENesin [Mucinex] 600 mg PO Q12HR PRN tablet.er 12/06/18 Oseltamivir [Tamiflu] 75 mg PO Q12HR #10 cap 03/29/19 Allergies Allergy/AdvReac Type Severity Reaction Status Date / Time No Known Allergies Allergy Verified 03/29/19 07:13 Review of Systems ROS Statement: Those systems with pertinent positive or pertinent negative responses have been documented in the HPI. ROS Other: All systems not noted in ROS Statement are negative. Past Medical History Past Medical History: Coronary Artery Disease (CAD), Heart Failure, COPD, Diabetes Mellitus, Hyperlipidemia, Hypertension, Myocardial Infarction ([place]), Sleep Apnea/CPAP/BIPAP Additional Past Medical History / Comment(s): seen in er 09/09/18-shingles to back of head-resolved now. BRAIN ANEURSYM-DX 2018-BEING FOLLOWING BY DR. GILLESPIE IN [place] Last Myocardial Infarction Date:: 04/2009 History of Any Multi-Drug Resistant Organisms: None Reported Past Surgical History: AICD, Coronary Bypass/CABG, Heart Catheterization, Joint Replacement Additional Past Surgical History / Comment(s): right knee replaced. COLONOSCOPY Past Anesthesia/Blood Transfusion Reactions: No Reported Reaction Type of Cardiac Device: AICD Device Placement Date:: 2009 Past Psychological History: No Psychological Hx Reported Smoking Status: Former smoker Past Alcohol Use History: None Reported Past Drug Use History: None Reported - Past Family History Mother Family Medical History: No Reported History Father Family Medical History: Liver Disease Brother(s) Family Medical History: Coronary Artery Disease (CAD) General Exam Limitations: no limitations Course Vital Signs 03/29/19 03/29/19 03/29/19 07:13 07:59 08:07 Temperature 97.8 F Pulse Rate 70 72 78 Respiratory 18 Rate Blood Pressure 114/70 O2 Sat by Pulse 98 Oximetry 03/29/19 09:15 Temperature Pulse Rate 69 Respiratory 19 Rate Blood Pressure 123/75 O2 Sat by Pulse 96 Oximetry Medical Decision Making - Medical Decision Making Upon arrival the patient was placed in room 5. He is diffusely wheezy and therefore is given a DuoNeb breathing treatment. CBC demonstrates a hemoglobin of 12. Chemistries show a glucose of 100. BNP is elevated at 3120. Influenza B is positive. Chest x-ray done inserts no acute distress process. Discusses patient. He is within the Tamiflu window. I offered to write the patient protection for codeine cough syrup however he refused stating that he wanted to continue drink his whiskey at home for cough. I did prescribe him Tamiflu. Prescription was sent to the pharmacy. He needs to follow up with his primary care doctor to 4 days. Return to the emergency room for any new worsening symptoms. Patient was discharged - Lab Data Result diagrams: 03/29/19 07:45 03/29/19 07:45 Lab Results 03/29/19 03/29/19 03/29/19 Range/Units 07:45 07:45 07:45 WBC 4.9 (3.8-10.6) k/uL RBC 4.56 (4.30-5.90) m/uL Hgb 12.0 L (13.0-17.5) gm/dL Hct 37.9 L (39.0-53.0) % MCV 83.1 (80.0-100.0) fL MCH 26.2 (25.0-35.0) pg MCHC 31.6 (31.0-37.0) g/dL RDW 16.1 H (11.5-15.5) % Plt Count 100 L (150-450) k/uL Neutrophils % (Manual) 58 % Lymphocytes % (Manual) 22 % Monocytes % (Manual) 14 % Eosinophils % (Manual) 5 % Basophils % (Manual) 1 % Neutrophils # (Manual) 2.84 (1.3-7.7) k/uL Lymphocytes # (Manual) 1.08 (1.0-4.8) k/uL Monocytes # (Manual) 0.69 (0-1.0) k/uL Eosinophils # (Manual) 0.25 (0-0.7) k/uL Basophils # (Manual) 0.05 (0-0.2) k/uL Nucleated RBCs 0 (0-0) /100 WBC Manual Slide Review Performed Anisocytosis Slight Sodium 143 (137-145) mmol/L Potassium 3.9 (3.5-5.1) mmol/L Chloride 106 (98-107) mmol/L Carbon Dioxide 23 (22-30) mmol/L Anion Gap 14 mmol/L BUN 14 (9-20) mg/dL Creatinine 1.03 (0.66-1.25) mg/dL Est GFR (CKD-EPI)AfAm 88 (>60 ml/min/1.73 sqM) Est GFR (CKD-EPI)NonAf 76 (>60 ml/min/1.73 sqM) Glucose 100 H (74-99) mg/dL Plasma Lactic Acid Josue 1.7 (0.7-2.0) mmol/L Calcium 9.0 (8.4-10.2) mg/dL Total Bilirubin 0.6 (0.2-1.3) mg/dL AST 27 (17-59) U/L ALT 25 (4-49) U/L Alkaline Phosphatase 91 (38-126) U/L NT-Pro-B Natriuret Pep pg/mL Total Protein 7.5 (6.3-8.2) g/dL Albumin 4.1 (3.5-5.0) g/dL Influenza Type A RNA (Not Detectd) Influenza Type B (PCR) (Not Detectd) 03/29/19 03/29/19 Range/Units 07:45 07:45 WBC (3.8-10.6) k/uL RBC (4.30-5.90) m/uL Hgb (13.0-17.5) gm/dL Hct (39.0-53.0) % MCV (80.0-100.0) fL MCH (25.0-35.0) pg MCHC (31.0-37.0) g/dL RDW (11.5-15.5) % Plt Count (150-450) k/uL Neutrophils % (Manual) % Lymphocytes % (Manual) % Monocytes % (Manual) % Eosinophils % (Manual) % Basophils % (Manual) % Neutrophils # (Manual) (1.3-7.7) k/uL Lymphocytes # (Manual) (1.0-4.8) k/uL Monocytes # (Manual) (0-1.0) k/uL Eosinophils # (Manual) (0-0.7) k/uL Basophils # (Manual) (0-0.2) k/uL Nucleated RBCs (0-0) /100 WBC Manual Slide Review Anisocytosis Sodium (137-145) mmol/L Potassium (3.5-5.1) mmol/L Chloride (98-107) mmol/L Carbon Dioxide (22-30) mmol/L Anion Gap mmol/L BUN (9-20) mg/dL Creatinine (0.66-1.25) mg/dL Est GFR (CKD-EPI)AfAm (>60 ml/min/1.73 sqM) Est GFR (CKD-EPI)NonAf (>60 ml/min/1.73 sqM) Glucose (74-99) mg/dL Plasma Lactic Acid Josue (0.7-2.0) mmol/L Calcium (8.4-10.2) mg/dL Total Bilirubin (0.2-1.3) mg/dL AST (17-59) U/L ALT (4-49) U/L Alkaline Phosphatase (38-126) U/L NT-Pro-B Natriuret Pep 3120 pg/mL Total Protein (6.3-8.2) g/dL Albumin (3.5-5.0) g/dL Influenza Type A RNA Not Detected (Not Detectd) Influenza Type B (PCR) Detected H (Not Detectd) - EKG Data EKG Comments: EKG demonstrates a sinus rhythm with frequent PVCs. Rate of 75. MA interval 198. QRS was 106. QTC 408. No acute ST segment elevations or depressions concerning for ischemic changes Disposition Clinical Impression: Cough, Influenza B Disposition: HOME SELF-CARE Condition: Stable Instructions (If sedation given, give patient instructions): Influenza (ED) Additional Instructions: Please follow-up with your primary care doctor in 2 to 4 days. Return to the emergency room for any new worsening symptoms Prescriptions: Oseltamivir [Tamiflu] 75 mg PO Q12HR #10 cap Is patient prescribed a controlled substance at d/c from ED?: No Referrals: Ed Dias MD [Primary Care Provider] - 1-2 days Time of Disposition: 09:31
[2019-03-29 08:10] LABS: Anisocytosis Slight; HCT 37.9 % (39.0-53.0); MCH 26.2 pg (25.0-35.0); MCHC 31.6 g/dL (31.0-37.0); MCV 83.1 fL (80.0-100.0); Mean Platelet Volume 11.5; Platelet Count 100 k/uL (150-450); RBC 4.56 m/uL (4.30-5.90); RDW 16.1 % (11.5-15.5); WBC 4.9 k/uL (3.8-10.6)
[2019-03-29 08:14] LABS: Albumin 4.1 g/dL (3.5-5.0); Potassium 3.9 mmol/L (3.5-5.1); Total Bilirubin 0.6 mg/dL (0.2-1.3); Total Protein 7.5 g/dL (6.3-8.2)
[2019-03-29 08:47] LABS: Basophils # (M) 0.05 k/uL (0-0.2); Eosinophils # (M) 0.25 k/uL (0-0.7); Lymphocytes # (M) 1.08 k/uL (1.0-4.8); Monocytes # (M) 0.69 k/uL (0-1.0); Neutrophils # (M) 2.84 k/uL (1.3-7.7); Neutrophils % (M) 58 %; Nucleated Red Blood Cells 0 /100 WBC (0-0); Total Cells Counted 100
--- NOTE | 2019-03-29 08:52 | XR ---
EXAMINATION TYPE: XR chest 2V DATE OF EXAM: 03/29/2019 COMPARISON: 12/06/2018 HISTORY: Difficulty breathing TECHNIQUE: Frontal and lateral views of the chest are obtained. FINDINGS: There is no focal air space opacity, pleural effusion, or pneumothorax seen. The cardiac silhouette size is enlarged with single lead left-sided cardiac defibrillator and median sternotomy w ires. The osseous structures are intact. Mild multilevel degenerative change of the spine. IMPRESSION: No acute cardiopulmonary process.
[2019-03-29 09:16] VITALS: BP 123/75; PULSE 69; RESP 19
[2019-03-29] MEDS ORDERED: KETOROLAC 30 MG/ML 1 ML VIAL IVP STA (09:26)
== END 2019-03-29 09:49 | disposition home or self-care (01) ==
LOC: EC 07:07
DX: J10.1 Influenza due to other identified influenza virus with other respiratory manifestations (principal); I25.10 Atherosclerotic heart disease of native coronary artery without angina pectoris; I11.0 Hypertensive heart disease with heart failure; I50.9 Heart failure, unspecified; I25.2 Old myocardial infarction; G47.30 Sleep apnea, unspecified; Z79.84 Long term (current) use of oral hypoglycemic drugs; Z79.899 Other long term (current) drug therapy; Z87.891 Personal history of nicotine dependence; Z99.89 Dependence on other enabling machines and devices; Z95.810 Presence of automatic (implantable) cardiac defibrillator; Z96.651 Presence of right artificial knee joint; Z95.1 Presence of aortocoronary bypass graft
CPT/HCPCS: 36415; 94640; 93005; 83880; 80053; 83605; 85025; 87502; 71046; 99285; 96374; J1885

== ENCOUNTER → 2019-04-05 | Outpatient (CLI) | payer MEDICARE, OTHER ==
[2019-04-05 18:34] LABS: African American GFR (CKD) 72.6 (60.0-200.0); Anion Gap 9.1 mmol/L (4.00-12.00); BUN/Creat Ratio 13.33 Ratio (12.00-20.00); Calcium 8.9 mg/dL (8.7-10.3); Carbon Dioxide 27.9 mmol/L (21.6-31.8); Magnesium 1.7 mg/dL (1.5-2.4); Non-African American GFR(CKD) 62.6 (60.0-200.0); Potassium 3.9 mmol/L (3.5-5.5)
== END | disposition home or self-care (01) ==
LOC: LABWHC1 12:48
PROVIDERS: ATTEND Nurse Practitioner Adult Health
DX: I25.5 Ischemic cardiomyopathy (principal); I47.2 Ventricular tachycardia
CPT/HCPCS: 36415; 80048; 83735

== ENCOUNTER → 2019-04-26 | Outpatient (CLI) | payer MEDICARE, OTHER ==
[2019-04-26 16:28] LABS: African American GFR (CKD) 65.9 (60.0-200.0); Albumin 4.5 g/dL (3.80-4.90); Albumin/Globulin Ratio 1.8 (1.60-3.17); Anion Gap 12.1 mmol/L (4.00-12.00); BUN/Creat Ratio 14.62 Ratio (12.00-20.00); Calcium 9.3 mg/dL (8.7-10.3); Carbon Dioxide 25.9 mmol/L (21.6-31.8); Chol/HDL Ratio 3.33; Globulin 2.5 g/dL (1.6-3.3); LDL Cholesterol,Calculated 59.4 mg/dL (0.0-131.0); Non-African American GFR(CKD) 56.9 (60.0-200.0); Potassium 4.3 mmol/L (3.5-5.5); Total Bilirubin 0.5 mg/dL (0.3-1.2); VLDL Calculation 31.6 mg/dL (5.00-40.00)
== END | disposition home or self-care (01) ==
LOC: LABWHC1 08:35
PROVIDERS: ATTEND Internal Medicine Interventional Cardiology
DX: E78.2 Mixed hyperlipidemia (principal)
CPT/HCPCS: 36415; 80053; 80061

== ENCOUNTER 2019-07-31 06:45 | Emergency (ER) | payer MEDICARE, OTHER ==
[2019-07-31 06:53] VITALS: BP 138/79; PULSE 85; RESP 18; TEMP 97.9
[2019-07-31] MEDS ORDERED: CYCLOBENZAPRINE 10MG STARTER 3 TAB BTL PO STA (07:09)
[2019-07-31] MEDS ORDERED: ACET/COD 300 MG/30 MG STARTER PACK 6 TAB BTL PO STA (07:09)
--- NOTE | 2019-07-31 07:09 | ED ---
Back Pain HPI - General Chief Complaint: Back Pain/Injury Stated Complaint: Low back pain Time Seen by Provider: 07/31/19 06:57 Source: patient Limitations: no limitations - History of Present Illness Initial Comments: 68yo male presenting today for cc of low back pain x 4 days. Patient states that he has had bilateral low back pain x 4 days. He states that this all began after he was cutting up a tree and working on his truck. He states it was more than he usually does since he has been taking it easy since his IA last November. Patient denies chest pain, abdominal pain, nausea, vomiting, flank pain, denies hematuria, leg weakness or loss of sensation. Patient denies difficulty urinating, incontinence of bowel or bladder. He denies fevers, hx of cancer, or IVDU. Denies direct trauma or falls. Patient states that he has chronic SOB since his IA, denies changes. Patient has no additional complaints. Upon arrival patient appears well there is no signs of acute distress. - Related Data Home Medications Medication Instructions Recorded Confirmed Finasteride [Proscar] 5 mg PO DAILY 02/01/16 11/29/18 Gabapentin 600 mg PO BID 10/27/17 11/29/18 Atorvastatin [Lipitor] 40 mg PO HS 10/03/18 11/29/18 Metoprolol Tartrate [Lopressor] 50 mg PO BID 10/03/18 11/29/18 metFORMIN HCL [Glucophage] 500 mg PO BID 10/03/18 11/29/18 Previous Rx's Medication Instructions Recorded Acetaminophen Tab [Tylenol] 1,000 mg PO Q6HR PRN #0 tab 12/06/18 Amiodarone [Cordarone] 200 mg PO BID tab 12/06/18 Aspirin 81 mg PO DAILY chew 12/06/18 Clopidogrel [Plavix] 75 mg PO DAILY tab 12/06/18 Furosemide [Lasix] 40 mg PO DAILY #0 12/06/18 Heparin Sodium,Porcine [Heparin 5,000 unit SQ Q8HR vial 12/06/18 Sodium] INSULIN ASPART (NovoLOG) [NovoLOG 0 unit SQ ACHS vial 12/06/18 (formulary)] Ipratropium-Albuterol Nebulize 3 ml INHALATION RT-Q2H PRN 12/06/18 [Duoneb 0.5 mg-3 mg/3 ml Soln] ampul.neb Ipratropium-Albuterol Nebulize 3 ml INHALATION RT-QID ampul.neb 12/06/18 [Duoneb 0.5 mg-3 mg/3 ml Soln] Losartan [Cozaar] 50 mg PO HS tab 12/06/18 Magnesium Hydroxide [Milk of 2,400 mg PO BID PRN ml 12/06/18 Magnesia Concentrate] Pantoprazole [Protonix] 40 mg PO AC-BRKFST tablet. 12/06/18 Sennosides-Docusate Sodium 2 each PO HS tab 12/06/18 [Senokot-S] guaiFENesin [Mucinex] 600 mg PO Q12HR PRN tablet.er 12/06/18 Oseltamivir [Tamiflu] 75 mg PO Q12HR #10 cap 03/29/19 Allergies Allergy/AdvReac Type Severity Reaction Status Date / Time No Known Allergies Allergy Verified 07/31/19 06:51 Review of Systems ROS Statement: Those systems with pertinent positive or pertinent negative responses have been documented in the HPI. ROS Other: All systems not noted in ROS Statement are negative. Past Medical History Past Medical History: Coronary Artery Disease (CAD), Heart Failure, COPD, Diabetes Mellitus, Hyperlipidemia, Hypertension, Myocardial Infarction ([place]), Sleep Apnea/CPAP/BIPAP Additional Past Medical History / Comment(s): seen in er 09/09/18-shingles to back of head-resolved now. BRAIN ANEURSYM-DX 2018-BEING FOLLOWING BY DR. GILLESPIE IN [place] Last Myocardial Infarction Date:: 04/2009 History of Any Multi-Drug Resistant Organisms: None Reported Past Surgical History: AICD, Coronary Bypass/CABG, Heart Catheterization, Joint Replacement Additional Past Surgical History / Comment(s): right knee replaced. COLONOSCOPY Past Anesthesia/Blood Transfusion Reactions: No Reported Reaction Type of Cardiac Device: AICD Device Placement Date:: 2009 Past Psychological History: No Psychological Hx Reported Smoking Status: Former smoker Past Alcohol Use History: None Reported Past Drug Use History: None Reported - Past Family History Mother Family Medical History: No Reported History Father Family Medical History: Liver Disease Brother(s) Family Medical History: Coronary Artery Disease (CAD) General Exam - General Exam Comments Initial Comments: General: The patient is awake and alert, in no distress Eye: +3 mm pupils are equal, round and reactive to light, extra-ocular movements are intact. No nystagmus. There is normal conjunctiva bilaterally. No signs of icterus. Cardiovascular: There is a regular rate and rhythm. No murmur, rub or gallop is appreciated. Respiratory: Lungs are clear to auscultation, respirations are non-labored, breath sounds are equal. No wheezes, stridor, rales, or rhonchi. Gastrointestinal: Soft, non-distended, non-tender abdomen without masses or organomegaly noted. There is no rebound or guarding present. Musculoskeletal: Normal inspection of thoracic and lumbar spine. No mildine tenderness, band like tenderness, patient jumps when palpated of the lumbar spine paravertebral muscles. Normal ROM, of the LE b/l. (-) SLR b/l. Strength 5/5 of the LE b/l. Sensation intact of the LE b/l. Radial and DP pulses equal bilaterally 2+. Neurological: A&O x 3. CN II-XII intact grossly, There are no obvious motor or sensory deficits. Coordination appears grossly intact. Speech is normal. Skin: Skin is warm and dry and no rashes or lesions are noted. Psychiatric: Cooperative, appropriate mood & affect, normal judgment. Limitations: no limitations Course Vital Signs 07/31/19 06:51 Temperature 97.9 F Pulse Rate 85 Respiratory 18 Rate Blood Pressure 138/79 O2 Sat by Pulse 98 Oximetry Medical Decision Making - Medical Decision Making 68yo male presenting today for cc of low back following cutting wood. Patient reproducible paravertebral muscles no midline. Patient applied heat to the low back in ER and states starting to feel better, worse in the morning/night, Neurovascularly intact. Patient ambulatory. No history concernign for cauda equina. XR no acute findings. Patient has athersclerosis of aorta. patient rickie es radiation of pain/leg pain. Recommend rest, symptomatic treatment. F/u with PCP, history, exam findings appear consistent at this time with low back strain. Dr. Tobias agreeable to this care plan and discharge of patient. Patient agreeable. Disposition Clinical Impression: Low back pain Disposition: HOME SELF-CARE Condition: Good Instructions (If sedation given, give patient instructions): Acute Low Back Pain (ED) Additional Instructions: Please use medication as discussed. Please follow-up with family doctor in the next 2 days. If pain worsens please return to the ER immediately, or if pain radiates to the leg. Please return to emergency room if the symptoms increase or worsen or for any other concerns. Is patient prescribed a controlled substance at d/c from ED?: No Referrals: Bree Dias DO [Primary Care Provider] - 1-2 days Time of Disposition: 08:26
--- NOTE | 2019-07-31 08:22 | XR ---
EXAMINATION TYPE: XR lumbar spine 2 or 3V DATE OF EXAM: 07/31/2019 CLINICAL HISTORY: Low back pain for 4 days TECHNIQUE: Frontal and lateral images of the lumbar spine are obtained. COMPARISON: None FINDINGS: There are 5 lumbar type vertebral bodies identified. The lumbar spine shows satisfactory vertebral body heights. Minimal retrolisthesis of L4 on L5 and L3 on L4 likely on a degenerative basi s. Multilevel intervertebral disc space narrowing, anterior osteophytes, posterior projecting osteoph ytes, endplate sclerosis and facet arthropathy. Stents of atherosclerosis of the abdominal aorta and its branches. The overlying soft tissue appears unremarkable. IMPRESSION: No acute fracture is seen in the lumbar spine. Moderate multilevel degenerative disc dis ease with multilevel malalignment, likely on a degenerative basis. Extensive atherosclerosis of the a bdominal aorta.
== END 2019-07-31 08:35 | disposition home or self-care (01) ==
LOC: EC 06:45
DX: M54.5 Low back pain (principal); I11.0 Hypertensive heart disease with heart failure; I50.9 Heart failure, unspecified; E11.9 Type 2 diabetes mellitus without complications; E78.5 Hyperlipidemia, unspecified; I70.0 Atherosclerosis of aorta; G47.30 Sleep apnea, unspecified; I25.2 Old myocardial infarction; Z79.84 Long term (current) use of oral hypoglycemic drugs; Z79.899 Other long term (current) drug therapy; Z99.89 Dependence on other enabling machines and devices; Z87.891 Personal history of nicotine dependence; Z96.651 Presence of right artificial knee joint; Z95.810 Presence of automatic (implantable) cardiac defibrillator; Z95.1 Presence of aortocoronary bypass graft
CPT/HCPCS: 72100; 99283

== ENCOUNTER → 2019-10-24 | Outpatient (CLI) | payer MEDICARE, OTHER ==
[2019-10-24 17:14] LABS: African American GFR (CKD) 80.1 (60.0-200.0); Albumin 4.2 g/dL (3.80-4.90); Albumin/Globulin Ratio 1.62 (1.60-3.17); Anion Gap 9.2 mmol/L (4.00-12.00); BUN/Creat Ratio 23.64 Ratio (12.00-20.00); Carbon Dioxide 22.8 mmol/L (21.6-31.8); Chol/HDL Ratio 3.28; Globulin 2.6 g/dL (1.6-3.3); LDL Cholesterol,Calculated 56.8 mg/dL (0.0-131.0); Non-African American GFR(CKD) 69.1 (60.0-200.0); Potassium 4.3 mmol/L (3.5-5.5); Total Bilirubin 0.5 mg/dL (0.2-1.2); Total Protein 6.8 g/dL (6.2-8.2); VLDL Calculation 25.2 mg/dL (5.00-40.00)
== END | disposition home or self-care (01) ==
LOC: LABWHC1 09:06
PROVIDERS: ATTEND Internal Medicine Interventional Cardiology
DX: E78.2 Mixed hyperlipidemia (principal)
CPT/HCPCS: 36415; 80053; 80061

== ENCOUNTER → 2020-04-22 | Outpatient (CLI) | payer MEDICARE, OTHER ==
[2020-04-22 15:45] LABS: African American GFR (CKD) 80.1 (60.0-200.0); Albumin 4.3 g/dL (3.80-4.90); Albumin/Globulin Ratio 1.39 (1.60-3.17); Anion Gap 3.7 mmol/L (4.00-12.00); BUN/Creat Ratio 23.64 Ratio (12.00-20.00); Calcium 9.3 mg/dL (8.7-10.3); Carbon Dioxide 27.3 mmol/L (21.6-31.8); Chol/HDL Ratio 3.93; Globulin 3.1 g/dL (1.6-3.3); Non-African American GFR(CKD) 69.1 (60.0-200.0); Potassium 4.7 mmol/L (3.5-5.5); Total Bilirubin 0.5 mg/dL (0.2-1.2); Total Protein 7.4 g/dL (6.2-8.2)
== END | disposition home or self-care (01) ==
LOC: LABWHC1 07:54
PROVIDERS: ATTEND Internal Medicine Interventional Cardiology
DX: E78.2 Mixed hyperlipidemia (principal)
CPT/HCPCS: 36415; 80053; 80061

== ENCOUNTER → 2020-11-05 | Outpatient (CLI) | payer MEDICARE, OTHER ==
[2020-11-06 04:13] LABS: Chol/HDL Ratio 3.29; LDL Cholesterol,Calculated 53.2 mg/dL (0.0-131.0); VLDL Calculation 24.8 mg/dL (5.00-40.00)
== END | disposition home or self-care (01) ==
LOC: LABWHC1 09:30
PROVIDERS: ATTEND Nurse Practitioner Adult Health
DX: E78.2 Mixed hyperlipidemia (principal)
CPT/HCPCS: 36415; 80061; 84450; 84460

== ENCOUNTER → 2021-04-27 | Outpatient (CLI) | payer MEDICARE, OTHER ==
[2021-04-27 15:50] LABS: ALT 19 U/L (10-49); AST 22 U/L (14-35); African American GFR (CKD) 78.7 (60.0-200.0); Albumin 4.2 g/dL (3.8-4.9); Albumin/Globulin Ratio 1.27 (1.60-3.17); Alkaline Phosphatase 83 U/L (41-126); BUN/Creat Ratio 16.49 Ratio (12.00-20.00); Blood Urea Nitrogen 18.3 mg/dL (9.0-27.0); Calcium 9.3 mg/dL (8.7-10.3); Carbon Dioxide 22.3 mmol/L (20.0-27.5); Chloride 105 mmol/L (96-109); Chol/HDL Ratio 2.91 Ratio; Globulin 3.3 g/dL (1.6-3.3); Glucose 101 mg/dL (70-110); LDL Cholesterol,Calculated 51.3 mg/dL (0.0-131.0); Non-African American GFR(CKD) 67.9 (60.0-200.0); Potassium 4.6 mmol/L (3.5-5.5); Sodium 141 mmol/L (135-145); Total Protein 7.5 g/dL (6.2-8.2); VLDL Calculation 18.92 mg/dL (5.00-40.00)
== END | disposition home or self-care (01) ==
LOC: LABWHC1 08:22
PROVIDERS: ATTEND Internal Medicine Interventional Cardiology
DX: E78.2 Mixed hyperlipidemia (principal)
CPT/HCPCS: 36415; 80053; 80061

== ENCOUNTER 2021-06-06 17:50 | Emergency (ER) | payer MEDICARE, OTHER ==
[2021-06-06 18:05] VITALS: BP 144/92; PULSE 78; RESP 20; TEMP 98.1
--- NOTE | 2021-06-06 18:40 | XR ---
EXAMINATION TYPE: XR knee complete LT DATE OF EXAM: 06/06/2021 COMPARISON: NONE HISTORY: Pain and swelling TECHNIQUE: 3 views FINDINGS: I see no fracture nor dislocation. Joint spaces are normal. No sign of a joint effusion. Th ere is vascular calcification. IMPRESSION: No acute abnormality of the left knee.
[2021-06-06] MEDS ORDERED: HYDROcodone/APAP 5-325MG 1 EACH TAB PO STA (19:00)
--- NOTE | 2021-06-06 20:17 | US ---
EXAMINATION TYPE: US extremity nonvasc mass LT DATE OF EXAM: 06/06/2021 COMPARISON: NONE CLINICAL HISTORY: Knee pain, evaluate for effusion/bursa inflammatio. Left knee pain x 1 day Left medial knee at patient's area of pain: appears wnl IMPRESSION: No discrete solid or cystic mass identified. No fluid collection seen.
--- NOTE | 2021-06-06 20:37 | ED ---
General Adult HPI - General Chief complaint: Extremity Injury, Lower Stated complaint: Pain in lt knee Time Seen by Provider: 06/06/21 18:43 Source: patient, RN notes reviewed, old records reviewed Mode of arrival: ambulatory Limitations: no limitations - History of Present Illness Initial comments: Patient has a 70-year-old male with past medical history remarkable for Osteoarthritis, cardiac disease, COPD, diabetes who presents to the emergency department complaining of acute onset of anterior left knee pain. Denies any trauma. Does have a history of bad arthritis requiring right knee replacement. States he believes it is swollen. His painful with movement and with weight. Has been using crutches. States started this morning. No history of gout. States does not warm. No fevers. Has no other acute complaints at this time. Presents for evaluation of left knee pain. - Related Data Home Medications Medication Instructions Recorded Confirmed Finasteride [Proscar] 5 mg PO DAILY 02/01/16 11/29/18 Gabapentin 600 mg PO BID 10/27/17 11/29/18 Atorvastatin [Lipitor] 40 mg PO HS 10/03/18 11/29/18 Metoprolol Tartrate [Lopressor] 50 mg PO BID 10/03/18 11/29/18 metFORMIN HCL [Glucophage] 500 mg PO BID 10/03/18 11/29/18 Previous Rx's Medication Instructions Recorded Acetaminophen Tab [Tylenol] 1,000 mg PO Q6HR PRN #0 tab 12/06/18 Amiodarone [Cordarone] 200 mg PO BID tab 12/06/18 Aspirin 81 mg PO DAILY chew 12/06/18 Clopidogrel [Plavix] 75 mg PO DAILY tab 12/06/18 Furosemide [Lasix] 40 mg PO DAILY #0 12/06/18 Heparin Sodium,Porcine [Heparin 5,000 unit SQ Q8HR vial 12/06/18 Sodium] INSULIN ASPART (NovoLOG) [NovoLOG 0 unit SQ ACHS vial 12/06/18 (formulary)] Ipratropium-Albuterol Nebulize 3 ml INHALATION RT-Q2H PRN 12/06/18 [Duoneb 0.5 mg-3 mg/3 ml Soln] ampul.neb Ipratropium-Albuterol Nebulize 3 ml INHALATION RT-QID ampul.neb 12/06/18 [Duoneb 0.5 mg-3 mg/3 ml Soln] Losartan [Cozaar] 50 mg PO HS tab 12/06/18 Magnesium Hydroxide [Milk of 2,400 mg PO BID PRN ml 12/06/18 Magnesia Concentrate] Pantoprazole [Protonix] 40 mg PO AC-BRKFST tablet. 12/06/18 Sennosides-Docusate Sodium 2 each PO HS tab 12/06/18 [Senokot-S] guaiFENesin [Mucinex] 600 mg PO Q12HR PRN tablet.er 12/06/18 Oseltamivir [Tamiflu] 75 mg PO Q12HR #10 cap 03/29/19 Allergies Allergy/AdvReac Type Severity Reaction Status Date / Time No Known Allergies Allergy Verified 06/06/21 18:05 Review of Systems ROS Statement: Those systems with pertinent positive or pertinent negative responses have been documented in the HPI. Review of Systems: CONST: Denies fever EYES: Denies blurry vision ENT: Denies nasal congestion C/V: Denies Chest pain RESP: Denies shortness of breath GI: Denies abdominal pain : Denies dysuria SKIN: Denies rash. MSK: Endorses left knee pain NEURO: Denies headache ROS Other: All systems not noted in ROS Statement are negative. Past Medical History Past Medical History: Coronary Artery Disease (CAD), Heart Failure, COPD, Diabetes Mellitus, Hyperlipidemia, Hypertension, Myocardial Infarction ([place]), Sleep Apnea/CPAP/BIPAP Additional Past Medical History / Comment(s): seen in er 09/09/18-shingles to back of head-resolved now. BRAIN ANEURSYM-DX 2018-BEING FOLLOWING BY DR. GILLESPIE IN [place] Last Myocardial Infarction Date:: 04/2009 History of Any Multi-Drug Resistant Organisms: None Reported Past Surgical History: AICD, Coronary Bypass/CABG, Heart Catheterization, Joint Replacement Additional Past Surgical History / Comment(s): right knee replaced. COLONOSCOPY Past Anesthesia/Blood Transfusion Reactions: No Reported Reaction Type of Cardiac Device: AICD Device Placement Date:: 2009 Past Psychological History: No Psychological Hx Reported Smoking Status: Never smoker Past Alcohol Use History: None Reported Past Drug Use History: None Reported - Past Family History Mother Family Medical History: No Reported History Father Family Medical History: Liver Disease Brother(s) Family Medical History: Coronary Artery Disease (CAD) General Exam - General Exam Comments Initial Comments: General: Appears in mild distress secondary to knee pain. HEAD: Normal with no signs of head trauma. EYES: EOMI ENT: Hearing grossly intact RESPIRATORY: No increased work of breathing. C/V: Regular rate and rhythm. Peripheral pulses 2+ and intact throughout. No peripheral edema. ABD: Abdomen is nondistended. EXT: Reduced range of motion of the left knee. No obvious deformity. Tenderness to palpation along the joint line. Some mild swelling. No skin changes. Knee is not warm. He will hold knee at full extension. SKIN: No rashes or lesions observed on exposed skin. NEURO: Alert and oriented 4. No focal sensory strength deficits. Limitations: no limitations Course Vital Signs 06/06/21 18:03 Temperature 98.1 F Pulse Rate 78 Respiratory 20 Rate Blood Pressure 144/92 O2 Sat by Pulse 98 Oximetry Medical Decision Making - Medical Decision Making Based on the patient's presentation and physical exam, I'm concerned for possible acute bony traumatic injury the patient's left knee. X-ray was obtained while the patient was in triage and revealed no acute findings. I discussed this with the patient in discussing like to obtain an ultrasound to evaluate for possible bursitis or joint effusion. He was in agreement this plan. He'll be given analgesia. Ultrasound revealed no signs of mass or fluid collection. On reevaluation, I discussed the findings with the patient. His pain is slightly improved at this time. I certainly believe it may be his arthritis flaring, but cannot rule out tendinous or ligamentous injury at this time. Recommended follow-up with his PCP which he was in agreement with. Continue his home analgesia medications, Tylenol. Will continue to ice. Patient was in agreement this plan. I instructed the patient to follow up with their PCP in the next 3 days. I explained that the patient should return to the emergency department if they experience any worsening symptoms. Strict return precautions were discussed with the patient. The patient expressed understanding of these instructions. I answered all questions that the patient had. The patient was discharged home in fair condition with their prescriptions and follow up information. Disposition Clinical Impression: Left knee pain Disposition: HOME SELF-CARE Condition: Fair Instructions (If sedation given, give patient instructions): Osteoarthritis (ED), Knee Pain (ED) Is patient prescribed a controlled substance at d/c from ED?: No Referrals: Bree Dias, [Primary Care Provider] - 1-2 days Time of Disposition: 20:20
== END 2021-06-06 20:44 | disposition home or self-care (01) ==
LOC: EC 17:50
DX: M25.562 Pain in left knee (principal); I11.0 Hypertensive heart disease with heart failure; I50.9 Heart failure, unspecified; J44.9 Chronic obstructive pulmonary disease, unspecified; I25.10 Atherosclerotic heart disease of native coronary artery without angina pectoris; E11.9 Type 2 diabetes mellitus without complications; E78.5 Hyperlipidemia, unspecified; Z95.1 Presence of aortocoronary bypass graft; Z79.84 Long term (current) use of oral hypoglycemic drugs; Z79.899 Other long term (current) drug therapy
CPT/HCPCS: 99284

== ENCOUNTER → 2021-10-07 | Outpatient (CLI) | payer MEDICARE, OTHER ==
[2021-10-07 14:47] LABS: HCT 40.3 % (39.6-50.0); HGB 13.1 g/dL (13.0-17.0); MCH 29.6 pg (27.0-32.0); MCHC 32.5 g/dL (32.0-37.0); Mean Platelet Volume 12.7 fL (9.5-12.2); NRBC Per 100 WBC 0 /100 WBCS (0.0-0.0); Platelet Count 90 X 10*3/uL (140-440); RBC 4.43 X 10*6/uL (4.40-5.60); RDW 13.8 % (11.5-14.5); WBC 5.36 X 10*3/uL (4.50-10.00)
[2021-10-07 15:46] LABS: ALT 25 U/L (10-49); AST 23 U/L (14-35); African American GFR (CKD) 67.5 (60.0-200.0); Albumin 4.3 g/dL (3.8-4.9); Albumin/Globulin Ratio 1.42 (1.60-3.17); Alkaline Phosphatase 92 U/L (41-126); BUN/Creat Ratio 23.81 Ratio (12.00-20.00); Calcium 9.4 mg/dL (8.7-10.3); Carbon Dioxide 23.8 mmol/L (20.0-27.5); Chloride 106 mmol/L (96-109); Chol/HDL Ratio 3.28 Ratio; Glucose 104 mg/dL (70-110); LDL Cholesterol,Calculated 50.5 mg/dL (0.0-131.0); Non-African American GFR(CKD) 58.2 (60.0-200.0); Sodium 139 mmol/L (135-145); Total Protein 7.3 g/dL (6.2-8.2)
== END | disposition home or self-care (01) ==
LOC: LABWHC1 09:03
PROVIDERS: ATTEND Internal Medicine Interventional Cardiology
DX: Z00.00 Encounter for general adult medical examination without abnormal findings (principal); I25.810 Atherosclerosis of coronary artery bypass graft(s) without angina pectoris; E78.2 Mixed hyperlipidemia; E11.9 Type 2 diabetes mellitus without complications
CPT/HCPCS: 36415; 80053; 80061; 83036; 84443; 85027

== ENCOUNTER 2023-01-28 10:14 | Emergency (ER) | payer MEDICARE, OTHER ==
[2023-01-28 10:36] VITALS: RESP 18
--- NOTE | 2023-01-28 10:59 | XR ---
EXAMINATION TYPE: XR ankle complete 3 views LT DATE OF EXAM: 01/28/2023 Comparison: 11/07/2018 Clinical History: 72-year-old male Pain after fall Findings: Vascular calcifications suggest underlying diabetes and chronic kidney disease. Talar dome appears in tact. Ankle mortise appears congruent. Some bony spurring along the lateral margin of the distal fibu la probably related to chronic peroneal tendinopathy. Small corticated fragment below the medial mall eolus are unchanged suggesting sequela of remote injury. Some faint linear calcifications lateral hin dfoot below the lateral malleolus are present in 2019 as well. Subtalar joint align. No delineation o f the Achilles tendon. Some degenerative spurring along the anterior tibiotalar joint. Impression: 1. Small ossific densities below the medial malleolus suggests sequela of prior injury. 2. Cortical irregularity along the lateral margin of the lateral malleolus may reflect chronic perone al tendinopathy. 3. Mild degenerative spurring at the tibiotalar joint. No acute osseous abnormality seen.
--- NOTE | 2023-01-28 11:05 | ED ---
Lower Extremity Injury HPI - General Chief Complaint: Extremity Injury, Lower Stated Complaint: left ankle pain Time Seen by Provider: 01/28/23 10:33 Source: patient, RN notes reviewed Mode of arrival: EMS Limitations: no limitations - History of Present Illness Initial Comments: This is a 72-year-old male who presents to the emergency department for left ankle pain. States that on 01/04 he jumped out of a camper and his left foot went into the ground and he twisted it. He has since had increasing pain to this area. He keeps it bandaged with an Barrie wrap and uses crutches, which he states is usually the only way he is able to ambulate or put pressure on it. Not taking any medication for management of his pain. MD Complaint: ankle injury - Related Data Home Medications Medication Instructions Recorded Confirmed Finasteride [Proscar] 5 mg PO DAILY 02/01/16 11/29/18 Gabapentin 600 mg PO BID 10/27/17 11/29/18 Atorvastatin [Lipitor] 40 mg PO HS 10/03/18 11/29/18 Metoprolol Tartrate [Lopressor] 50 mg PO BID 10/03/18 11/29/18 metFORMIN HCL [Glucophage] 500 mg PO BID 10/03/18 11/29/18 Previous Rx's Medication Instructions Recorded Acetaminophen Tab [Tylenol] 1,000 mg PO Q6HR PRN #0 tab 12/06/18 Amiodarone [Cordarone] 200 mg PO BID tab 12/06/18 Aspirin 81 mg PO DAILY chew 12/06/18 Clopidogrel [Plavix] 75 mg PO DAILY tab 12/06/18 Furosemide [Lasix] 40 mg PO DAILY #0 12/06/18 Heparin Sodium,Porcine (1 ml) 5,000 unit SQ Q8HR vial 12/06/18 [Heparin Sodium] INSULIN ASPART (NovoLOG) [NovoLOG 0 unit SQ ACHS vial 12/06/18 (formulary)] Ipratropium-Albuterol Nebulize 3 ml INHALATION RT-Q2H PRN 12/06/18 [Duoneb 0.5 mg-3 mg/3 ml Soln] ampul.neb Ipratropium-Albuterol Nebulize 3 ml INHALATION RT-QID ampul.neb 12/06/18 [Duoneb 0.5 mg-3 mg/3 ml Soln] Losartan [Cozaar] 50 mg PO HS tab 12/06/18 Magnesium Hydroxide [Milk of 2,400 mg PO BID PRN ml 12/06/18 Magnesia Concentrate] Pantoprazole [Protonix] 40 mg PO AC-BRKFST tablet. 12/06/18 Sennosides-Docusate Sodium 2 each PO HS tab 12/06/18 [Senokot-S] guaiFENesin [Mucinex] 600 mg PO Q12HR PRN tablet.er 12/06/18 Oseltamivir [Tamiflu] 75 mg PO Q12HR #10 cap 03/29/19 Allergies Allergy/AdvReac Type Severity Reaction Status Date / Time No Known Allergies Allergy Verified 01/28/23 10:27 Review of Systems ROS Statement: Those systems with pertinent positive or pertinent negative responses have been documented in the HPI. ROS Other: All systems not noted in ROS Statement are negative. Past Medical History Past Medical History: Coronary Artery Disease (CAD), Heart Failure, COPD, Diabetes Mellitus, Hyperlipidemia, Hypertension, Myocardial Infarction ([place]), Sleep Apnea/CPAP/BIPAP Additional Past Medical History / Comment(s): seen in er 09/09/18-shingles to back of head-resolved now. BRAIN ANEURSYM-DX 2018-BEING FOLLOWING BY DR. GILLESPIE IN [place] Last Myocardial Infarction Date:: 04/2009 History of Any Multi-Drug Resistant Organisms: None Reported Past Surgical History: AICD, Coronary Bypass/CABG, Heart Catheterization, Joint Replacement Additional Past Surgical History / Comment(s): right knee replaced. COLONOSCOPY Past Anesthesia/Blood Transfusion Reactions: No Reported Reaction Type of Cardiac Device: AICD Device Placement Date:: 2009 Past Psychological History: No Psychological Hx Reported Smoking Status: Never smoker Past Alcohol Use History: None Reported Past Drug Use History: None Reported - Past Family History Mother Family Medical History: No Reported History Father Family Medical History: Liver Disease Brother(s) Family Medical History: Coronary Artery Disease (CAD) General Exam Limitations: no limitations General appearance: alert, in no apparent distress Head exam: Present: atraumatic, normocephalic, normal inspection Respiratory exam: Present: normal lung sounds bilaterally. Absent: respiratory distress, wheezes, rales, rhonchi, stridor Cardiovascular Exam: Present: regular rate, normal rhythm, normal heart sounds. Absent: systolic murmur, diastolic murmur, rubs, gallop, clicks Extremities exam: Present: other (Tenderness to palpation over the left medial and lateral malleolus. 2+ DP and PT pulses. Capillary refill <1 second.) Neurological exam: Present: alert, oriented X3, CN II-XII intact Psychiatric exam: Present: normal affect, normal mood Skin exam: Present: warm, dry, intact, normal color. Absent: rash Course Vital Signs 01/28/23 01/28/23 10:24 12:05 Temperature 98.1 F 98 F Pulse Rate 70 68 Respiratory 18 18 Rate Blood Pressure 111/73 120/76 O2 Sat by Pulse 97 98 Oximetry Medical Decision Making - Medical Decision Making This is a 72-year-old male who presents to the emergency department for left foot and ankle pain. Was pt. sent in by a medical professional or institution? @ -No Did you speak to anyone other than the patient for history? @ -No Did you review nursing and triage notes? @ -Yes, and I agree, it is accurate with regards to the patient's symptoms. Were old charts reviewed? @ -No Differential Diagnosis? @ -Differential Musculoskeletal: Muscular strain, contusion, ligament sprain, fracture, arthritis, septic arthritis, bursitis, cellulitis, muscle spasm, nerve compression, DVT, arterial occlusion, herpes zoster, electrolyte abnormality, tumor.... This is not meant to be in all inclusive list EKG interpreted by me (3pts min.)? @ -Not obtained X-rays interpreted by me (1pt min.)? @ -X-ray of the left ankle obtained. My interpretation identifies no acute fractures. CT interpreted by me (1pt min.)? @ -Not obtained U/S interpreted by me (1pt. min.)? @ -Not obtained What testing was considered but not performed? (CT, X-rays, U/S, labs)? Why? @ -None What meds were considered but not given? Why? @ -None Did you discuss the management of the patient with other professionals? @ -No Did you reconcile home meds? @ -No Was smoking cessation discussed for >3mins.? @ -No Was critical care preformed (if so, how long)? @ -No Were there social determinants of health that impacted care today? How? (Homelessness, low income, unemployed, alcoholism, drug addiction, transportation, low edu. Level, literacy, decrease access to med. care, snf, rehab)? @ -No Was there de-escalation of care discussed even if they declined? (Discuss DNR or withdrawal of care, Hospice)? @ -No What co-morbidities impacted this encounter? (DM, HTN, Smoking, COPD, CAD, Cancer, CVA, Hep., AIDS, mental health diagnosis, sleep apnea, morbid obesity)? @ -None Was patient admitted / discharged? @ -Discharged. Patient declined any pain medication in the emergency department. X-ray of the left ankle obtained demonstrating small ossific densities below the medial malleolus which suggests sequela of prior injury. There is also a cortical irregularity along the lateral margin of the lateral malleolus that may reflect chronic perineal tendinopathy. No acute osseous abnormality was identified. Findings reviewed with the patient. He was given a Velcro stirrup splint for further support. Advised ibuprofen and Tylenol as needed for pain relief and follow-up with his primary care provider. Patient discharged home in stable condition. Undiagnosed new problem with uncertain prognosis? @ -None Drug Therapy requiring intensive monitoring for toxicity (Heparin, Nitro, Insulin, Cardizem)? @ -None Were any procedures done? @ -None Diagnosis/symptom? @ -Left ankle sprain Acute, or Chronic, or Acute on Chronic? @ -Acute Uncomplicated (without systemic symptoms) or Complicated (systemic symptoms)? @ -Uncomplicated Side effects of treatment? @ -None Exacerbation, Progression, or Severe Exacerbation] @ -Not applicable Poses a threat to life or bodily function? @ -No Return precautions reviewed in depth, the patient is instructed to return to the emergency department with any new, worsening, or concerning symptoms. Patient verbalized understanding. This case was discussed in detail with the attending ED physician, Dr. Nassar. Presentation, findings, and treatment plan discussed in detail as well. - Radiology Data Radiology results: report reviewed, image reviewed Disposition Clinical Impression: Left ankle sprain Disposition: HOME SELF-CARE Instructions (If sedation given, give patient instructions): Ankle Sprain (ED) Additional Instructions: Return to the emergency department with any new, worsening, or concerning symptoms. Alternate with ibuprofen and Tylenol as needed for pain relief. You can also apply the diclofenac gel provided to the affected areas up to 4 times daily. This works as an antiinflammatory similar to Ibuprofen. Follow up with your primary care provider in 1-2 days. Is patient prescribed a controlled substance at d/c from ED?: No Referrals: Maren Huff DO [Primary Care Provider] - 1-2 days
[2023-01-28] MEDS ORDERED: IBUPROFEN 600 MG STARTER PACK 4 TAB BTL PO STA (11:37)
[2023-01-28] MEDS ORDERED: ACET/COD 300 MG/30 MG STARTER PACK 6 TAB BTL PO STA (11:37)
[2023-01-28] MEDS ORDERED: DICLOFENAC SODIUM GEL 100 GM TUBE TOPICAL ONE (12:00)
[2023-01-28 12:15] VITALS: BP 120/76; PULSE 68; TEMP 98
== END 2023-01-28 12:08 | disposition home or self-care (01) ==
LOC: EC 10:14
DX: S93.402A Sprain of unspecified ligament of left ankle, initial encounter (principal); I25.10 Atherosclerotic heart disease of native coronary artery without angina pectoris; E11.9 Type 2 diabetes mellitus without complications; I50.9 Heart failure, unspecified; E78.5 Hyperlipidemia, unspecified; I11.0 Hypertensive heart disease with heart failure; J44.9 Chronic obstructive pulmonary disease, unspecified; I25.2 Old myocardial infarction; G47.30 Sleep apnea, unspecified; Z79.899 Other long term (current) drug therapy; Z79.84 Long term (current) use of oral hypoglycemic drugs; X50.1XXA Overexertion from prolonged static or awkward postures, initial encounter; Y93.39 Activity, other involving climbing, rappelling and jumping off
CPT/HCPCS: 73610; 99283; L4350

== ENCOUNTER → 2023-01-28 | Outpatient (CLI) | payer MEDICARE, OTHER | END | disposition home or self-care (01) | LOC: LABWHC1 12:09 | PROVIDERS: ATTEND Internal Medicine Interventional Cardiology | DX: Z53.9 Procedure and treatment not carried out, unspecified reason (principal) ==

== ENCOUNTER → 2023-03-09 | Outpatient (CLI) | payer MEDICARE, OTHER ==
[2023-03-09 12:06] LABS: NT-Pro-B-Type Natriuretic Pept 3030 pg/mL
[2023-03-09 12:12] LABS: African American GFR (CKD) 49 (>60 ml/min/1.73 sqM); Anion Gap 10 mmol/L; Blood Urea Nitrogen 36 mg/dL (9-20); Carbon Dioxide 23 mmol/L (22-30); Chloride 109 mmol/L (98-107); Non-African American GFR(CKD) 42 (>60 ml/min/1.73 sqM); Potassium 4.5 mmol/L (3.5-5.1); Sodium 142 mmol/L (137-145)
== END | disposition home or self-care (01) ==
LOC: LABWHC1 09:38
PROVIDERS: ATTEND Internal Medicine Interventional Cardiology
DX: I25.5 Ischemic cardiomyopathy (principal)
CPT/HCPCS: 36415; 80051; 82565; 83880; 84520

== ENCOUNTER → 2023-04-15 | Outpatient (CLI) | payer MEDICARE, OTHER ==
[2023-04-15 15:28] LABS: NT-Pro-B-Type Natriuretic Pept 1750 pg/mL (0-125)
[2023-04-15 15:31] LABS: BUN/Creat Ratio 15.31 Ratio (12.00-20.00); Blood Urea Nitrogen 19.9 mg/dL (9.0-27.0); Calcium 9.8 mg/dL (8.7-10.3); Carbon Dioxide 22.6 mmol/L (21.6-31.8); Chloride 104 mmol/L (96-109); Glucose 99 mg/dL (70-110); Potassium 4.4 mmol/L (3.5-5.5); Sodium 139 mmol/L (135-145)
== END | disposition home or self-care (01) ==
LOC: LABWHC1 09:49
PROVIDERS: ATTEND Internal Medicine Interventional Cardiology
DX: I50.22 Chronic systolic (congestive) heart failure (principal)
CPT/HCPCS: 36415; 80048; 83880

== ENCOUNTER → 2023-11-04 | Outpatient (CLI) | payer MEDICARE, OTHER ==
[2023-11-04 15:42] LABS: NT-Pro-B-Type Natriuretic Pept 9243 pg/mL (0-125)
[2023-11-04 15:49] LABS: ALT 28 U/L (10-49); AST 27 U/L (14-35); Albumin 3.7 g/dL (3.8-4.9); Alkaline Phosphatase 131 U/L (41-126); BUN/Creat Ratio 16.58 Ratio (12.00-20.00); Blood Urea Nitrogen 31.5 mg/dL (9.0-27.0); Calcium 8.9 mg/dL (8.7-10.3); Carbon Dioxide 21.4 mmol/L (21.6-31.8); Chloride 106 mmol/L (96-109); Chol/HDL Ratio 4.61 Ratio; Globulin 4.6 g/dL (1.6-3.3); Glucose 99 mg/dL (70-110); LDL Cholesterol,Calculated 46.3 mg/dL (0.0-131.0); Potassium 4.4 mmol/L (3.5-5.5); Sodium 139 mmol/L (135-145); Total Bilirubin 0.7 mg/dL (0.3-1.2); Total Protein 8.3 g/dL (6.2-8.2)
== END | disposition home or self-care (01) ==
LOC: LABWHC1 08:38
PROVIDERS: ATTEND Internal Medicine Interventional Cardiology
DX: E78.2 Mixed hyperlipidemia
CPT/HCPCS: 36415; 80053; 80061; 83880

== ENCOUNTER → 2023-11-21 | Outpatient (CLI) | payer MEDICARE, OTHER ==
[2023-11-21 14:00] LABS: NT-Pro-B-Type Natriuretic Pept 8037 pg/mL (0-125)
[2023-11-21 14:24] LABS: BUN/Creat Ratio 21.67 Ratio (12.00-20.00); Blood Urea Nitrogen 45.5 mg/dL (9.0-27.0); Calcium 9.1 mg/dL (8.7-10.3); Carbon Dioxide 23.7 mmol/L (21.6-31.8); Chloride 102 mmol/L (96-109); Glucose 103 mg/dL (70-110); Potassium 4.7 mmol/L (3.5-5.5); Sodium 138 mmol/L (135-145)
== END | disposition home or self-care (01) ==
LOC: LABWHC1 09:22
PROVIDERS: ATTEND Internal Medicine Interventional Cardiology
DX: I50.22 Chronic systolic (congestive) heart failure (principal); I25.5 Ischemic cardiomyopathy
CPT/HCPCS: 36415; 80048; 83880

== ENCOUNTER 2023-11-27 18:44 | Observation (INO) | payer MEDICARE, OTHER ==
--- NOTE | 2023-11-27 19:34 | ED ---
General Adult HPI - General Source: patient, RN notes reviewed, old records reviewed Mode of arrival: EMS <Christian Julien - Last Filed: 11/27/23 21:04> <Luis EnriqueiraidaMarika Angela - Last Filed: 11/27/23 22:56> - General Chief complaint: Shortness of Breath Stated complaint: SOB Time Seen by Provider: 11/27/23 19:15 - History of Present Illness Initial comments: This is a 73-year-old male who presents to the emergency department any refuses to give any history he only will have his give the history so she tells me he is here because earlier today he seemed a little bit altered and very short of breath. They state he has had a cough the last for 5 days and that is getting slightly worse. Patient denies any fever or chills. Patient has any chest pain. Patient initially denied he had any heart disease however his inform me that he had bypass surgery at 1 point. Patient also denied ever smoking and his informed he used to smoke quite a bit but has not smoked in over a decade. Patient denies any swelling to the legs. Patient denies any calf pain. Patient has abdominal pain patient has nausea vomiting diarrhea. Patient states the called the ambulance and he was in the bathroom and has no idea why they would have sent him to the hospital (Christian Julien) - Related Data Home Medications Medication Instructions Recorded Confirmed Finasteride [Proscar] 5 mg PO DAILY 02/01/16 11/29/18 Gabapentin 600 mg PO BID 10/27/17 11/29/18 Atorvastatin [Lipitor] 40 mg PO HS 10/03/18 11/29/18 Metoprolol Tartrate [Lopressor] 50 mg PO BID 10/03/18 11/29/18 metFORMIN HCL [Glucophage] 500 mg PO BID 10/03/18 11/29/18 Previous Rx's Medication Instructions Recorded Acetaminophen Tab [Tylenol] 1,000 mg PO Q6HR PRN #0 tab 12/06/18 Amiodarone [Cordarone] 200 mg PO BID tab 12/06/18 Aspirin 81 mg PO DAILY chew 12/06/18 Clopidogrel [Plavix] 75 mg PO DAILY tab 12/06/18 Furosemide [Lasix] 40 mg PO DAILY #0 12/06/18 Heparin Sodium,Porcine (1 ml) 5,000 unit SQ Q8HR vial 12/06/18 [Heparin Sodium] INSULIN ASPART (NovoLOG) [NovoLOG 0 unit SQ ACHS vial 12/06/18 (formulary)] Ipratropium-Albuterol Nebulize 3 ml INHALATION RT-Q2H PRN 12/06/18 [Duoneb 0.5 mg-3 mg/3 ml Soln] ampul.neb Ipratropium-Albuterol Nebulize 3 ml INHALATION RT-QID ampul.neb 12/06/18 [Duoneb 0.5 mg-3 mg/3 ml Soln] Losartan [Cozaar] 50 mg PO HS tab 12/06/18 Magnesium Hydroxide [Milk of 2,400 mg PO BID PRN ml 12/06/18 Magnesia Concentrate] Pantoprazole [Protonix] 40 mg PO AC-BRKFST tablet. 12/06/18 Sennosides-Docusate Sodium 2 each PO HS tab 12/06/18 [Senokot-S] guaiFENesin [Mucinex] 600 mg PO Q12HR PRN tablet.er 12/06/18 Oseltamivir [Tamiflu] 75 mg PO Q12HR #10 cap 03/29/19 Allergies Allergy/AdvReac Type Severity Reaction Status Date / Time No Known Allergies Allergy Verified 11/27/23 19:23 Review of Systems ROS Other: All systems not noted in ROS Statement are negative. <Christian Julien - Last Filed: 11/27/23 21:04> ROS Other: All systems not noted in ROS Statement are negative. <Marika Matias - Last Filed: 11/27/23 22:56> ROS Statement: Those systems with pertinent positive or pertinent negative responses have been documented in the HPI. Past Medical History Past Medical History: Coronary Artery Disease (CAD), Heart Failure, COPD, Diabetes Mellitus, Hyperlipidemia, Hypertension, Myocardial Infarction ([place]), Sleep Apnea/CPAP/BIPAP Additional Past Medical History / Comment(s): seen in er 09/09/18-shingles to back of head-resolved now. BRAIN ANEURSYM-DX 2018-BEING FOLLOWING BY DR. GILLESPIE IN [place] Last Myocardial Infarction Date:: 04/2009 History of Any Multi-Drug Resistant Organisms: None Reported Past Surgical History: AICD, Coronary Bypass/CABG, Heart Catheterization, Joint Replacement Additional Past Surgical History / Comment(s): right knee replaced. COLONOSCOPY Past Anesthesia/Blood Transfusion Reactions: No Reported Reaction Type of Cardiac Device: AICD Device Placement Date:: 2009 Past Psychological History: No Psychological Hx Reported Smoking Status: Former smoker Past Alcohol Use History: Occasional Past Drug Use History: None Reported - Past Family History Mother Family Medical History: No Reported History Father Family Medical History: Liver Disease Brother(s) Family Medical History: Coronary Artery Disease (CAD) <Christian Julien - Last Filed: 11/27/23 21:04> General Exam <Christian Julien - Last Filed: 11/27/23 21:04> - General Exam Comments Initial Comments: GENERAL: Patient is well-developed and well-nourished. Patient is nontoxic and well- hydrated and is in no acute distress. ENT: Neck is soft and supple. No significant lymphadenopathy is noted. Oropharynx is clear. Moist mucous membranes. Neck has full range of motion without eliciting any pain. EYES: The sclera were anicteric and conjunctiva were pink and moist. Extraocular movements were intact and pupils were equal round and reactive to light. Eyelids were unremarkable. PULMONARY: Unlabored respirations. Good breath sounds bilaterally. No audible rales rhonchi or wheezing was noted. CARDIOVASCULAR: There is a regular rate and rhythm without any murmurs gallops or rubs. ABDOMEN: Soft and nontender with normal bowel sounds. SKIN: Skin is clear with no lesions or rashes and otherwise unremarkable. NEUROLOGIC: Patient is alert and oriented x3. Cranial nerves II through XII are grossly intact. Motor and sensory are also intact. Normal speech, volume and content. Symmetrical smile. MUSCULOSKELETAL: Normal extremities with adequate strength and full range of motion. No lower extremity swelling or edema. No calf tenderness. LYMPHATICS: No significant lymphadenopathy is noted PSYCHIATRIC: Normal psychiatric evaluation. (Christian Julien) Course Vital Signs 11/27/23 11/27/23 19:12 22:46 Temperature 98.4 F Pulse Rate 77 84 Respiratory 16 16 Rate Blood Pressure 115/63 98/70 O2 Sat by Pulse 94 L 95 Oximetry Medical Decision Making - Lab Data Result diagrams: 11/27/23 19:51 11/27/23 19:51 <Christian Julien - Last Filed: 11/27/23 21:04> - Lab Data Result diagrams: 11/27/23 19:51 11/27/23 19:51 <Marika Matias - Last Filed: 11/27/23 22:56> - Medical Decision Making EKG is interpreted by myself. EKG shows a sinus rhythm at 91 bpm UT interval is 259 QRS is 144 QT interval 363 QTc is 412. Patient's EKG shows no ST segment elevation Was pt. sent in by a medical professional or institution ([facility] Garcia, [employer], urgent care, hospital, or prison...) When possible be specific @ -[No] Did you speak to anyone other than the patient for history (EMS, parent, family, police, friend...)? What history was obtained from this source @ -[No] Did you review nursing and triage notes (agree or disagree)? Why? @ -[I reviewed and agree with nursing and triage notes] Were old charts reviewed (outside hosp., previous admission, EMS record, old EKG, old radiological studies, urgent care reports/EKG's, prison records)? Report findings @ -[No old charts were reviewed] Differential Diagnosis? @ -Differential dyspnea EKG interpreted by me (3pts min.). @ -[As above] X-rays interpreted by me (1pt min.). @ -[None done] CT interpreted by me (1pt min.). @ -[None done] U/S interpreted by me (1pt. min.). @ -[None done] What testing was considered but not performed or refused? (CT, X-rays, U/S, labs)? Why? @ -[None] What meds were considered but not given or refused? Why? @ -[None] Did you discuss the management of the patient with other professionals (professionals i.e. [facility] Garcia, [employer], lab, RT, psych nurse, social work faculty member, job developer for deaf adults, te acher, chief lending officer, mental health case manager)? Give summary @ -[No] Was smoking cessation discussed for >3mins.? @ -[No] Was critical care preformed (if so, how long)? @ -[No] Were there social determinants of health that impacted care today? How? (Homelessness, low income, unemployed, alcoholism, drug addiction, transportation, low edu. Level, literacy, decrease access to med. care, fdc, rehab)? @ -[No] Was there de-escalation of care discussed even if they declined (Discuss DNR or withdrawal of care, Hospice)? DNR status @ -[No] What co-morbidities impacted this encounter? (DM, HTN, Smoking, COPD, CAD, Cancer, CVA, ARF, Chemo, Hep., AIDS, mental health diagnosis, sleep apnea, morbid obesity)? @ -[None] Was patient admitted / discharged? Hospital course, mention meds given and route, prescriptions, significant lab abnormalities, going to OR and other pertinent info. @ -Dr. Kaufman will take over the care of this patient at 9 PM (Christian Julien) Was patient admitted / discharged? Hospital course, mention meds given and route, prescriptions, significant lab abnormalities, going to OR and other pertinent info. @ -Patient was signed out to me pending laboratory testing. He does have an elevated D-dimer however kidney function will not support a contrasted CT study. Patient does have an elevated BNP. Kidney function is worsened from baseline. I did order a CT of his brain which demonstrates no acute process. I spoke with the patient and his . Patient remains confused. I discussed the need for hospitalization for ventilation/perfusion scan and cardiology consultation. Patient was agreeable to this. I spoke with Dr. Chavez who was agreeable to the admission Undiagnosed new problem with uncertain prognosis? @ -No Drug Therapy requiring intensive monitoring for toxicity (Heparin, Nitro, Insulin, Cardizem)? @ -No Were any procedures done? @ -No Diagnosis/symptom? @ -Acute encephalopathy, acute respiratory insufficiency, elevated D-dimer, DEVIN , elevated BNP Acute, or Chronic, or Acute on Chronic? @ -Acute Uncomplicated (without systemic symptoms) or Complicated (systemic symptoms)? @ -complicated Side effects of treatment? @ -No Exacerbation, Progression, or Severe Exacerbation? @ -No Poses a threat to life or bodily function? How? (Chest pain, [place], [place], pneumonia, PE, COPD, DKA, ARF, appy, cholecystitis, CVA, Diverticulitis, Homicidal, Suicidal, threat to staff... and all critical care pts) @ -No (Marika Matias) - Lab Data Lab Results 11/27/23 11/27/23 11/27/23 Range/Units 19:51 19:51 19:51 WBC 4.2 (3.8-10.6) k/uL RBC 4.30 (4.30-5.90) m/uL Hgb 11.8 L (13.0-17.5) gm/dL Hct 36.6 L (39.0-53.0) % MCV 85.1 (80.0-100.0) fL MCH 27.4 (25.0-35.0) pg MCHC 32.2 (31.0-37.0) g/dL RDW 16.9 H (11.5-15.5) % Plt Count 80 L (150-450) k/uL MPV 10.2 Neutrophils % 72 % Lymphocytes % 20 % Monocytes % 4 % Eosinophils % 0 % Basophils % 1 % Neutrophils # 3.0 (1.3-7.7) k/uL Lymphocytes # 0.8 L (1.0-4.8) k/uL Monocytes # 0.2 (0-1.0) k/uL Eosinophils # 0.0 (0-0.7) k/uL Basophils # 0.0 (0-0.2) k/uL Hypochromasia Slight Anisocytosis Slight PT 12.0 (10.0-12.5) sec INR 1.1 (<1.2) APTT 24.9 (22.0-30.0) sec D-Dimer 3.86 H (<0.60) mg/L FEU Sodium 134 L (137-145) mmol/L Potassium 5.5 H (3.5-5.1) mmol/L Chloride 104 (98-107) mmol/L Carbon Dioxide 19 L (22-30) mmol/L Anion Gap 11 mmol/L BUN 70 H (9-20) mg/dL Creatinine 2.23 H (0.66-1.25) mg/dL Est GFR (CKD-EPI)AfAm 33 (>60 ml/min/1.73 sqM) Est GFR (CKD-EPI)NonAf 29 (>60 ml/min/1.73 sqM) Glucose 102 H (74-99) mg/dL Plasma Lactic Acid Josue (0.7-2.0) mmol/L Calcium 8.6 (8.4-10.2) mg/dL Magnesium 1.6 (1.6-2.3) mg/dL Total Bilirubin 1.6 H (0.2-1.3) mg/dL AST 61 H (17-59) U/L ALT 42 (4-49) U/L Alkaline Phosphatase 121 (38-126) U/L Troponin I (0.000-0.034) ng/mL NT-Pro-B Natriuret Pep 63751 pg/mL Total Protein 9.0 H (6.3-8.2) g/dL Albumin 4.0 (3.5-5.0) g/dL Influenza Type A (PCR) (Not Detectd) Influenza Type B (PCR) (Not Detectd) RSV (PCR) (Not Detectd) SARS-CoV-2 (PCR) (Not Detectd) 11/27/23 11/27/23 11/27/23 Range/Units 19:51 19:51 20:51 WBC (3.8-10.6) k/uL RBC (4.30-5.90) m/uL Hgb (13.0-17.5) gm/dL Hct (39.0-53.0) % MCV (80.0-100.0) fL MCH (25.0-35.0) pg MCHC (31.0-37.0) g/dL RDW (11.5-15.5) % Plt Count (150-450) k/uL MPV Neutrophils % % Lymphocytes % % Monocytes % % Eosinophils % % Basophils % % Neutrophils # (1.3-7.7) k/uL Lymphocytes # (1.0-4.8) k/uL Monocytes # (0-1.0) k/uL Eosinophils # (0-0.7) k/uL Basophils # (0-0.2) k/uL Hypochromasia Anisocytosis PT (10.0-12.5) sec INR (<1.2) APTT (22.0-30.0) sec D-Dimer (<0.60) mg/L FEU Sodium (137-145) mmol/L Potassium (3.5-5.1) mmol/L Chloride (98-107) mmol/L Carbon Dioxide (22-30) mmol/L Anion Gap mmol/L BUN (9-20) mg/dL Creatinine (0.66-1.25) mg/dL Est GFR (CKD-EPI)AfAm (>60 ml/min/1.73 sqM) Est GFR (CKD-EPI)NonAf (>60 ml/min/1.73 sqM) Glucose (74-99) mg/dL Plasma Lactic Acid Josue 1.9 (0.7-2.0) mmol/L Calcium (8.4-10.2) mg/dL Magnesium (1.6-2.3) mg/dL Total Bilirubin (0.2-1.3) mg/dL AST (17-59) U/L ALT (4-49) U/L Alkaline Phosphatase (38-126) U/L Troponin I 0.038 H* (0.000-0.034) ng/mL NT-Pro-B Natriuret Pep pg/mL Total Protein (6.3-8.2) g/dL Albumin (3.5-5.0) g/dL Influenza Type A (PCR) Not Detected (Not Detectd) Influenza Type B (PCR) Not Detected (Not Detectd) RSV (PCR) Not Detected (Not Detectd) SARS-CoV-2 (PCR) Not Detected (Not Detectd) Disposition <Christian Julien - Last Filed: 11/27/23 21:04> Is patient prescribed a controlled substance at d/c from ED?: No Time of Disposition: 21:46 Decision to Admit Reason: Admit from EC Decision Date: 11/27/23 Decision Time: 21:47 <Marika Matias - Last Filed: 11/27/23 22:56> Clinical Impression: Encephalopathy acute, Acute respiratory insufficiency, Elevated brain natriure tic peptide (BNP) level, DEVIN (acute kidney injury) Disposition: ADMITTED IP TO THIS HOSP Condition: Stable
[2023-11-27 20:30] LABS: Anisocytosis Slight; Basophils % (A) 1 %; Eosinophils % (A) 0 %; HCT 36.6 % (39.0-53.0); HGB 11.8 gm/dL (13.0-17.5); Hypochromasia Slight; Lymphocytes # (A) 0.8 k/uL (1.0-4.8); Lymphocytes % (A) 20 %; MCH 27.4 pg (25.0-35.0); MCHC 32.2 g/dL (31.0-37.0); MCV 85.1 fL (80.0-100.0); Mean Platelet Volume 10.2; Monocytes # (A) 0.2 k/uL (0-1.0); Monocytes % (A) 4 %; Neutrophils % (A) 72 %; RDW 16.9 % (11.5-15.5); WBC 4.2 k/uL (3.8-10.6)
--- NOTE | 2023-11-27 20:37 | XR ---
EXAMINATION TYPE: XR chest 2V DATE OF EXAM: 11/27/2023 COMPARISON: 03/29/2019 INDICATION: Difficulty breathing Confusion TECHNIQUE: Single frontal view of the chest is obtained. FINDINGS: The heart size is enlarged. Pacemaker overlies left chest. Sternotomy wires are in the midline. The pulmonary vasculature is normal. The lungs are clear. IMPRESSION: 1. No acute pulmonary process. 2. Cardiomegaly [facility], Workstation[facility], 11/27/2023 8:35 PM
[2023-11-27 20:41] LABS: INR 1.1 (<1.2); Partial Thromboplastin Time 24.9 sec (22.0-30.0)
[2023-11-27 20:49] LABS: ALT 42 U/L (4-49); AST 61 U/L (17-59); African American GFR (CKD) 33 (>60 ml/min/1.73 sqM); Alkaline Phosphatase 121 U/L (38-126); Anion Gap 11 mmol/L; Blood Urea Nitrogen 70 mg/dL (9-20); Calcium 8.6 mg/dL (8.4-10.2); Carbon Dioxide 19 mmol/L (22-30); Chloride 104 mmol/L (98-107); Glucose 102 mg/dL (74-99); Magnesium 1.6 mg/dL (1.6-2.3); Non-African American GFR(CKD) 29 (>60 ml/min/1.73 sqM); Sodium 134 mmol/L (137-145); Total Bilirubin 1.6 mg/dL (0.2-1.3)
[2023-11-27 20:52] LABS: Potassium 5.5 mmol/L (3.5-5.1)
[2023-11-27 20:56] LABS: NT-Pro-B-Type Natriuretic Pept 22300 pg/mL
[2023-11-27 21:15] LABS: Platelet Count 80 k/uL (150-450)
[2023-11-27] MEDS ORDERED: NALOXONE 0.4 MG/ML 1 ML VIAL IV PRN (21:47)
--- NOTE | 2023-11-27 22:11 | CT ---
EXAMINATION TYPE: CT brain gato johansen DATE OF EXAM: 11/27/2023 COMPARISON: 11/29/2018 HISTORY: pt brought in via [facility] for sob and confusion. pt arrives on 4 L NC 98%. states he gordon s not taken any meds is not eating and requiring more assistance and not acting himself CT DLP: 1390.8 mGycm, Automated exposure control for dose reduction was used. CONTRAST: None CT of the brain is performed utilizing 3 mm thick sections through the posterior fossa and 3 mm thick sections through the remaining calvarium. Study is performed within 24 hours of arrival to the hospital. No abnormal hyperdensity is present to suggest an acute intracranial hemorrhage. No mass lesion is evident. No acute infarcts are evident. There is mild periventricular white matter hypodensity, likely on the basis of chronic white matter ischemic changes. Ventricles and sulci are appropriate for the patient age. There is a cavum septum lucidum vergae, no rmal variants. Findings appear stable from 11/29/2018 comparison Paranasal sinuses and mastoid air cells within the [id number] are clear. IMPRESSIONS: 1. No acute intracranial process. Follow-up MRI can be performed as clinically indicated. 2. Mild atrophy CT cervical spine. COMPARISON: None CT of the cervical spine is performed in the axial plane at 2 mm thick sections. Reconstructed image s in the coronal, and sagittal plane are reviewed on the computer. No acute fractures are evident. Vertebral body alignment is normal. Disc space narrowing is present to the cervical spine greatest at C5-6 level. Vertebral body heights are preserved. No spinal canal stenosis is evident. Uncovertebral joint hypertrophy is present with severe bilateral foraminal stenosis C5-3-4. Right C4- 5 severe foraminal narrowing is present. Bilateral severe foraminal stenosis present C5-6. There is f acet hypertrophy present through the cervical spine. IMPRESSION: 1. Degenerative disc changes greatest at C5-6. 2. Multilevel severe foraminal stenosis due to vertebral joint hypertrophy. 3. No acute osseous abnormality cervical spine [facility], , 11/27/2023 10:08 PM
[2023-11-27 23:19] LABS: Appearance,Urine Clear (Clear); Bilirubin,Urine Negative (Negative); Blood,Urine Large (Negative); Color,Urine Yellow; Glucose,Urine (UA) 1+ (Negative); Hyaline Casts,Urine 1 /lpf (0-2); Ketones,Urine Negative (Negative); Leukocyte Esterase,Urine Negative (Negative); Mucus,Urine Rare /hpf; Nitrite,Urine Negative (Negative); PH, Urine 5.5 (5.0-8.0); Protein,Urine 2+ (Negative); RBC,Urine 68 /hpf (0-5); Specific Gravity,Urine 1.016 (1.001-1.035); Squamous Epithelial Cell,Urine <1 /hpf (0-4); Urobilinogen,Urine <2.0 mg/dL (<2.0); WBC,Urine 4 /hpf (0-5)
[2023-11-28 00:35] LABS: Anisocytosis Slight; Basophils % (A) 1 %; Eosinophils % (A) 1 %; HCT 34.2 % (39.0-53.0); HGB 11.2 gm/dL (13.0-17.5); Lymphocytes # (A) 0.9 k/uL (1.0-4.8); Lymphocytes % (A) 22 %; MCH 27.5 pg (25.0-35.0); MCHC 32.9 g/dL (31.0-37.0); MCV 83.6 fL (80.0-100.0); Mean Platelet Volume 10.3; Monocytes # (A) 0.2 k/uL (0-1.0); Monocytes % (A) 4 %; Neutrophils # (A) 2.8 k/uL (1.3-7.7); Neutrophils % (A) 70 %; RBC 4.09 m/uL (4.30-5.90); RDW 17.3 % (11.5-15.5); WBC 3.9 k/uL (3.8-10.6)
[2023-11-28 01:02] LABS: Platelet Count 71 k/uL (150-450)
--- NOTE | 2023-11-28 01:04 | P.HPIM ---
History of Present Illness H&P Date: 11/27/23 Patient is a 73-year-old male with a PMH of systolic CHF EF 30 to 35% status post AICD placement, severe COPD, CAD status post multiple stents, hypertension, hyperlipidemia, type II DM, and CKD stage II, who was brought into the emergency room by his for shortness of breath and confusion. The history is supplemented by the patient's at the bedside who notes that over the past 4 to 5 days, she has noticed that the patient has been experiencing a mild nonproductive cough which has gradually been worsening. She reports that today however when she returned home from work, she found him to be laying down in bed having soiled himself and other family members reported that he had not gotten up all day. The patient does report experiencing some shortness of breath over the past few days. Denies experiencing chest discomfort, lower extremity swelling or pain, nausea, vomiting, abdominal pain, diarrhea. Also denies fever or chills. The patient's notes that he has been compliant with all his home medications and has been following with Dr. Duong in the clinic. In the emergency room, head/cervical spine CT revealed no acute abnormalities with chest x-ray showing cardiomegaly. EKG revealed sinus rhythm with first- degree AV block at 91 bpm with intraventricular conduction delay as reviewed by me. Laboratory evaluation was remarkable for troponin 0.038, D-dimer 3.86, respiratory viral panel negative, proBNP 22,300, hemoglobin 11.8, and platelet count 80, sodium 134, potassium 5.5 (hemolyzed), BUN 70, creatinine 2.23 (up from 1.19 previously in 2019), with total bilirubin 1.6. ED documentation reviewed and case discussed with ED provider. Review of systems: Pertinent positives and negatives as discussed in HPI, a complete review of systems was performed and all other systems are negative. Physical examination: Vital signs reviewed General: non toxic, no distress, appears at stated age, normal weight Derm: no unusual rashes/lesions, warm Head: atraumatic, normocephalic, symmetric Eyes: EOMI, no lid lag, anicteric sclera, pupils equal round reactive to light ENT: Nose and ears atraumatic Neck: No cervical lymphadenopathy, trachea midline, supple Mouth: no lip lesion, mucus membranes moist Cardiovascular: S1S2 reg, no murmur, positive dorsalis pedis pulse bilateral, no edema Lungs: CTA bilateral, no rhonchi, no rales, no accessory muscle use Abdominal: soft, nontender to palpation, no guarding Ext: muscle strength 5 out of 5 in all 4 extremities grossly, no gross muscle atrophy, no contractures, Neuro: CN II-XI grossly intact, no gross focal neuro deficits Psych: Alert, oriented, appropriate affect Assessment: Shortness of breath, rule out ACS versus PE Altered mental status, possibly due to syncope as patient has previous history of V-fib arrest Kidney injury, acute versus chronic Thrombocytopenia Chronic conditions: Systolic CHF, hypertension, hyperlipidemia, type II DM Imaging: In the emergency room, head/cervical spine CT revealed no acute abnormalities with chest x-ray showing cardiomegaly. EKG revealed sinus rhythm with first- degree AV block at 91 bpm with intraventricular conduction delay as reviewed by me. Data Review: Laboratory evaluation was remarkable for troponin 0.038, D-dimer 3.86, respiratory viral panel negative, proBNP 22,300, hemoglobin 11.8, and platelet count 80, sodium 134, potassium 5.5 (hemolyzed), BUN 70, creatinine 2.23 (up from 1.19 previously in 2019), with total bilirubin 1.6. Plan: Obtain VQ scan Trend troponin Cardiac monitoring Cardiology consulted Patient's AICD will need to be interogated Continue with aspirin and statin Monitor platelet levels Monitor BMP Resume home medications once reconciled Insulin sliding scale and will blood glucose monitoring DVT prophylaxis: Heparin subcu The patient is admitted with an anticipated fewer than 2 midnight stay for evaluation of shortness of breath CODE STATUS: Full Code Discussed with: Patient Anticipated discharge place: Home Past Medical History Past Medical History: Coronary Artery Disease (CAD), Heart Failure, COPD, Diabetes Mellitus, Hyperlipidemia, Hypertension, Myocardial Infarction ([place]), Sleep Apnea/CPAP/BIPAP Additional Past Medical History / Comment(s): seen in er 09/09/18-shingles to back of head-resolved now. BRAIN ANEURSYM-DX 2018-BEING FOLLOWING BY DR. GILLESPIE IN [place] Last Myocardial Infarction Date:: 04/2009 History of Any Multi-Drug Resistant Organisms: None Reported Past Surgical History: AICD, Coronary Bypass/CABG, Heart Catheterization, Joint Replacement Additional Past Surgical History / Comment(s): right knee replaced. COLONOSCOPY Past Anesthesia/Blood Transfusion Reactions: No Reported Reaction Type of Cardiac Device: AICD Device Placement Date:: 2009 Past Psychological History: No Psychological Hx Reported Smoking Status: Former smoker Past Alcohol Use History: Occasional Past Drug Use History: None Reported - Past Family History Mother Family Medical History: No Reported History Father Family Medical History: Liver Disease Brother(s) Family Medical History: Coronary Artery Disease (CAD) Medications and Allergies Home Medications Medication Instructions Recorded Confirmed Type Finasteride [Proscar] 5 mg PO DAILY 02/01/16 11/29/18 History Gabapentin 600 mg PO BID 10/27/17 11/29/18 History Atorvastatin [Lipitor] 40 mg PO HS 10/03/18 11/29/18 History Metoprolol Tartrate [Lopressor] 50 mg PO BID 10/03/18 11/29/18 History metFORMIN HCL [Glucophage] 500 mg PO BID 10/03/18 11/29/18 History Acetaminophen Tab [Tylenol] 1,000 mg PO Q6HR PRN #0 tab 12/06/18 Rx Amiodarone [Cordarone] 200 mg PO BID tab 12/06/18 Rx Aspirin 81 mg PO DAILY chew 12/06/18 Rx Clopidogrel [Plavix] 75 mg PO DAILY tab 12/06/18 Rx Furosemide [Lasix] 40 mg PO DAILY #0 12/06/18 11/29/18 Rx Heparin Sodium,Porcine (1 ml) 5,000 unit SQ Q8HR vial 12/06/18 Rx [Heparin Sodium] INSULIN ASPART (NovoLOG) [NovoLOG 0 unit SQ ACHS vial 12/06/18 Rx (formulary)] Ipratropium-Albuterol Nebulize 3 ml INHALATION RT-Q2H PRN 12/06/18 Rx [Duoneb 0.5 mg-3 mg/3 ml Soln] ampul.neb Ipratropium-Albuterol Nebulize 3 ml INHALATION RT-QID ampul.neb 12/06/18 Rx [Duoneb 0.5 mg-3 mg/3 ml Soln] Losartan [Cozaar] 50 mg PO HS tab 12/06/18 Rx Magnesium Hydroxide [Milk of 2,400 mg PO BID PRN ml 12/06/18 Rx Magnesia Concentrate] Pantoprazole [Protonix] 40 mg PO AC-BRKFST tablet. 12/06/18 Rx Sennosides-Docusate Sodium 2 each PO HS tab 12/06/18 Rx [Senokot-S] guaiFENesin [Mucinex] 600 mg PO Q12HR PRN tablet.er 12/06/18 Rx Oseltamivir [Tamiflu] 75 mg PO Q12HR #10 cap 03/29/19 Rx Allergies Allergy/AdvReac Type Severity Reaction Status Date / Time No Known Allergies Allergy Verified 11/27/23 19:23 Physical Exam Vitals: Vital Signs Temp Pulse Resp BP Pulse Ox 11/27/23 22:46 84 16 98/70 95 11/27/23 19:12 98.4 F 77 16 115/63 94 L Intake and Output 11/27/23 11/27/23 11/28/23 14:59 22:59 06:59 Other: Weight 72.121 kg Results CBC & Chem 7: 11/28/23 00:15 11/27/23 19:51 Labs: Abnormal Lab Results - Last 24 Hours (Table) 11/27/23 11/27/23 11/27/23 Range/Units 19:51 19:51 19:51 RBC (4.30-5.90) m/uL Hgb 11.8 L (13.0-17.5) gm/dL Hct 36.6 L (39.0-53.0) % RDW 16.9 H (11.5-15.5) % Plt Count 80 L (150-450) k/uL Lymphocytes # 0.8 L (1.0-4.8) k/uL D-Dimer 3.86 H (<0.60) mg/L FEU Sodium 134 L (137-145) mmol/L Potassium 5.5 H (3.5-5.1) mmol/L Carbon Dioxide 19 L (22-30) mmol/L BUN 70 H (9-20) mg/dL Creatinine 2.23 H (0.66-1.25) mg/dL Glucose 102 H (74-99) mg/dL Total Bilirubin 1.6 H (0.2-1.3) mg/dL AST 61 H (17-59) U/L Troponin I (0.000-0.034) ng/mL Total Protein 9.0 H (6.3-8.2) g/dL Urine Protein (Negative) Urine Glucose (UA) (Negative) Urine Blood (Negative) Urine RBC (0-5) /hpf Urine Mucus (None) /hpf 11/27/23 11/27/23 11/28/23 Range/Units 19:51 22:53 00:15 RBC 4.09 L (4.30-5.90) m/uL Hgb 11.2 L (13.0-17.5) gm/dL Hct 34.2 L (39.0-53.0) % RDW 17.3 H (11.5-15.5) % Plt Count 71 L (150-450) k/uL Lymphocytes # 0.9 L (1.0-4.8) k/uL D-Dimer (<0.60) mg/L FEU Sodium (137-145) mmol/L Potassium (3.5-5.1) mmol/L Carbon Dioxide (22-30) mmol/L BUN (9-20) mg/dL Creatinine (0.66-1.25) mg/dL Glucose (74-99) mg/dL Total Bilirubin (0.2-1.3) mg/dL AST (17-59) U/L Troponin I 0.038 H* (0.000-0.034) ng/mL Total Protein (6.3-8.2) g/dL Urine Protein 2+ H (Negative) Urine Glucose (UA) 1+ H (Negative) Urine Blood Large H (Negative) Urine RBC 68 H (0-5) /hpf Urine Mucus Rare H (None) /hpf
[2023-11-28] MEDS: ATORVASTATIN 80 MG TAB PO STA (01:31)
[2023-11-28] MEDS: ASPIRIN 325 MG TAB PO STA (01:31)
[2023-11-28 01:33] LABS: African American GFR (CKD) 30 (>60 ml/min/1.73 sqM); Anion Gap 8 mmol/L; Blood Urea Nitrogen 66 mg/dL (9-20); Calcium 8.5 mg/dL (8.4-10.2); Carbon Dioxide 21 mmol/L (22-30); Chloride 103 mmol/L (98-107); Glucose 103 mg/dL (74-99); Non-African American GFR(CKD) 26 (>60 ml/min/1.73 sqM); Potassium 4.6 mmol/L (3.5-5.1); Sodium 132 mmol/L (137-145)
[2023-11-28] MEDS: ACETAMINOPHEN TAB 325 MG TAB PO STA (02:49)
[2023-11-28] MEDS ORDERED: DEXTROSE 50% SYRINGE 50 ML IVP PRN ×2 (08:44)
--- NOTE | 2023-11-28 08:52 | NM ---
EXAMINATION TYPE: NM pul vent and perfuse DATE OF EXAM: 11/28/2023 CLINICAL INDICATION: Male, 73 years old with history of elevated d-dimer, osmel, darnell; COMPARISON: NONE TECHNIQUE: Utilizing inhalation of 66 mCi Tc 99m DTPA aerosol and intravenous injection of 5.4 mCi o f Tc 99m MAA, ventilation and perfusion images are acquired post injection in multiple projections. FINDINGS: Normal radiotracer distribution is noted in the lungs. There is no evidence of mismatched defects. IMPRESSION: Very low probability for pulmonary embolism. [facility], , 11/28/2023 8:50 AM
[2023-11-28 08:58] LABS: Glucose,Whole Blood 96 mg/dL (70-110)
[2023-11-28] MEDS ORDERED: METOPROLOL TARTRATE 50 MG TAB PO SCH (09:00)
[2023-11-28] MEDS: INSULIN ASPART (NovoLOG) 100 UNIT/ML VIAL SQ SCH (09:00)
[2023-11-28] MEDS: IPRATROPIUM 0.5 MG/2.5 ML NEBU INHALATION SCH (09:05)
[2023-11-28] MEDS: SYMBICORT 80-4.5 MCG INHALER INHALATION SCH (09:05)
[2023-11-28] MEDS: PANTOPRAZOLE 40 MG TABLET PO SCH (09:11)
[2023-11-28] MEDS: METOPROLOL TARTRATE 50 MG TAB PO SCH (09:12)
[2023-11-28] MEDS: CLOPIDOGREL 75 MG TAB PO SCH (09:12)
[2023-11-28] MEDS: ASPIRIN 81 MG PO SCH (09:12)
[2023-11-28] MEDS: FINASTERIDE 5 MG TAB PO SCH (09:12)
[2023-11-28] MEDS: HEPARIN SODIUM,PORCINE 5,000 UNIT/ML 1 ML VIAL SQ SCH (09:12)
[2023-11-28] MEDS: LOSARTAN 50 MG TAB PO SCH (10:09)
--- NOTE | 2023-11-28 10:10 | P.CRDCN ---
History of Present Illness History of present illness: HISTORY OF PRESENT ILLNESS: This is a 73-year-old male with a past medical history significant for coronary artery disease with previous CABG in 2019, ischemic cardiomyopathy, ICD implant ation, chronic kidney disease, hypertension, hyperlipidemia, diabetes, and congestive heart failure. Patient follows in the office with Dr. Duong. We have been asked to see the patient in consultation for heart failure. Patient examined at the bedside in the emergency room. Patient states he has been feeling short of breath for the past few days. He also reports having diarrhea over the weekend. He states that his got concerned so she made him come to the hospital for further evaluation. He does report improvement of his diarrhea this morning. Patient denies any chest pain or pressure. He reports his shortness of breath has improved since coming to the hospital. The patient has been started on IV Lasix. Patient's vital signs are stable. It is noted that the patient was just seen in the office on 11/25/2023. He is in the process of being evaluated at a heart failure clinic at [facility]. Additionally, the patient was previously prescribed Entresto. Patient was unable to afford this. He has been taking losartan 100 mg at home. However this is not reflected on his home MAR. DIAGNOSTICS: - EKG reveals sinus mechanism with first-degree AV block. IVCD. - Chest xray negative for acute process. Cardiomegaly. - Laboratory data: WBC 3.9. Hemoglobin 11.2. Platelet count 71. Sodium 132. Potassium 4.6. BUN 66. Creatinine 2.39. proBNP 22,300. Troponin 0.038. 0.050. 0.053. - Current home cardiac medications include metoprolol tartrate 100 mg twice a day, Lasix 20 mg daily, Jardiance 10 mg daily, Plavix 75 mg daily, Lipitor 80 mg at night, losartan 100 mg daily - Most recent echocardiogram obtained in September 2023 revealed ejection fraction 17%, moderate TR, moderate MR, mild - Patient underwent four-vessel CABG in November 2018 with SORTO to LAD, VGD1, VGOM1, VGPLB - Patient underwent Lexiscan stress test in October 2021 revealing fixed inferior and inferior lateral defects. REVIEW OF SYSTEMS: At the time of my exam: CONSTITUTIONAL: Denies fever or chills. HEENT: Denies blurred vision, vision changes, or eye pain. Denies hemoptysis CARDIOVASCULAR: Denies chest pain. Denies orthopnea. Denies PND. Denies palpitations RESPIRATORY: Denies shortness of breath. GASTROINTESTINAL: Denies abdominal pain. Denies nausea or vomiting. HEMATOLOGIC: Denies bleeding disorders. GENITOURINARY: Denies any blood in urine. SKIN: Denies pruitis. Denies rash. PHYSICAL EXAM: VITAL SIGNS: Reviewed. GENERAL: Well-developed in no acute distress. HEENT: Head is normocephalic. Pupils are equal, round. Sclerae anicteric. Mucous membranes of the mouth are moist. Neck supple. No JVD or thyromegaly LUNGS: Respirations even and unlabored. Lungs essentially clear to auscultation bilaterally. HEART: Regular rate and rhythm. S1 and S2 heard. Systolic murmur noted. ABDOMEN: Soft. Nondistended. Nontender. EXTREMITIES: Normal range of motion. No clubbing or cyanosis. Peripheral pulses intact. No lower extremity edema NEUROLOGIC: Awake and alert. Oriented x 3. ASSESSMENT: Diarrhea, resolved Shortness of breath Acute on chronic heart failure with reduced EF, 17% Elevated troponins, type II [place] secondary to oxygen supply/demand mismatch, no evidence of acute coronary syndrome Coronary artery disease with previous four-vessel CABG in November 2018 with SORTO to LAD, VGD1, VGOM1, VGPLB Ischemic cardiomyopathy History of AICD implantation, [facility] Chronic kidney disease Hypertension Hyperlipidemia Diabetes PLAN: No need to repeat echocardiogram as this was performed in the office in September 2023 Resume home cardiac medications Patient previously on Entresto and unable to afford. He has been prescribed losartan 100 mg on an outpatient basis. Will decrease dosage to 50 mg daily due to soft blood pressures Decrease metoprolol to 50 mg twice a day Continue IV Lasix 40 mg every 12 hours Daily weights, accurate intake and output, and monitoring of kidney function Patient to be transferred to [facility]. with telemetry Patient currently in the process of being evaluated at advanced heart failure clinic at [facility] in [place] Further recommendations pending patient course Nurse practitioner note has been reviewed by physician. Signing provider agrees with the documented findings, assessment, and plan of care documented by TRIMMING PRESS OPERATOR as a scribe. Past Medical History Past Medical History: Coronary Artery Disease (CAD), Heart Failure, COPD, Diabetes Mellitus, Hyperlipidemia, Hypertension, Myocardial Infarction ([place]), Sleep Apnea/CPAP/BIPAP Additional Past Medical History / Comment(s): seen in er 09/09/18-shingles to back of head-resolved now. BRAIN ANEURSYM-DX 2018-BEING FOLLOWING BY DR. GILLESPIE IN [place] Last Myocardial Infarction Date:: 04/2009 History of Any Multi-Drug Resistant Organisms: None Reported Past Surgical History: AICD, Coronary Bypass/CABG, Heart Catheterization, Joint Replacement Additional Past Surgical History / Comment(s): right knee replaced. COLONOSCOPY Past Anesthesia/Blood Transfusion Reactions: No Reported Reaction Type of Cardiac Device: AICD Device Placement Date:: 2009 Past Psychological History: No Psychological Hx Reported Smoking Status: Former smoker Past Alcohol Use History: Occasional Past Drug Use History: None Reported - Past Family History Mother Family Medical History: No Reported History Father Family Medical History: Liver Disease Brother(s) Family Medical History: Coronary Artery Disease (CAD) Medications and Allergies Home Medications Medication Instructions Recorded Confirmed Type Finasteride [Proscar] 5 mg PO DAILY 02/01/16 11/28/23 History Gabapentin 600 mg PO BID 10/27/17 11/28/23 History Atorvastatin [Lipitor] 80 mg PO HS 10/03/18 11/28/23 History metFORMIN HCL [Glucophage] 500 mg PO BID 10/03/18 11/28/23 History Clopidogrel [Plavix] 75 mg PO DAILY tab 12/06/18 11/28/23 Rx Pantoprazole [Protonix] 40 mg PO AC-BRKFST tablet. 12/06/18 11/28/23 Rx Albuterol Sulfate [Albuterol 2 puff INHALATION RT-QID PRN 11/28/23 11/28/23 History Sulfate Hfa] Empagliflozin [Jardiance] 10 mg PO DAILY 11/28/23 11/28/23 History Fluticasone/Umeclidin/Vilanter 1 puff INHALATION RT-DAILY 11/28/23 11/28/23 History [Trelegy Ellipta 100-62.5-25] Furosemide [Lasix] 20 mg PO DAILY 11/28/23 11/28/23 History Metoprolol Tartrate [Lopressor] 100 mg PO BID 11/28/23 11/28/23 History Allergies Allergy/AdvReac Type Severity Reaction Status Date / Time No Known Allergies Allergy Verified 10/07/24 07:18 Physical Exam Vitals: Vital Signs Temp Pulse Resp BP Pulse Ox 11/28/23 06:00 71 18 101/87 97 11/28/23 05:00 76 18 101/87 97 11/28/23 04:00 80 20 104/89 99 11/28/23 02:09 82 18 112/67 98 11/27/23 22:46 84 16 98/70 95 11/27/23 19:12 98.4 F 77 16 115/63 94 L Intake and Output 11/27/23 11/28/23 11/28/23 22:59 06:59 14:59 Other: Weight 72.121 kg Results 11/28/23 00:15 11/28/23 00:12 Cardiac Enzymes 11/27/23 11/27/23 11/28/23 Range/Units 19:51 19:51 00:12 AST 61 H (17-59) U/L Troponin I 0.038 H* 0.050 H* (0.000-0.034) ng/mL 11/28/23 Range/Units 03:59 AST (17-59) U/L Troponin I 0.053 H* (0.000-0.034) ng/mL Coagulation 11/27/23 Range/Units 19:51 PT 12.0 (10.0-12.5) sec APTT 24.9 (22.0-30.0) sec CBC 11/27/23 11/28/23 Range/Units 19:51 00:15 WBC 4.2 3.9 (3.8-10.6) k/uL RBC 4.30 4.09 L (4.30-5.90) m/uL Hgb 11.8 L 11.2 L (13.0-17.5) gm/dL Hct 36.6 L 34.2 L (39.0-53.0) % Plt Count 80 L 71 L (150-450) k/uL Comprehensive Metabolic Panel 11/27/23 11/28/23 Range/Units 19:51 00:12 Sodium 134 L 132 L (137-145) mmol/L Potassium 5.5 H 4.6 (3.5-5.1) mmol/L Chloride 104 103 (98-107) mmol/L Carbon Dioxide 19 L 21 L (22-30) mmol/L BUN 70 H 66 H (9-20) mg/dL Creatinine 2.23 H 2.39 H (0.66-1.25) mg/dL Glucose 102 H 103 H (74-99) mg/dL Calcium 8.6 8.5 (8.4-10.2) mg/dL AST 61 H (17-59) U/L ALT 42 (4-49) U/L Alkaline Phosphatase 121 (38-126) U/L Total Protein 9.0 H (6.3-8.2) g/dL Albumin 4.0 (3.5-5.0) g/dL Current Medications Generic Name Dose Route Start Last Admin Trade Name Freq PRN Reason Stop Dose Admin Aspirin 81 mg 11/28/23 09:00 Aspirin 81 Mg PO DAILY [facility] Atorvastatin Calcium 80 mg 11/28/23 21:00 Atorvastatin 80 Mg Tab PO HS [facility] Clopidogrel Bisulfate 75 mg 11/28/23 09:00 Clopidogrel 75 Mg Tab PO DAILY [facility] Dextrose/Water 25 ml 11/28/23 08:44 Dextrose 50% Syringe 50 Ml IVP PER PROTOCOL PRN Hypoglycemia Protocol Dextrose/Water 50 ml 11/28/23 08:44 Dextrose 50% Syringe 50 Ml IVP PER PROTOCOL PRN Hypoglycemia Protocol Finasteride 5 mg 11/28/23 09:00 Finasteride 5 Mg Tab PO DAILY [facility] Furosemide 40 mg 11/28/23 09:00 Furosemide 10 Mg/Ml 4 Ml Vial IV Q12HR [facility] Heparin Sodium (Porcine) 5,000 unit 11/28/23 08:00 Heparin Sodium,Porcine 5,000 Unit/Ml 1 Ml Vial SQ Q8HR [facility] Insulin Aspart 0 unit 11/28/23 07:30 Insulin Aspart (Novolog) 100 Unit/Ml Vial SQ ACHS [facility] Protocol Metoprolol Tartrate 100 mg 11/28/23 09:00 Metoprolol Tartrate 50 Mg Tab PO BID [facility] Naloxone HCl 0.2 mg 11/27/23 21:47 Naloxone 0.4 Mg/Ml 1 Ml Vial IV Q2M PRN Opioid Reversal Non-Formulary Medication 1 puff 11/29/23 08:00 Fluticasone/Umeclidin/Vilanter [Trelegy Ellipta 100-62.5-25] INHALATION RT-DAILY [facility] Pantoprazole Sodium 40 mg 11/28/23 08:45 Pantoprazole 40 Mg Tablet PO AC-BRKFST [facility] Intake and Output 11/27/23 11/28/23 11/28/23 22:59 06:59 14:59 Other: Weight 72.121 kg 11/28/23 00:15 11/28/23 00:12
[2023-11-28] MEDS: FUROSEMIDE 10 MG/ML 4 ML VIAL IV SCH (10:54)
--- NOTE | 2023-11-28 11:41 | P.NPCON ---
History of Present Illness - Reason for Consult acute renal failure, chronic renal failure - History of Present Illness Reason for consultation: Acute kidney injury on chronic kidney disease History of present illness: Patient is a 73-year-old male seen in renal consultation for acute kidney injury on chronic kidney disease. Patient has chronic kidney disease stage IIIb with baseline creatinine 1.3-1.6. Creatinine this admission was 2.23 and is fairly stable at 2.39 today. Patient came to the hospital due to worsening shortness of breath over the last few days. VQ scan showed low probability of PE. Patient has history of type 2 diabetes. Patient also has history of coronary artery disease with history of CABG in 2019. He admits to good urine output. Denies any gross hematuria or dysuria. Patient does have systolic CHF ejection fraction of 17% and has an AICD. He is currently receiving IV Lasix. He is also on losartan 50 mg once daily. Blood pressures currently in the systolic 90s. Denies fever or chills. No vomiting or diarrhea. Vital signs are stable. General: No acute distress. HEENT: Head exam is unremarkable. LUNGS: No audible rhonchi or wheezes. HEART: Rate and Rhythm are regular. ABDOMEN: Nontender. EXTREMITITES: No edema. Past Medical History Past Medical History: Coronary Artery Disease (CAD), Heart Failure, COPD, Diabe bob Mellitus, Hyperlipidemia, Hypertension, Myocardial Infarction ([place]), Sleep Apnea/CPAP/BIPAP Additional Past Medical History / Comment(s): seen in er 09/09/18-shingles to kirsten k of head-resolved now. BRAIN ANEURSYM-DX 2018-BEING FOLLOWING BY DR. GILLESPIE IN [place] Last Myocardial Infarction Date:: 04/2009 History of Any Multi-Drug Resistant Organisms: None Reported Past Surgical History: AICD, Coronary Bypass/CABG, Heart Catheterization, Joint Replacement Additional Past Surgical History / Comment(s): right knee replaced. COLONOSCOPY Past Anesthesia/Blood Transfusion Reactions: No Reported Reaction Type of Cardiac Device: AICD Device Placement Date:: 2009 Past Psychological History: No Psychological Hx Reported Smoking Status: Former smoker Past Alcohol Use History: Occasional Past Drug Use History: None Reported - Past Family History Mother Family Medical History: No Reported History Father Family Medical History: Liver Disease Brother(s) Family Medical History: Coronary Artery Disease (CAD) Medications and Allergies Home Medications Medication Instructions Recorded Confirmed Type Finasteride [Proscar] 5 mg PO DAILY 02/01/16 11/28/23 History Gabapentin 600 mg PO BID 10/27/17 11/28/23 History Atorvastatin [Lipitor] 80 mg PO HS 10/03/18 11/28/23 History metFORMIN HCL [Glucophage] 500 mg PO BID 10/03/18 11/28/23 History Clopidogrel [Plavix] 75 mg PO DAILY tab 12/06/18 11/28/23 Rx Pantoprazole [Protonix] 40 mg PO AC-[id number] tablet. 12/06/18 11/28/23 Rx Albuterol Sulfate [Albuterol 2 puff INHALATION RT-QID PRN 11/28/23 11/28/23 History Sulfate Hfa] Empagliflozin [Jardiance] 10 mg PO DAILY 11/28/23 11/28/23 History Fluticasone/Umeclidin/Vilanter 1 puff INHALATION RT-DAILY 11/28/23 11/28/23 History [Trelegy Ellipta 100-62.5-25] Furosemide [Lasix] 20 mg PO DAILY 11/28/23 11/28/23 History Metoprolol Tartrate [Lopressor] 100 mg PO BID 11/28/23 11/28/23 History Allergies Allergy/AdvReac Type Severity Reaction Status Date / Time No Known Allergies Allergy Verified 11/28/23 07:18 Physical Exam Vitals: Vital Signs Temp Pulse Resp BP Pulse Ox 11/28/23 10:52 66 16 98/63 97 11/28/23 09:16 67 16 11/28/23 09:07 68 18 94/63 95 11/28/23 09:06 72 16 11/28/23 06:00 71 18 101/87 97 11/28/23 05:00 76 18 101/87 97 11/28/23 04:00 80 20 104/89 99 11/28/23 02:09 82 18 112/67 98 11/27/23 22:46 84 16 98/70 95 11/27/23 19:12 98.4 F 77 16 115/63 94 L Intake and Output 11/27/23 11/28/23 11/28/23 22:59 06:59 14:59 Other: Weight 72.121 kg Results - Lab Results Most recent lab results Calcium 8.5 mg/dL (8.4-10.2) 11/28/23 00:12 Magnesium 1.6 mg/dL (1.6-2.3) 11/27/23 19:51 11/28/23 00:15 11/28/23 00:12 Assessment and Plan Plan: Assessment: 1. Acute kidney injury secondary to ATN secondary to cardiorenal syndrome. Creatinine 2.39 today. 2+ protein on UA with large blood. 2. Chronic kidney disease stage IIIb with baseline creatinine 1.3-1.6. Suspect underlying diabetic kidney disease. 3. Volume overload. 4. Acute on chronic systolic CHF with ejection fraction of less than 20%. Patient has an AICD. 5. Coronary artery disease status post CABG in 2019. 6. Diabetes mellitus. Plan: Maintain IV Lasix. Add low-dose SGLT2 inhibitor. Decrease dose of losartan. Repeat UA. Check renal ultrasound. Check bladder scan to rule out urinary retention. Continue to monitor renal function and urine output. Thank you for the consultation. I will continue to follow the patient with you during his hospital stay.
[2023-11-28 12:05] LABS: Glucose,Whole Blood 240 mg/dL (70-110)
--- NOTE | 2023-11-28 13:37 | US ---
EXAMINATION TYPE: US kidneys/renal and bladder DATE OF EXAM: 11/28/2023 COMPARISON: NONE CLINICAL INDICATION: Male, 73 years old with history of devin; DEVIN TECHNIQUE: Grayscale and color Doppler imaging of the bilateral kidneys and urinary bladder: FINDINGS: EXAM MEASUREMENTS: Right Kidney: 9.9 x 5.1 x 4.4 cm Left Kidney: 10.2 x 5.0 x 4.8 cm Right Kidney: anechoic lesions, largest = 3.5 x 3.9 x 3.5cm Left Kidney: no evidence of hydronephrosis or mass Bladder: appears wnl Bilateral Jets seen: no *incidental finding: spenomegaly, spleen = 17.8cm Prostate = 4.9cm There is no evidence for hydronephrosis at this point in time. No nephrolithiasis is seen. No solid masses are identified. The urinary bladder is anechoic. Bilateral ureteral jets are seen. IMPRESSION: 1. Splenomegaly. 2. Right renal cysts. [facility], , 11/28/2023 1:35 PM
[2023-11-28 16:19] LABS: Glucose,Whole Blood 184 mg/dL (70-110)
--- NOTE | 2023-11-28 17:00 | P.PN ---
Subjective Progress Note Date: 11/28/23 Hospital course: Patient is a very pleasant 73-year-old male with a past medical history of CAD status post CABG, ischemic cardiomyopathy status post AICD placement, chronic systolic heart failure with previously known EF of 17% and was reported by bosom presser, hypertension, hyperlipidemia, CKD stage IIIb, and [id number] diabetes mellitus. He presented to the emergency department on 11/27/2023 secondary to reports of worsening shortness of breath and increased confusion. Upon arrival to our facility, patient underwent evalu ation in the emergency department. Vital signs upon arrival show blood pressure 115/63, heart rate 77, respiratory rate 16, temp 98.4 F, and SpO2 of 94% on room air. EKG completed showing sinus mechanism with a first-degree AV block. Chest x-ray completed showing cardiomegaly, but negative for acute cardiopulmonary process. Labs completed and reviewed. CBC showing bicytopenia with hemoglobin of 11.2 and platelet count of 80. Coagulation profile showing normal findings with exception of elevated D-dimer of 3.86. B showing hyponatremia with sodium of 134, hyperkalemia with potassium of 5.5, hypocarbia with bicarb of 19, and acute kidney injury on CKD stage IIIb with BUN of 70, creatinine of 2.23, GFR of 29. Blood glucose 102. Magnesium was low at 1.6. Liver profile showing hyperbilirubinemia with total bili of 1.6 and elevated AST of 61. Troponin was elevated at 0.038. proBNP was 22,300. Urinalysis was positive for protein, glucose, and blood with 68 RBCs but negative for i nfection. Influenza A, influenza B, RSV, and COVID PCR were negative. Patient admitted under our services with consultation to cardiology and nephrology. Troponins trended resulting at 0.038, 0.050, and 0.053. VQ scan completed showing very low probability for pulmonary emboli. Physical exam: Vital signs reviewed and stable. General: Nontoxic, no distress and appears stated age. Derm: Skin warm and dry, normal coloration for ethnicity. Head: Atraumatic, normocephalic and symmetric. Eyes: EOM's intact, no lid lag, and anicteric sclera Mouth: no lip lesions, mucus membranes moist Cardiovascular: regular rate and rhythm with normal S1S2, systolic murmur, positive posterior tibial pulses bilaterally, and cap refill < 2 seconds. Lungs: Respirations even, regular, and unlabored on room air. Lungs CTA bilaterally, no rhonchi, no rales, no wheezing, and no accessory muscle usage. Abdominal: soft, nontender to palpation, no guarding, no appreciable organomegaly Ext: ROM intact. No gross muscle atrophy, no edema, no contractures Neuro: Speech clear, face symmetrical and CN II-XII grossly intact with no noted focal neuro deficits Psych: Alert and oriented to person, place, time, and situation. Appropriate and pleasant affect. Assessment and Plan of Care: Acute on chronic systolic heart failure exacerbation Ischemic cardiomyopathy status post AICD placement Elevated troponins, likely secondary to acute kidney injury on CKD stage IIIb Elevated D-dimer, PE ruled out via VQ scan History of CAD status post CABG Hypertension Hyperlipidemia -Cardiology consulted, appreciate recommendations -Telemetry monitoring -Troponins trended resulting at 0.038, 0.050, and 0.053. -VQ scan completed showing very low probability for pulmonary emboli. -ProBNP 22,300 -Daily weights -Close monitoring of I's and O's -Cardiac diet -Lasix 40 mg IVP every 12 hours -Continue aspirin 81 mg daily, atorvastatin 80 mg nightly, Plavix 75 mg daily, and metoprolol decreased to 50 mg twice daily -Continued close monitoring of electrolytes while diuresing. Acute kidney injury on stage IIIb CKD Hyperkalemia Bicytopenia -Consult placed to nephrology, appreciate recommendations. -Continue Lasix 40 mg IVP for treatment of acute on chronic systolic heart failure exacerbation pending further recommendations from front end driver. -Patient to remain on continuous telemetry monitoring. -Close monitoring of renal function and electrolytes with repeat a.m. labs. BPH -Continue Proscar 5 mg daily. Data and imaging reviewed: -Troponins trended resulting at 0.038, 0.050, and 0.053. -VQ scan completed showing very low probability for pulmonary emboli. -Vital signs reviewed and blood pressure slightly soft this morning at 94/63, heart rate 68, respiratory rate 18, and SpO2 of 95% on room air. -Morning labs reviewed. CBC showing continued bicytopenia with hemoglobin of 11.2 and platelet count of 71. BMP showing hyponatremia with sodium of 132 but resolution of hyperkalemia with potassium of 4.6. Renal function slightly worsening with BUN of 66, creatinine 2.39, GFR of 26. Blood glucose 103. CODE STATUS: Full code DVT prophylaxis: Heparin Anticipated discharge date: Pending clinical course Anticipated discharge place: Home Patient was seen independently by Nurse Pracitioner. This document was prepared using i[employer] dictation software. Please allow for errors in hospital manager, while rare they do occur. I reviewed the documentation as provided by the AARON above, who is the original author of this note. I agree with the documented assessment and plan, with the following changes: none Objective - Vital Signs Vital signs: Vital Signs Temp 98.4 F 11/27/23 19:12 Pulse 71 11/28/23 06:00 Resp 18 11/28/23 06:00 BP 101/87 11/28/23 06:00 Pulse Ox 97 11/28/23 06:00 FiO2 Intake & Output 11/27/23 11/28/23 11/28/23 18:59 06:59 18:59 Weight 72.121 kg - Labs CBC & Chem 7: 11/28/23 00:15 11/28/23 00:12 Labs: Abnormal Lab Results - Last 24 Hours (Table) 11/27/23 11/27/23 11/27/23 Range/Units 19:51 19:51 19:51 RBC (4.30-5.90) m/uL Hgb 11.8 L (13.0-17.5) gm/dL Hct 36.6 L (39.0-53.0) % RDW 16.9 H (11.5-15.5) % Plt Count 80 L (150-450) k/uL Lymphocytes # 0.8 L (1.0-4.8) k/uL D-Dimer 3.86 H (<0.60) mg/L FEU Sodium 134 L (137-145) mmol/L Potassium 5.5 H (3.5-5.1) mmol/L Carbon Dioxide 19 L (22-30) mmol/L BUN 70 H (9-20) mg/dL Creatinine 2.23 H (0.66-1.25) mg/dL Glucose 102 H (74-99) mg/dL Total Bilirubin 1.6 H (0.2-1.3) mg/dL AST 61 H (17-59) U/L Troponin I (0.000-0.034) ng/mL Total Protein 9.0 H (6.3-8.2) g/dL Urine Protein (Negative) Urine Glucose (UA) (Negative) Urine Blood (Negative) Urine RBC (0-5) /hpf Urine Mucus (None) /hpf 11/27/23 11/27/23 11/28/23 Range/Units 19:51 22:53 00:12 RBC (4.30-5.90) m/uL Hgb (13.0-17.5) gm/dL Hct (39.0-53.0) % RDW (11.5-15.5) % Plt Count (150-450) k/uL Lymphocytes # (1.0-4.8) k/uL D-Dimer (<0.60) mg/L FEU Sodium (137-145) mmol/L Potassium (3.5-5.1) mmol/L Carbon Dioxide (22-30) mmol/L BUN (9-20) mg/dL Creatinine (0.66-1.25) mg/dL Glucose (74-99) mg/dL Total Bilirubin (0.2-1.3) mg/dL AST (17-59) U/L Troponin I 0.038 H* 0.050 H* (0.000-0.034) ng/mL Total Protein (6.3-8.2) g/dL Urine Protein 2+ H (Negative) Urine Glucose (UA) 1+ H (Negative) Urine Blood Large H (Negative) Urine RBC 68 H (0-5) /hpf Urine Mucus Rare H (None) /hpf 11/28/23 11/28/23 11/28/23 Range/Units 00:12 00:15 03:59 RBC 4.09 L (4.30-5.90) m/uL Hgb 11.2 L (13.0-17.5) gm/dL Hct 34.2 L (39.0-53.0) % RDW 17.3 H (11.5-15.5) % Plt Count 71 L (150-450) k/uL Lymphocytes # 0.9 L (1.0-4.8) k/uL D-Dimer (<0.60) mg/L FEU Sodium 132 L (137-145) mmol/L Potassium (3.5-5.1) mmol/L Carbon Dioxide 21 L (22-30) mmol/L BUN 66 H (9-20) mg/dL Creatinine 2.39 H (0.66-1.25) mg/dL Glucose 103 H (74-99) mg/dL Total Bilirubin (0.2-1.3) mg/dL AST (17-59) U/L Troponin I 0.053 H* (0.000-0.034) ng/mL Total Protein (6.3-8.2) g/dL Urine Protein (Negative) Urine Glucose (UA) (Negative) Urine Blood (Negative) Urine RBC (0-5) /hpf Urine Mucus (None) /hpf
[2023-11-28] MEDS: ATORVASTATIN 80 MG TAB PO SCH (20:27)
[2023-11-28 20:31] LABS: Glucose,Whole Blood 104 mg/dL (70-110)
[2023-11-28 21:24] LABS: Appearance,Urine Clear (Clear); Bilirubin,Urine Negative (Negative); Blood,Urine Large (Negative); Color,Urine Colorless; Glucose,Urine (UA) 2+ (Negative); Ketones,Urine Negative (Negative); Leukocyte Esterase,Urine Negative (Negative); Mucus,Urine Rare /hpf; Nitrite,Urine Negative (Negative); Protein,Urine Negative (Negative); RBC,Urine 10 /hpf (0-5); Specific Gravity,Urine 1.009 (1.001-1.035); Urobilinogen,Urine <2.0 mg/dL (<2.0); WBC,Urine 1 /hpf (0-5)
[2023-11-29] MEDS: SACUBITRIL/VALSARTAN 24 MG-26 MG TABLET PO SCH (00:01)
[2023-11-29] MEDS: ACETAMINOPHEN TAB 325 MG TAB PO PRN (02:58)
[2023-11-29 06:03] LABS: Glucose,Whole Blood 102 mg/dL (70-110)
[2023-11-29 06:33] LABS: Anisocytosis Slight; HCT 33.3 % (39.0-53.0); HGB 10.8 gm/dL (13.0-17.5); MCH 27.1 pg (25.0-35.0); MCHC 32.4 g/dL (31.0-37.0); MCV 83.8 fL (80.0-100.0); Mean Platelet Volume 10.9; RBC 3.97 m/uL (4.30-5.90); RDW 16.7 % (11.5-15.5); WBC 2.3 k/uL (3.8-10.6)
[2023-11-29 06:43] LABS: Platelet Count 72 k/uL (150-450)
[2023-11-29 06:45] LABS: African American GFR (CKD) 31 (>60 ml/min/1.73 sqM); Anion Gap 7 mmol/L; Blood Urea Nitrogen 67 mg/dL (9-20); Calcium 8.5 mg/dL (8.4-10.2); Carbon Dioxide 21 mmol/L (22-30); Chloride 105 mmol/L (98-107); Glucose 103 mg/dL (74-99); Magnesium 1.8 mg/dL (1.6-2.3); Non-African American GFR(CKD) 27 (>60 ml/min/1.73 sqM); Potassium 4.1 mmol/L (3.5-5.1); Sodium 133 mmol/L (137-145)
[2023-11-29 06:53] LABS: NT-Pro-B-Type Natriuretic Pept 16300 pg/mL
--- NOTE | 2023-11-29 08:49 | P.PN ---
Subjective Patient is seen in follow-up for acute kidney injury on chronic kidney disease. Renal function stable. Admits to good urine output. Denies chest pain or shortness of breath. Vital signs are stable. General: No acute distress. HEENT: Head exam is unremarkable. On room air. LUNGS: No audible rhonchi or wheezes. HEART: Rate and Rhythm are regular. ABDOMEN: Nontender. EXTREMITITES: No edema. Objective - Vital Signs Vital signs: Vital Signs Temp 97.1 F L 11/29/23 03:07 Pulse 87 11/29/23 03:07 Resp 18 11/29/23 03:07 BP 117/71 11/29/23 03:07 Pulse Ox 94 L 11/29/23 03:07 FiO2 Intake & Output 11/28/23 11/29/23 11/29/23 18:59 06:59 18:59 Intake Total 118 240 Output Total 600 Balance 118 -360 Weight 72.121 kg 68.5 kg Intake: Oral 118 240 Output: Urine 600 Other: Voiding Method Toilet Urinal # Voids 1 - Labs CBC & Chem 7: 11/29/23 06:15 11/29/23 06:15 Labs: Abnormal Lab Results - Last 24 Hours (Table) 11/28/23 11/28/23 11/28/23 Range/Units 12:04 14:59 16:17 WBC (3.8-10.6) k/uL RBC (4.30-5.90) m/uL Hgb (13.0-17.5) gm/dL Hct (39.0-53.0) % RDW (11.5-15.5) % Plt Count (150-450) k/uL Sodium (137-145) mmol/L Carbon Dioxide (22-30) mmol/L BUN (9-20) mg/dL Creatinine (0.66-1.25) mg/dL Glucose (74-99) mg/dL POC Glucose (mg/dL) 240 H 184 H (70-110) mg/dL Hemoglobin A1c (<=6.0) % Urine Glucose (UA) 2+ H (Negative) Urine Blood Large H (Negative) Urine RBC 10 H (0-5) /hpf Urine Mucus Rare H (None) /hpf 11/29/23 11/29/23 11/29/23 Range/Units 06:15 06:15 06:15 WBC 2.3 L (3.8-10.6) k/uL RBC 3.97 L (4.30-5.90) m/uL Hgb 10.8 L (13.0-17.5) gm/dL Hct 33.3 L (39.0-53.0) % RDW 16.7 H (11.5-15.5) % Plt Count 72 L (150-450) k/uL Sodium 133 L (137-145) mmol/L Carbon Dioxide 21 L (22-30) mmol/L BUN 67 H (9-20) mg/dL Creatinine 2.34 H (0.66-1.25) mg/dL Glucose 103 H (74-99) mg/dL POC Glucose (mg/dL) (70-110) mg/dL Hemoglobin A1c 6.1 H (<=6.0) % Urine Glucose (UA) (Negative) Urine Blood (Negative) Urine RBC (0-5) /hpf Urine Mucus (None) /hpf Assessment and Plan Plan: Assessment: 1. Acute kidney injury secondary to ATN secondary to cardiorenal syndrome. Creatinine stable at 2.34. 2+ protein on UA with large blood. Repeat UA with no proteinuria. No hydronephrosis noted on kidney ultrasound. 2. Chronic kidney disease stage IIIb with baseline creatinine 1.3-1.6. Suspect underlying diabetic kidney disease. 3. Volume overload. Improving with diuresis. 4. Acute on chronic systolic CHF with ejection fraction of less than 20%. Patient has an AICD. 5. Coronary artery disease status post CABG in 2019. 6. Diabetes mellitus. 7. Metabolic acidosis secondary to acute kidney injury. Better. Plan: Change Lasix to oral. Maintain SGLT2 inhibitor. Continue to monitor renal function and urine output. Follow-up outpatient 1 week postdischarge. Low-salt diet and fluid restriction of less than 50 ounces per day stressed with patient.
[2023-11-29] MEDS: DAPAGLIFLOZIN PROPANEDIOL 5 MG TABLET PO SCH (08:53)
[2023-11-29] MEDS: FUROSEMIDE 40 MG TAB PO SCH (08:56)
[2023-11-29] MEDS ORDERED: LOSARTAN 25 MG TAB PO SCH (09:00)
--- NOTE | 2023-11-29 11:10 | P.PN ---
Subjective Progress Note Date: 11/29/23 Hospital course: Patient is a very pleasant 73-year-old male with a past medical history of CAD status post CABG, ischemic cardiomyopathy status post AICD placement, chronic systolic heart failure with previously known EF of 17% and was reported by junior sales representative, hypertension, hyperlipidemia, CKD stage IIIb, and [id number] diabetes mellitus. He presented to the emergency department on 11/27/2023 secondary to reports of worsening shortness of breath and increased confusion. Upon arrival to our facility, patient underwent evalu ation in the emergency department. Vital signs upon arrival show blood pressure 115/63, heart rate 77, respiratory rate 16, temp 98.4 F, and SpO2 of 94% on room air. EKG completed showing sinus mechanism with a first-degree AV block. Chest x-ray completed showing cardiomegaly, but negative for acute cardiopulmonary process. Labs completed and reviewed. CBC showing bicytopenia with hemoglobin of 11.2 and platelet count of 80. Coagulation profile showing normal findings with exception of elevated D-dimer of 3.86. B showing hyponatremia with sodium of 134, hyperkalemia with potassium of 5.5, hypocarbia with bicarb of 19, and acute kidney injury on CKD stage IIIb with BUN of 70, creatinine of 2.23, GFR of 29. Blood glucose 102. Magnesium was low at 1.6. Liver profile showing hyperbilirubinemia with total bili of 1.6 and elevated AST of 61. Troponin was elevated at 0.038. proBNP was 22,300. Urinalysis was positive for protein, glucose, and blood with 68 RBCs but negative for i nfection. Influenza A, influenza B, RSV, and COVID PCR were negative. Patient admitted under our services with consultation to cardiology and nephrology. Troponins trended resulting at 0.038, 0.050, and 0.053. VQ scan completed showing very low probability for pulmonary emboli. Physical exam: Pt seen and fully evaluated at bedside. He reports breathing is better and is preparing to get into shower this morning. Vital signs reviewed and stable. General: Nontoxic, no distress and appears stated age. Derm: Skin warm and dry, normal coloration for ethnicity. Head: Atraumatic, normocephalic and symmetric. Eyes: EOM's intact, no lid lag, and anicteric sclera Mouth: no lip lesions, mucus membranes moist Cardiovascular: regular rate and rhythm with normal S1S2, systolic murmur, positive posterior tibial pulses bilaterally, and cap refill < 2 seconds. Lungs: Respirations even, regular, and unlabored on room air. Lungs CTA bilaterally, no rhonchi, no rales, no wheezing, and no accessory muscle usage. Abdominal: soft, nontender to palpation, no guarding, no appreciable organomegaly Ext: ROM intact. No gross muscle atrophy, no edema, no contractures Neuro: Speech clear, face symmetrical and CN II-XII grossly intact with no noted focal neuro deficits Psych: Alert and oriented to person, place, time, and situation. Appropriate and pleasant affect. Assessment and Plan of Care: Acute on chronic systolic heart failure exacerbation Ischemic cardiomyopathy status post AICD placement Elevated troponins, likely secondary to acute kidney injury on CKD stage IIIb Elevated D-dimer, PE ruled out via VQ scan History of CAD status post CABG Hypertension Hyperlipidemia -Cardiology consulted, Discussed with cardiology BOAT OFFICER, Entresto discontinued as patient cannot afford on outpatient basis and patient started on losartan 50 mg daily in replacement. -Telemetry monitoring -Troponins trended resulting at 0.038, 0.050, and 0.053. -VQ scan completed showing very low probability for pulmonary emboli. -ProBNP 22,300 -Daily weights -Close monitoring of I's and O's -Cardiac diet -Lasix 40 mg twice daily -Continue aspirin 81 mg daily, atorvastatin 80 mg nightly, losartan 50 mg daily, Plavix 75 mg daily, and metoprolol decreased to 50 mg twice daily. -Continued close monitoring of electrolytes while diuresing. Acute kidney injury on stage IIIb CKD Hyperkalemia, secondary to hemolysis Pancytopenia -Nephrology following, discussed plan of care with Dr. Velazco. Patient to be transition to oral Lasix this morning. -Reviewed renal ultrasound, reporting splenomegaly and right renal cyst otherwise no evidence for hydronephrosis or other acute abnormalities at this time. -Continue Lasix 40 mg twice daily. -Patient to remain on continuous telemetry monitoring. -Close monitoring of renal function and electrolytes with repeat a.m. labs. BPH -Continue Proscar 5 mg daily. Data and imaging reviewed: -Reviewed renal ultrasound, showing splenomegaly and right renal cyst otherwise no evidence for hydronephrosis or other acute abnormalities at this time. -Vital signs reviewed and blood pressure slightly soft this morning at 93/56, heart rate 76, respiratory rate 20, temp 97.8 F, and SpO2 of 95% on room air. -Morning labs reviewed. CBC showing pancytopenia with WBC count of 2.3, hemoglobin 10.8, and platelet count of 72. BMP showing hyponatremia with sodium of 133 hypocarbia with bicarb of 21,, and stable but elevated renal function with BUN of 67, creatinine 2.34, GFR of 27. Blood glucose 103. Hemoglobin A1c 6.1%. proBNP 16,300. CODE STATUS: Full code DVT prophylaxis: Heparin Anticipated discharge date: Pending clinical course Anticipated discharge place: Home Patient was seen independently by Nurse Pracitioner. This document was prepared using [employer] dictation software. Please allow for errors in drawing hand, while rare they do occur. I reviewed the documentation as provided by the AARON above, who is the original author of this note. I agree with the documented assessment and plan, with the following changes: none Objective - Vital Signs Vital signs: Vital Signs Temp 97.1 F L 11/29/23 03:07 Pulse 87 11/29/23 03:07 Resp 18 11/29/23 03:07 BP 117/71 11/29/23 03:07 Pulse Ox 94 L 11/29/23 03:07 FiO2 Intake & Output 11/28/23 11/29/23 11/29/23 18:59 06:59 18:59 Intake Total 118 240 Output Total 600 Balance 118 -360 Weight 72.121 kg 68.5 kg Intake: Oral 118 240 Output: Urine 600 Other: Voiding Method Toilet Urinal # Voids 1 - Labs CBC & Chem 7: 11/29/23 06:15 11/29/23 06:15 Labs: Abnormal Lab Results - Last 24 Hours (Table) 11/28/23 11/28/23 11/28/23 Range/Units 12:04 14:59 16:17 WBC (3.8-10.6) k/uL RBC (4.30-5.90) m/uL Hgb (13.0-17.5) gm/dL Hct (39.0-53.0) % RDW (11.5-15.5) % Plt Count (150-450) k/uL Sodium (137-145) mmol/L Carbon Dioxide (22-30) mmol/L BUN (9-20) mg/dL Creatinine (0.66-1.25) mg/dL Glucose (74-99) mg/dL POC Glucose (mg/dL) 240 H 184 H (70-110) mg/dL Urine Glucose (UA) 2+ H (Negative) Urine Blood Large H (Negative) Urine RBC 10 H (0-5) /hpf Urine Mucus Rare H (None) /hpf 11/29/23 11/29/23 Range/Units 06:15 06:15 WBC 2.3 L (3.8-10.6) k/uL RBC 3.97 L (4.30-5.90) m/uL Hgb 10.8 L (13.0-17.5) gm/dL Hct 33.3 L (39.0-53.0) % RDW 16.7 H (11.5-15.5) % Plt Count 72 L (150-450) k/uL Sodium 133 L (137-145) mmol/L Carbon Dioxide 21 L (22-30) mmol/L BUN 67 H (9-20) mg/dL Creatinine 2.34 H (0.66-1.25) mg/dL Glucose 103 H (74-99) mg/dL POC Glucose (mg/dL) (70-110) mg/dL Urine Glucose (UA) (Negative) Urine Blood (Negative) Urine RBC (0-5) /hpf Urine Mucus (None) /hpf
[2023-11-29 12:03] LABS: Glucose,Whole Blood 102 mg/dL (70-110)
[2023-11-29 13:46] VITALS: BMI 26.7
[2023-11-29 16:44] LABS: Glucose,Whole Blood 112 mg/dL (70-110)
--- NOTE | 2023-11-29 17:09 | P.PN ---
Subjective Progress Note Date: 11/29/23 HISTORY OF PRESENT ILLNESS: This is a 73-year-old male with a past medical history significant for coronary artery disease with previous CABG in 2019, ischemic cardiomyopathy, ICD implantation, chronic kidney disease, hypertension, hyperlipidemia, diabetes, and congestive heart failure. Patient follows in the office with Dr. Duong. We have been asked to see the patient in consultation for heart failure. Patient examined at the bedside in the emergency room. Patient states he has been feeling short of breath for the past few days. He also reports having diarrhea over the weekend. He states that his got concerned so she made him come to the hospital for further evaluation. He does report improvement of his diarrhea this morning. Patient denies any chest pain or pressure. He reports his shortness of breath has improved since coming to the hospital. The patient has been started on IV Lasix. Patient's vital signs are stable. It is noted that the patient was just seen in the office on 11/25/2023. He is in the process of being evaluated at a heart failure clinic at [facility]. Additionally, the patient was previously prescribed Entresto. Patient was unable to afford this. He has been taking losartan 100 mg at home. However this is not reflected on his home MAR. DIAGNOSTICS: - EKG reveals sinus mechanism with first-degree AV block. IVCD. - Chest xray negative for acute process. Cardiomegaly. - Laboratory data: WBC 3.9. Hemoglobin 11.2. Platelet count 71. Sodium 132. Potassium 4.6. BUN 66. Creatinine 2.39. proBNP 22,300. Troponin 0.038. 0.050. 0.053. - Current home cardiac medications include metoprolol tartrate 100 mg twice a day, Lasix 20 mg daily, Jardiance 10 mg daily, Plavix 75 mg daily, Lipitor 80 mg at night, losartan 100 mg daily - Most recent echocardiogram obtained in September 2023 revealed ejection fraction 17%, moderate TR, moderate MR, mild - Patient underwent four-vessel CABG in November 2018 with SORTO to LAD, VGD1, VGOM1, VGPLB - Patient underwent Lexiscan stress test in October 2021 revealing fixed inferior and inferior lateral defects. November 29, 2023 BUN 67, creatinine 2.6, NT-proBNP 13179, down trended from 22,000, yesterday, hemoglobin 10.8., Platelets 72., RDW 16.7. PHYSICAL EXAM: VITAL SIGNS: Reviewed. GENERAL: Well-developed in no acute distress. HEENT: Head is normocephalic. Pupils are equal, round. Sclerae anicteric. Mucous membranes of the mouth are moist. Neck supple. No JVD or thyromegaly LUNGS: Respirations even and unlabored. Lungs essentially clear to auscultation bilaterally. HEART: Regular rate and rhythm. S1 and S2 heard. Systolic murmur noted. ABDOMEN: Soft. Nondistended. Nontender. EXTREMITIES: Normal range of motion. No clubbing or cyanosis. Peripheral pulses intact. No lower extremity edema NEUROLOGIC: Awake and alert. Oriented x 3. ASSESSMENT: Diarrhea, resolved Shortness of breath Acute on chronic heart failure with reduced EF, 17% Elevated troponins, type II [place] secondary to oxygen supply/demand mismatch, no evidence of acute coronary syndrome Coronary artery disease with previous four-vessel CABG in November 2018 with SORTO to LAD, VGD1, VGOM1, VGPLB Ischemic cardiomyopathy History of AICD implantation, [place] Chronic kidney disease Hypertension Hyperlipidemia Diabetes Anemia PLAN: Patient previously on Entresto and unable to afford. He has been prescribed losartan 100 mg on an outpatient basis. Will decrease dosage to 50 mg daily due to soft blood pressures Decrease metoprolol to 50 mg twice a day Transition to p.o. Lasix 40 mg by nephrology team today. I agree with this. Cannot do Aldactone due to low GFR. Patient is referred to advanced heart failure center where he has his appointment on 12/07/2023. He would benefit from HF MS device to monitor his fluid status and uptitrate his GDMT. Would recommend workup for his anemia and if ferritin is low and iron saturation is low, consider replacing iron. Monitoring for next 24 hours, anticipate discharge tomorrow if kidney function stays stable and trends in the right direction. Daily weights, accurate intake and output, and monitoring of kidney function Patient to be transferred to [facility]. with telemetry Patient currently in the process of being evaluated at advanced heart failure clinic at [facility] in [place] Further recommendations pending patient course Objective - Vital Signs Vital signs: Vital Signs Temp 97.7 F 11/29/23 16:24 Pulse 66 11/29/23 16:24 Resp 20 11/29/23 16:24 BP 90/51 11/29/23 16:24 Pulse Ox 94 L 11/29/23 16:24 FiO2 Intake & Output 11/28/23 11/29/23 11/29/23 18:59 06:59 18:59 Intake Total 118 240 358 Output Total 600 Balance 118 -360 358 Weight 72.121 kg 68.5 kg 68.5 kg Intake: Oral 118 240 358 Output: Urine 600 Other: Voiding Method Toilet Urinal # Voids 1 2 - Labs CBC & Chem 7: 11/29/23 06:15 11/29/23 06:15 Labs: Abnormal Lab Results - Last 24 Hours (Table) 11/28/23 11/29/23 11/29/23 Range/Units 14:59 06:15 06:15 WBC (3.8-10.6) k/uL RBC (4.30-5.90) m/uL Hgb (13.0-17.5) gm/dL Hct (39.0-53.0) % RDW (11.5-15.5) % Plt Count (150-450) k/uL Sodium 133 L (137-145) mmol/L Carbon Dioxide 21 L (22-30) mmol/L BUN 67 H (9-20) mg/dL Creatinine 2.34 H (0.66-1.25) mg/dL Glucose 103 H (74-99) mg/dL POC Glucose (mg/dL) (70-110) mg/dL Hemoglobin A1c 6.1 H (<=6.0) % Urine Glucose (UA) 2+ H (Negative) Urine Blood Large H (Negative) Urine RBC 10 H (0-5) /hpf Urine Mucus Rare H (None) /hpf 11/29/23 11/29/23 Range/Units 06:15 16:43 WBC 2.3 L (3.8-10.6) k/uL RBC 3.97 L (4.30-5.90) m/uL Hgb 10.8 L (13.0-17.5) gm/dL Hct 33.3 L (39.0-53.0) % RDW 16.7 H (11.5-15.5) % Plt Count 72 L (150-450) k/uL Sodium (137-145) mmol/L Carbon Dioxide (22-30) mmol/L BUN (9-20) mg/dL Creatinine (0.66-1.25) mg/dL Glucose (74-99) mg/dL POC Glucose (mg/dL) 112 H (70-110) mg/dL Hemoglobin A1c (<=6.0) % Urine Glucose (UA) (Negative) Urine Blood (Negative) Urine RBC (0-5) /hpf Urine Mucus (None) /hpf
[2023-11-29 20:23] LABS: Glucose,Whole Blood 136 mg/dL (70-110)
[2023-11-30 00:34] VITALS: RESP 18
[2023-11-30 00:35] VITALS: TEMP 97.4
[2023-11-30 02:58] LABS: % Iron Saturation 6.23 (15.00-50.00)
[2023-11-30 06:06] LABS: Glucose,Whole Blood 112 mg/dL (70-110)
[2023-11-30 07:46] VITALS: BP 123/68
[2023-11-30 07:46] LABS: African American GFR (CKD) 29 (>60 ml/min/1.73 sqM); Anion Gap 7 mmol/L; Blood Urea Nitrogen 62 mg/dL (9-20); Calcium 8.6 mg/dL (8.4-10.2); Carbon Dioxide 26 mmol/L (22-30); Chloride 104 mmol/L (98-107); Glucose 104 mg/dL (74-99); Non-African American GFR(CKD) 25 (>60 ml/min/1.73 sqM); Potassium 4.4 mmol/L (3.5-5.1); Sodium 137 mmol/L (137-145)
[2023-11-30] MEDS: LOSARTAN 50 MG TAB PO SCH (08:32)
[2023-11-30 08:41] VITALS: PULSE 94
--- NOTE | 2023-11-30 10:09 | P.PN ---
Subjective Patient is seen in follow-up for acute kidney injury on chronic kidney disease. Renal function stable. Admits to good urine output. Denies chest pain or shortness of breath. Vital signs are stable. General: No acute distress. HEENT: Head exam is unremarkable. On room air. LUNGS: No audible rhonchi or wheezes. HEART: Rate and Rhythm are regular. ABDOMEN: Nontender. EXTREMITITES: No edema. Objective - Vital Signs Vital signs: Vital Signs Temp 97.4 F L 11/30/23 07:44 Pulse 94 11/30/23 08:37 Resp 18 11/30/23 08:14 BP 123/68 11/30/23 07:44 Pulse Ox 94 L 11/30/23 07:44 FiO2 Intake & Output 11/29/23 11/30/23 11/30/23 18:59 06:59 18:59 Intake Total 358 540 240 Output Total 400 100 Balance 358 140 140 Weight 68.5 kg 68.6 kg Intake: Oral 358 540 240 Output: Urine 400 100 Other: Voiding Method Toilet Toilet Urinal Urinal # Voids 2 1 - Labs CBC & Chem 7: 11/29/23 06:15 11/30/23 06:30 Labs: Abnormal Lab Results - Last 24 Hours (Table) 11/29/23 11/29/23 11/29/23 Range/Units 06:15 16:43 20:22 BUN (9-20) mg/dL Creatinine (0.66-1.25) mg/dL Glucose (74-99) mg/dL POC Glucose (mg/dL) 112 H 136 H (70-110) mg/dL Iron 20 L (65-175) UG/DL % Saturation 6.23 L (15.00-50.00) 11/30/23 11/30/23 Range/Units 06:05 06:30 BUN 62 H (9-20) mg/dL Creatinine 2.49 H (0.66-1.25) mg/dL Glucose 104 H (74-99) mg/dL POC Glucose (mg/dL) 112 H (70-110) mg/dL Iron (65-175) UG/DL % Saturation (15.00-50.00) Assessment and Plan Plan: Assessment: 1. Acute kidney injury secondary to ATN secondary to cardiorenal syndrome. Creatinine stable at 2.49 today. 2+ protein on UA with large blood. Repeat UA with no proteinuria. No hydronephrosis noted on kidney ultrasound. 2. Chronic kidney disease stage IIIb with baseline creatinine 1.3-1.6. Suspect underlying diabetic kidney disease. 3. Volume overload. Improved with diuresis. 4. Acute on chronic systolic CHF with ejection fraction of less than 20%. Patient has an AICD. 5. Coronary artery disease status post CABG in 2019. 6. Diabetes mellitus. 7. Metabolic acidosis secondary to acute kidney injury. Better. Plan: Maintain oral Lasix. Maintain SGLT2 inhibitor. Continue to monitor renal function and urine output. Follow-up outpatient 1 week postdischarge. Low-salt diet and fluid restriction of less than 50 ounces per day stressed with patient.
--- NOTE | 2023-11-30 10:52 | P.DS ---
Providers Date of admission: 11/27/23 21:49 Expected date of discharge: 11/30/23 Attending physician: Sheela Chavez MD Consults: 11/27/23 21:47 Consult Physician Urgent Consulting Provider: [facility] Consult Reason/Comments: acute resp insuff, hx heart failure Do you want consulting provider notified?: Yes 11/28/23 08:40 Consult Physician Routine Consulting Provider: Chaitanya Velazco Consult Reason/Comments: DEVIN on CKD stage 3b Do you want consulting provider notified?: Yes Primary care physician: [facility] Course: Discharge Diagnosis: Acute on chronic systolic heart failure exacerbation. Patient to continue atorvastatin 80 mg nightly, losartan 50 mg daily, furosemide 40 mg twice daily, metoprolol 100 mg twice daily, aspirin 81 mg daily, and Plavix 75 mg daily. Ischemic cardiomyopathy status post AICD placement. Patient to continue atorvastatin 80 mg nightly, losartan 50 mg daily, furosemide 40 mg twice daily, metoprolol 100 mg twice daily, aspirin 81 mg daily, and Plavix 75 mg daily. Elevated troponins, likely secondary to acute kidney injury on CKD stage IIIb. Patient evaluated by cardiology and nephrology, medication changes were made and he has been cleared from their perspective for discharge. Elevated D-dimer, PE ruled out via VQ scan showing low probability. History of CAD status post CABG. Patient to continue atorvastatin 80 mg nightly, losartan 50 mg daily, furosemide 40 mg twice daily, metoprolol 100 mg twice daily, aspirin 81 mg daily, and Plavix 75 mg daily. Hypertension. Patient to continue losartan 50 mg daily and metoprolol 100 mg twice daily. Hyperlipidemia. Patient to continue atorvastatin 80 mg nightly. Acute kidney injury on stage IIIb CKD. Continue Lasix 40 mg twice daily. Patient to follow-up outpatient with nephrology in 1 week and was sent with prescription for repeat BMP and magnesium to be completed in 3 days with results to go to PCP, certified professional ergonomist, and commercial glazier for follow-up and management. Hyperkalemia, secondary to hemolysis Pancytopenia. Patient was started on ferrous sulfate 325 mg twice daily. To have repeat CBC outpatient in 3 days with results to be sent to PCP, cardiol ogist, and certified professional ergonomist. Splenomegaly. Recommend outpatient follow-up/surveillance. BPH. Continue Proscar 5 mg daily. Hospital course: Patient is a very pleasant 73-year-old male with a past medical history of CAD status post CABG, ischemic cardiomyopathy status post AICD placement, chronic systolic heart failure with previously known EF of 17% and was reported by commercial glazier, hypertension, hyperlipidemia, CKD stage IIIb, and [id number] diabetes mellitus. He presented to the emergency department on 11/27/2023 secondary to reports of worsening shortness of breath and increased confusion. Upon arrival to our facility, patient underwent evaluation in the emergency department. Vital signs upon arrival show blood pressure 115/63, heart rate 77, respiratory rate 16, temp 98.4 F, and SpO2 of 94% on room air. EKG completed showing sinus mechanism with a first-degree AV block. Chest x-ray completed showing cardiomegaly, but negative for acute cardiopulmonary process. Labs completed and reviewed. CBC showing bicytopenia with hemoglobin of 11.2 and platelet count of 80. Coagulation profile showing normal findings with exception of elevated D-dimer of 3.86. B showing hyponatremia with sodium of 134, hyperkalemia with potassium of 5.5, hypocarbia with bicarb of 19, and acute kidney injury on CKD stage IIIb with BUN of 70, creatinine of 2.23, GFR of 29. Blood glucose 102. Magnesium was low at 1.6. Liver profile showing hyperbilirubinemia with total bili of 1.6 and elevated AST of 61. Troponin was elevated at 0.038. proBNP was 22,300. Urinalysis was positive for protein, glucose, and blood with 68 RBCs but negative for infection. Influenza A, influenza B, RSV, and COVID PCR were negative. Patient admitted under our services with consultation to cardiology and nephrology. Troponins trended resulting at 0.038, 0.050, and 0.053. VQ scan completed showing very low probability for pulmonary emboli. Renal ultrasound, reporting splenomegaly and right renal cyst otherwise no evidence for hydronephrosis or o ther acute abnormalities at this time. Underwent successful IV diuresis, medication changes were made. Patient cleared from nephrology and cardiology for discharge. Medically, patient is stable for discharge at this time and is being discharged home. Prescription sent for atorvastatin, losartan, ferrous sulfate, and Lasix. Patient to follow-up outpatient with PCP in 1 to 2 days, commercial glazier in 1 week, and certified professional ergonomist in 1 week. Prescription sent for repeat CBC, BMP, and magnesium to be completed on outpatient basis in 3 days with results to be sent to PCP, commercial glazier, and certified professional ergonomist for follow-up and outpatient management. Physical exam: Pt seen and fully evaluated at bedside. He reports breathing is better and he denies any complaints including chest pain, palpitations, shortness of breath, dizziness, lightheadedness or any other complaints. Patient's also at bedside. Patient reports he feels ready to go home and is awaiting discharge. Vital signs reviewed and stable. General: Nontoxic, no distress and appears stated age. Derm: Skin warm and dry, normal coloration for ethnicity. Head: Atraumatic, normocephalic and symmetric. Eyes: EOM's intact, no lid lag, and anicteric sclera Mouth: no lip lesions, mucus membranes moist Cardiovascular: regular rate and rhythm with normal S1S2, systolic murmur, positive posterior tibial pulses bilaterally, and cap refill < 2 seconds. Lungs: Respirations even, regular, and unlabored on room air. Lungs CTA bilaterally, no rhonchi, no rales, no wheezing, and no accessory muscle usage. Abdominal: soft, nontender to palpation, no guarding, no appreciable organomegaly Ext: ROM intact. No gross muscle atrophy, no edema, no contractures Neuro: Speech clear, face symmetrical and CN II-XII grossly intact with no noted focal neuro deficits Psych: Alert and oriented to person, place, time, and situation. Appropriate and pleasant affect. A total of 38 minutes of time were spent preparing this complex discharge summary. Pt was discharged on 11/30/2023 at 10:38 AM. Patient was seen independently by Nurse Practitioner. This document was prepared using [employer] dictation software. Please allow for errors in supervisor [employer] while rare they do occur. Patient was seen independently by Carlos Martell NP. I agree with the assessment and plan as above. Patient Condition at Discharge: Stable Plan - Discharge Summary Discharge Rx Participant: Yes New Discharge Prescriptions: New Atorvastatin [Lipitor] 80 mg PO HS tab Losartan [Cozaar] 50 mg PO DAILY tab Ferrous Sulfate [Iron (65 MG Elemental)] 325 mg PO BID-W/MEALS #60 tab Furosemide [Lasix] 40 mg PO BID@0900,1600 60 Days #60 tab Continue Finasteride [Proscar] 5 mg PO DAILY Gabapentin 600 mg PO BID metFORMIN HCL [Glucophage] 500 mg PO BID Atorvastatin [Lipitor] 80 mg PO HS Clopidogrel [Plavix] 75 mg PO DAILY tab Albuterol Sulfate [Albuterol Sulfate Hfa] 2 puff INHALATION RT-QID PRN PRN Reason: Shortness Of Breath Empagliflozin [Jardiance] 10 mg PO DAILY Metoprolol Tartrate [Lopressor] 100 mg PO BID Fluticasone/Umeclidin/Vilanter [Trelegy Ellipta 100-62.5-25] 1 puff INHALATION RT-DAILY Aspirin 81 mg PO DAILY Discontinued Pantoprazole [Protonix] 40 mg PO AC-[id number] tablet. Furosemide [Lasix] 40 mg PO BID Sacubitril/Valsartan [Entresto 24 mg-26 mg Tablet] 1 tab PO BID Discharge Medication List Finasteride [Proscar] 5 mg PO DAILY 02/01/16 [History] Gabapentin 600 mg PO BID 10/27/17 [History] Atorvastatin [Lipitor] 80 mg PO HS 10/03/18 [History] metFORMIN HCL [Glucophage] 500 mg PO BID 10/03/18 [History] Clopidogrel [Plavix] 75 mg PO DAILY tab 12/06/18 [Rx] Albuterol Sulfate [Albuterol Sulfate Hfa] 2 puff INHALATION RT-QID PRN 11/28/23 [History] Aspirin 81 mg PO DAILY 11/28/23 [History] Empagliflozin [Jardiance] 10 mg PO DAILY 11/28/23 [History] Fluticasone/Umeclidin/Vilanter [Trelegy Ellipta 100-62.5-25] 1 puff INHALATION RT-DAILY 11/28/23 [History] Metoprolol Tartrate [Lopressor] 100 mg PO BID 11/28/23 [History] Atorvastatin [Lipitor] 80 mg PO HS tab 11/30/23 [Rx] Ferrous Sulfate [Iron (65 MG Elemental)] 325 mg PO BID-W/MEALS #60 tab 11/30/23 [Rx] Furosemide [Lasix] 40 mg PO BID@0900,1600 60 Days #60 tab 11/30/23 [Rx] Losartan [Cozaar] 50 mg PO DAILY tab 11/30/23 [Rx] Follow up Appointment(s)/Referral(s): Jose L Duong MD [STAFF PHYSICIAN] - 1 Week Asim Flores MD [Primary Care Provider] - 1-2 days Kyra Sanford PAC [REFERRING] - 1 Week ([facility]. ) Chaitanya Velazco DO [STAFF PHYSICIAN] - 1 Week (Please call and schedule hospital follow up. ) Ambulatory/Diagnostic Orders: Basic Metabolic Panel [LAB.AMB] Time Frame: 3 Days, Location: None Selected Complete Blood Count w/diff [LAB.AMB] Time Frame: 3 Days, Location: None Selected Magnesium [LAB.AMB] Location: None Selected Patient Instructions/Handouts: Heart Failure (DC) Activity/Diet/Wound Care/Special Instructions: Activity: As tolerated. Take breaks as needed. Diet: Heart healthy and carb consistent diet. Avoid salts, or foods with hidden salts such as canned or boxed foods and frozen dinners. Extra salt makes your heart work harder and traps the fluid in your body for longer. Special Instructions: Weigh yourself every morning after you urinate. If you gain 3 pounds overnight or more than 5 pounds in one week, call your primary physician and commercial glazier for guidance on your medications or they may want to see you in their office. Keep a daily log of your weights and be sure to bring with you at follow up visits with your PCP and commercial glazier. Take all of your medications as directed, especially your water pills. NEVER skip a dose. And remember to keep all of your doctor's appointments and follow- up as needed. Elevate your legs when you are not up moving around to help with circulation and prevent swelling. Compression stockings are also a great way to improve lower extremity circulation and prevent/improve lower extremity edema. Call your primary care provider and commercial glazier if you notice any extra swelling in your legs, ankles, feet or abdomen, if you have a new dry cough, if your shortness of breath worsens with activity or at rest, or if you feel more fatigued. Thank you for allowing us to participate in your care, it was truly a pleasure having you for our patient!!! . Discharge Disposition: HOME SELF-CARE
[2023-11-30] MEDS: SODIUM FERRIC GLUCONAT-SUCROSE 125 MG in SODIUM CHLORIDE 0.9% 100 ML IVPB ONE (11:42)
[2023-11-30 12:02] LABS: Glucose,Whole Blood 122 mg/dL (70-110)
--- NOTE | 2023-11-30 15:31 | P.PN ---
Subjective Progress Note Date: 11/30/23 HISTORY OF PRESENT ILLNESS: This is a 73-year-old male with a past medical history significant for coronary artery disease with previous CABG in 2019, ischemic cardiomyopathy, ICD implantation, chronic kidney disease, hypertension, hyperlipidemia, diabetes, and congestive heart failure. Patient follows in the office with Dr. Duong. We have been asked to see the patient in consultation for heart failure. Patient examined at the bedside in the emergency room. Patient states he has been feeling short of breath for the past few days. He also reports having diarrhea over the weekend. He states that his got concerned so she made him come to the hospital for further evaluation. He does report improvement of his diarrhea this morning. Patient denies any chest pain or pressure. He reports his shortness of breath has improved since coming to the hospital. The patient has been started on IV Lasix. Patient's vital signs are stable. It is noted that the patient was just seen in the office on 11/25/2023. He is in the process of being evaluated at a heart failure clinic at [facility]. Additionally, the patient was previously prescribed Entresto. Patient was unable to afford this. He has been taking losartan 100 mg at home. However this is not reflected on his home MAR. DIAGNOSTICS: - EKG reveals sinus mechanism with first-degree AV block. IVCD. - Chest xray negative for acute process. Cardiomegaly. - Laboratory data: WBC 3.9. Hemoglobin 11.2. Platelet count 71. Sodium 132. Potassium 4.6. BUN 66. Creatinine 2.39. proBNP 22,300. Troponin 0.038. 0.050. 0.053. - Current home cardiac medications include metoprolol tartrate 100 mg twice a day, Lasix 20 mg daily, Jardiance 10 mg daily, Plavix 75 mg daily, Lipitor 80 mg at night, losartan 100 mg daily - Most recent echocardiogram obtained in September 2023 revealed ejection fraction 17%, moderate TR, moderate MR, mild - Patient underwent four-vessel CABG in November 2018 with SORTO to LAD, VGD1, VGOM1, VGPLB - Patient underwent Lexiscan stress test in October 2021 revealing fixed inferior and inferior lateral defects. November 29, 2023 BUN 67, creatinine 2.6, NT-proBNP 45252, down trended from 22,000, yesterday, hemoglobin 10.8., Platelets 72., RDW 16.7. November 30, 2023 Patient's kidney function is stable. Denies having any active chest pain chest pressure at this time. Reports that shortness of breath is at baseline's. Ferritin is less than 300, iron saturation is on the lower side. PHYSICAL EXAM: VITAL SIGNS: Reviewed. GENERAL: Well-developed in no acute distress. HEENT: Head is normocephalic. Pupils are equal, round. Sclerae anicteric. Mucous membranes of the mouth are moist. Neck supple. No JVD or thyromegaly LUNGS: Respirations even and unlabored. Lungs essentially clear to auscultation bilaterally. HEART: Regular rate and rhythm. S1 and S2 heard. Systolic murmur noted. ABDOMEN: Soft. Nondistended. Nontender. EXTREMITIES: Normal range of motion. No clubbing or cyanosis. Peripheral pulses intact. No lower extremity edema NEUROLOGIC: Awake and alert. Oriented x 3. ASSESSMENT: Diarrhea, resolved Shortness of breath Acute on chronic heart failure with reduced EF, 17% Elevated troponins, type II AK secondary to oxygen supply/demand mismatch, no evidence of acute coronary syndrome Coronary artery disease with previous four-vessel CABG in November 2018 with SORTO to LAD, VGD1, VGOM1, VGPLB Ischemic cardiomyopathy History of AICD implantation, [place] Chronic kidney disease Hypertension Hyperlipidemia Diabetes Anemia PLAN: Give 1 dose of IV iron 125 mg. Thereafter start p.o. iron Patient previously on Entresto and unable to afford. He has been prescribed losartan 100 mg on an outpatient basis. Will decrease dosage to 50 mg daily due to soft blood pressures Decrease metoprolol to 50 mg twice a day Transition to p.o. Lasix 40 mg by nephrology team today. I agree with this. Cannot do Aldactone due to low GFR. Patient is referred to advanced heart failure center where he has his appointment on 12/07/2023. He would benefit from HF MS device to monitor his fluid status and uptitrate his GDMT. Patient is okay to be discharge from cardiovascular standpoint with recommended outpatient f/u with Dr Duong Objective - Vital Signs Vital signs: Vital Signs Temp 97.4 F L 11/30/23 07:44 Pulse 94 11/30/23 08:37 Resp 18 11/30/23 08:14 BP 123/68 11/30/23 07:44 Pulse Ox 94 L 11/30/23 07:44 FiO2 Intake & Output 11/29/23 11/30/23 11/30/23 18:59 06:59 18:59 Intake Total 358 540 240 Output Total 400 100 Balance 358 140 140 Weight 68.5 kg 68.6 kg Intake: Oral 358 540 240 Output: Urine 400 100 Other: Voiding Method Toilet Toilet Urinal Urinal # Voids 2 1 - Labs CBC & Chem 7: 11/29/23 06:15 11/30/23 06:30 Labs: Abnormal Lab Results - Last 24 Hours (Table) 11/29/23 11/29/23 11/29/23 Range/Units 06:15 16:43 20:22 BUN (9-20) mg/dL Creatinine (0.66-1.25) mg/dL Glucose (74-99) mg/dL POC Glucose (mg/dL) 112 H 136 H (70-110) mg/dL Iron 20 L (65-175) UG/DL % Saturation 6.23 L (15.00-50.00) 11/30/23 11/30/23 11/30/23 Range/Units 06:05 06:30 12:00 BUN 62 H (9-20) mg/dL Creatinine 2.49 H (0.66-1.25) mg/dL Glucose 104 H (74-99) mg/dL POC Glucose (mg/dL) 112 H 122 H (70-110) mg/dL Iron (65-175) UG/DL % Saturation (15.00-50.00)
[2023-11-30] MEDS ORDERED: FERROUS SULFATE 325 MG TAB PO SCH (17:30)
== END 2023-11-30 12:57 | disposition home or self-care (01) ==
LOC: EC 18:44 → 6NMEDSUR 21:49 → 4SSUR 21:56 → 3SCARD 11-28 09:53
PROVIDERS: ADMIT Internal Medicine; ATTEND Internal Medicine
DX: I13.0 Hypertensive heart and chronic kidney disease with heart failure and stage 1 through stage 4 chronic kidney disease, or unspecified chronic kidney disease (principal); I50.23 Acute on chronic systolic (congestive) heart failure; N18.32 Chronic kidney disease, stage 3b; I25.5 Ischemic cardiomyopathy; R79.89 Other specified abnormal findings of blood chemistry; R79.1 Abnormal coagulation profile; N17.0 Acute kidney failure with tubular necrosis; I25.10 Atherosclerotic heart disease of native coronary artery without angina pectoris; I25.2 Old myocardial infarction; E11.22 Type 2 diabetes mellitus with diabetic chronic kidney disease; E78.5 Hyperlipidemia, unspecified; E87.1 Hypo-osmolality and hyponatremia; E87.29 Other acidosis; E87.5 Hyperkalemia; I44.0 Atrioventricular block, first degree; D61.818 Other pancytopenia; J44.9 Chronic obstructive pulmonary disease, unspecified; N28.1 Cyst of kidney, acquired; N40.0 Benign prostatic hyperplasia without lower urinary tract symptoms; R19.7 Diarrhea, unspecified; R16.1 Splenomegaly, not elsewhere classified; R74.01 Elevation of levels of liver transaminase levels; R17 Unspecified jaundice; Z95.1 Presence of aortocoronary bypass graft; Z95.810 Presence of automatic (implantable) cardiac defibrillator; Z95.5 Presence of coronary angioplasty implant and graft; Z87.891 Personal history of nicotine dependence; Z79.899 Other long term (current) drug therapy; Z79.84 Long term (current) use of oral hypoglycemic drugs; Z79.82 Long term (current) use of aspirin; Z79.4 Long term (current) use of insulin; Z79.02 Long term (current) use of antithrombotics/antiplatelets; Z79.01 Long term (current) use of anticoagulants
CPT/HCPCS: 96376; 96372 ×3; 96374; 99285; 36415; 94640 ×4; 93005; 85379; 83880 ×2; 80053; 80048 ×3; 82728; 83540; 83550; 83605; 83735 ×3; 84484 ×2; 85025 ×2; 85027; 85610; 85730; 81001 ×2; 83036; 87636; 71046; 76770; 72125; 70450; 78582; G0378 ×5; A9540; A9567; S0138 ×3; J1644 ×2; J1940; J2916

== ENCOUNTER → 2023-12-05 | Outpatient (CLI) | payer MEDICARE, OTHER ==
[2023-12-05 15:47] LABS: BUN/Creat Ratio 28.23 Ratio (12.00-20.00); Blood Urea Nitrogen 62.1 mg/dL (9.0-27.0); Carbon Dioxide 22.3 mmol/L (21.6-31.8); Chloride 102 mmol/L (96-109); Glucose 98 mg/dL (70-110); Magnesium 1.7 mg/dL (1.5-2.4); Potassium 4.2 mmol/L (3.5-5.5); Sodium 135 mmol/L (135-145)
[2023-12-05 15:48] LABS: ALT 43 U/L (10-49); AST 34 U/L (14-35); Albumin 3.6 g/dL (3.8-4.9); Albumin/Globulin Ratio 0.71 Ratio (1.60-3.17); Alkaline Phosphatase 104 U/L (41-126); Calcium 8.8 mg/dL (8.7-10.3); Globulin 5.1 g/dL (1.6-3.3); Total Bilirubin 0.6 mg/dL (0.3-1.2); Total Protein 8.7 g/dL (6.2-8.2)
[2023-12-05 16:17] LABS: HCT 37.4 % (39.6-50.0); HGB 11.9 g/dL (13.0-17.0); MCH 26.4 pg (27.0-32.0); MCHC 31.8 g/dL (32.0-37.0); MCV 82.9 FL (80.0-97.0); NRBC Per 100 WBC 0 X 10*3/uL (0.00-0.01); Platelet Count 87 X 10*3/uL (140-440); RBC 4.51 X 10*6/uL (4.40-5.60); RDW 17.7 % (11.5-14.5); WBC 4.27 X 10*3/uL (4.50-10.00)
[2023-12-05 16:18] LABS: Acanthocytes 2+; Anisocytosis (M) 2+; Basophils # (A) 0.04 X 10*3/uL (0.00-0.10); Basophils % (A) 0.9 %; Elliptocytes 2+; Eosinophils % (A) 2.3 %; Lymphocytes # (A) 1.96 X 10*3/uL (0.90-5.00); Lymphocytes % (A) 45.9 %; Microcytosis (M) 2+; Monocytes # (A) 0.52 X 10*3/uL (0.20-1.00); Monocytes % (A) 12.2 %; Neutrophils # (A) 1.64 X 10*3/uL (1.80-7.70); Neutrophils % (A) 38.5 %; Rouleaux Present
[2023-12-05 16:20] LABS: NT-Pro-B-Type Natriuretic Pept 11567 pg/mL (0-125)
== END | disposition home or self-care (01) ==
LOC: LABWHC1 08:53
PROVIDERS: ATTEND Internal Medicine Interventional Cardiology
CPT/HCPCS: 36415; 80053; 83735; 83880; 85025

== ENCOUNTER → 2024-01-20 | Outpatient (CLI) | payer MEDICARE, OTHER ==
[2024-01-20 15:40] LABS: ALT 31 U/L (10-49); AST 31 U/L (14-35); Albumin 3.4 g/dL (3.8-4.9); Albumin/Globulin Ratio 0.64 Ratio (1.60-3.17); Alkaline Phosphatase 145 U/L (41-126); BUN/Creat Ratio 24.55 Ratio (12.00-20.00); Calcium 8.6 mg/dL (8.7-10.3); Carbon Dioxide 21.5 mmol/L (21.6-31.8); Chloride 105 mmol/L (96-109); Globulin 5.3 g/dL (1.6-3.3); Glucose 102 mg/dL (70-110); Sodium 137 mmol/L (135-145); Total Bilirubin 0.6 mg/dL (0.3-1.2); Total Protein 8.7 g/dL (6.2-8.2)
== END | disposition home or self-care (01) ==
LOC: LABWHC1 09:12
PROVIDERS: ATTEND Internal Medicine Interventional Cardiology
DX: I25.5 Ischemic cardiomyopathy (principal)
CPT/HCPCS: 36415; 80053

== ENCOUNTER 2024-01-30 10:28 | Inpatient (IN) | payer MEDICARE, OTHER ==
[2024-01-30 11:22] LABS: Anisocytosis Slight; HCT 27.5 % (39.0-53.0); MCH 27.8 pg (25.0-35.0); MCHC 32.9 g/dL (31.0-37.0); MCV 84.5 fL (80.0-100.0); Mean Platelet Volume 8.4; Poikilocytosis Slight; RBC 3.25 m/uL (4.30-5.90); RDW 17.7 % (11.5-15.5); WBC 4.6 k/uL (3.8-10.6)
--- NOTE | 2024-01-30 11:33 | XR ---
EXAMINATION TYPE: XR chest 2V DATE OF EXAM: 01/30/2024 11:22 AM COMPARISON: 11/27/2023 CLINICAL INDICATION: Male, 73 years old with history of Weakness,, decreased urine output, acute ment al status change TECHNIQUE: XR chest 2V view(s) obtained. FINDINGS: The heart size is enlarged. The pulmonary vasculature is somewhat prominent. No suspicious focal consolidation evident. Pacemaker overlies left chest. Sternotomy wires are in the midline.. IMPRESSION: 1. Cardiomegaly with prominent pulmonary vascular markings. Correlate for volume overload. [facility], , 01/30/2024 11:30 AM
--- NOTE | 2024-01-30 11:34 | ED ---
General Adult HPI - General Chief complaint: Altered Mental Status Stated complaint: AMS Time Seen by Provider: 01/30/24 10:38 Source: patient, EMS, RN notes reviewed, old records reviewed Mode of arrival: EMS - History of Present Illness Initial comments: 73-year-old male history of congestive heart failure and chronic kidney disease presenting for evaluation of confusion which began yesterday. This was mild and appears to be resolved at this time. Family was concerned because he has had decreased urine output and was told that he needs to follow-up with the kidney doctor. Patient apparently has been told he also needs evaluation for left ventricular assist device at [facility] but the patient does not want to undergo this procedure. He has mild dyspnea. No peripheral edema. He is had generalized weakness and difficulty ambulating. - Related Data Home Medications Medication Instructions Recorded Confirmed Finasteride [Proscar] 5 mg PO DAILY 02/01/16 01/30/24 Gabapentin 600 mg PO BID 10/27/17 01/30/24 Atorvastatin [Lipitor] 80 mg PO HS 10/03/18 01/30/24 Albuterol Sulfate [Albuterol 2 puff INHALATION RT-Q4H PRN 11/28/23 01/30/24 Sulfate Hfa] Aspirin 81 mg PO DAILY 11/28/23 01/30/24 Empagliflozin [Jardiance] 10 mg PO DAILY 11/28/23 01/30/24 Fluticasone/Umeclidin/Vilanter 1 puff INHALATION RT-DAILY 11/28/23 01/30/24 [Moiséslecathy Ellipta 100-62.5-25] Ferrous Sulfate [Iron (65 MG 325 mg PO BID 01/30/24 01/30/24 Elemental)] Furosemide [Lasix] 40 mg PO DAILY 01/30/24 01/30/24 Metoprolol Succinate (ER) [Toprol 50 mg PO BID 01/30/24 01/30/24 Xl] Spironolactone [Aldactone] 12.5 mg PO DAILY 01/30/24 01/30/24 Previous Rx's Medication Instructions Recorded Clopidogrel [Plavix] 75 mg PO DAILY tab 12/06/18 Losartan [Cozaar] 50 mg PO DAILY tab 11/30/23 Allergies Allergy/AdvReac Type Severity Reaction Status Date / Time No Known Allergies Allergy Verified 01/30/24 12:04 Review of Systems ROS Statement: Those systems with pertinent positive or pertinent negative responses have been documented in the HPI. ROS Other: All systems not noted in ROS Statement are negative. Past Medical History Past Medical History: Coronary Artery Disease (CAD), Heart Failure, COPD, Diabetes Mellitus, Hyperlipidemia, Hypertension, Myocardial Infarction ([place]), Sleep Apnea/CPAP/BIPAP Additional Past Medical History / Comment(s): seen in er 09/09/18-shingles to back of head-resolved now. BRAIN ANEURSYM-DX 2018-BEING FOLLOWING BY DR. GILLESPIE IN [place] Last Myocardial Infarction Date:: 04/2018 History of Any Multi-Drug Resistant Organisms: None Reported Past Surgical History: AICD, Coronary Bypass/CABG, Heart Catheterization, Joint Replacement Additional Past Surgical History / Comment(s): right knee replaced. COLONOSCOPY Past Anesthesia/Blood Transfusion Reactions: No Reported Reaction Type of Cardiac Device: AICD Device Placement Date:: 2009 Past Psychological History: No Psychological Hx Reported Smoking Status: Former smoker Past Alcohol Use History: Occasional Past Drug Use History: None Reported - Past Family History Mother Family Medical History: No Reported History Father Family Medical History: Liver Disease Brother(s) Family Medical History: Coronary Artery Disease (CAD) General Exam General appearance: alert, in no apparent distress Head exam: Present: atraumatic, normocephalic Eye exam: Present: normal appearance, PERRL ENT exam: Present: mucous membranes dry Neck exam: Present: normal inspection. Absent: tenderness, meningismus Respiratory exam: Present: normal lung sounds bilaterally. Absent: respiratory distress, wheezes Cardiovascular Exam: Present: regular rate, normal rhythm GI/Abdominal exam: Present: soft. Absent: distended Extremities exam: Present: normal inspection, normal capillary refill. Absent: pedal edema Neurological exam: Present: alert, oriented X3 Psychiatric exam: Present: normal affect, normal mood Course Vital Signs 01/30/24 01/30/24 10:30 12:03 Temperature 98.0 F Pulse Rate 74 73 Respiratory 20 20 Rate Blood Pressure 107/69 106/77 O2 Sat by Pulse 98 97 Oximetry Medical Decision Making - Medical Decision Making Was pt. sent in by a medical professional or institution (, PA, VEHICLE PAINTER, urgent care, hospital, or group home...) When possible be specific @ -No Did you speak to anyone other than the patient for history (EMS, parent, family, police, friend...)? What history was obtained from this source @ -No Did you review nursing and triage notes (agree or disagree)? Why? @ -I reviewed and agree with nursing and triage notes Were old charts reviewed (outside hosp., previous admission, EMS record, old EKG, old radiological studies, urgent care reports/EKG's, group home records)? Report findings @ -No old charts were reviewed Differential Weakness: Hypoglycemia, shock, sepsis, hyponatremia, anemia, infection, VA, ETOH, adverse medicine reaction, overdose, stroke, this is not meant to be an all-inclusive list. EKG interpreted by me (3pts min.). @ -Sinus rhythm with first-degree AV block rate of 78 [place] interval 236, QRS duration 160, QTc [address] segment elevation. X-rays interpreted by me (1pt min.). @Mild CHF on chest x-ray CT interpreted by me (1pt min.). @ -None done U/S interpreted by me (1pt. min.). @ -None done What testing was considered but not performed or refused? (CT, X-rays, U/S, labs)? Why? @ -None What meds were considered but not given or refused? Why? @ -None Did you discuss the management of the patient with other professionals (professionals i.e. , PA, VEHICLE PAINTER, lab, RT, psych nurse, social services analyst, sand carrier, teacher, conservation enforcement officer, casey saw operator)? Give summary @ -Dr. Siddiqi will admit Was smoking cessation discussed for >3mins.? @ -No Was critical care preformed (if so, how long)? @ -No Were there social determinants of health that impacted care today? How? (Homel essness, low income, unemployed, alcoholism, drug addiction, transportation, low edu. Level, literacy, decrease access to med. care, fdc, rehab)? @ -No Was there de-escalation of care discussed even if they declined (Discuss DNR or withdrawal of care, Hospice)? DNR status @ -No What co-morbidities impacted this encounter? (DM, HTN, Smoking, COPD, CAD, Cancer, CVA, ARF, Chemo, Hep., AIDS, mental health diagnosis, sleep apnea, morbid obesity)? @CHF, chronic kidney disease Was patient admitted / discharged? Hospital course, mention meds given and route, prescriptions, significant lab abnormalities, going to OR and other pertinent info. @ -73-year-old male with confusion, weakness. Patient has worsening kidney function and elevated BUN and creatinine likely contributing to his confusion. He has CHF on x-ray as well as an elevated troponin and BNP. This is likely representing cardiorenal syndrome. He will be admitted for consultation to both cardiology and nephrology regarding recommendations. Undiagnosed new problem with uncertain prognosis? @ -No Drug Therapy requiring intensive monitoring for toxicity (Heparin, Nitro, Insulin, Cardizem)? @ -No Were any procedures done? @ -No Diagnosis/symptom? @ -CHF, worsening kidney function, cardiorenal syndrome Acute, or Chronic, or Acute on Chronic? @ -Acute Uncomplicated (without systemic symptoms) or Complicated (systemic symptoms)? @ -Default Side effects of treatment? @ -No Exacerbation, Progression, or Severe Exacerbation? @ -No Poses a threat to life or bodily function? How? (Chest pain, [place], VA, pneumonia, PE, COPD, DKA, ARF, appy, cholecystitis, CVA, Diverticulitis, Homicidal, Suicidal, threat to staff... and all critical care pts) @Yes, CHF - Lab Data Result diagrams: 01/30/24 11:09 01/30/24 11:09 Lab Results 01/30/24 01/30/24 01/30/24 Range/Units 11:09 11:09 11:09 WBC 4.6 (3.8-10.6) k/uL RBC 3.25 L (4.30-5.90) m/uL Hgb 9.0 L D (13.0-17.5) gm/dL Hct 27.5 L (39.0-53.0) % MCV 84.5 (80.0-100.0) fL MCH 27.8 (25.0-35.0) pg MCHC 32.9 (31.0-37.0) g/dL RDW 17.7 H (11.5-15.5) % Plt Count 123 L D (150-450) k/uL MPV 8.4 Neutrophils % Not Reportable Neutrophils % (Manual) 65 % Band Neuts % (Manual) 1 % Lymphocytes % Not Reportable Lymphocytes % (Manual) 28 % Monocytes % Not Reportable Monocytes % (Manual) 7 % Eosinophils % Not Reportable Eosinophils % (Manual) 1 % Basophils % Not Reportable Basophils % (Manual) 1 % Neutrophils # Not Reportable Neutrophils # (Manual) 3.00 (1.3-7.7) k/uL Lymphocytes # Not Reportable Lymphocytes # (Manual) 1.29 (1.0-4.8) k/uL Monocytes # Not Reportable Monocytes # (Manual) 0.32 (0-1.0) k/uL Eosinophils # Not Reportable Eosinophils # (Manual) 0.05 (0-0.7) k/uL Basophils # Not Reportable Basophils # (Manual) 0.05 (0-0.2) k/uL Nucleated RBCs 0 (0-0) /100 WBC Manual Slide Review Performed Poikilocytosis Slight Anisocytosis Slight PT 12.3 (10.0-12.5) sec INR 1.1 (<1.2) APTT 25.2 (22.0-30.0) sec Sodium 135 L (137-145) mmol/L Potassium 4.7 (3.5-5.1) mmol/L Chloride 109 H (98-107) mmol/L Carbon Dioxide 15 L (22-30) mmol/L Anion Gap 11 mmol/L BUN 89 H (9-20) mg/dL Creatinine 3.80 H (0.66-1.25) mg/dL Est GFR (CKD-EPI)AfAm 17 (>60 ml/min/1.73 sqM) Est GFR (CKD-EPI)NonAf 15 (>60 ml/min/1.73 sqM) Glucose 113 H (74-99) mg/dL Calcium 8.2 L (8.4-10.2) mg/dL Magnesium 2.1 (1.6-2.3) mg/dL Total Bilirubin 0.9 (0.2-1.3) mg/dL AST 18 (17-59) U/L ALT 20 (4-49) U/L Alkaline Phosphatase 134 H (38-126) U/L Troponin I (0.000-0.034) ng/mL NT-Pro-B Natriuret Pep 23124 pg/mL Total Protein 8.1 (6.3-8.2) g/dL Albumin 3.2 L (3.5-5.0) g/dL Urine Color Urine Appearance (Clear) Urine pH (5.0-8.0) Ur Specific [place] (1.001-1.035) Urine Protein (Negative) Urine Glucose (UA) (Negative) Urine Ketones (Negative) Urine Blood (Negative) Urine Nitrite (Negative) Urine Bilirubin (Negative) Urine Urobilinogen (<2.0) mg/dL Ur Leukocyte Esterase (Negative) Urine RBC (0-5) /hpf Urine WBC (0-5) /hpf Urine Bacteria (None) /hpf Urine Mucus (None) /hpf 01/30/24 01/30/24 Range/Units 11:09 12:25 WBC (3.8-10.6) k/uL RBC (4.30-5.90) m/uL Hgb (13.0-17.5) gm/dL Hct (39.0-53.0) % MCV (80.0-100.0) fL MCH (25.0-35.0) pg MCHC (31.0-37.0) g/dL RDW (11.5-15.5) % Plt Count (150-450) k/uL MPV Neutrophils % Neutrophils % (Manual) % Band Neuts % (Manual) % Lymphocytes % Lymphocytes % (Manual) % Monocytes % Monocytes % (Manual) % Eosinophils % Eosinophils % (Manual) % Basophils % Basophils % (Manual) % Neutrophils # Neutrophils # (Manual) (1.3-7.7) k/uL Lymphocytes # Lymphocytes # (Manual) (1.0-4.8) k/uL Monocytes # Monocytes # (Manual) (0-1.0) k/uL Eosinophils # Eosinophils # (Manual) (0-0.7) k/uL Basophils # Basophils # (Manual) (0-0.2) k/uL Nucleated RBCs (0-0) /100 WBC Manual Slide Review Poikilocytosis Anisocytosis PT (10.0-12.5) sec INR (<1.2) APTT (22.0-30.0) sec Sodium (137-145) mmol/L Potassium (3.5-5.1) mmol/L Chloride (98-107) mmol/L Carbon Dioxide (22-30) mmol/L Anion Gap mmol/L BUN (9-20) mg/dL Creatinine (0.66-1.25) mg/dL Est GFR (CKD-EPI)AfAm (>60 ml/min/1.73 sqM) Est GFR (CKD-EPI)NonAf (>60 ml/min/1.73 sqM) Glucose (74-99) mg/dL Calcium (8.4-10.2) mg/dL Magnesium (1.6-2.3) mg/dL Total Bilirubin (0.2-1.3) mg/dL AST (17-59) U/L ALT (4-49) U/L Alkaline Phosphatase (38-126) U/L Troponin I 0.070 H* (0.000-0.034) ng/mL NT-Pro-B Natriuret Pep pg/mL Total Protein (6.3-8.2) g/dL Albumin (3.5-5.0) g/dL Urine Color Yellow Urine Appearance Cloudy (Clear) Urine pH 5.5 (5.0-8.0) Ur Specific [place] 1.014 (1.001-1.035) Urine Protein 2+ H (Negative) Urine Glucose (UA) 3+ H (Negative) Urine Ketones Negative (Negative) Urine Blood Large H (Negative) Urine Nitrite Negative (Negative) Urine Bilirubin Negative (Negative) Urine Urobilinogen <2.0 (<2.0) mg/dL Ur Leukocyte Esterase Negative (Negative) Urine RBC >182 H (0-5) /hpf Urine WBC 13 H (0-5) /hpf Urine Bacteria Rare H (None) /hpf Urine Mucus Rare H (None) /hpf Disposition Clinical Impression: Elevated troponin, Cardiorenal syndrome Disposition: ADMITTED IP TO THIS HOSP Condition: Stable Is patient prescribed a controlled substance at d/c from ED?: No Referrals: Bree Dias DO [Primary Care Provider] - 1-2 days Time of Disposition: 13:33
[2024-01-30 11:36] LABS: ALT 20 U/L (4-49); AST 18 U/L (17-59); African American GFR (CKD) 17 (>60 ml/min/1.73 sqM); Albumin 3.2 g/dL (3.5-5.0); Alkaline Phosphatase 134 U/L (38-126); Anion Gap 11 mmol/L; Blood Urea Nitrogen 89 mg/dL (9-20); Calcium 8.2 mg/dL (8.4-10.2); Carbon Dioxide 15 mmol/L (22-30); Chloride 109 mmol/L (98-107); Glucose 113 mg/dL (74-99); Magnesium 2.1 mg/dL (1.6-2.3); Non-African American GFR(CKD) 15 (>60 ml/min/1.73 sqM); Potassium 4.7 mmol/L (3.5-5.1); Sodium 135 mmol/L (137-145); Total Bilirubin 0.9 mg/dL (0.2-1.3); Total Protein 8.1 g/dL (6.3-8.2)
[2024-01-30 11:53] LABS: Platelet Count 123 k/uL (150-450)
[2024-01-30 12:06] LABS: INR 1.1 (<1.2); NT-Pro-B-Type Natriuretic Pept 47600 pg/mL; Partial Thromboplastin Time 25.2 sec (22.0-30.0); Prothrombin Time 12.3 sec (10.0-12.5)
--- NOTE | 2024-01-30 12:54 | P.HPIM ---
History of Present Illness 73-year-old male with a chronically disease and congestive heart failure EF of around 30 to 35% in 2019 came in because he was not urinating and was apparently confused at home. Although when questioned the patient patient says he came in because he hurt his left ankle and knee while he was hunting and he has an Barrie bandage to both of those locations. Patient was alert oriented x 3. Patient also found to have serum creatinine of 3.8 his baseline started going up lately, he is serum creatinine on number 29th was around 3.3 and before that it was 2.2. Patient has an AICD in place patient is recommended to have an LVAD but does not want LVAD. Patient's BNP is 47,600 chest x-ray showed mild pulmonary edema although clinically patient does not have any pedal edema does have mildly elevated JVD he denies any orthopnea paroxysmal nocturnal dyspnea to me. REVIEW OF SYSTEMS: All other systems are negative except those mentioned in the HPI PHYSICAL EXAMINATION: GENERAL: The patient is alert and oriented x3, not in any acute distress. Well developed, well nourished. HEENT: Pupils are round and equally reacting to light. EOMI. No scleral icterus. No conjunctival pallor. Normocephalic, atraumatic. No pharyngeal erythema. No thyromegaly. CARDIOVASCULAR: S1 and S2 present. No murmurs, rubs, or gallops. PULMONARY: Chest is clear to auscultation, no wheezing or crackles. ABDOMEN: Soft, nontender, nondistended, normoactive bowel sounds. No palpable organomegaly. MUSCULOSKELETAL: No joint swelling or deformity. EXTREMITIES: No cyanosis, clubbing, or pedal edema. NEUROLOGICAL: Gross neurological examination did not reveal any focal deficits. SKIN: No rashes. Assessment and plan -Current heart failure chronic systolic function with mild acute exacerbation patient is on oral Lasix 40 will which she will be changed to IV resume his heart failure medications Farxiga will be held because of his extremely low GFR -Acute renal failure on chronic kidney disease stage V: Acute renal failure secondary to cardiorenal syndrome nephrology will be consulted continue with IV Lasix -Troponin elevation secondary to congestive heart failure we will repeat 2 more sets of troponins cardiology was consulted -Left ankle and left knee pain will obtain x-rays -Neuropathy patient was on gabapentin which will be discontinued because of poor renal function patient will be started on Lyrica instead if needed -Hyperlipidemia -Type 2 diabetes mellitus -Coronary artery disease -Sleep apnea DVT prophylaxis: Subcutaneous heparin Past Medical History Past Medical History: Coronary Artery Disease (CAD), Heart Failure, COPD, Diabetes Mellitus, Hyperlipidemia, Hypertension, Myocardial Infarction ([place]), Sleep Apnea/CPAP/BIPAP Additional Past Medical History / Comment(s): seen in er 09/09/18-shingles to back of head-resolved now. BRAIN ANEURSYM-DX 2017-BEING FOLLOWING BY DR. GILLESPIE IN [place] Last Myocardial Infarction Date:: 04/2018 History of Any Multi-Drug Resistant Organisms: None Reported Past Surgical History: AICD, Coronary Bypass/CABG, Heart Catheterization, Joint Replacement Additional Past Surgical History / Comment(s): right knee replaced. COLONOSCOPY Past Anesthesia/Blood Transfusion Reactions: No Reported Reaction Type of Cardiac Device: AICD Device Placement Date:: 2009 Past Psychological History: No Psychological Hx Reported Smoking Status: Former smoker Past Alcohol Use History: Occasional Past Drug Use History: None Reported - Past Family History Mother Family Medical History: No Reported History Father Family Medical History: Liver Disease Brother(s) Family Medical History: Coronary Artery Disease (CAD) Medications and Allergies Home Medications Medication Instructions Recorded Confirmed Type Finasteride [Proscar] 5 mg PO DAILY 02/01/16 01/30/24 History Gabapentin 600 mg PO BID 10/27/17 01/30/24 History Atorvastatin [Lipitor] 80 mg PO HS 10/03/18 01/30/24 History Clopidogrel [Plavix] 75 mg PO DAILY tab 12/06/18 01/30/24 Rx Albuterol Sulfate [Albuterol 2 puff INHALATION RT-Q4H PRN 11/28/23 01/30/24 History Sulfate Hfa] Aspirin 81 mg PO DAILY 11/28/23 01/30/24 History Empagliflozin [Jardiance] 10 mg PO DAILY 11/28/23 01/30/24 History Fluticasone/Umeclidin/Vilanter 1 puff INHALATION RT-DAILY 11/28/23 01/30/24 History [Trelegy Ellipta 100-62.5-25] Losartan [Cozaar] 50 mg PO DAILY tab 11/30/23 01/30/24 Rx Ferrous Sulfate [Iron (65 MG 325 mg PO BID 01/30/24 01/30/24 History Elemental)] Furosemide [Lasix] 40 mg PO DAILY 01/30/24 01/30/24 History Metoprolol Succinate (ER) [Toprol 50 mg PO BID 01/30/24 01/30/24 History Xl] Spironolactone [Aldactone] 12.5 mg PO DAILY 01/30/24 01/30/24 History Allergies Allergy/AdvReac Type Severity Reaction Status Date / Time No Known Allergies Allergy Verified 01/30/24 12:04 Physical Exam Vitals: Vital Signs Temp Pulse Resp BP Pulse Ox 01/30/24 12:03 73 20 106/77 97 01/30/24 10:30 98.0 F 74 20 107/69 98 Intake and Output 01/29/24 01/30/24 01/30/24 22:59 06:59 14:59 Other: Weight 72.121 kg Results CBC & Chem 7: 01/30/24 11:09 01/30/24 11:09 Labs: Abnormal Lab Results - Last 24 Hours (Table) 01/30/24 01/30/24 01/30/24 Range/Units 11:09 11:09 11:09 RBC 3.25 L (4.30-5.90) m/uL Hgb 9.0 L D (13.0-17.5) gm/dL Hct 27.5 L (39.0-53.0) % RDW 17.7 H (11.5-15.5) % Plt Count 123 L D (150-450) k/uL Sodium 135 L (137-145) mmol/L Chloride 109 H (98-107) mmol/L Carbon Dioxide 15 L (22-30) mmol/L BUN 89 H (9-20) mg/dL Creatinine 3.80 H (0.66-1.25) mg/dL Glucose 113 H (74-99) mg/dL Calcium 8.2 L (8.4-10.2) mg/dL Alkaline Phosphatase 134 H (38-126) U/L Troponin I 0.070 H* (0.000-0.034) ng/mL Albumin 3.2 L (3.5-5.0) g/dL
[2024-01-30 13:17] LABS: Appearance,Urine Cloudy (Clear); Bacteria,Urine Rare /hpf; Bilirubin,Urine Negative (Negative); Blood,Urine Large (Negative); Color,Urine Yellow; Glucose,Urine (UA) 3+ (Negative); Ketones,Urine Negative (Negative); Leukocyte Esterase,Urine Negative (Negative); Mucus,Urine Rare /hpf; Nitrite,Urine Negative (Negative); PH, Urine 5.5 (5.0-8.0); Protein,Urine 2+ (Negative); RBC,Urine >182 /hpf (0-5); Specific Gravity,Urine 1.014 (1.001-1.035); Urobilinogen,Urine <2.0 mg/dL (<2.0); WBC,Urine 13 /hpf (0-5)
--- NOTE | 2024-01-30 13:24 | XR ---
EXAMINATION TYPE: XR knee complete LT DATE OF EXAM: 01/30/2024 1:03 PM COMPARISON: 06/06/2021 CLINICAL INDICATION: Male, 73 years old with history of knee pain, TECHNIQUE: 3 view(s) obtained. FINDINGS: Joint spaces are preserved. No acute fracture or dislocation evident. Small to moderate joint effusio n may be present. Posterior superior patellar spurring is vascular calcification is evident. Follow up exams can be performed 7-10 days from acute trauma for continued pain. IMPRESSION: 1. No acute osseous abnormality left knee. 2. Small to moderate joint effusion [facility], , 01/30/2024 1:22 PM
--- NOTE | 2024-01-30 13:25 | XR ---
EXAMINATION TYPE: XR ankle complete LT DATE OF EXAM: 01/30/2024 1:03 PM COMPARISON: 01/28/2023 CLINICAL INDICATION: Male, 73 years old with history of ankle pain, TECHNIQUE: 3 view(s) obtained. FINDINGS: Ankle mortise is intact. Soft tissues are normal. No acute displaced fractures are evident. Tiny seco ndary ossification center may be inferior to the medial malleolus. Borders are smooth. Follow up exams can be performed 7-10 days from acute trauma for continued pain. IMPRESSION: 1. No acute osseous abnormality left ankle [facility], , 01/30/2024 1:23 PM
[2024-01-30] MEDS ORDERED: NALOXONE 0.4 MG/ML 1 ML VIAL IV PRN (13:31)
[2024-01-30 13:45] LABS: Band Neutrophils % 1 %; Basophils # (M) 0.05 k/uL (0-0.2); Eosinophils # (M) 0.05 k/uL (0-0.7); Lymphocytes # (M) 1.29 k/uL (1.0-4.8); Monocytes # (M) 0.32 k/uL (0-1.0); Neutrophils % (M) 65 %; Nucleated Red Blood Cells 0 /100 WBC (0-0); Total Cells Counted 200
[2024-01-30] MEDS: FUROSEMIDE 10 MG/ML 4 ML VIAL IV SCH (14:22)
[2024-01-30 16:44] LABS: Glucose,Whole Blood 97 mg/dL (70-110)
[2024-01-30] MEDS: INSULIN ASPART (NovoLOG) 100 UNIT/ML VIAL SQ SCH (16:46)
[2024-01-30] MEDS: HEPARIN SODIUM,PORCINE 5,000 UNIT/ML 1 ML VIAL SQ SCH (17:07)
[2024-01-30] MEDS: ATORVASTATIN 80 MG TAB PO SCH (21:30)
[2024-01-30] MEDS: METOPROLOL SUCCINATE (ER) 50 MG TAB.ER.24H PO SCH (21:32)
[2024-01-30] MEDS: ALBUTEROL NEBULIZED 2.5 MG/3 ML INHALATION PRN (21:56)
[2024-01-31] MEDS: PREGABALIN 75 MG CAP PO PRN (02:34)
[2024-01-31 07:09] LABS: African American GFR (CKD) 17 (>60 ml/min/1.73 sqM); Anion Gap 11 mmol/L; Blood Urea Nitrogen 92 mg/dL (9-20); Calcium 8.1 mg/dL (8.4-10.2); Carbon Dioxide 16 mmol/L (22-30); Chloride 104 mmol/L (98-107); Glucose 108 mg/dL (74-99); Magnesium 2.1 mg/dL (1.6-2.3); Non-African American GFR(CKD) 15 (>60 ml/min/1.73 sqM); Potassium 4.8 mmol/L (3.5-5.1); Sodium 131 mmol/L (137-145)
[2024-01-31] MEDS ORDERED: NON FORMULARY DRUG (Fluticasone/Umeclidin/Vilanter [Trelegy Ellipta 100-62.5-25] 1 EACH Bl INHALATION SCH (08:00)
[2024-01-31 08:42] LABS: Glucose,Whole Blood 112 mg/dL (70-110)
[2024-01-31] MEDS ORDERED: DAPAGLIFLOZIN PROPANEDIOL 5 MG TABLET PO SCH (09:00)
[2024-01-31] MEDS: IPRATROPIUM 0.5 MG/2.5 ML NEBU INHALATION SCH (09:28)
[2024-01-31] MEDS: SYMBICORT 80-4.5 MCG INHALER INHALATION SCH (09:29)
[2024-01-31] MEDS: SPIRONOLACTONE 25 MG TAB PO SCH (10:40)
--- NOTE | 2024-01-31 10:56 | P.CRDCN ---
History of Present Illness History of present illness: HISTORY OF PRESENT ILLNESS: This is a 73-year-old male with a past medical history significant for coronary artery disease with previous CABG, valvular heart disease, ischemic cardiomyopa thy, AICD, ventricular tachycardia, hyperlipidemia, hypertension, and chronic kidney disease. Patient follows in the office with Dr. Duong. We have been asked to see the patient in consultation for CHF. Patient examined at the bedside in the emergency room. Patient presented to the hospital with a chief complaint of shortness of breath. He also reports a frequent cough. He currently denies any chest pain or pressure. Patient was found to be in acute CHF and was started on IV Lasix. Additionally, he was found to have worsening kidney function with a creatinine of 3.8. Patient was evaluated in the past [facility]. Patient was evaluated for LVAD but he decided he was not interested in pursuing this. He does report some left ankle pain with from a recent hunting accident. His ankle is currently wrapped in an Barrie bandage. He denies any wounds or sores to his ankle. DIAGNOSTICS: - EKG reveals sinus mechanism with IVCD. - Chest xray cardiomegaly with prominent pulmonary vascular markings - Laboratory data: WBC 4.6. Hemoglobin 9.0. Platelet count 123. Sodium 131. Potassium 4.8. BUN 92. Creatinine 3.87. Magnesium 2.1. Troponin 0.070. proBNP 47,600. - Current home cardiac medications include aspirin 81 mg daily, Lasix 40 mg daily, losartan 50 mg daily, Lipitor 80 mg at night, Plavix 75 mg daily, Jardiance 10 mg daily, Aldactone 12.5 mg daily - Most recent echocardiogram obtained in September 2023 revealing EF 17%, moderate TR, moderate MR, mild - Cardiac catheterization history: 2019 revealing heavily calcified coronary arteries, significant disease in the left main, chronically occluded RCA with collaterals from left coronary system. -Patient underwent four-vessel CABG in November 2018 with SORTO to LAD, VGD1, VGOM1, VGPLB REVIEW OF SYSTEMS: At the time of my exam: CONSTITUTIONAL: Denies fever or chills. HEENT: Denies blurred vision, vision changes, or eye pain. Denies hemoptysis CARDIOVASCULAR: Denies chest pain. Denies orthopnea. Denies PND. Denies palpitations RESPIRATORY: Reports shortness of breath. GASTROINTESTINAL: Denies abdominal pain. Denies nausea or vomiting. HEMATOLOGIC: Denies bleeding disorders. GENITOURINARY: Denies any blood in urine. SKIN: Denies pruitis. Denies rash. PHYSICAL EXAM: VITAL SIGNS: Reviewed. GENERAL: Well-developed in no acute distress. HEENT: Head is normocephalic. Pupils are equal, round. Sclerae anicteric. Mucous membranes of the mouth are moist. Neck supple. No JVD or thyromegaly LUNGS: Respirations even and unlabored. Lungs with mild expiratory wheezing and frequent coughing noted HEART: Regular rate and rhythm. S1 and S2 heard. Systolic murmur noted. ABDOMEN: Soft. Nondistended. Nontender. EXTREMITIES: Normal range of motion. No clubbing or cyanosis. Peripheral pulses intact. No lower extremity edema NEUROLOGIC: Awake and alert. Oriented x 3. ASSESSMENT: Shortness of breath Acute on chronic heart failure with reduced EF, 17% Elevated troponin, secondary to poor renal clearance, no evidence of myocardial injury or ischemia Acute on chronic kidney disease Coronary artery disease with previous four-vessel CABG, 2019 Ischemic cardiomyopathy History of AICD implantation History of ventricular tachycardia Hypertension Hyperlipidemia PLAN: No need to repeat echocardiogram as this was performed in September 2023 Continue IV Lasix Daily weights, accurate intake and output, monitoring of kidney function Nephrology consulted for evaluation. Await recommendations Resume home cardiac medications Hold Jardiance and Losartan due to DEVIN Recommend upgrading to BiV device. Patient will undergo venogram tomorrow. He does not need to be NPO for this. Further recommendations pending patient course Nurse practitioner note has been reviewed by physician. Signing provider agrees with the documented findings, assessment, and plan of care documented by RADIO REPAIR TEACHER as a scribe. Past Medical History Past Medical History: Coronary Artery Disease (CAD), Heart Failure, COPD, Diabetes Mellitus, Hyperlipidemia, Hypertension, Myocardial Infarction ([place]), Sleep Apnea/CPAP/BIPAP Additional Past Medical History / Comment(s): seen in er 09/09/18-shingles to back of head-resolved now. BRAIN ANEURSYM-DX 2018-BEING FOLLOWING BY DR. GILLESPIE IN [place] Last Myocardial Infarction Date:: 04/2018 History of Any Multi-Drug Resistant Organisms: None Reported Past Surgical History: AICD, Coronary Bypass/CABG, Heart Catheterization, Joint Replacement Additional Past Surgical History / Comment(s): right knee replaced. COLONOSCOPY Past Anesthesia/Blood Transfusion Reactions: No Reported Reaction Type of Cardiac Device: AICD Device Placement Date:: 2009 Past Psychological History: No Psychological Hx Reported Smoking Status: Former smoker Past Alcohol Use History: Occasional Additional Past Alcohol Use History / Comment(s): QUIT SMOKING 2008 Past Drug Use History: None Reported - Past Family History Mother History Unknown: Yes Family Medical History: No Reported History Father History Unknown: Yes Family Medical History: Liver Disease Brother(s) History Unknown: Yes Family Medical History: Coronary Artery Disease (CAD) Medications and Allergies Home Medications Medication Instructions Recorded Confirmed Type Finasteride [Proscar] 5 mg PO DAILY 02/01/16 01/30/24 History Gabapentin 600 mg PO BID 10/27/17 01/30/24 History Atorvastatin [Lipitor] 80 mg PO HS 10/03/18 01/30/24 History Clopidogrel [Plavix] 75 mg PO DAILY tab 12/06/18 01/30/24 Rx Albuterol Sulfate [Albuterol 2 puff INHALATION RT-Q4H PRN 11/28/23 01/30/24 History Sulfate Hfa] Aspirin 81 mg PO DAILY 11/28/23 01/30/24 History Empagliflozin [Jardiance] 10 mg PO DAILY 11/28/23 01/30/24 History Fluticasone/Umeclidin/Vilanter 1 puff INHALATION RT-DAILY 11/28/23 01/30/24 History [Trelegy Ellipta 100-62.5-25] Losartan [Cozaar] 50 mg PO DAILY tab 11/30/23 01/30/24 Rx Ferrous Sulfate [Iron (65 MG 325 mg PO BID 01/30/24 01/30/24 History Elemental)] Furosemide [Lasix] 40 mg PO DAILY 01/30/24 01/30/24 History Metoprolol Succinate (ER) [Toprol 50 mg PO BID 01/30/24 01/30/24 History Xl] Spironolactone [Aldactone] 12.5 mg PO DAILY 01/30/24 01/30/24 History Allergies Allergy/AdvReac Type Severity Reaction Status Date / Time No Known Allergies Allergy Verified 01/30/24 12:04 Physical Exam Vitals: Vital Signs Temp Pulse Pulse Resp BP BP Pulse Ox 01/31/24 10:00 70 18 109/66 94 L 01/31/24 09:40 77 01/31/24 09:30 76 01/31/24 06:56 75 16 113/68 97 01/31/24 03:52 98.1 F 76 15 106/64 96 01/30/24 23:40 79 18 100/65 96 01/30/24 22:07 79 01/30/24 21:56 77 01/30/24 21:29 80 18 104/73 98 01/30/24 19:45 72 18 103/70 97 01/30/24 16:26 97.9 F 77 20 114/72 95 01/30/24 16:16 77 20 01/30/24 14:31 76 18 121/82 96 01/30/24 12:03 73 20 106/77 97 Intake and Output 01/30/24 01/31/24 01/31/24 22:59 06:59 14:59 Intake Total 310 Output Total 150 Balance 160 Intake: IV 10 Invasive Line 1 10 Oral 300 Output: Urine 150 Other: Voiding Method Toilet Weight 72.121 kg Results 01/30/24 11:09 01/31/24 06:26 Cardiac Enzymes 01/30/24 01/30/24 Range/Units 11:09 11: AST 18 (17-59) U/L Troponin I 0.070 H* (0.000-0.034) ng/mL Coagulation 01/30/24 Range/Units 11:09 PT 12.3 (10.0-12.5) sec APTT 25.2 (22.0-30.0) sec CBC 01/30/24 Range/Units 11:09 WBC 4.6 (3.8-10.6) k/uL RBC 3.25 L (4.30-5.90) m/uL Hgb 9.0 L D (13.0-17.5) gm/dL Hct 27.5 L (39.0-53.0) % Plt Count 123 L D (150-450) k/uL Comprehensive Metabolic Panel 01/30/24 01/31/24 Range/Units 11:09 06:26 Sodium 135 L 131 L (137-145) mmol/L Potassium 4.7 4.8 (3.5-5.1) mmol/L Chloride 109 H 104 (98-107) mmol/L Carbon Dioxide 15 L 16 L (22-30) mmol/L BUN 89 H 92 H (9-20) mg/dL Creatinine 3.80 H 3.87 H (0.66-1.25) mg/dL Glucose 113 H 108 H (74-99) mg/dL Calcium 8.2 L 8.1 L (8.4-10.2) mg/dL AST 18 (17-59) U/L ALT 20 (4-49) U/L Alkaline Phosphatase 134 H (38-126) U/L Total Protein 8.1 (6.3-8.2) g/dL Albumin 3.2 L (3.5-5.0) g/dL Current Medications Generic Name Dose Route Start Last Admin Trade Name Freq PRN Reason Stop Dose Admin Albuterol Sulfate 2.5 mg 01/30/24 12:36 01/30/24 21:56 Albuterol Nebulized 2.5 Mg/3 Ml INHALATION 2.5 mg RT-Q4H PRN Administration Shortness Of Breath Aspirin 81 mg 01/31/24 09:00 Aspirin 81 Mg PO DAILY [facility] Atorvastatin Calcium 80 mg 01/30/24 21:00 01/30/24 21:30 Atorvastatin 80 Mg Tab PO 80 mg HS HEAVEN Administration Budesonide/Formoterol Fumarate 2 puff 01/31/24 08:00 01/31/24 09:29 Symbicort 80-4.5 Mcg Inhaler INHALATION 2 puff RT-BID HEAVEN Administration Clopidogrel Bisulfate 75 mg 01/31/24 09:00 Clopidogrel 75 Mg Tab PO DAILY HEAVEN Finasteride 5 mg 01/31/24 09:00 Finasteride 5 Mg Tab PO DAILY HEAVEN Furosemide 40 mg 01/30/24 12:45 01/30/24 14:22 Furosemide 10 Mg/Ml 4 Ml Vial IV 40 mg DAILY HEAVEN Administration Heparin Sodium (Porcine) 5,000 unit 01/30/24 16:00 01/31/24 08:56 Heparin Sodium,Porcine 5,000 Unit/Ml 1 Ml Vial SQ 5,000 unit Q8HR HEAVEN Administration Insulin Aspart 0 unit 01/30/24 17:30 01/31/24 08:49 Insulin Aspart (Novolog) 100 Unit/Ml Vial SQ Not Given AC-TID [facility] Protocol Ipratropium [place] 0.5 mg 01/31/24 08:00 01/31/24 09:28 Ipratropium 0.5 Mg/2.5 Ml Nebu INHALATION 0.5 mg RT-QID HEAVEN Administration Metoprolol Succinate 50 mg 01/30/24 21:00 01/31/24 10:40 Metoprolol Succinate (Er) 50 Mg Tab.Er.24h PO Not Given BID HEAVEN Naloxone HCl 0.2 mg 01/30/24 13:31 Naloxone 0.4 Mg/Ml 1 Ml Vial IV Q2M PRN Opioid Reversal Pregabalin 75 mg 01/30/24 12:41 01/31/24 02:34 Pregabalin 75 Mg Cap PO 75 mg BID PRN Administration Analgesia Spironolactone 12.5 mg 01/31/24 09:00 01/31/24 10:40 Spironolactone 25 Mg Tab PO Not Given DAILY HEAVEN Intake and Output 01/30/24 01/31/24 01/31/24 22:59 06:59 14:59 Intake Total 310 Output Total 150 Balance 160 Intake: IV 10 Invasive Line 1 10 Oral 300 Output: Urine 150 Other: Voiding Method Toilet Weight 72.121 kg 01/30/24 11:09 01/31/24 06:26
[2024-01-31] MEDS: ASPIRIN 81 MG PO SCH (11:05)
[2024-01-31] MEDS: CLOPIDOGREL 75 MG TAB PO SCH (11:05)
[2024-01-31] MEDS: FINASTERIDE 5 MG TAB PO SCH (11:05)
[2024-01-31 11:59] LABS: Glucose,Whole Blood 102 mg/dL (70-110)
--- NOTE | 2024-01-31 13:29 | P.NPCON ---
History of Present Illness - Reason for Consult acute renal failure - History of Present Illness patient is a 73-year-old male with history of CHF and cardiomyopathy with EF of 30-35%. Patient is admitted to the hospital with history of weakness, confusion and not able to walk. Patient also apparently fell at home. Blood pressure has been on the lower side with systolic around 100-10 4 mmHg. Noted to have serum creatinine of 3.8 mg/dL. Previous creatinine 3.3 on 01/20/2024 and 2.1 on 11/21/2023 Family states that patient has voided. Chest x-ray shows cardiomegaly with prominent vascular markings. No significant shortness of breath noted. O2 sats 94% on room air. No history of fever chills nausea or vomiting or cough. It appears that patient had low urine output prior to admission with details are not clear. Past Medical History Past Medical History: Coronary Artery Disease (CAD), Heart Failure, COPD, Diabetes Mellitus, Hyperlipidemia, Hypertension, Myocardial Infarction ([place]), Sleep Apnea/CPAP/BIPAP Additional Past Medical History / Comment(s): seen in er 09/09/18-shingles to back of head-resolved now. BRAIN ANEURSYM-DX 2018-BEING FOLLOWING BY DR. GILLESPIE IN [place] Last Myocardial Infarction Date:: 04/2018 History of Any Multi-Drug Resistant Organisms: None Reported Past Surgical History: AICD, Coronary Bypass/CABG, Heart Catheterization, Joint Replacement Additional Past Surgical History / Comment(s): right knee replaced. COLONOSCOPY Past Anesthesia/Blood Transfusion Reactions: No Reported Reaction Type of Cardiac Device: AICD Device Placement Date:: 2009 Past Psychological History: No Psychological Hx Reported Smoking Status: Former smoker Past Alcohol Use History: Occasional Additional Past Alcohol Use History / Comment(s): QUIT SMOKING 2008 Past Drug Use History: None Reported - Past Family History Mother History Unknown: Yes Family Medical History: No Reported History Father History Unknown: Yes Family Medical History: Liver Disease Brother(s) History Unknown: Yes Family Medical History: Coronary Artery Disease (CAD) Medications and Allergies Home Medications Medication Instructions Recorded Confirmed Type Finasteride [Proscar] 5 mg PO DAILY 02/01/16 01/30/24 History Gabapentin 600 mg PO BID 10/27/17 01/30/24 History Atorvastatin [Lipitor] 80 mg PO HS 10/03/18 01/30/24 History Clopidogrel [Plavix] 75 mg PO DAILY tab 12/06/18 01/30/24 Rx Albuterol Sulfate [Albuterol 2 puff INHALATION RT-Q4H PRN 11/28/23 01/30/24 History Sulfate Hfa] Aspirin 81 mg PO DAILY 11/28/23 01/30/24 History Empagliflozin [Jardiance] 10 mg PO DAILY 11/28/23 01/30/24 History Fluticasone/Umeclidin/Vilanter 1 puff INHALATION RT-DAILY 11/28/23 01/30/24 History [Trelegy Ellipta 100-62.5-25] Losartan [Cozaar] 50 mg PO DAILY tab 11/30/23 01/30/24 Rx Ferrous Sulfate [Iron (65 MG 325 mg PO BID 01/30/24 01/30/24 History Elemental)] Furosemide [Lasix] 40 mg PO DAILY 01/30/24 01/30/24 History Metoprolol Succinate (ER) [Toprol 50 mg PO BID 01/30/24 01/30/24 History Xl] Spironolactone [Aldactone] 12.5 mg PO DAILY 01/30/24 01/30/24 History Allergies Allergy/AdvReac Type Severity Reaction Status Date / Time No Known Allergies Allergy Verified 01/30/24 12:04 Physical Exam Vitals: Vital Signs Temp Pulse Pulse Resp BP BP Pulse Ox 01/31/24 13:06 80 01/31/24 13:00 77 01/31/24 11:00 94 18 103/70 01/31/24 10:00 70 18 109/66 94 L 01/31/24 09:40 77 01/31/24 09:30 76 01/31/24 06:56 75 16 113/68 97 01/31/24 03:52 98.1 F 76 15 106/64 96 01/30/24 23:40 79 18 100/65 96 01/30/24 22:07 79 01/30/24 21:56 77 01/30/24 21:29 80 18 104/73 98 01/30/24 19:45 72 18 103/70 97 01/30/24 16:26 97.9 F 77 20 114/72 95 01/30/24 16:16 77 20 01/30/24 14:31 76 18 121/82 96 Intake and Output 01/30/24 01/31/24 01/31/24 22:59 06:59 14:59 Intake Total 310 Output Total 150 Balance 160 Intake: IV 10 Invasive Line 1 10 Oral 300 Output: Urine 150 Other: Voiding Method Toilet Weight 72.121 kg patient is awake, comfortable, in no acute distress Examination of the heart S1 and S2 Examination of the lungs bilateral breath sounds are heard Abdomen is soft nontender Examination of lower extremity shows no evidence of edema HVAC INSTALLATION TECHNICIAN exam grossly intact Results - Lab Results Most recent lab results Calcium 8.1 mg/dL (8.4-10.2) L 01/31/24 06:26 Magnesium 2.1 mg/dL (1.6-2.3) 01/31/24 06:26 01/30/24 11:09 01/31/24 06:26 Assessment and Plan Assessment: 1. Acute kidney injury, ATN/cardiorenal. Rule out urine retention. UA shows 2+ protein and large blood and WBCs 13. Ultrasound of the kidneys on 11/28/2023 did not show any evidence of obstructive uropathy. 2. Chronic kidney disease NKF stage IIIB with baseline creatinine at 1.4-1.9 mg/dL. Serum creatinine stayed at around 2-2.3 mg/dL in November during recent hospitalization. Etiology is likely diabetic kidney disease. 3. Cardiomyopathy with EF of 30-35% on echocardiogram in 2018 4. Acute on chronic CHF with decreased ejection fraction 5. Volume overload 6. BPH maintained on Proscar 7. Non-gap metabolic acidosis associated with acute kidney injury Plan: continue with IV Lasix Check bladder scan and rule out urine retention Continue with Proscar Repeat labs in a.m. May continue to hold Cozaar for now. Add oral sodium bicarb if no improvement in acidosis tomorrow. Thank you for the consultation. We'll continue to follow the patient with you during his hospitalization.
--- NOTE | 2024-01-31 14:46 | P.PN ---
Subjective Progress Note Date: 01/31/24 73-year-old male with a chronically disease and congestive heart failure EF of around 30 to 35% in 2019 came in because he was not urinating and was apparently confused at home. Although when questioned the patient patient says he came in because he hurt his left ankle and knee while he was hunting and he has an Barrie bandage to both of those locations. Patient was alert oriented x 3. Patient also found to have serum creatinine of 3.8 his baseline started going up lately, he is serum creatinine on number 29th was around 3.3 and before that it was 2.2. Patient has an AICD in place patient is recommended to have an LVAD but does not want LVAD. Patient's BNP is 47,600 chest x-ray showed mild pulmonary edema although clinically patient does not have any pedal edema does have mildly elevated JVD he denies any orthopnea paroxysmal nocturnal dyspnea to me. 01/31/2024 Patient evaluated in the ER currently pending a bed on the medical floor. He continues on IV Lasix daily although his blood pressures down into the 80s systolic today. He has a known EF of 30 to 35%. Blood work today reveals a sodium level of 131, BUN of 92 creatinine of 3.87. Nephrology and cardiology to evaluate the patient today. Review of Systems Constitutional: Denied any fatigue denied any fever. Cardio vascular: denied any chest pain, palpitations Gastrointestinal: denied any nausea, vomiting, diarrhea Pulmonary: Denied any shortness of breath cough Neurologic denied any new focal deficits All inpatient medications were reviewed and appropriate changes in these medications as dictated in the interval history and assessment and plan. PHYSICAL EXAMINATION: GENERAL: The patient is alert and oriented x3, not in any acute distress. Well developed, well nourished. HEENT: Pupils are round and equally reacting to light. EOMI. No scleral icterus. No conjunctival pallor. Normocephalic, atraumatic. No pharyngeal erythema. No thyromegaly. CARDIOVASCULAR: S1 and S2 present. No murmurs, rubs, or gallops. PULMONARY: Chest is clear to auscultation, no wheezing or crackles. ABDOMEN: Soft, nontender, nondistended, normoactive bowel sounds. No palpable organomegaly. MUSCULOSKELETAL: No joint swelling or deformity. EXTREMITIES: No cyanosis, clubbing, or pedal edema. NEUROLOGICAL: Gross neurological examination did not reveal any focal deficits. SKIN: No rashes. Assessment and plan -Current heart failure chronic systolic function with mild acute exacerbation patient is on oral Lasix 40 will which she will be changed to IV resume his heart failure medications Farxiga will be held because of his extremely low GFR -Acute renal failure on chronic kidney disease stage V: Acute renal failure secondary to cardiorenal syndrome nephrology will be consulted continue with IV Lasix\nephrology has been consulted -Troponin elevation secondary to congestive heart failure cardiology has been consulted -Left ankle and left knee pain no acute fractures on x-rays his left knee does have a small to moderate joint effusion which will be monitored -Neuropathy patient was on gabapentin which will be discontinued because of poor renal function patient will be started on Lyrica instead if needed -Hyperlipidemia -Type 2 diabetes mellitus -Coronary artery disease -Sleep apnea DVT prophylaxis: Subcutaneous heparin The impression and plan of care has been dictated by Valarie Copeland, Nurse Practitioner as directed. Dr. Devang MD I have performed a history and physical examination and medical decision making of this patient, discussed the same with the dictator, and agree with the dictators assessment and plan as written, documented as a scribe. Based on total visit time, I have performed more than 50% of this visit. Objective - Vital Signs Vital signs: Vital Signs Temp 98.1 F 01/31/24 03:52 Pulse 94 01/31/24 11:00 Resp 18 01/31/24 11:00 BP 103/70 01/31/24 11:00 Pulse Ox 94 L 01/31/24 10:00 FiO2 Intake & Output 01/30/24 01/31/24 01/31/24 18:59 06:59 18:59 Intake Total 310 Output Total 150 Balance 160 Weight 72.121 kg Intake: IV 10 Invasive Line 1 10 Oral 300 Output: Urine 150 Other: Voiding Method Toilet - Labs CBC & Chem 7: 01/30/24 11:09 01/31/24 06:26 Labs: Abnormal Lab Results - Last 24 Hours (Table) 01/30/24 01/31/24 01/31/24 Range/Units 12:25 06:26 08:41 Sodium 131 L (137-145) mmol/L Carbon Dioxide 16 L (22-30) mmol/L BUN 92 H (9-20) mg/dL Creatinine 3.87 H (0.66-1.25) mg/dL Glucose 108 H (74-99) mg/dL POC Glucose (mg/dL) 112 H (70-110) mg/dL Calcium 8.1 L (8.4-10.2) mg/dL Urine Protein 2+ H (Negative) Urine Glucose (UA) 3+ H (Negative) Urine Blood Large H (Negative) Urine RBC >182 H (0-5) /hpf Urine WBC 13 H (0-5) /hpf Urine Bacteria Rare H (None) /hpf Urine Mucus Rare H (None) /hpf Assessment and Plan Time with Patient: Less than 30
[2024-01-31 17:12] LABS: Glucose,Whole Blood 151 mg/dL (70-110)
[2024-01-31 20:25] LABS: Glucose,Whole Blood 134 mg/dL (70-110)
[2024-01-31] MEDS: ACETAMINOPHEN TAB 325 MG TAB PO PRN (23:41)
[2024-02-01 05:55] LABS: Glucose,Whole Blood 116 mg/dL (70-110)
[2024-02-01 07:53] LABS: Anisocytosis Slight; Basophils % (A) 1 %; Eosinophils # (A) 0.1 k/uL (0-0.7); Eosinophils % (A) 3 %; HCT 27.5 % (39.0-53.0); HGB 8.9 gm/dL (13.0-17.5); Lymphocytes # (A) 1.1 k/uL (1.0-4.8); Lymphocytes % (A) 31 %; MCH 27.4 pg (25.0-35.0); MCHC 32.2 g/dL (31.0-37.0); MCV 85.3 fL (80.0-100.0); Mean Platelet Volume 8.9; Monocytes # (A) 0.2 k/uL (0-1.0); Monocytes % (A) 6 %; Neutrophils % (A) 57 %; Platelet Count 132 k/uL (150-450); Poikilocytosis Slight; RBC 3.23 m/uL (4.30-5.90); WBC 3.5 k/uL (3.8-10.6)
[2024-02-01 08:15] LABS: African American GFR (CKD) 18 (>60 ml/min/1.73 sqM); Anion Gap 7 mmol/L; Blood Urea Nitrogen 98 mg/dL (9-20); Calcium 7.9 mg/dL (8.4-10.2); Carbon Dioxide 17 mmol/L (22-30); Chloride 106 mmol/L (98-107); Glucose 104 mg/dL (74-99); Non-African American GFR(CKD) 16 (>60 ml/min/1.73 sqM); Potassium 4.6 mmol/L (3.5-5.1); Sodium 130 mmol/L (137-145)
[2024-02-01] MEDS: SODIUM CHLORIDE 0.9% 500 ML 500 ML IV ONE (10:46)
[2024-02-01] MEDS: IOPAMIDOL-370 100ML BTL INJ ONE (10:55)
--- NOTE | 2024-02-01 11:38 | P.PN ---
Subjective HISTORY OF PRESENT ILLNESS: This is a 73-year-old male with a past medical history significant for coronary artery disease with previous CABG, valvular heart disease, ischemic cardiomyopathy, AICD, ventricular tachycardia, hyperlipidemia, hypertension, and chronic kidney disease. Patient follows in the office with Dr. Duong. We have been asked to see the patient in consultation for CHF. Patient examined at the bedside in the emergency room. Patient presented to the hospital with a chief complaint of shortness of breath. He also reports a frequent cough. He currently denies any chest pain or pressure. Patient was found to be in acute CHF and was started on IV Lasix. Additionally, he was found to have worsening kidney function with a creatinine of 3.8. Patient was evaluated in the past [facility]. Patient was evaluated for LVAD but he decided he was not interested in pursuing this. He does report some left ankle pain with from a recent hunting accident. His ankle is currently wrapped in an Barrie bandage. He denies any wounds or sores to his ankle. DIAGNOSTICS: - EKG reveals sinus mechanism with IVCD. - Chest xray cardiomegaly with prominent pulmonary vascular markings - Laboratory data: WBC 4.6. Hemoglobin 9.0. Platelet count 123. Sodium 131. Potassium 4.8. BUN 92. Creatinine 3.87. Magnesium 2.1. Troponin 0.070. proBNP 47,600. - Current home cardiac medications include aspirin 81 mg daily, Lasix 40 mg daily, losartan 50 mg daily, Lipitor 80 mg at night, Plavix 75 mg daily, Jardiance 10 mg daily, Aldactone 12.5 mg daily - Most recent echocardiogram obtained in September 2023 revealing EF 17%, moderate TR, moderate MR, mild - Cardiac catheterization history: 2019 revealing heavily calcified coronary arteries, significant disease in the left main, chronically occluded RCA with collaterals from left coronary system. -Patient underwent four-vessel CABG in November 2018 with SORTO to LAD, VGD1, VGOM1, VGPLB 02/01/2024 Patient examined this morning the bedside. Patient states his breathing has improved today. He remains on IV Lasix. Creatinine today 3.67. He denies chest pain or pressure. Vital signs are stable. PHYSICAL EXAM: VITAL SIGNS: Reviewed. GENERAL: Well-developed in no acute distress. HEENT: Head is normocephalic. Pupils are equal, round. Sclerae anicteric. Mucous membranes of the mouth are moist. Neck supple. No JVD or thyromegaly LUNGS: Respirations even and unlabored. Lungs with rhonchi and a few crackles at the bases HEART: Regular rate and rhythm. S1 and S2 heard. Systolic murmur noted. ABDOMEN: Soft. Nondistended. Nontender. EXTREMITIES: Normal range of motion. No clubbing or cyanosis. Peripheral pulses intact. No lower extremity edema NEUROLOGIC: Awake and alert. Oriented x 3. ASSESSMENT: Shortness of breath Acute on chronic heart failure with reduced EF, 17% Elevated troponin, secondary to poor renal clearance, no evidence of myocardial injury or ischemia Acute on chronic kidney disease Coronary artery disease with previous four-vessel CABG, 2019 Ischemic cardiomyopathy History of AICD implantation History of ventricular tachycardia Hypertension Hyperlipidemia PLAN: No need to repeat echocardiogram as this was performed in September 2023 Discontinue IV Lasix. Begin oral Lasix 40 mg daily. Increase Aldactone to 25 mg daily Daily weights, accurate intake and output, monitoring of kidney function Hold Jardiance and Losartan due to DEVIN Recommend upgrading to BiV device. Patient will undergo venogram today. Further recommendations pending patient course Nurse practitioner note has been reviewed by physician. Signing provider agrees with the documented findings, assessment, and plan of care documented by MENTAL HEALTH PROFESSIONAL as a scribe. Objective - Vital Signs Vital signs: Vital Signs Temp 98.1 F 02/01/24 08:09 Pulse 84 02/01/24 09:18 Resp 18 02/01/24 08:09 BP 106/68 02/01/24 08:09 Pulse Ox 96 02/01/24 08:09 FiO2 Intake & Output 01/31/24 02/01/24 02/01/24 18:59 06:59 18:59 Intake Total 10 240 360 Output Total 400 Balance 10 -160 360 Weight 63.7 kg Intake: IV 10 120 Invasive Line 1 10 10 Invasive Line 2 10 Oral 240 240 Output: Urine 400 Other: Voiding Method Toilet Toilet Toilet # Voids 1 # Bowel Movements 1 - Labs CBC & Chem 7: 02/01/24 05:45 02/01/24 05:45 Labs: Abnormal Lab Results - Last 24 Hours (Table) 01/31/24 01/31/24 02/01/24 Range/Units 17:11 20:23 05:45 WBC 3.5 L (3.8-10.6) k/uL RBC 3.23 L (4.30-5.90) m/uL Hgb 8.9 L (13.0-17.5) gm/dL Hct 27.5 L (39.0-53.0) % RDW 18.0 H (11.5-15.5) % Plt Count 132 L (150-450) k/uL Sodium (137-145) mmol/L Carbon Dioxide (22-30) mmol/L BUN (9-20) mg/dL Creatinine (0.66-1.25) mg/dL Glucose (74-99) mg/dL POC Glucose (mg/dL) 151 H 134 H (70-110) mg/dL Calcium (8.4-10.2) mg/dL 02/01/24 02/01/24 Range/Units 05:45 05:54 WBC (3.8-10.6) k/uL RBC (4.30-5.90) m/uL Hgb (13.0-17.5) gm/dL Hct (39.0-53.0) % RDW (11.5-15.5) % Plt Count (150-450) k/uL Sodium 130 L (137-145) mmol/L Carbon Dioxide 17 L (22-30) mmol/L BUN 98 H (9-20) mg/dL Creatinine 3.67 H (0.66-1.25) mg/dL Glucose 104 H (74-99) mg/dL POC Glucose (mg/dL) 116 H (70-110) mg/dL Calcium 7.9 L (8.4-10.2) mg/dL
[2024-02-01 11:49] LABS: Glucose,Whole Blood 106 mg/dL (70-110)
[2024-02-01] MEDS: SODIUM CHLORIDE 0.9% 1,000 ML IV SCH (12:58)
[2024-02-01 16:35] LABS: Glucose,Whole Blood 109 mg/dL (70-110)
[2024-02-01 20:22] LABS: Glucose,Whole Blood 130 mg/dL (70-110)
[2024-02-02 06:12] LABS: Glucose,Whole Blood 106 mg/dL (70-110)
[2024-02-02 07:51] LABS: African American GFR (CKD) 17 (>60 ml/min/1.73 sqM); Anion Gap 10 mmol/L; Blood Urea Nitrogen 96 mg/dL (9-20); Carbon Dioxide 16 mmol/L (22-30); Chloride 104 mmol/L (98-107); Glucose 96 mg/dL (74-99); Non-African American GFR(CKD) 15 (>60 ml/min/1.73 sqM); Potassium 4.5 mmol/L (3.5-5.1); Sodium 130 mmol/L (137-145)
[2024-02-02] MEDS: FUROSEMIDE 40 MG TAB PO SCH (08:17)
[2024-02-02] MEDS: SPIRONOLACTONE 25 MG TAB PO SCH (08:17)
--- NOTE | 2024-02-02 11:06 | CDI ---
Documentation Clarification Form Date: 02/02/2024 10:39:15 AM From: Lucy Patel RN CCDS Phone: [phone] Admit Date: 01/30/2024 01:32:00 PM Patient Name: Rajiv Ibarra Visit Number: [id number] Discharge Date: ATTENTION: The Clinical Documentation Specialists (CDI) and [facility] Coding Staff appreciate your assistance in clarifying documentation. Please respond to the clarification below the line at the bottom and electronically sign. The CDI & [facility] Coding staff will review the response and follow-up if needed. Please note: Queries are made part of the Legal Health Record. If you have any questions, please contact the author of this message via ITS. Doctor: Ed Dias Conflicting documentation has been found in the medical record. As attending physician, please provide clarification. Chronic kidney disease stage V; Medicine note 01/30. Chronic kidney disease NKF stage IIIB, Nephrology consult 01/30. History/Risk Factors: 73 year old male presents to the ED for confusion which began yesterday. This was mild and appears to be resolved at this time. Family concerned that he has decreased urine output and mild dyspnea. Medical History: CKD, CHF, HLD, CAD and DM2 Patients Historical 03/09/23 BUN 36 CR 1.62 GFR 42 Clinical Indicators: Current 01/30/2024 BUN 89 CR 3.8 GFR: 15 Nephrology Consult, 01/30: Chronic kidney disease NKF stage IIIB with baseline creatinine at 1.4- 1.9mg/dl. Serum creatinine stayed at around 2-2.3mg/dl in November during recent hospitalization. Etiology is likely diabetic kidney disease. Treatment: Farxiga, Bladder scan and rule out urine retention, Nephrology consult above Please clarify which diagnosis is most appropriate: [ ] CKD Stage 3b [ ] CKD Stage 4 [ ] Other (please specify) [ ] Unable to determine (Template Last Revised: April 2020) MTDD
--- NOTE | 2024-02-02 11:11 | P.EPPROC ---
- EP Procedure Note Electrophysiology Procedure Note: Diagnosis Severe ischemic cardiomyopathy Left bundle branch block pattern on twelve-lead EKG with a QRS width of almost 160 ms left bundle branch block type Congestive heart failure, recurrent with recent hospital admission Chronic kidney disease creatinine 3.8, Cinefluoroscopy of the lead A single dual coil ICD lead in the right ventricle without fractures or breaks noted Left upper extremity venogram 15 cc of IV dye injected in the left arm. Patent left axillary and subclavian venous system Plan Upgrade to a biventricular ICD for heart failure management Will schedule the procedure for him Discussed with the patient in detail and he is agreeable with the plan
[2024-02-02 11:12] LABS: Glucose,Whole Blood 115 mg/dL (70-110)
--- NOTE | 2024-02-02 12:12 | P.PN ---
Subjective HISTORY OF PRESENT ILLNESS: This is a 73-year-old male with a past medical history significant for coronary artery disease with previous CABG, valvular heart disease, ischemic cardiomyopathy, AICD, ventricular tachycardia, hyperlipidemia, hypertension, and chronic kidney disease. Patient follows in the office with Dr. Duong. We have been asked to see the patient in consultation for CHF. Patient examined at the bedside in the emergency room. Patient presented to the hospital with a chief complaint of shortness of breath. He also reports a frequent cough. He currently denies any chest pain or pressure. Patient was found to be in acute CHF and was started on IV Lasix. Additionally, he was found to have worsening kidney function with a creatinine of 3.8. Patient was evaluated in the past [facility]. Patient was evaluated for LVAD but he decided he was not interested in pursuing this. He does report some left ankle pain with from a recent hunting accident. His ankle is currently wrapped in an Barrie bandage. He denies any wounds or sores to his ankle. DIAGNOSTICS: - EKG reveals sinus mechanism with IVCD. - Chest xray cardiomegaly with prominent pulmonary vascular markings - Laboratory data: WBC 4.6. Hemoglobin 9.0. Platelet count 123. Sodium 131. Potassium 4.8. BUN 92. Creatinine 3.87. Magnesium 2.1. Troponin 0.070. proBNP 47,600. - Current home cardiac medications include aspirin 81 mg daily, Lasix 40 mg daily, losartan 50 mg daily, Lipitor 80 mg at night, Plavix 75 mg daily, Jardiance 10 mg daily, Aldactone 12.5 mg daily - Most recent echocardiogram obtained in September 2023 revealing EF 17%, moderate TR, moderate MR, mild - Cardiac catheterization history: 2019 revealing heavily calcified coronary arteries, significant disease in the left main, chronically occluded RCA with collaterals from left coronary system. -Patient underwent four-vessel CABG in November 2018 with SORTO to LAD, VGD1, VGOM1, VGPLB 02/01/2024 Patient examined this morning the bedside. Patient states his breathing has improved today. He remains on IV Lasix. Creatinine today 3.67. He denies chest pain or pressure. Vital signs are stable. 02/02/2024 Patient examined this morning at the bedside. Patient currently denies chest pain or pressure. He denies shortness of breath. He underwent left upper extre mity venogram yesterday. Plan is for biventricular ICD. PHYSICAL EXAM: VITAL SIGNS: Reviewed. GENERAL: Well-developed in no acute distress. HEENT: Head is normocephalic. Pupils are equal, round. Sclerae anicteric. Mucous membranes of the mouth are moist. Neck supple. No JVD or thyromegaly LUNGS: Respirations even and unlabored. Lungs with rhonchi and a few crackles at the bases HEART: Regular rate and rhythm. S1 and S2 heard. Systolic murmur noted. ABDOMEN: Soft. Nondistended. Nontender. EXTREMITIES: Normal range of motion. No clubbing or cyanosis. Peripheral pulses intact. No lower extremity edema NEUROLOGIC: Awake and alert. Oriented x 3. ASSESSMENT: Shortness of breath Acute on chronic heart failure with reduced EF, 17% Elevated troponin, secondary to poor renal clearance, no evidence of myocardial injury or ischemia Acute on chronic kidney disease Coronary artery disease with previous four-vessel CABG, 2019 Ischemic cardiomyopathy History of AICD implantation History of ventricular tachycardia Hypertension Hyperlipidemia PLAN: No need to repeat echocardiogram as this was performed in September 2023 Continue current cardiac medications Hold Jardiance and Losartan due to DEVIN. Possibly resume on an outpatient basis if creatinine improves. Patient is status post left upper extremity venogram. Plan is for outpatient upgrade to BiV ICD Patient may be discharged home today from a cardiac standpoint Nurse practitioner note has been reviewed by physician. Signing provider agrees with the documented findings, assessment, and plan of care documented by PAGE TECHNICIAN as a scribe. Objective - Vital Signs Vital signs: Vital Signs Temp 97.7 F 02/02/24 07:58 Pulse 68 02/02/24 11:36 Resp 16 02/02/24 11:36 BP 104/68 02/02/24 11:36 Pulse Ox 97 02/02/24 11:36 FiO2 Intake & Output 02/01/24 02/02/24 02/02/24 18:59 06:59 18:59 Intake Total 610 20 190 Output Total 800 200 Balance -190 -180 190 Weight 66.7 kg Intake: IV 130 20 10 Invasive Line 1 10 Invasive Line 2 20 20 10 Oral 480 180 Output: Urine 800 200 Other: Voiding Method Toilet Toilet Toilet Urinal Urinal # Voids 1 1 # Bowel Movements 1 - Labs CBC & Chem 7: 02/01/24 05:45 02/02/24 06:28 Labs: Abnormal Lab Results - Last 24 Hours (Table) 02/01/24 02/02/24 02/02/24 Range/Units 20:20 06:28 11:11 Sodium 130 L (137-145) mmol/L Carbon Dioxide 16 L (22-30) mmol/L BUN 96 H (9-20) mg/dL Creatinine 3.82 H (0.66-1.25) mg/dL POC Glucose (mg/dL) 130 H 115 H (70-110) mg/dL Calcium 8.0 L (8.4-10.2) mg/dL Microbiology - Last 24 Hours (Table) 02/01/24 09:15 Gram Stain - Preliminary Sputum
--- NOTE | 2024-02-02 12:25 | P.PN ---
Subjective patient is seen for follow-up for acute kidney injury. He was admitted with weakness and shortness of breath. Chest x-ray showed evidence of pulmonary vascular congestion and patient is currently being diuresed. Lasix was decreased yesterday. Serum creatinine remains elevated at 3.8 mg/dL. No complaints of shortness of breath. Objective - Vital Signs Vital signs: Vital Signs Temp 97.7 F 02/02/24 07:58 Pulse 68 02/02/24 11:36 Resp 16 02/02/24 11:36 BP 104/68 02/02/24 11:36 Pulse Ox 97 02/02/24 11:36 FiO2 Intake & Output 02/01/24 02/02/24 02/02/24 18:59 06:59 18:59 Intake Total 610 20 190 Output Total 800 200 Balance -190 -180 190 Weight 66.7 kg Intake: IV 130 20 10 Invasive Line 1 10 Invasive Line 2 20 20 10 Oral 480 180 Output: Urine 800 200 Other: Voiding Method Toilet Toilet Toilet Urinal Urinal # Voids 1 1 # Bowel Movements 1 - Exam patient is awake, comfortable, in no acute distress Examination of the heart S1 and S2 Examination of the lungs bilateral breath sounds are heard Abdomen is soft nontender Examination of lower extremity shows no evidence of edema PARANORMAL INVESTIGATOR exam grossly intact - Labs CBC & Chem 7: 02/01/24 05:45 02/02/24 06:28 Labs: Abnormal Lab Results - Last 24 Hours (Table) 02/01/24 02/02/24 02/02/24 Range/Units 20:20 06:28 11:11 Sodium 130 L (137-145) mmol/L Carbon Dioxide 16 L (22-30) mmol/L BUN 96 H (9-20) mg/dL Creatinine 3.82 H (0.66-1.25) mg/dL POC Glucose (mg/dL) 130 H 115 H (70-110) mg/dL Calcium 8.0 L (8.4-10.2) mg/dL Microbiology - Last 24 Hours (Table) 02/01/24 09:15 Gram Stain - Preliminary Sputum Assessment and Plan Assessment: 1. Acute kidney injury, ATN/cardiorenal. Rule out urine retention. UA shows 2+ protein and large blood and WBCs 13. Ultrasound of the kidneys on 11/28/2023 did not show any evidence of obstructive uropathy. 2. Chronic kidney disease NKF stage IIIB with baseline creatinine at 1.4-1.9 mg/dL. Serum creatinine stayed at around 2-2.3 mg/dL in November during recent hospitalization. Etiology is likely diabetic kidney disease. 3. Cardiomyopathy with EF of 30-35% on echocardiogram in 2018 4. Acute on chronic CHF with decreased ejection fraction 5. Volume overload 6. BPH maintained on Proscar 7. Non-gap metabolic acidosis associated with acute kidney injury Plan: TRISTIAN Christine Check bladder scan and rule out urine retention Continue with Proscar Repeat labs in a.m. May continue to hold Cozaar for now. Add oral sodium bicarb
--- NOTE | 2024-02-02 12:29 | P.PN ---
Subjective Progress Note Date: 02/02/24 Is a 73-year-old gentleman admitted with acute on chronic CHF, reduced EF 17%, acute on chronic renal failure and multiple other medical issues. Diuresing well on Lasix IV push. Cardiology recommending upgrading to BiV device, scheduled for venogram today. K bicarb 17, BUN 97, creatinine 3.67. Complains of productive cough with green sputum. Reports weakness, decreased strength. Nuys chest pain, palpitations or shortness of breath. Objective - Vital Signs Vital signs: Vital Signs Temp 98.1 F 02/01/24 08:09 Pulse 82 02/01/24 13:38 Resp 18 02/01/24 13:38 BP 109/70 02/01/24 12:08 Pulse Ox 100 02/01/24 12:08 FiO2 Intake & Output 01/31/24 02/01/24 02/01/24 18:59 06:59 18:59 Intake Total 10 240 370 Output Total 400 550 Balance 10 -160 -180 Weight 63.7 kg Intake: IV 10 130 Invasive Line 1 10 10 Invasive Line 2 20 Oral 240 240 Output: Urine 400 550 Other: Voiding Method Toilet Toilet Toilet # Voids 1 # Bowel Movements 1 - Exam GENERAL: alert and oriented x3, no acute distress. HEENT: Normocephalic, atraumatic pupils are round and equally reacting to light. EOMI. No scleral icterus. No conjunctival pallor. CARDIOVASCULAR: S1 and S2 present. Systolic murmur, rubs, or gallops. PULMONARY: Unlabored, equal air entry, minimal expiratory wheeze. ABDOMEN: Soft, nontender, nondistended, normoactive bowel sounds. No palpable organomegaly. EXTREMITIES: No cyanosis, clubbing, or pedal edema. NEUROLOGICAL: Gross neurological examination did not reveal any focal deficits. SKIN: No rashes. - Labs CBC & Chem 7: 02/01/24 05:45 02/02/24 06:28 Labs: Abnormal Lab Results - Last 24 Hours (Table) 01/31/24 01/31/24 02/01/24 Range/Units 17:11 20:23 05:45 WBC 3.5 L (3.8-10.6) k/uL RBC 3.23 L (4.30-5.90) m/uL Hgb 8.9 L (13.0-17.5) gm/dL Hct 27.5 L (39.0-53.0) % RDW 18.0 H (11.5-15.5) % Plt Count 132 L (150-450) k/uL Sodium (137-145) mmol/L Carbon Dioxide (22-30) mmol/L BUN (9-20) mg/dL Creatinine (0.66-1.25) mg/dL Glucose (74-99) mg/dL POC Glucose (mg/dL) 151 H 134 H (70-110) mg/dL Calcium (8.4-10.2) mg/dL 02/01/24 02/01/24 Range/Units 05:45 05:54 WBC (3.8-10.6) k/uL RBC (4.30-5.90) m/uL Hgb (13.0-17.5) gm/dL Hct (39.0-53.0) % RDW (11.5-15.5) % Plt Count (150-450) k/uL Sodium 130 L (137-145) mmol/L Carbon Dioxide 17 L (22-30) mmol/L BUN 98 H (9-20) mg/dL Creatinine 3.67 H (0.66-1.25) mg/dL Glucose 104 H (74-99) mg/dL POC Glucose (mg/dL) 116 H (70-110) mg/dL Calcium 7.9 L (8.4-10.2) mg/dL Assessment and Plan Assessment: Acute on chronic CHF , decreased EF 17% Acute renal failure, ATN, cardiorenal [place] metabolic acidosis secondary to the above Chronic kidney disease stage IIIb, baseline 1.4-1.9, suspected etiology diabetic kidney disease per nephrology BPH Troponin elevation secondary to congestive heart failure Coronary artery disease, history of CABG Ischemic cardiomyopathy History of AICD implantation History of ventricular tachycardia Hypertension Hyperlipidemia Diabetes mellitus type 2 Left ankle and left knee pain , x-rays report no acute fractures on x-rays ;left knee small to moderate joint effusion,recommend further follow-up outpatient with orthopedics Neuropathy Sleep apnea Plan: Continue on current medication regimen ,monitoring and symptomatic treatment. Venogram today. Complaining of the productive cough with green sputum, sputum culture ordered. Procalcitonin ordered. PT/OT consulted. Nephrology following. Diuretics, close monitoring of renal function. The impression and plan of care has been dictated as directed. : I performed a history and examination of this patient, discussed the same with the dictator. I agree with the dictator's note ,documented as a scribe. Any additional findings or plans will be noted.
--- NOTE | 2024-02-02 12:45 | P.PN ---
Subjective Progress Note Date: 02/02/24 Is a 73-year-old gentleman admitted with acute on chronic CHF, reduced EF 17%, acute on chronic renal failure and multiple other medical issues. Diuresing well on Lasix IV push. Cardiology recommending upgrading to BiV device, scheduled for venogram today. K bicarb 17, BUN 97, creatinine 3.67. Complains of productive cough with green sputum. Reports weakness, decreased strength. Nuys chest pain, palpitations or shortness of breath. 02/02/2024 afebrile, sputum culture in progress. ProCalcitonin normal,0.25. Completed venogram yesterday. Scheduled for outpatient biventricular ICD. Losartan and Jardiance on hold secondary to renal function. Transitioned to oral Lasix. Denies chest pain, palpitations or shortness of breath. Maintaining O2 sats In the high 90s on room air.BUN 96, creatinine 3.82 ,bicarb 16, oral sodium bicarb added to med regimen. Objective - Vital Signs Vital signs: Vital Signs Temp 97.7 F 02/02/24 07:58 Pulse 68 02/02/24 11:36 Resp 16 02/02/24 11:36 BP 104/68 02/02/24 11:36 Pulse Ox 97 02/02/24 11:36 FiO2 Intake & Output 02/01/24 02/02/24 02/02/24 18:59 06:59 18:59 Intake Total 610 20 190 Output Total 800 200 Balance -190 -180 190 Weight 66.7 kg Intake: IV 130 20 10 Invasive Line 1 10 Invasive Line 2 20 20 10 Oral 480 180 Output: Urine 800 200 Other: Voiding Method Toilet Toilet Toilet Urinal Urinal # Voids 1 1 # Bowel Movements 1 - Exam GENERAL: alert and oriented x3, no acute distress. HEENT: Normocephalic, atraumatic pupils are round and equally reacting to light. No scleral icterus. No conjunctival pallor. CARDIOVASCULAR: S1 and S2 present. Systolic murmur, rubs, or gallops. PULMONARY: Unlabored, equal air entry, occasional minimal expiratory wheeze. ABDOMEN: Soft, nontender, nondistended, normoactive bowel sounds. EXTREMITIES: No cyanosis, clubbing, or pedal edema. NEUROLOGICAL: Gross neurological examination did not reveal any focal deficits. SKIN: No rashes. - Labs CBC & Chem 7: 02/01/24 05:45 02/02/24 06:28 Labs: Abnormal Lab Results - Last 24 Hours (Table) 02/01/24 02/02/24 02/02/24 Range/Units 20:20 06:28 11:11 Sodium 130 L (137-145) mmol/L Carbon Dioxide 16 L (22-30) mmol/L BUN 96 H (9-20) mg/dL Creatinine 3.82 H (0.66-1.25) mg/dL POC Glucose (mg/dL) 130 H 115 H (70-110) mg/dL Calcium 8.0 L (8.4-10.2) mg/dL Microbiology - Last 24 Hours (Table) 02/01/24 09:15 Gram Stain - Preliminary Sputum Assessment and Plan Assessment: Acute on chronic CHF with reduced EF 17% Acute renal failure, ATN, cardiorenal [place] metabolic acidosis secondary to the above Chronic kidney disease stage IIIb, baseline 1.4-1.9, suspected etiology diabetic kidney disease per nephrology BPH Troponin elevation secondary to congestive heart failure Coronary artery disease, history of CABG Ischemic cardiomyopathy History of AICD implantation History of ventricular tachycardia Hypertension Hyperlipidemia Diabetes mellitus type 2 Left ankle and left knee pain , x-rays report no acute fractures on x-rays ;left knee small to moderate joint effusion,recommend further follow-up outpatient with orthopedics Neuropathy Sleep apnea Plan: Continue on current medication regimen ,monitoring and symptomatic t reatment. PT evaluation pending. Discharge planning in progress pending final DC recommendations and clearance per nephrology. The impression and plan of care has been dictated as directed. : I performed a history and examination of this patient, discussed the same with the dictator. I agree with the dictator's note ,documented as a scribe. Any additional findings or plans will be noted.
--- NOTE | 2024-02-02 12:57 | XR ---
EXAMINATION TYPE: XR chest 1V DATE OF EXAM: 02/02/2024 12:49 PM COMPARISON: 01/30/2024 CLINICAL INDICATION: Male, 73 years old with history of CHF, TECHNIQUE: XR chest 1V view(s) obtained. FINDINGS: The heart size is enlarged. The pulmonary vasculature is normal. The lungs are clear. Overlies the left chest. Sternotomy wires are midline IMPRESSION: 1. No acute pulmonary process. [facility], , 02/02/2024 12:55 PM
[2024-02-02 16:23] LABS: Glucose,Whole Blood 119 mg/dL (70-110)
[2024-02-02] MEDS: guaiFENesin SYRUP 100MG/5ML 200 MG/10 ML CUP PO PRN (19:01)
[2024-02-02 20:08] LABS: Glucose,Whole Blood 126 mg/dL (70-110)
[2024-02-02] MEDS: SODIUM BICARBONATE TAB 650 MG TAB PO SCH (20:21)
[2024-02-03 06:30] LABS: Glucose,Whole Blood 105 mg/dL (70-110)
[2024-02-03 06:30] LABS: Anisocytosis Slight; Basophils % (A) 1 %; Eosinophils # (A) 0.1 k/uL (0-0.7); Eosinophils % (A) 2 %; HCT 28.4 % (39.0-53.0); HGB 9.1 gm/dL (13.0-17.5); Hypochromasia Slight; Lymphocytes # (A) 1.2 k/uL (1.0-4.8); Lymphocytes % (A) 25 %; MCH 27.3 pg (25.0-35.0); MCHC 32.1 g/dL (31.0-37.0); MCV 84.9 fL (80.0-100.0); Mean Platelet Volume 8.1; Monocytes # (A) 0.2 k/uL (0-1.0); Monocytes % (A) 5 %; Neutrophils % (A) 65 %; Platelet Count 141 k/uL (150-450); Poikilocytosis Slight; RBC 3.35 m/uL (4.30-5.90); RDW 17.5 % (11.5-15.5); WBC 4.6 k/uL (3.8-10.6)
[2024-02-03 06:42] LABS: African American GFR (CKD) 15 (>60 ml/min/1.73 sqM); Anion Gap 11 mmol/L; Blood Urea Nitrogen 94 mg/dL (9-20); Calcium 8.2 mg/dL (8.4-10.2); Carbon Dioxide 17 mmol/L (22-30); Chloride 103 mmol/L (98-107); Glucose 100 mg/dL (74-99); Non-African American GFR(CKD) 13 (>60 ml/min/1.73 sqM); Potassium 4.6 mmol/L (3.5-5.1); Sodium 131 mmol/L (137-145)
[2024-02-03 11:40] LABS: Glucose,Whole Blood 107 mg/dL (70-110)
--- NOTE | 2024-02-03 12:11 | P.PN ---
Subjective Rajiv is doing well. He is lying flat in bed. No chest discomfort dizziness lightheadedness His creatinine has taken a bit of a jump from the threes to the fours. He was on IV Lasix for heart failure management He has known ischemic cardiomyopathy with severe LV dysfunction with wide QRS of a left bundle branch block type On examination blood pressure is 112/74 mmHg pulse rate is in the 80s afebrile Breath sounds are reduced bilaterally but no rhonchi no crackles Heart sounds are normal No lower extremity edema No orthopnea Hemoglobin 9.1 Platelet count 141,000 Sodium 131 potassium 4.6 Creatinine 4.18 Impression Severe ischemic cardiomyopathy with congestive heart failure class III unstable First-degree AV block left bundle branch block QRS width 160 ms Chronic kidney disease creatinine normally between 3.6-3.8 Currently increased to 4.18, Lasix on hold Suggest Continue aspirin and atorvastatin as well as Plavix Continue metoprolol 50 mg twice daily Continue spironolactone 25 mg daily IV Lasix now on hold, once creatinine improves we will switch back to p.o. Lasix On sodium bicarbonate per nephrology From a cardiac standpoint outpatient upgrade to a BiV ICD for management of heart failure, systolic, acute on chronic in the setting of first-degree AV block and left bundle branch block with a QRS width of 160 ms He has a patent left axillary and subclavian vein. The procedure will be scheduled for him Objective - Vital Signs Vital signs: Vital Signs Temp 97.9 F 02/03/24 08:54 Pulse 76 02/03/24 12:06 Resp 18 02/03/24 12:06 BP 111/69 02/03/24 12:06 Pulse Ox 98 02/03/24 12:06 FiO2 Intake & Output 02/02/24 02/03/24 02/03/24 18:59 06:59 18:59 Intake Total 560 20 10 Output Total 1 300 175 Balance 559 -280 -165 Weight 67 kg Intake: IV 20 20 10 Invasive Line 2 20 20 10 Oral 540 Output: Urine 300 175 Stool 1 Other: Voiding Method Toilet Toilet Toilet Urinal Urinal Urinal # Voids 1 1 # Bowel Movements 1 - Labs CBC & Chem 7: 02/03/24 05:55 02/03/24 05:55 Labs: Abnormal Lab Results - Last 24 Hours (Table) 02/02/24 02/02/24 02/03/24 Range/Units 16:18 20:07 05:55 RBC 3.35 L (4.30-5.90) m/uL Hgb 9.1 L (13.0-17.5) gm/dL Hct 28.4 L (39.0-53.0) % RDW 17.5 H (11.5-15.5) % Plt Count 141 L (150-450) k/uL Sodium (137-145) mmol/L Carbon Dioxide (22-30) mmol/L BUN (9-20) mg/dL Creatinine (0.66-1.25) mg/dL Glucose (74-99) mg/dL POC Glucose (mg/dL) 119 H 126 H (70-110) mg/dL Calcium (8.4-10.2) mg/dL 02/03/24 Range/Units 05:55 RBC (4.30-5.90) m/uL Hgb (13.0-17.5) gm/dL Hct (39.0-53.0) % RDW (11.5-15.5) % Plt Count (150-450) k/uL Sodium 131 L (137-145) mmol/L Carbon Dioxide 17 L (22-30) mmol/L BUN 94 H (9-20) mg/dL Creatinine 4.18 H (0.66-1.25) mg/dL Glucose 100 H (74-99) mg/dL POC Glucose (mg/dL) (70-110) mg/dL Calcium 8.2 L (8.4-10.2) mg/dL Microbiology - Last 24 Hours (Table) 02/01/24 09:15 Gram Stain - Final Sputum Sputum Culture - Final Moraxella(branhamella) catarra
[2024-02-03] MEDS: SODIUM CHLORIDE 0.9% 1,000 ML IV SCH (12:24)
--- NOTE | 2024-02-03 16:02 | P.PN ---
Subjective patient is seen for follow-up for acute kidney injury. He was admitted with weakness and shortness of breath. Chest x-ray showed evidence of pulmonary vascular congestion and patient has been diuresed. Lasix was discontinued yesterday as serum creatinine increased to 3.8. It is further increased at 4.1 today. No complaints of shortness of breath. Objective - Vital Signs Vital signs: Vital Signs Temp 97.8 F 02/03/24 15:43 Pulse 76 02/03/24 15:55 Resp 16 02/03/24 15:43 BP 120/72 02/03/24 15:43 Pulse Ox 98 02/03/24 15:43 FiO2 Intake & Output 02/02/24 02/03/24 02/03/24 18:59 06:59 18:59 Intake Total 560 20 560 Output Total 1 300 175 Balance 559 -280 385 Weight 67 kg Intake: IV 20 20 20 Invasive Line 2 20 20 20 Oral 540 540 Output: Urine 300 175 Stool 1 Other: Voiding Method Toilet Toilet Toilet Urinal Urinal Urinal # Voids 1 1 # Bowel Movements 1 - Exam patient is awake, comfortable, in no acute distress Examination of the heart S1 and S2 Examination of the lungs bilateral breath sounds are heard Abdomen is soft nontender Examination of lower extremity shows no evidence of edema STICK WELDER exam grossly intact - Labs CBC & Chem 7: 02/03/24 05:55 02/03/24 05:55 Labs: Abnormal Lab Results - Last 24 Hours (Table) 02/02/24 02/02/24 02/03/24 Range/Units 16:18 20:07 05:55 RBC 3.35 L (4.30-5.90) m/uL Hgb 9.1 L (13.0-17.5) gm/dL Hct 28.4 L (39.0-53.0) % RDW 17.5 H (11.5-15.5) % Plt Count 141 L (150-450) k/uL Sodium (137-145) mmol/L Carbon Dioxide (22-30) mmol/L BUN (9-20) mg/dL Creatinine (0.66-1.25) mg/dL Glucose (74-99) mg/dL POC Glucose (mg/dL) 119 H 126 H (70-110) mg/dL Calcium (8.4-10.2) mg/dL 02/03/24 Range/Units 05:55 RBC (4.30-5.90) m/uL Hgb (13.0-17.5) gm/dL Hct (39.0-53.0) % RDW (11.5-15.5) % Plt Count (150-450) k/uL Sodium 131 L (137-145) mmol/L Carbon Dioxide 17 L (22-30) mmol/L BUN 94 H (9-20) mg/dL Creatinine 4.18 H (0.66-1.25) mg/dL Glucose 100 H (74-99) mg/dL POC Glucose (mg/dL) (70-110) mg/dL Calcium 8.2 L (8.4-10.2) mg/dL Microbiology - Last 24 Hours (Table) 02/01/24 09:15 Gram Stain - Final Sputum Sputum Culture - Final Moraxella(branhamella) catarra Assessment and Plan Assessment: 1. Acute kidney injury, ATN/cardiorenal and worsened with diuresis. UA shows 2+ protein and large blood and WBCs 13. Ultrasound of the kidneys on 11/28/2023 did not show any evidence of obstructive uropathy. 2. Chronic kidney disease NKF stage IIIB with baseline creatinine at 1.4-1.9 mg/dL. Serum creatinine stayed at around 2-2.3 mg/dL in November during recent hospitalization. Etiology is likely diabetic kidney disease. 3. Cardiomyopathy with EF of 30-35% on echocardiogram in 2018 4. Acute on chronic CHF with decreased ejection fraction 5. Volume overload 6. BPH maintained on Proscar 7. Non-gap metabolic acidosis associated with acute kidney injury Plan: Continue to hold diuretics. Cautious IVF challenge. Consider inotropic agents given the severely decreased EF
[2024-02-03 16:11] LABS: Glucose,Whole Blood 115 mg/dL (70-110)
--- NOTE | 2024-02-03 17:17 | P.PN ---
Subjective Progress Note Date: 02/03/24 Is a 73-year-old gentleman admitted with acute on chronic CHF, reduced EF 17%, acute on chronic renal failure and multiple other medical issues. Diuresing well on Lasix IV push. Cardiology recommending upgrading to BiV device, scheduled for venogram today. K bicarb 17, BUN 97, creatinine 3.67. Complains of productive cough with green sputum. Reports weakness, decreased strength. Nuys chest pain, palpitations or shortness of breath. 02/02/2024 afebrile, sputum culture in progress. ProCalcitonin normal,0.25. Completed venogram yesterday. Scheduled for outpatient biventricular ICD. Losartan and Jardiance on hold secondary to renal function. Transitioned to oral Lasix. Denies chest pain, palpitations or shortness of breath. Maintaining O2 sats In the high 90s on room air.BUN 96, creatinine 3.82 ,bicarb 16, oral sodium bicarb added to med regimen. 02/03/2024 chest x-ray completed yesterday reported no acute pulmonary process. Lasix discontinued yesterday as creatinine increased to 3.82. Creatinine worse today, increased to 4.18 today. Continues on oral sodium bicarb per nephrology. Denies chest pain, palpitations or shortness of breath. Retaining O2 sats in the high 90s on room air. Denies nausea vomiting or diarrhea. Afebrile, normal WBC. Objective - Vital Signs Vital signs: Vital Signs Temp 97.8 F 02/03/24 15:43 Pulse 76 02/03/24 15:55 Resp 16 02/03/24 15:43 BP 120/72 02/03/24 15:43 Pulse Ox 98 02/03/24 15:43 FiO2 Intake & Output 02/02/24 02/03/24 02/03/24 18:59 06:59 18:59 Intake Total 560 20 560 Output Total 1 300 175 Balance 559 -280 385 Weight 67 kg Intake: IV 20 20 20 Invasive Line 2 20 20 20 Oral 540 540 Output: Urine 300 175 Stool 1 Other: Voiding Method Toilet Toilet Toilet Urinal Urinal Urinal # Voids 1 1 # Bowel Movements 1 - Exam GENERAL: alert and oriented x3, no acute distress. HEENT: Normocephalic, atraumatic pupils are round and equally reacting to light. No scleral icterus. No conjunctival pallor. CARDIOVASCULAR: S1 and S2 present. Systolic murmur, rubs, or gallops. PULMONARY: Unlabored, equal air entry, occasional minimal expiratory wheeze. ABDOMEN: Soft, nontender, nondistended, normoactive bowel sounds. EXTREMITIES: No cyanosis, clubbing, or pedal edema. NEUROLOGICAL: Gross neurological examination did not reveal any focal deficits. SKIN: No rashes. - Labs CBC & Chem 7: 02/03/24 05:55 02/03/24 05:55 Labs: Abnormal Lab Results - Last 24 Hours (Table) 02/02/24 02/03/24 02/03/24 Range/Units 20:07 05:55 05:55 RBC 3.35 L (4.30-5.90) m/uL Hgb 9.1 L (13.0-17.5) gm/dL Hct 28.4 L (39.0-53.0) % RDW 17.5 H (11.5-15.5) % Plt Count 141 L (150-450) k/uL Sodium 131 L (137-145) mmol/L Carbon Dioxide 17 L (22-30) mmol/L BUN 94 H (9-20) mg/dL Creatinine 4.18 H (0.66-1.25) mg/dL Glucose 100 H (74-99) mg/dL POC Glucose (mg/dL) 126 H (70-110) mg/dL Calcium 8.2 L (8.4-10.2) mg/dL 02/03/24 Range/Units 16:10 RBC (4.30-5.90) m/uL Hgb (13.0-17.5) gm/dL Hct (39.0-53.0) % RDW (11.5-15.5) % Plt Count (150-450) k/uL Sodium (137-145) mmol/L Carbon Dioxide (22-30) mmol/L BUN (9-20) mg/dL Creatinine (0.66-1.25) mg/dL Glucose (74-99) mg/dL POC Glucose (mg/dL) 115 H (70-110) mg/dL Calcium (8.4-10.2) mg/dL Microbiology - Last 24 Hours (Table) 02/01/24 09:15 Gram Stain - Final Sputum Sputum Culture - Final Moraxella(branhamella) catarra Assessment and Plan Assessment: Acute on chronic CHF with reduced EF 17% Acute renal failure, ATN, cardiorenal [place] metabolic acidosis secondary to the above Chronic kidney disease stage IIIb, baseline 1.4-1.9, suspected etiology diabetic kidney disease per nephrology BPH Troponin elevation secondary to congestive heart failure Coronary artery disease, history of CABG Ischemic cardiomyopathy History of AICD implantation History of ventricular tachycardia Hypertension Hyperlipidemia Diabetes mellitus type 2 Left ankle and left knee pain , x-rays report no acute fractures on x-rays ;left knee small to moderate joint effusion,recommend further follow-up outpatient with orthopedics Neuropathy Sleep apnea Plan: Continue on current medication regimen ,monitoring and symptomatic treatment. Diuretics remain on hold. Close monitoring of coags, renal function with repeat labs ordered for a.m. PT reconsulted as patient complaining of incre ased weakness, verbalizing he is agreeable to subacute rehab. at discharge. Cardiology planning outpatient upgrade to BiV ICD. prognosis guarded given multiple complex medical issues. The impression and plan of care has been dictated as directed. : I performed a history and examination of this patient, discussed the same with the dictator. I agree with the dictator's note ,documented as a scribe. Any additional findings or plans will be noted.
[2024-02-03 20:15] LABS: Glucose,Whole Blood 112 mg/dL (70-110)
[2024-02-04 06:27] LABS: Glucose,Whole Blood 96 mg/dL (70-110)
[2024-02-04 07:03] LABS: Anisocytosis Slight; Basophils % (A) 1 %; Eosinophils # (A) 0.1 k/uL (0-0.7); Eosinophils % (A) 2 %; HCT 28.6 % (39.0-53.0); HGB 8.9 gm/dL (13.0-17.5); Hypochromasia Slight; Lymphocytes # (A) 1.2 k/uL (1.0-4.8); Lymphocytes % (A) 27 %; MCHC 31.2 g/dL (31.0-37.0); MCV 86.6 fL (80.0-100.0); Monocytes # (A) 0.2 k/uL (0-1.0); Monocytes % (A) 5 %; Neutrophils # (A) 2.7 k/uL (1.3-7.7); Neutrophils % (A) 63 %; Platelet Count 127 k/uL (150-450); Poikilocytosis Slight; RDW 17.6 % (11.5-15.5); WBC 4.3 k/uL (3.8-10.6)
[2024-02-04 08:15] LABS: African American GFR (CKD) 16 (>60 ml/min/1.73 sqM); Anion Gap 10 mmol/L; Blood Urea Nitrogen 93 mg/dL (9-20); Carbon Dioxide 11 mmol/L (22-30); Chloride 108 mmol/L (98-107); Glucose 98 mg/dL (74-99); Non-African American GFR(CKD) 14 (>60 ml/min/1.73 sqM); Potassium 4.4 mmol/L (3.5-5.1); Sodium 129 mmol/L (137-145)
--- NOTE | 2024-02-04 10:45 | P.PN ---
Subjective Progress Note Date: 02/04/24 This is Stu Can NP, I'm dictating on behalf of Dr. Sosa's H&P and A&P. Patient was interviewed and examined. Patient is a pleasant 73-year-old male who presented to hospital with cardio renal syndrome. Patient reports that he is feeling so-so today. He reports that he feeling very cold today. He is still appreciating nausea. He denies shortness of breath. Patient's creatinine is slightly improved today. He is requesting discharge home, stating that being here is driving him crazy. GENERAL: Well-appearing, well-nourished and in no acute distress. NECK: Supple without JVD or thyromegaly. LUNGS: Breath sounds demonstrate rhonchi to auscultation bilaterally. Respiration equal and unlabored. No wheezes, rales. HEART: Regular rate and rhythm without murmurs, rubs or gallops. S1 and S2 heard. EXTREMITIES: Normal range of motion, no edema. No clubbing or cyanosis. Shila pheral pulses intact and strong. VITALS: Temp 97.9, pulse 72, respirations 20, blood pressure 108/57, O2 saturation 95% on room air TELEMETRY: Sinus mechanism LABS: White count 4.3, hemoglobin 8.9, platelets 127, sodium 129, potassium 4.4, BUN 93, creatinine 3.97 IMPRESSION: 1. Severe ischemic cardiomyopathy with congestive heart failure, class III unstable 2. First-degree AV block, left bundle branch block, QRS with 160 ms 3. Chronic kidney disease, creatinine normally between 3.6-3.8 PLAN: From a cardiology standpoint the patient may be discharged. He should continue his home dose of Lasix. The patient will need an upgrade to a BiV ICD for management of his heart failure, systolic, acute on chronic in the setting of first-degree AV block and left bundle branch block with a QRS width of 160 ms. He has a patent left axillary and subclavian vein. This needs to be scheduled as an outpatient. Objective - Vital Signs Vital signs: Vital Signs Temp 97.9 F 02/04/24 03:11 Pulse 80 02/04/24 09:06 Resp 20 02/04/24 03:11 BP 108/57 02/04/24 03:11 Pulse Ox 95 02/04/24 03:11 FiO2 Intake & Output 02/03/24 02/04/24 02/04/24 18:59 06:59 18:59 Intake Total 560 Output Total 175 900 Balance 385 -900 Weight 68.5 kg Intake: IV 20 Invasive Line 2 20 Oral 540 Output: Urine 175 900 Other: Voiding Method Toilet Toilet Urinal Urinal # Bowel Movements 1 - Labs CBC & Chem 7: 02/04/24 06:50 02/04/24 06:50 Labs: Abnormal Lab Results - Last 24 Hours (Table) 02/03/24 02/03/24 02/04/24 Range/Units 16:10 20:14 06:50 RBC 3.30 L (4.30-5.90) m/uL Hgb 8.9 L (13.0-17.5) gm/dL Hct 28.6 L (39.0-53.0) % RDW 17.6 H (11.5-15.5) % Plt Count 127 L (150-450) k/uL Sodium (137-145) mmol/L Chloride (98-107) mmol/L Carbon Dioxide (22-30) mmol/L BUN (9-20) mg/dL Creatinine (0.66-1.25) mg/dL POC Glucose (mg/dL) 115 H 112 H (70-110) mg/dL Calcium (8.4-10.2) mg/dL 02/04/24 Range/Units 06:50 RBC (4.30-5.90) m/uL Hgb (13.0-17.5) gm/dL Hct (39.0-53.0) % RDW (11.5-15.5) % Plt Count (150-450) k/uL Sodium 129 L (137-145) mmol/L Chloride 108 H (98-107) mmol/L Carbon Dioxide 11 L (22-30) mmol/L BUN 93 H (9-20) mg/dL Creatinine 3.97 H (0.66-1.25) mg/dL POC Glucose (mg/dL) (70-110) mg/dL Calcium 8.0 L (8.4-10.2) mg/dL Microbiology - Last 24 Hours (Table) 02/01/24 09:15 Gram Stain - Final Sputum Sputum Culture - Final Moraxella(branhamella) catarra
[2024-02-04] MEDS: FUROSEMIDE 10 MG/ML 2 ML VIAL IV ONE (11:04)
[2024-02-04 11:44] LABS: Glucose,Whole Blood 106 mg/dL (70-110)
--- NOTE | 2024-02-04 12:18 | P.PN ---
Subjective patient is seen for follow-up for acute kidney injury. He was admitted with weakness and shortness of breath. Chest x-ray showed evidence of pulmonary vascular congestion and patient has been diuresed. renal function had worsened since admission and diuretics have been discontinued. Started on IV fluids yesterday. Serum creatinine at 3.9 from 4.1 yesterday. CO2 is significantly low at 11. Patient has been voiding. Objective - Vital Signs Vital signs: Vital Signs Temp 97.9 F 02/04/24 03:11 Pulse 80 02/04/24 09:06 Resp 20 02/04/24 03:11 BP 108/57 02/04/24 03:11 Pulse Ox 95 02/04/24 03:11 FiO2 Intake & Output 02/03/24 02/04/24 02/04/24 18:59 06:59 18:59 Intake Total 560 Output Total 175 900 Balance 385 -900 Weight 68.5 kg Intake: IV 20 Invasive Line 2 20 Oral 540 Output: Urine 175 900 Other: Voiding Method Toilet Toilet Urinal Urinal # Bowel Movements 1 - Exam patient is awake, comfortable, in no acute distress Examination of the heart S1 and S2 Examination of the lungs bilateral breath sounds are heard, basal crackles Abdomen is soft nontender Examination of lower extremity shows no evidence of edema COMMISSIONS SPECIALIST exam grossly intact - Labs CBC & Chem 7: 02/04/24 06:50 02/04/24 06:50 Labs: Abnormal Lab Results - Last 24 Hours (Table) 02/03/24 02/03/24 02/04/24 Range/Units 16:10 20:14 06:50 RBC 3.30 L (4.30-5.90) m/uL Hgb 8.9 L (13.0-17.5) gm/dL Hct 28.6 L (39.0-53.0) % RDW 17.6 H (11.5-15.5) % Plt Count 127 L (150-450) k/uL Sodium (137-145) mmol/L Chloride (98-107) mmol/L Carbon Dioxide (22-30) mmol/L BUN (9-20) mg/dL Creatinine (0.66-1.25) mg/dL POC Glucose (mg/dL) 115 H 112 H (70-110) mg/dL Calcium (8.4-10.2) mg/dL 02/04/24 Range/Units 06:50 RBC (4.30-5.90) m/uL Hgb (13.0-17.5) gm/dL Hct (39.0-53.0) % RDW (11.5-15.5) % Plt Count (150-450) k/uL Sodium 129 L (137-145) mmol/L Chloride 108 H (98-107) mmol/L Carbon Dioxide 11 L (22-30) mmol/L BUN 93 H (9-20) mg/dL Creatinine 3.97 H (0.66-1.25) mg/dL POC Glucose (mg/dL) (70-110) mg/dL Calcium 8.0 L (8.4-10.2) mg/dL Microbiology - Last 24 Hours (Table) 02/01/24 09:15 Gram Stain - Final Sputum Sputum Culture - Final Moraxella(branhamella) catarra Assessment and Plan Assessment: 1. Acute kidney injury, ATN/cardiorenal and worsened with diuresis. UA shows 2+ protein and large blood and WBCs 13. Ultrasound of the kidneys on 11/28/2023 did not show any evidence of obstructive uropathy. Status post IV fluids overnight with subtle changes of volume overload. No plans for dobutamine. 2. Chronic kidney disease NKF stage IIIB with baseline creatinine at 1.4-1.9 mg/dL. Serum creatinine stayed at around 2-2.3 mg/dL in November during recent hospitalization. Etiology is likely diabetic kidney disease. 3. Cardiomyopathy with EF of 30-35% on echocardiogram in 2018 4. Acute on chronic CHF with decreased ejection fraction 5. Volume overload 6. BPH maintained on Proscar 7. Non-gap metabolic acidosis associated with acute kidney injury Plan: DC IV fluids Add low-dose IV bicarb for 6-8 hours due to significant metabolic acidosis. Patient wants to go home. Discussed with cardiology. He could be discharged with plans to follow-up with cardiology regarding biventricular ICD. Follow-up with nephrology in 1-2 weeks. Repeat labs in 2-3 days post discharge.
[2024-02-04] MEDS: ONDANSETRON 4 MG/2 ML VIAL IVP PRN (13:02)
[2024-02-04] MEDS: DEXTROSE 5% IN WATER 1,000 ML with SODIUM BICARB (1 MEQ/ML) 150 ML IV SCH (13:10)
[2024-02-04 16:21] LABS: Glucose,Whole Blood 105 mg/dL (70-110)
[2024-02-04] MEDS: SODIUM BICARBONATE TAB 650 MG TAB PO SCH (20:16)
[2024-02-04 20:25] LABS: Glucose,Whole Blood 100 mg/dL (70-110)
--- NOTE | 2024-02-04 23:00 | P.PN ---
Subjective Progress Note Date: 02/04/24 Is a 73-year-old gentleman admitted with acute on chronic CHF, reduced EF 17%, acute on chronic renal failure and multiple other medical issues. Diuresing well on Lasix IV push. Cardiology recommending upgrading to BiV device, scheduled for venogram today. K bicarb 17, BUN 97, creatinine 3.67. Complains of productive cough with green sputum. Reports weakness, decreased strength. Nuys chest pain, palpitations or shortness of breath. 02/02/2024 afebrile, sputum culture in progress. ProCalcitonin normal,0.25. Completed venogram yesterday. Scheduled for outpatient biventricular ICD. Losartan and Jardiance on hold secondary to renal function. Transitioned to oral Lasix. Denies chest pain, palpitations or shortness of breath. Maintaining O2 sats In the high 90s on room air.BUN 96, creatinine 3.82 ,bicarb 16, oral sodium bicarb added to med regimen. 02/03/2024 chest x-ray completed yesterday reported no acute pulmonary process. Lasix discontinued yesterday as creatinine increased to 3.82. Creatinine worse today, increased to 4.18 today. Continues on oral sodium bicarb per nephrology. Denies chest pain, palpitations or shortness of breath. Retaining O2 sats in the high 90s on room air. Denies nausea vomiting or diarrhea. Afebrile, normal WBC. 02/04/2024 Patient evaluated today in follow up. Lasix was stopped and started on IV bicarb gtt by nephrology overnight. Creatinine down to 3.97 today. He reports feeling worsening shortness of breath. Has some faint crackles in the bases. Sodium level 129 today. He does report feeling short of breath and having cough. Viral panel done and patient found to be positive for RSV. He is 99% on room air curre ntly. Procalcitonin level 0.25, was started on IV ceftriaxone previously. Review of Systems Constitutional: Denied any fatigue denied any fever. Cardio vascular: denied any chest pain, palpitations Gastrointestinal: denied any nausea, vomiting, diarrhea Pulmonary: Denied any shortness of breath cough Neurologic denied any new focal deficits All inpatient medications were reviewed and appropriate changes in these medications as dictated in the interval history and assessment and plan. PHYSICAL EXAMINATION: GENERAL: The patient is alert and oriented x3, not in any acute distress. Well developed, well nourished. HEENT: Pupils are round and equally reacting to light. EOMI. No scleral icterus. No conjunctival pallor. Normocephalic, atraumatic. No pharyngeal erythema. No thyromegaly. CARDIOVASCULAR: S1 and S2 present. No murmurs, rubs, or gallops. PULMONARY: Chest is clear to auscultation, no wheezing or crackles. ABDOMEN: Soft, nontender, nondistended, normoactive bowel sounds. No palpable organomegaly. MUSCULOSKELETAL: No joint swelling or deformity. EXTREMITIES: No cyanosis, clubbing, or pedal edema. NEUROLOGICAL: Gross neurological examination did not reveal any focal deficits. SKIN: No rashes. Assessment and plan Acute RSV Acute on chronic CHF with reduced EF 17% Acute renal failure, ATN, cardiorenal [place] metabolic acidosis secondary to the above Chronic kidney disease stage IIIb, baseline 1.4-1.9, suspected etiology diabetic kidney disease per nephrology BPH Troponin elevation secondary to congestive heart failure Coronary artery disease, history of CABG Ischemic cardiomyopathy History of AICD implantation History of ventricular tachycardia Hypertension Hyperlipidemia Diabetes mellitus type 2 Left ankle and left knee pain , x-rays report no acute fractures on x-rays ;left knee small to moderate joint effusion,recommend further follow-up outpatient with orthopedics Neuropathy Sleep apnea GI prophylaxis DVT prophylaxis Full Code One time dose IV lasix given today by cardiology. Bicarb gtt has been discontinue and patient has been started on oral sodium bicarbonate. Found to have RSV by PCR. He is on room air. Continue supportive care. Monitor renal function. Patient does not want to go to rehab. Per patients at the bedside she is too weak to care for him at home. Referrals have been placed by case management. The impression and plan of care has been dictated by Valarie Copeland Nurse Practitioner as directed. Dr. Devang MD I have performed a history and physical examination and medical decision making of this patient, discussed the same with the dictator, and agree with the dictators assessment and plan as written, documented as a scribe. Based on total visit time, I have performed more than 50% of this visit. Objective - Vital Signs Vital signs: Vital Signs Temp 97.9 F 02/04/24 03:11 Pulse 80 02/04/24 09:06 Resp 20 02/04/24 03:11 BP 108/57 02/04/24 03:11 Pulse Ox 95 02/04/24 03:11 FiO2 Intake & Output 02/03/24 02/04/24 02/04/24 18:59 06:59 18:59 Intake Total 560 Output Total 175 900 Balance 385 -900 Weight 68.5 kg Intake: IV 20 Invasive Line 2 20 Oral 540 Output: Urine 175 900 Other: Voiding Method Toilet Toilet Urinal Urinal # Bowel Movements 1 - Labs CBC & Chem 7: 02/04/24 06:50 02/04/24 06:50 Labs: Abnormal Lab Results - Last 24 Hours (Table) 02/03/24 02/03/24 02/04/24 Range/Units 16:10 20:14 06:50 RBC 3.30 L (4.30-5.90) m/uL Hgb 8.9 L (13.0-17.5) gm/dL Hct 28.6 L (39.0-53.0) % RDW 17.6 H (11.5-15.5) % Plt Count 127 L (150-450) k/uL Sodium (137-145) mmol/L Chloride (98-107) mmol/L Carbon Dioxide (22-30) mmol/L BUN (9-20) mg/dL Creatinine (0.66-1.25) mg/dL POC Glucose (mg/dL) 115 H 112 H (70-110) mg/dL Calcium (8.4-10.2) mg/dL 02/04/24 Range/Units 06:50 RBC (4.30-5.90) m/uL Hgb (13.0-17.5) gm/dL Hct (39.0-53.0) % RDW (11.5-15.5) % Plt Count (150-450) k/uL Sodium 129 L (137-145) mmol/L Chloride 108 H (98-107) mmol/L Carbon Dioxide 11 L (22-30) mmol/L BUN 93 H (9-20) mg/dL Creatinine 3.97 H (0.66-1.25) mg/dL POC Glucose (mg/dL) (70-110) mg/dL Calcium 8.0 L (8.4-10.2) mg/dL Microbiology - Last 24 Hours (Table) 02/01/24 09:15 Gram Stain - Final Sputum Sputum Culture - Final Moraxella(branhamella) catarra Assessment and Plan Time with Patient: Less than 30
[2024-02-05 06:46] LABS: African American GFR (CKD) 16 (>60 ml/min/1.73 sqM); Anion Gap 14 mmol/L; Blood Urea Nitrogen 92 mg/dL (9-20); Calcium 8.1 mg/dL (8.4-10.2); Carbon Dioxide 13 mmol/L (22-30); Chloride 103 mmol/L (98-107); Glucose 90 mg/dL (74-99); Non-African American GFR(CKD) 13 (>60 ml/min/1.73 sqM); Potassium 4.6 mmol/L (3.5-5.1); Sodium 130 mmol/L (137-145)
[2024-02-05 06:58] LABS: Glucose,Whole Blood 97 mg/dL (70-110)
[2024-02-05] MEDS: FUROSEMIDE 40 MG TAB PO SCH (08:53)
[2024-02-05 11:27] LABS: Glucose,Whole Blood 105 mg/dL (70-110)
--- NOTE | 2024-02-05 12:47 | P.PN ---
Subjective Progress Note Date: 02/05/24 Is a 73-year-old gentleman admitted with acute on chronic CHF, reduced EF 17%, acute on chronic renal failure and multiple other medical issues. Diuresing well on Lasix IV push. Cardiology recommending upgrading to BiV device, scheduled for venogram today. K bicarb 17, BUN 97, creatinine 3.67. Complains of productive cough with green sputum. Reports weakness, decreased strength. Nuys chest pain, palpitations or shortness of breath. 02/02/2024 afebrile, sputum culture in progress. ProCalcitonin normal,0.25. Completed venogram yesterday. Scheduled for outpatient biventricular ICD. Losartan and Jardiance on hold secondary to renal function. Transitioned to oral Lasix. Denies chest pain, palpitations or shortness of breath. Maintaining O2 sats In the high 90s on room air.BUN 96, creatinine 3.82 ,bicarb 16, oral sodium bicarb added to med regimen. 02/03/2024 chest x-ray completed yesterday reported no acute pulmonary process. Lasix discontinued yesterday as creatinine increased to 3.82. Creatinine worse today, increased to 4.18 today. Continues on oral sodium bicarb per nephrology. Denies chest pain, palpitations or shortness of breath. Retaining O2 sats in the high 90s on room air. Denies nausea vomiting or diarrhea. Afebrile, normal WBC. 02/04/2024 Patient evaluated today in follow up. Lasix was stopped and started on IV bicarb gtt by nephrology overnight. Creatinine down to 3.97 today. He reports feeling worsening shortness of breath. Has some faint crackles in the bases. Sodium level 129 today. He does report feeling short of breath and having cough. Viral panel done and patient found to be positive for RSV. He is 99% on room air curre ntly. Procalcitonin level 0.25, was started on IV ceftriaxone previously. 02/05/2024 Patient evaluated today resting in bed. No acute complaints overnight. He is currently on oral lasix. Received a dose of IV lasix yesterday. Labs today reveal sodium of 130, bun 92, creatinine 4.17. He was found to be RSV positive. He is maintaining oxygen saturations 96% on room air. Having intermittent cough. Review of Systems Constitutional: Denied any fatigue denied any fever. Cardio vascular: denied any chest pain, palpitations Gastrointestinal: denied any nausea, vomiting, diarrhea Pulmonary: Denied any shortness of breath cough Neurologic denied any new focal deficits All inpatient medications were reviewed and appropriate changes in these medications as dictated in the interval history and assessment and plan. PHYSICAL EXAMINATION: GENERAL: The patient is alert and oriented x3, not in any acute distress. Well developed, well nourished. HEENT: Pupils are round and equally reacting to light. EOMI. No scleral icterus. No conjunctival pallor. Normocephalic, atraumatic. No pharyngeal erythema. No thyromegaly. CARDIOVASCULAR: S1 and S2 present. No murmurs, rubs, or gallops. PULMONARY: Chest is clear to auscultation, no wheezing or crackles. ABDOMEN: Soft, nontender, nondistended, normoactive bowel sounds. No palpable organomegaly. MUSCULOSKELETAL: No joint swelling or deformity. EXTREMITIES: No cyanosis, clubbing, or pedal edema. NEUROLOGICAL: Gross neurological examination did not reveal any focal deficits. SKIN: No rashes. Assessment and plan Acute RSV Acute on chronic CHF with reduced EF 17% Acute renal failure, ATN, cardiorenal [place] metabolic acidosis secondary to the above Chronic kidney disease stage IIIb, baseline 1.4-1.9, suspected etiology diabetic kidney disease per nephrology BPH Troponin elevation secondary to congestive heart failure Coronary artery disease, history of CABG Ischemic cardiomyopathy History of AICD implantation History of ventricular tachycardia Hypertension Hyperlipidemia Diabetes mellitus type 2 Left ankle and left knee pain , x-rays report no acute fractures on x-rays ;left knee small to moderate joint effusion,recommend further follow-up outpatient with orthopedics Neuropathy Sleep apnea GI prophylaxis DVT prophylaxis Full Code Patient continues on oral lasix twice daily. Cardiology following. Bicarb gtt has been discontinued and patient has been started on oral sodium bicarbonate. Found to have RSV by PCR. He is on room air. Continue supportive care. Monitor renal function. Patient does not want to go to rehab. Per patients at the bedside she is too weak to care for him at home. Referrals have been placed by case management. The impression and plan of care has been dictated by Valarie Copeland Nurse Practitioner as directed. Dr. Devang MD I have performed a history and physical examination and medical decision making of this patient, discussed the same with the dictator, and agree with the dictators assessment and plan as written, documented as a scribe. Based on total visit time, I have performed more than 50% of this visit. Objective - Vital Signs Vital signs: Vital Signs Temp 97.3 F L 02/05/24 04:00 Pulse 77 02/05/24 08:52 Resp 16 02/05/24 08:52 BP 102/57 02/05/24 08:52 Pulse Ox 96 02/05/24 08:52 FiO2 Intake & Output 02/04/24 02/05/24 02/05/24 18:59 06:59 18:59 Intake Total 10 Output Total 401 2 Balance -401 -2 10 Weight 67.9 kg Intake: IV 10 Invasive Line 3 10 Output: Urine 400 Stool 1 2 Other: Voiding Method Urinal Urinal # Voids 1 1 # Bowel Movements 1 1 - Labs CBC & Chem 7: 02/04/24 06:50 02/05/24 05:36 Labs: Abnormal Lab Results - Last 24 Hours (Table) 02/04/24 02/05/24 Range/Units 13:15 05:36 Sodium 130 L (137-145) mmol/L Carbon Dioxide 13 L (22-30) mmol/L BUN 92 H (9-20) mg/dL Creatinine 4.17 H (0.66-1.25) mg/dL Calcium 8.1 L (8.4-10.2) mg/dL RSV (PCR) Detected A (Not Detectd) Assessment and Plan Time with Patient: Less than 30
--- NOTE | 2024-02-05 13:20 | P.PN ---
Subjective Progress Note Date: 02/05/24 This is Stu Can NP, I'm dictating on behalf of Dr. Sosa's H&P and A&P. Patient was interviewed and examined. Patient is a pleasant 73-year-old male who presented to the hospital with cardiorenal syndrome. Patient reports that he is feeling okay today. He is able to lie flat without significant shortness of breath. Patient did test positive for RSV yesterday and is currently in isolation. He denies chest pain, shortness of breath, heart palpitations. GENERAL: Well-appearing, well-nourished and in no acute distress. NECK: Supple without JVD or thyromegaly. LUNGS: Breath sounds clear to auscultation bilaterally. Respiration equal and unlabored. No wheezes, rales or rhonchi. HEART: Regular rate and rhythm without murmurs, rubs or gallops. S1 and S2 heard. EXTREMITIES: Normal range of motion, no edema. No clubbing or cyanosis. Peripheral pulses intact and strong. VITALS: Temp 97.3, pulse 70, respirations 21, blood pressure 116/67, O2 saturation 95% on room air TELEMETRY: Sinus mechanism LABS: Sodium 130, potassium 4.6, BUN 92, creatinine 4.17 IMPRESSION: 1. Severe ischemic cardiomyopathy with congestive heart failure, class III unstable 2. First-degree AV block, left bundle branch block, QRS with 160 ms 3. Chronic kidney disease, creatinine normally between 3.6-3.8 PLAN: Continue current medications as prescribed. Continue home dose of Lasix. Patient will need an upgrade of his pacemaker to a BiV ICD for management of his systolic, acute on chronic heart failure in the setting of first-degree AV block and left bundle branch block with a QRS width of 160 ms. This will need to be done as an outpatient, and will likely be delayed secondary to his RSV infection. No further recommendations from a cardiology standpoint. Objective - Vital Signs Vital signs: Vital Signs Temp 97.3 F L 02/05/24 04:00 Pulse 80 02/05/24 09:41 Resp 16 02/05/24 12:36 BP 102/57 02/05/24 08:52 Pulse Ox 96 02/05/24 09:34 FiO2 Intake & Output 02/04/24 02/05/24 02/05/24 18:59 06:59 18:59 Intake Total 10 Output Total 401 2 Balance -401 -2 10 Weight 67.9 kg Intake: IV 10 Invasive Line 3 10 Output: Urine 400 Stool 1 2 Other: Voiding Method Urinal Urinal Urinal # Voids 1 1 # Bowel Movements 1 1 - Labs CBC & Chem 7: 02/04/24 06:50 02/05/24 05:36 Labs: Abnormal Lab Results - Last 24 Hours (Table) 02/04/24 02/05/24 Range/Units 13:15 05:36 Sodium 130 L (137-145) mmol/L Carbon Dioxide 13 L (22-30) mmol/L BUN 92 H (9-20) mg/dL Creatinine 4.17 H (0.66-1.25) mg/dL Calcium 8.1 L (8.4-10.2) mg/dL RSV (PCR) Detected A (Not Detectd)
--- NOTE | 2024-02-05 13:49 | P.PN ---
Subjective Patient is seen for follow-up for acute kidney injury. He was admitted with weakness and shortness of breath. Chest x-ray showed evidence of pulmonary vascular congestion and patient has been diuresed. renal function had worsened since admission and diuretics have been discontinued. Status post IV fluids for 24 hours.. Serum creatinine decreased from 4.1-3.9. IV fluids were discontinued yesterday and creatinine is at 4.1 today. Patient tested positive for RSV. He is currently fairly asymptomatic with no complaints of shortness of breath. He does have cough on and off. Patient received IV bicarb for a few hours yesterday due to worsening metabolic acidosis.. There is concern for volume overload given his poor ejection fraction and it is preferred to avoid IV fluids. Oral sodium bicarb dose was increased. Objective - Vital Signs Vital signs: Vital Signs Temp 97.3 F L 02/05/24 04:00 Pulse 80 02/05/24 09:41 Resp 16 02/05/24 12:36 BP 102/57 02/05/24 08:52 Pulse Ox 96 02/05/24 09:34 FiO2 Intake & Output 02/04/24 02/05/24 02/05/24 18:59 06:59 18:59 Intake Total 10 Output Total 401 2 Balance -401 -2 10 Weight 67.9 kg Intake: IV 10 Invasive Line 3 10 Output: Urine 400 Stool 1 2 Other: Voiding Method Urinal Urinal Urinal # Voids 1 1 # Bowel Movements 1 1 - Exam patient is awake, comfortable, in no acute distress Examination of the heart S1 and S2 Examination of the lungs bilateral breath sounds are heard, basal crackles Abdomen is soft nontender Examination of lower extremity shows no evidence of edema [employer] exam grossly intact - Labs CBC & Chem 7: 02/04/24 06:50 02/05/24 05:36 Labs: Abnormal Lab Results - Last 24 Hours (Table) 02/04/24 02/05/24 Range/Units 13:15 05:36 Sodium 130 L (137-145) mmol/L Carbon Dioxide 13 L (22-30) mmol/L BUN 92 H (9-20) mg/dL Creatinine 4.17 H (0.66-1.25) mg/dL Calcium 8.1 L (8.4-10.2) mg/dL RSV (PCR) Detected A (Not Detectd) Assessment and Plan Assessment: 1. Acute kidney injury, ATN/cardiorenal and worsened with diuresis. UA shows 2+ protein and large blood and WBCs 13. Ultrasound of the kidneys on 11/28/2023 did not show any evidence of obstructive uropathy. Status post IV fluids overnight with subtle changes of volume overload. Status post IV Lasix x 1 yesterday. Currently off of fluids and diuretics. 2. Chronic kidney disease NKF stage IIIB with baseline creatinine at 1.4-1.9 mg/dL. Serum creatinine stayed at around 2-2.3 mg/dL in November during recent hospitalization. Etiology is likely diabetic kidney disease. 3. Cardiomyopathy with EF of 30-35% on echocardiogram in 2019 4. Acute on chronic CHF with decreased ejection fraction 5. Volume overload 6. BPH maintained on Proscar 7. Non-gap metabolic acidosis associated with acute kidney injury and IV fluids Plan: Continue off of IV fluids. Patient is fairly asymptomatic. Increased dose of sodium bicarb Possible discharge tomorrow if he remains asymptomatic with no significant worsening of renal function.
--- NOTE | 2024-02-05 13:52 | XR ---
EXAMINATION TYPE: XR chest 1V DATE OF EXAM: 02/05/2024 1:47 PM COMPARISON: Chest radiographs from 02/02/2024 CLINICAL INDICATION: Male, 73 years old with history of chf; TECHNIQUE: XR chest 1V Frontal view of the chest. FINDINGS: Lungs/Pleura: There is no evidence of pleural effusion, focal consolidation, or pneumothorax. Pulmonary vascularity: Unremarkable. Heart/mediastinum: Cardiomediastinal silhouette is enlarged. Single-lead cardiac conduction device ov erlying the left hemithorax with lead projecting over the right ventricle. Musculoskeletal: No acute osseous pathology. IMPRESSION: Cardiomegaly and mild pulmonary vascular congestion. Correlate with BNP for congestive heart failure. [facility], , 02/05/2024 1:50 PM
[2024-02-05 16:22] LABS: Glucose,Whole Blood 96 mg/dL (70-110)
[2024-02-05 20:01] LABS: Glucose,Whole Blood 129 mg/dL (70-110)
[2024-02-06 06:16] LABS: Anisocytosis Slight; Basophils % (A) 1 %; Eosinophils # (A) 0.2 k/uL (0-0.7); Eosinophils % (A) 4 %; HGB 9.1 gm/dL (13.0-17.5); Hypochromasia Slight; Lymphocytes # (A) 1.4 k/uL (1.0-4.8); Lymphocytes % (A) 33 %; MCH 28.1 pg (25.0-35.0); MCHC 33.6 g/dL (31.0-37.0); MCV 83.7 fL (80.0-100.0); Mean Platelet Volume 8.4; Monocytes # (A) 0.3 k/uL (0-1.0); Monocytes % (A) 7 %; Neutrophils # (A) 2.3 k/uL (1.3-7.7); Neutrophils % (A) 54 %; Platelet Count 163 k/uL (150-450); Poikilocytosis Slight; RBC 3.22 m/uL (4.30-5.90); RDW 17.9 % (11.5-15.5); WBC 4.2 k/uL (3.8-10.6)
[2024-02-06 06:17] LABS: Glucose,Whole Blood 101 mg/dL (70-110)
[2024-02-06 06:37] LABS: African American GFR (CKD) 16 (>60 ml/min/1.73 sqM); Anion Gap 12 mmol/L; Blood Urea Nitrogen 90 mg/dL (9-20); Calcium 8.1 mg/dL (8.4-10.2); Carbon Dioxide 15 mmol/L (22-30); Chloride 102 mmol/L (98-107); Glucose 95 mg/dL (74-99); Magnesium 2.2 mg/dL (1.6-2.3); Non-African American GFR(CKD) 14 (>60 ml/min/1.73 sqM); Potassium 4.5 mmol/L (3.5-5.1); Sodium 129 mmol/L (137-145)
[2024-02-06 08:28] VITALS: TEMP 97.4
--- NOTE | 2024-02-06 10:06 | P.PN ---
Subjective Patient is seen in follow-up for acute kidney injury on chronic kidney disease. Renal function stable. On room air. Denies chest pain or shortness of breath. Has been voiding. Vital signs are stable. General: No acute distress. HEENT: Head exam is unremarkable. LUNGS: No audible rhonchi or wheezes. HEART: Rate and Rhythm are regular. ABDOMEN: Nontender. EXTREMITITES: No edema. Objective - Vital Signs Vital signs: Vital Signs Temp 97.4 F L 02/06/24 08:28 Pulse 86 02/06/24 09:14 Resp 16 02/06/24 08:28 BP 141/80 02/06/24 08:28 Pulse Ox 98 02/06/24 09:03 FiO2 21 02/06/24 09:03 Intake & Output 02/05/24 02/06/24 02/06/24 18:59 06:59 18:59 Intake Total 20 140 10 Output Total 300 Balance 20 -160 10 Weight 68.2 kg Intake: IV 20 20 10 Invasive Line 3 20 20 10 Oral 120 0 Output: Urine 300 Other: Voiding Method Urinal Urinal Urinal # Voids 1 2 # Bowel Movements 1 - Labs CBC & Chem 7: 02/06/24 05:31 02/06/24 05:31 Labs: Abnormal Lab Results - Last 24 Hours (Table) 02/05/24 02/06/24 02/06/24 Range/Units 20:00 05:31 05:31 RBC 3.22 L (4.30-5.90) m/uL Hgb 9.1 L (13.0-17.5) gm/dL Hct 27.0 L (39.0-53.0) % RDW 17.9 H (11.5-15.5) % Sodium 129 L (137-145) mmol/L Carbon Dioxide 15 L (22-30) mmol/L BUN 90 H (9-20) mg/dL Creatinine 3.99 H (0.66-1.25) mg/dL POC Glucose (mg/dL) 129 H (70-110) mg/dL Calcium 8.1 L (8.4-10.2) mg/dL Assessment and Plan Plan: Assessment: 1. Acute kidney injury secondary to ATN secondary to cardiorenal syndrome. No hydronephrosis noted on kidney ultrasound done in November 2023. Creatinine stable at 3.99 today. 2. Chronic kidney disease stage IIIb with recent creatinine near 2 secondary to diabetic kidney disease. 3. Acute on chronic systolic CHF ejection fraction of 30 to 35%. 4. Volume overload. Improved. 5. Metabolic acidosis secondary to acute kidney injury and IV fluids. On oral bicarb. 6. Anemia of chronic kidney disease. 7. Acute RSV infection. Plan: Maintain Lasix. Add 1500 cc fluid restriction. 2 amp sodium bicarb IV push today. Check iron studies. Check phosphorus level. Avoid nephrotoxins. Potential rehab upon discharge. Advised patient to follow-up outpatient 1 week postdischarge. Discussed potential need for renal replacement therapy in the near future.
[2024-02-06 10:13] VITALS: BMI 26.6
[2024-02-06 11:16] LABS: Phosphorus 6.2 mg/dL (2.5-4.5)
[2024-02-06 11:20] LABS: Glucose,Whole Blood 101 mg/dL (70-110)
[2024-02-06] MEDS: SODIUM BICARB 8.4% 50 ML SYR (1 MEQ/ML) IV STA (11:28)
--- NOTE | 2024-02-06 12:24 | P.DS ---
Providers Date of admission: 01/30/24 13:32 Expected date of discharge: 02/06/24 Attending physician: Ed Dias MD Consults: 01/30/24 12:40 Consult Physician Routine Consulting Provider: Jose L Duong Consult Reason/Comments: chf Do you want consulting provider notified?: Yes Consult Physician Routine Consulting Provider: Audrey Vega Consult Reason/Comments: Cardiorenal syndrome Do you want consulting provider notified?: Yes Primary care physician: Bree Dias [facility] Course: Final Diagnosis: Acute RSV Acute on chronic CHF with reduced EF 17% Acute renal failure, ATN, cardiorenal [place] metabolic acidosis secondary to the above Chronic kidney disease stage IIIb, baseline 1.4-1.9, suspected etiology diabetic kidney disease per nephrology BPH Troponin elevation secondary to congestive heart failure Coronary artery disease, history of CABG Ischemic cardiomyopathy History of AICD implantation History of ventricular tachycardia Hypertension Hyperlipidemia Diabetes mellitus type 2 Left ankle and left knee pain , x-rays report no acute fractures on x-rays ;left knee small to moderate joint effusion,recommend further follow-up outpatient with orthopedics Neuropathy Sleep apnea Hospital course:Is a 73-year-old gentleman admitted with acute on chronic CHF, reduced EF 17%, acute on chronic renal failure and multiple other medical issues. Diuresing well on Lasix IV push. Cardiology recommending upgrading to BiV device, scheduled for venogram today. K bicarb 17, BUN 97, creatinine 3.67. Complains of productive cough with green sputum. Reports weakness, decreased strength. Nuys chest pain, palpitations or shortness of breath. 02/02/2024 afebrile, sputum culture in progress. ProCalcitonin normal,0.25. Completed venogram yesterday. Scheduled for outpatient biventricular ICD. Losartan and Jardiance on hold secondary to renal function. Transitioned to oral Lasix. Denies chest pain, palpitations or shortness of breath. Maintaining O2 sats In the high 90s on room air.BUN 96, creatinine 3.82 ,bicarb 16, oral sodium bicarb added to med regimen. 02/03/2024 chest x-ray completed yesterday reported no acute pulmonary process. Lasix discontinued yesterday as creatinine increased to 3.82. Creatinine worse today, increased to 4.18 today. Continues on oral sodium bicarb per nephrology. Denies chest pain, palpitations or shortness of breath. Retaining O2 sats in the high 90s on room air. Denies nausea vomiting or diarrhea. Afebrile, normal WBC. Diuretics remain on hold. Close monitoring of coags, renal function with repeat labs ordered for a.m. PT reconsulted as patient complaining of increased weakness, verbalizing he is agreeable to subacute rehab. at discharge. Cardiology planning outpatient upgrade to BiV ICD. prognosis guarded given multiple complex medical issues. 02/04/2024 Patient evaluated today in follow up. Lasix was stopped and started on IV bicarb gtt by nephrology overnight. Creatinine down to 3.97 today. He reports feeling worsening shortness of breath. Has some faint crackles in the bases. Sodium level 129 today. He does report feeling short of breath and having cough. Viral panel done and patient found to be positive for RSV. He is 99% on room air currently. Procalcitonin level 0.25, was started on IV ceftriaxone previously. One time dose IV lasix given today by cardiology. Bicarb gtt has been discontinue and patient has been started on oral sodium bicarbonate. Found to have RSV by PCR. He is on room air. Continue supportive care. Monitor renal function. Patient does not want to go to rehab. Per patients at the bedside she is too weak to care for him at home. Referrals have been placed by case management. 02/05/2024 Patient evaluated today resting in bed. No acute complaints overnight. He is currently on oral lasix. Received a dose of IV lasix yesterday. Labs today reveal sodium of 130, bun 92, creatinine 4.17. He was found to be RSV positive. He is maintaining oxygen saturations 96% on room air. Having intermittent cough. Bicarb gtt has been discontinued and patient has been started on oral sodium bicarbonate. Found to have RSV by PCR. He is on room air. Continue supportive care. Monitor renal function. Patient does not want to go to rehab. Per patients at the bedside she is too weak to care for him at home. Referrals have been placed by case management. 02/06/2024 bicarb 15, BUN 90, creatinine decreased to 3.99. Received 2 A of bicarb IV push today. Iron studies pending. sodium 129, potassium 4.5, magnesium 2.2. Afebrile, normal WBC, hemoglobin 9.1, platelets 163. Denies chest pain, palpitations or shortness of breath. Maintaining O2 sats in the high 90s on room air. Maintained on oral Lasix, 1500 cc fluid restrictions. Potential need for renal replacement therapy in the near future has been discussed with patient per nephrology. Patient will be discharged to subacute rehab today in a stable condition with guarded prognosis pending final DC recommendations and clearance per nephrology. The impression and plan of care has been dictated as directed. : I performed a history and examination of this patient, discussed the same with the dictator. I agree with the dictator's note ,documented as a scribe. Any additional findings or plans will be noted. Patient Condition at Discharge: Stable Plan - Discharge Summary Discharge Rx Participant: Yes New Discharge Prescriptions: New Ipratropium Nebulized [Atrovent Nebulized 0.2 MG/ML] 0.5 mg INHALATION RT-QID ml Heparin Sodium,Porcine (1 ml) [Heparin Sodium] 5,000 unit SQ Q8HR each Pregabalin [Lyrica] 75 mg PO BID PRN #6 cap PRN Reason: Analgesia guaiFENesin SYRUP 100MG/5ML [Robitussin] 200 mg PO Q4HR PRN ml PRN Reason: Cough Sodium Bicarbonate Tab 1,300 mg PO BID tab Continue Finasteride [Proscar] 5 mg PO DAILY Atorvastatin [Lipitor] 80 mg PO HS Clopidogrel [Plavix] 75 mg PO DAILY tab Albuterol Sulfate [Albuterol Sulfate Hfa] 2 puff INHALATION RT-Q4H PRN PRN Reason: Shortness Of Breath Ferrous Sulfate [Iron (65 MG Elemental)] 325 mg PO BID Furosemide [Lasix] 40 mg PO DAILY Metoprolol Succinate (ER) [Toprol XL] 50 mg PO BID Fluticasone/Umeclidin/Vilanter [Trelegy Ellipta 100-62.5-25] 1 puff INHALATION RT-DAILY Aspirin 81 mg PO DAILY Spironolactone [Aldactone] 12.5 mg PO DAILY Discontinued Gabapentin 600 mg PO BID Empagliflozin [Jardiance] 10 mg PO DAILY Losartan [Cozaar] 50 mg PO DAILY tab Discharge Medication List Finasteride [Proscar] 5 mg PO DAILY 02/01/16 [History] Atorvastatin [Lipitor] 80 mg PO HS 10/03/18 [History] Clopidogrel [Plavix] 75 mg PO DAILY tab 12/06/18 [Rx] Albuterol Sulfate [Albuterol Sulfate Hfa] 2 puff INHALATION RT-Q4H PRN 11/28/23 [History] Aspirin 81 mg PO DAILY 11/28/23 [History] Fluticasone/Umeclidin/Vilanter [Trelegy Ellipta 100-62.5-25] 1 puff INHALATION RT-DAILY 11/28/23 [History] Ferrous Sulfate [Iron (65 MG Elemental)] 325 mg PO BID 01/30/24 [History] Furosemide [Lasix] 40 mg PO DAILY 01/30/24 [History] Metoprolol Succinate (ER) [Toprol XL] 50 mg PO BID 01/30/24 [History] Spironolactone [Aldactone] 12.5 mg PO DAILY 01/30/24 [History] Heparin Sodium,Porcine (1 ml) [Heparin Sodium] 5,000 unit SQ Q8HR each 02/06/24 [Rx] Ipratropium Nebulized [Atrovent Nebulized 0.2 MG/ML] 0.5 mg INHALATION RT-QID ml 02/06/24 [Rx] Pregabalin [Lyrica] 75 mg PO BID PRN #6 cap 02/06/24 [Rx] Sodium Bicarbonate Tab 1,300 mg PO BID tab 02/06/24 [Rx] guaiFENesin SYRUP 100MG/5ML [Robitussin] 200 mg PO Q4HR PRN ml 02/06/24 [Rx] Follow up Appointment(s)/Referral(s): Jose L Duong MD [STAFF PHYSICIAN] - 1 Week Bree Dias DO [Primary Care Provider] - 1 Week (After DC from subacute rehab) Chaitanya Velazco DO [STAFF PHYSICIAN] - 1 Week Activity/Diet/Wound Care/Special Instructions: CHAYITO: Betsey CBC,BMP in 3 days 1500 cc fluid restrictions Avoid nephrotoxins Nephrology discussed potential need for renal replacement therapy in the near future. Discharge Disposition: TRANSFER TO SNF/ECF
[2024-02-06 12:49] VITALS: BP 112/64; PULSE 77; RESP 18
--- NOTE | 2024-02-06 13:39 | P.PN ---
Subjective Progress Note Date: 02/06/24 Patient is a pleasant 73-year-old male who presented to the hospital with cardiorenal syndrome. Patient reports that he is feeling okay today. He is able to lie flat without significant shortness of breath. Patient did test positive for RSV yesterday and is currently in isolation. He denies chest pain, shortness of breath, heart palpitations. VITALS: Temp 97.3, pulse 70, respirations 21, blood pressure 116/67, O2 saturation 95% on room air TELEMETRY: Sinus mechanism LABS: Sodium 130, potassium 4.6, BUN 92, creatinine 4.17 02/06/2024 Patient seen and examined. Patient states he still has a cough from the RSV. His breathing is okay. No chest pain. Lungs are clear to auscultation. Blood pressure 112/64, heart rate 77, pulse ox 96% on room air. Repeat blood work reveals hemoglobin 9.1, BUN 90 and creatinine 3.99, potassium 4.5. Patient is scheduled to go to [facility] today for subacute rehab. GENERAL: Well-appearing, well-nourished and in no acute distress. NECK: Supple without JVD or thyromegaly. LUNGS: Breath sounds clear to auscultation bilaterally. Respiration equal and unlabored. No wheezes, rales or rhonchi. HEART: Regular rate and rhythm without murmurs, rubs or gallops. S1 and S2 heard. EXTREMITIES: Normal range of motion, no edema. No clubbing or cyanosis. Peripheral pulses intact and strong. IMPRESSION: 1. Severe ischemic cardiomyopathy with congestive heart failure, class III unstable 2. First-degree AV block, left bundle branch block, QRS with 160 ms 3. Chronic kidney disease, creatinine normally between 3.6-3.8 4. RSV PLAN: Continue current medications as prescribed. Continue home dose of Lasix. Patient will need an upgrade of his pacemaker to a BiV ICD for management of his systolic, acute on chronic heart failure in the setting of first-degree AV block and left bundle branch block with a QRS width of 160 ms. This will need to be done as an outpatient, and will likely be delayed secondary to his RSV infection. Patient is cleared for discharge from cardiology. Nurse practitioner note has been reviewed, I agree with documented findings and plan of care. Patient was seen and examined. Objective - Vital Signs Vital signs: Vital Signs Temp 97.4 F L 02/06/24 08:28 Pulse 77 02/06/24 12:48 Resp 18 02/06/24 12:48 BP 112/64 02/06/24 12:48 Pulse Ox 96 02/06/24 12:48 FiO2 21 02/06/24 09:03 Intake & Output 02/05/24 02/06/24 02/06/24 18:59 06:59 18:59 Intake Total 20 140 10 Output Total 300 200 Balance 20 -160 -190 Weight 68.2 kg 68.2 kg Intake: IV 20 20 10 Invasive Line 3 20 20 10 Oral 120 0 Output: Urine 300 200 Other: Voiding Method Urinal Urinal Urinal # Voids 1 2 # Bowel Movements 1 - Labs CBC & Chem 7: 02/06/24 05:31 02/06/24 05:31 Labs: Abnormal Lab Results - Last 24 Hours (Table) 02/05/24 02/06/24 02/06/24 Range/Units 20:00 05:31 05:31 RBC 3.22 L (4.30-5.90) m/uL Hgb 9.1 L (13.0-17.5) gm/dL Hct 27.0 L (39.0-53.0) % RDW 17.9 H (11.5-15.5) % Sodium 129 L (137-145) mmol/L Carbon Dioxide 15 L (22-30) mmol/L BUN 90 H (9-20) mg/dL Creatinine 3.99 H (0.66-1.25) mg/dL POC Glucose (mg/dL) 129 H (70-110) mg/dL Calcium 8.1 L (8.4-10.2) mg/dL Phosphorus (2.5-4.5) mg/dL 02/06/24 Range/Units 05:31 RBC (4.30-5.90) m/uL Hgb (13.0-17.5) gm/dL Hct (39.0-53.0) % RDW (11.5-15.5) % Sodium (137-145) mmol/L Carbon Dioxide (22-30) mmol/L BUN (9-20) mg/dL Creatinine (0.66-1.25) mg/dL POC Glucose (mg/dL) (70-110) mg/dL Calcium (8.4-10.2) mg/dL Phosphorus 6.2 H (2.5-4.5) mg/dL
[2024-02-06 16:04] LABS: % Iron Saturation 22.18 (15.00-50.00)
== END 2024-02-06 14:59 | DRG 291 ==
LOC: SUPCPDRO 10:28 → EC 10:28 → 3SCARD 13:32
PROVIDERS: ADMIT Family Medicine; ATTEND Family Medicine
PROC: B5171ZZ Fluoroscopy of Left Subclavian Vein using Low Osmolar Contrast (ICD-10-PCS; principal; 2024-02-02)
PROC: B51N1ZZ Fluoroscopy of Left Upper Extremity Veins using Low Osmolar Contrast (ICD-10-PCS; 2024-02-02)
DX: I13.0 Hypertensive heart and chronic kidney disease with heart failure and stage 1 through stage 4 chronic kidney disease, or unspecified chronic kidney disease (principal); I50.23 Acute on chronic systolic (congestive) heart failure; N17.0 Acute kidney failure with tubular necrosis; E87.20 Acidosis, unspecified; N17.9 Acute kidney failure, unspecified; I13.2 Hypertensive heart and chronic kidney disease with heart failure and with stage 5 chronic kidney disease, or end stage renal disease; E11.22 Type 2 diabetes mellitus with diabetic chronic kidney disease; Z11.52 Encounter for screening for COVID-19; M25.562 Pain in left knee; M25.572 Pain in left ankle and joints of left foot; E78.5 Hyperlipidemia, unspecified; E11.42 Type 2 diabetes mellitus with diabetic polyneuropathy; I25.10 Atherosclerotic heart disease of native coronary artery without angina pectoris; G47.30 Sleep apnea, unspecified; N40.0 Benign prostatic hyperplasia without lower urinary tract symptoms; N18.32 Chronic kidney disease, stage 3b; B97.4 Respiratory syncytial virus as the cause of diseases classified elsewhere; I08.3 Combined rheumatic disorders of mitral, aortic and tricuspid valves; D63.1 Anemia in chronic kidney disease; I25.2 Old myocardial infarction; I25.5 Ischemic cardiomyopathy; I44.0 Atrioventricular block, first degree; I44.7 Left bundle-branch block, unspecified; J44.9 Chronic obstructive pulmonary disease, unspecified; W19.XXXA Unspecified fall, initial encounter; Y92.009 Unspecified place in unspecified non-institutional (private) residence as the place of occurrence of the external cause; Z79.02 Long term (current) use of antithrombotics/antiplatelets; Z79.82 Long term (current) use of aspirin; Z79.84 Long term (current) use of oral hypoglycemic drugs; Z79.899 Other long term (current) drug therapy; Z82.49 Family history of ischemic heart disease and other diseases of the circulatory system; Z86.79 Personal history of other diseases of the circulatory system; Z87.891 Personal history of nicotine dependence; Z95.810 Presence of automatic (implantable) cardiac defibrillator; Z95.1 Presence of aortocoronary bypass graft
CPT/HCPCS: 36005; 36415; 51798; 71045; 71046; 75820; 80048; 80053; 81001; 82728; 83540; 83550; 83735; 83880; 84100; 84145; 84484; 85025; 85610; 85730; 87070; 87205; 87636; 93005; 94640; 94760; 96374; 96376; 99285

== ENCOUNTER 2024-02-18 11:43 | Emergency (ER) | payer MEDICARE, OTHER ==
--- NOTE | 2024-02-18 14:06 | ED ---
Recheck HPI - General Source: patient, family - History of Present Illness Complaint: abnormal lab Onset/Timin -: days(s) <Aleksander Nuñez - Last Filed: 02/18/24 14:05> - General Source: RN notes reviewed, old records reviewed - History of Present Illness Complaint: abnormal lab <Christian Stovall - Last Filed: 02/22/24 17:44> - General Chief Complaint: Recheck/Abnormal Lab/Rx Stated Complaint: Abn labs Time Seen by Provider: 02/18/24 12:00 - History of Present Illness Initial Comments: Quick note: This is a 73-year-old male with history of COPD, CAD and DM presenting from [facility] for abnormal labs. Family states patient's liver enzymes and kidney function lab work were abnormal and patient was advised to follow-up at the ER for further workup. Patient also mentions he has been having shortness of breath for the past 3 days. Denies fever, chills, chest pain, abdominal pain, N/V/D, urinary symptoms. (Aleksander Nuñez) This is a 73-year-old male with significant debility coming from [facility] for abnormal lab testing (Chrsitian Stovall) - Related Data Home Medications Medication Instructions Recorded Confirmed Finasteride [Proscar] 5 mg PO DAILY 02/01/16 02/18/24 Atorvastatin [Lipitor] 80 mg PO HS 10/03/18 02/18/24 Albuterol Sulfate [Albuterol 2 puff INHALATION RT-Q4H PRN 11/28/23 02/18/24 Sulfate Hfa] Aspirin 81 mg PO DAILY 11/28/23 02/18/24 Fluticasone/Umeclidin/Vilanter 1 puff INHALATION RT-DAILY 11/28/23 02/18/24 [Trelegy Ellipta 100-62.5-25] Ferrous Sulfate [Iron (65 MG 325 mg PO BID 01/30/24 02/18/24 Elemental)] Furosemide [Lasix] 40 mg PO DAILY 01/30/24 02/18/24 Metoprolol Succinate (ER) [Toprol 50 mg PO BID 01/30/24 02/18/24 XL] Spironolactone [Aldactone] 12.5 mg PO DAILY 01/30/24 02/18/24 ALPRAZolam [Xanax] 0.25 mg PO BID PRN 02/18/24 02/18/24 Escitalopram [Lexapro] 5 mg PO DAILY 02/18/24 02/18/24 Pregabalin [Lyrica] 75 mg PO BID PRN 02/18/24 02/18/24 Previous Rx's Medication Instructions Recorded Clopidogrel [Plavix] 75 mg PO DAILY tab 12/06/18 Sodium Bicarbonate Tab 1,300 mg PO BID tab 02/06/24 guaiFENesin SYRUP 100MG/5ML 200 mg PO Q4HR PRN ml 02/06/24 [Robitussin] Allergies Allergy/AdvReac Type Severity Reaction Status Date / Time No Known Allergies Allergy Verified 02/18/24 17:18 Review of Systems ROS Other: All systems not noted in ROS Statement are negative. <Aleksander Nuñez - Last Filed: 02/18/24 14:05> ROS Other: All systems not noted in ROS Statement are negative. <Christian Stovall - Last Filed: 02/22/24 17:44> ROS Statement: Those systems with pertinent positive or pertinent negative responses have been documented in the HPI. Past Medical History Past Medical History: Coronary Artery Disease (CAD), Heart Failure, COPD, Diabetes Mellitus, Hyperlipidemia, Hypertension, Myocardial Infarction (MO), Sleep Apnea/CPAP/BIPAP Additional Past Medical History / Comment(s): seen in er 09/09/18-shingles to back of head-resolved now. BRAIN ANEURSYM-DX 2017-BEING FOLLOWING BY DR. GILLESPIE IN [place] Last Myocardial Infarction Date:: 04/2018 History of Any Multi-Drug Resistant Organisms: None Reported Past Surgical History: AICD, Coronary Bypass/CABG, Heart Catheterization, Joint Replacement Additional Past Surgical History / Comment(s): right knee replaced. COLONOSCOPY Past Anesthesia/Blood Transfusion Reactions: No Reported Reaction Type of Cardiac Device: AICD Device Placement Date:: 2009 Past Psychological History: No Psychological Hx Reported Smoking Status: Former smoker Past Alcohol Use History: Occasional Past Drug Use History: None Reported - Past Family History Mother History Unknown: Yes Family Medical History: No Reported History Father History Unknown: Yes Family Medical History: Liver Disease Brother(s) History Unknown: Yes Family Medical History: Coronary Artery Disease (CAD) <JoaquinAna LuisaAleksander - Last Filed: 02/18/24 14:05> General Exam <JoaquinAleksander - Last Filed: 02/18/24 14:05> Limitations: altered mental status General appearance: alert, in no apparent distress, anxious Head exam: Present: atraumatic, normocephalic, normal inspection Eye exam: Present: normal appearance, PERRL, EOMI. Absent: scleral icterus, conjunctival injection, periorbital swelling ENT exam: Present: normal exam, mucous membranes moist Neck exam: Present: normal inspection. Absent: tenderness, meningismus, lymphadenopathy Respiratory exam: Present: normal lung sounds bilaterally. Absent: respiratory distress, wheezes, rales, rhonchi, stridor Cardiovascular Exam: Present: regular rate, normal rhythm, normal heart sounds. Absent: systolic murmur, diastolic murmur, rubs, gallop, clicks GI/Abdominal exam: Present: soft, normal bowel sounds. Absent: distended, tenderness, guarding, rebound, rigid Extremities exam: Present: normal inspection, full ROM, normal capillary refill. Absent: tenderness, pedal edema, joint swelling, calf tenderness Back exam: Present: normal inspection Neurological exam: Present: alert, oriented X3, CN II-XII intact Psychiatric exam: Present: normal affect, normal mood Skin exam: Present: warm, dry, intact, normal color. Absent: rash <Christian Stovall - Last Filed: 02/22/24 17:44> - General Exam Comments Initial Comments: Visual Physical Exam Vital signs reviewed General: Jaundice and scleral icterus noted. Patient sitting in wheelchair. No acute distress. Head: Normocephalic, atraumatic Eyes: PERRLA, EOMI ENT: Airway patent Chest: Nonlabored breathing Skin: No visual rash, normal skin tone Neuro: Alert and oriented 3 Musculoskeletal: No gross abnormalities (Ana Luisa Nuñezling) Course <Christian Stovall - Last Filed: 02/22/24 17:44> Vital Signs 02/18/24 02/18/24 02/18/24 11:48 17:16 20:49 Temperature 97.4 F L 97.4 F L 98.1 F Pulse Rate 72 72 64 Respiratory 18 16 16 Rate Blood Pressure 109/76 107/78 99/76 O2 Sat by Pulse 97 97 95 Oximetry - Reevaluation(s) Reevaluation #1: 02/18/24 18:35 Medical records reviewed (Christian Stovall) Reevaluation #2: 02/18/24 18:35 Patient symptoms improved (Christian Stovall) Reevaluation #3: 02/18/24 18:36 Patient informed of results and questions answered (Christian Stovall) Reevaluation #4: Was pt. sent in by a medical professional or institution (MATEO Garcia, ACCOUNT COLLECTOR, urgent care, hospital, or custodial...) When possible be specific @ -no Did you speak to anyone other than the patient for history (EMS, parent, family, police, friend...)? What history was obtained from this source @ -no Did you review nursing and triage notes (agree or disagree)? Why? @ -agree Are old charts reviewed (outside hosp., previous admission, EMS record, old EKG, old radiological studies, urgent care reports/EKG's, custodial records)? Report findings @ -yes Differential Diagnosis (chest pain, altered mental status, abdominal pain women, abdominal pain men, vaginal bleeding, weakness, fever, dyspnea, syncope, headache, dizziness, GI bleed, back pain, seizure, CVA, palpatations, mental health, musculoskeletal)? @ -prior EKG interpreted by me (3pts min.). @ -yes X-rays interpreted by me (1pt min.). @ -yes negative for acute disease CT interpreted by me (1pt min.). @ -Yes negative for acute disease U/S interpreted by me (1pt. min.). @ -Yes positive for biliary sludge and cholelithiasis What testing was considered but not performed or refused? (CT, X-rays, U/S, labs)? Why? @ -none What meds were considered but not given or refused? Why? @ -none Did you discuss the management of the patient with other professionals (santos llanos i.e. MATEO Garcia, ACCOUNT COLLECTOR, lab, RT, psych nurse, social work professor, foundry operator, teacher, aircraft electronics technical officer, skilled nursing case manager)? Give summary @ -no Was smoking cessation discussed for >3mins.? @ -no Was critical care preformed (if so, how long)? @ -yes31 Were there social determinants of health that impacted care today? How? (Homelessness, low income, unemployed, alcoholism, drug addiction, transportation, low edu. Level, literacy, decrease access to med. care, fci, rehab)? @ -none Was there de-escalation of care discussed even if they declined (Discuss DNR or withdrawal of care, Hospice)? DNR status @ -no What co-morbidities impacted this encounter? (DM, HTN, Smoking, COPD, CAD, Cancer, CVA, ARF, Chemo, Hep., AIDS, mental health diagnosis, sleep apnea, morbid obesity)? @ -none Was patient admitted / discharged? Hospital course, mention meds given and route, prescriptions, significant lab abnormalities, going to OR and other pertinent info. @ - 73 male with cardiorenal syndrome with significant hepatic abnormalities here in the ER including transaminitis. [facility] significant acute hepatic disease with underlying cardiorenal syndrome Transferred to outside facility Undiagnosed new problem with uncertain prognosis? @ -no Drug Therapy requiring intensive monitoring for toxicity (Heparin, Nitro, Insulin, Cardizem)? @ -no Were any procedures done? @ -no Diagnosis/symptom? @ -Cardiorenal syndrome transaminitis pancreatitis hepatitis Acute, or Chronic, or Acute on Chronic? @ -Acute Uncomplicated (without systemic symptoms) or Complicated (systemic symptoms)? @ -Complicated Side effects of treatment? @ -no Exacerbation, Progression, or Severe Exacerbation? @ -exacerbation Poses a threat to life or bodily function? How? (Chest pain, USA, MO, pneumonia, PE, COPD, DKA, ARF, appy, cholecystitis, CVA, Diverticulitis, Homicidal, Suicidal, threat to staff... and all critical care pts) @ -yes significant extremes of age and disease (Christian Stovall) Reevaluation #5: Differential Weakness: Hypoglycemia, shock, sepsis, hyponatremia, anemia, infection, MO, ETOH, adverse medicine reaction, overdose, stroke, this is not meant to be an all-inclusive list. (Christian Stovall) - Consultations Consultation #1: Spoke with cardiology recommend transfer (Christian Stovall) Consultation #2: Spoke with Shari Mukherjee accept transfer (Roskopp,Christian B) Medical Decision Making <Aleksander Nuñez - Last Filed: 02/18/24 14:05> - Lab Data Result diagrams: 02/18/24 14:21 02/18/24 14:21 - EKG Data -: EKG Interpreted by Me (EKG is sinus 72 HI 242 QRS 173 QTc 482) - Radiology Data Radiology results: report reviewed (Chest x-ray CT abdomen pelvis ultrasound gallbladder positive for biliary sludge and cholelithiasis e), image reviewed <Christian Stovall - Last Filed: 02/22/24 17:44> - Medical Decision Making I completed the quick note portion of this chart signed LILIAN Sulliavn (Aleksander Nuñez) 73 male with cardiorenal syndrome with significant hepatic abnormalities here in the ER including transaminitis. Patient be transferred to outside institution for further evaluation of significant acute hepatic disease with underlying cardiorenal syndrome (Christian Stovall) - Lab Data Lab Results 02/18/24 02/18/24 02/18/24 Range/Units 14:21 14:21 14:21 WBC 8.1 (3.8-10.6) k/uL RBC 3.90 L (4.30-5.90) m/uL Hgb 11.6 L (13.0-17.5) gm/dL Hct 36.1 L (39.0-53.0) % MCV 92.5 D (80.0-100.0) fL MCH 29.6 (25.0-35.0) pg MCHC 32.0 (31.0-37.0) g/dL RDW 22.7 H (11.5-15.5) % Plt Count 89 L (150-450) k/uL MPV 10.4 Neutrophils % 71 % Lymphocytes % 20 % Monocytes % 6 % Eosinophils % 2 % Basophils % 0 % Neutrophils # 5.7 (1.3-7.7) k/uL Lymphocytes # 1.6 (1.0-4.8) k/uL Monocytes # 0.5 (0-1.0) k/uL Eosinophils # 0.1 (0-0.7) k/uL Basophils # 0.0 (0-0.2) k/uL Manual Slide Review Performed Hypochromasia Moderate Poikilocytosis Slight Anisocytosis Moderate Macrocytosis Slight Rouleaux Present PT (10.0-12.5) sec INR (<1.2) APTT (22.0-30.0) sec Sodium 136 L (137-145) mmol/L Potassium 5.9 H (3.5-5.1) mmol/L Chloride 101 (98-107) mmol/L Carbon Dioxide 15 L (22-30) mmol/L Anion Gap 20 mmol/L BUN 148 H* (9-20) mg/dL Creatinine 5.83 H (0.66-1.25) mg/dL Est GFR (CKD-EPI)AfAm 10 (>60 ml/min/1.73 sqM) Est GFR (CKD-EPI)NonAf 9 (>60 ml/min/1.73 sqM) Glucose 99 (74-99) mg/dL Plasma Lactic Acid Josue 2.0 (0.7-2.0) mmol/L Calcium 7.3 L (8.4-10.2) mg/dL Magnesium 3.1 H (1.6-2.3) mg/dL Total Bilirubin 8.7 H (0.2-1.3) mg/dL AST 659 H (17-59) U/L ALT 673 H (4-49) U/L Alkaline Phosphatase 215 H (38-126) U/L Ammonia (<30) umol/L Creatine Kinase (55-170) U/L Troponin I (0.000-0.034) ng/mL C-Reactive Protein 3.3 H (<1.0) mg/dL Total Protein 9.0 H (6.3-8.2) g/dL Albumin 3.6 (3.5-5.0) g/dL Amylase 428 H* (30-110) U/L Lipase 2061 H (23-300) U/L Influenza Type A (PCR) (Not Detectd) Influenza Type B (PCR) (Not Detectd) RSV (PCR) (Not Detectd) SARS-CoV-2 (PCR) (Not Detectd) 02/18/24 02/18/24 02/18/24 Range/Units 14:21 14:21 14:26 WBC (3.8-10.6) k/uL RBC (4.30-5.90) m/uL Hgb (13.0-17.5) gm/dL Hct (39.0-53.0) % MCV (80.0-100.0) fL MCH (25.0-35.0) pg MCHC (31.0-37.0) g/dL RDW (11.5-15.5) % Plt Count (150-450) k/uL MPV Neutrophils % % Lymphocytes % % Monocytes % % Eosinophils % % Basophils % % Neutrophils # (1.3-7.7) k/uL Lymphocytes # (1.0-4.8) k/uL Monocytes # (0-1.0) k/uL Eosinophils # (0-0.7) k/uL Basophils # (0-0.2) k/uL Manual Slide Review Hypochromasia Poikilocytosis Anisocytosis Macrocytosis Rouleaux PT 13.9 H (10.0-12.5) sec INR 1.3 H (<1.2) APTT 25.7 (22.0-30.0) sec Sodium (137-145) mmol/L Potassium (3.5-5.1) mmol/L Chloride (98-107) mmol/L Carbon Dioxide (22-30) mmol/L Anion Gap mmol/L BUN (9-20) mg/dL Creatinine (0.66-1.25) mg/dL Est GFR (CKD-EPI)AfAm (>60 ml/min/1.73 sqM) Est GFR (CKD-EPI)NonAf (>60 ml/min/1.73 sqM) Glucose (74-99) mg/dL Plasma Lactic Acid Josue (0.7-2.0) mmol/L Calcium (8.4-10.2) mg/dL Magnesium (1.6-2.3) mg/dL Total Bilirubin (0.2-1.3) mg/dL AST (17-59) U/L ALT (4-49) U/L Alkaline Phosphatase (38-126) U/L Ammonia (<30) umol/L Creatine Kinase (55-170) U/L Troponin I 0.237 H* (0.000-0.034) ng/mL C-Reactive Protein (<1.0) mg/dL Total Protein (6.3-8.2) g/dL Albumin (3.5-5.0) g/dL Amylase (30-110) U/L Lipase (23-300) U/L Influenza Type A (PCR) Not Detected (Not Detectd) Influenza Type B (PCR) Not Detected (Not Detectd) RSV (PCR) Not Detected (Not Detectd) SARS-CoV-2 (PCR) Not Detected (Not Detectd) 02/18/24 02/18/24 Range/Units 17:16 17:16 WBC (3.8-10.6) k/uL RBC (4.30-5.90) m/uL Hgb (13.0-17.5) gm/dL Hct (39.0-53.0) % MCV (80.0-100.0) fL MCH (25.0-35.0) pg MCHC (31.0-37.0) g/dL RDW (11.5-15.5) % Plt Count (150-450) k/uL MPV Neutrophils % % Lymphocytes % % Monocytes % % Eosinophils % % Basophils % % Neutrophils # (1.3-7.7) k/uL Lymphocytes # (1.0-4.8) k/uL Monocytes # (0-1.0) k/uL Eosinophils # (0-0.7) k/uL Basophils # (0-0.2) k/uL Manual Slide Review Hypochromasia Poikilocytosis Anisocytosis Macrocytosis Rouleaux PT (10.0-12.5) sec INR (<1.2) APTT (22.0-30.0) sec Sodium (137-145) mmol/L Potassium (3.5-5.1) mmol/L Chloride (98-107) mmol/L Carbon Dioxide (22-30) mmol/L Anion Gap mmol/L BUN (9-20) mg/dL Creatinine (0.66-1.25) mg/dL Est GFR (CKD-EPI)AfAm (>60 ml/min/1.73 sqM) Est GFR (CKD-EPI)NonAf (>60 ml/min/1.73 sqM) Glucose (74-99) mg/dL Plasma Lactic Acid Josue (0.7-2.0) mmol/L Calcium (8.4-10.2) mg/dL Magnesium (1.6-2.3) mg/dL Total Bilirubin (0.2-1.3) mg/dL AST (17-59) U/L ALT (4-49) U/L Alkaline Phosphatase (38-126) U/L Ammonia <9 (<30) umol/L Creatine Kinase 633 H (55-170) U/L Troponin I (0.000-0.034) ng/mL C-Reactive Protein (<1.0) mg/dL Total Protein (6.3-8.2) g/dL Albumin (3.5-5.0) g/dL Amylase (30-110) U/L Lipase (23-300) U/L Influenza Type A (PCR) (Not Detectd) Influenza Type B (PCR) (Not Detectd) RSV (PCR) (Not Detectd) SARS-CoV-2 (PCR) (Not Detectd) Critical Care Time Critical Care Time: Yes Total Critical Care Time: 31 <Christian Stovall - Last Filed: 02/22/24 17:44> Disposition <Aleksander Nuñez - Last Filed: 02/18/24 14:05> Is patient prescribed a controlled substance at d/c from ED?: No Time of Disposition: 18:00 - Out of Hospital Transfer - Req. Specs Out of Hospital Transfer - Requested Specifics: Other Emergency Center ([facility]) <Christian Stovall - Last Filed: 02/22/24 17:44> Clinical Impression: Cardiorenal syndrome, Hepatitis, Hyperbilirubinemia, Altered mental status, Weakness, Pancreatitis, Hypertension, Elevated troponin, Acute renal failure Disposition: OTHER INSTITUTION NOT DEFINED Condition: Serious Referrals: Bree Dias DO [Primary Care Provider] - 1-2 days
[2024-02-18 14:51] LABS: Anisocytosis Moderate; Basophils % (A) 0 %; Eosinophils # (A) 0.1 k/uL (0-0.7); Eosinophils % (A) 2 %; HCT 36.1 % (39.0-53.0); HGB 11.6 gm/dL (13.0-17.5); Hypochromasia Moderate; Lymphocytes # (A) 1.6 k/uL (1.0-4.8); Lymphocytes % (A) 20 %; MCH 29.6 pg (25.0-35.0); Macrocytosis Slight; Mean Platelet Volume 10.4; Monocytes # (A) 0.5 k/uL (0-1.0); Monocytes % (A) 6 %; Neutrophils # (A) 5.7 k/uL (1.3-7.7); Neutrophils % (A) 71 %; Poikilocytosis Slight; RDW 22.7 % (11.5-15.5); WBC 8.1 k/uL (3.8-10.6)
[2024-02-18 14:52] LABS: MCV 92.5 fL (80.0-100.0)
[2024-02-18 14:57] LABS: ALT 673 U/L (4-49); Albumin 3.6 g/dL (3.5-5.0); Anion Gap 20 mmol/L; C Reactive Protein 3.3 mg/dL (<1.0); Calcium 7.3 mg/dL (8.4-10.2); Carbon Dioxide 15 mmol/L (22-30); Chloride 101 mmol/L (98-107); Glucose 99 mg/dL (74-99); Magnesium 3.1 mg/dL (1.6-2.3); Sodium 136 mmol/L (137-145); Total Bilirubin 8.7 mg/dL (0.2-1.3)
[2024-02-18 14:59] LABS: INR 1.3 (<1.2); Partial Thromboplastin Time 25.7 sec (22.0-30.0); Prothrombin Time 13.9 sec (10.0-12.5)
[2024-02-18 15:01] LABS: African American GFR (CKD) 10 (>60 ml/min/1.73 sqM); Non-African American GFR(CKD) 9 (>60 ml/min/1.73 sqM)
--- NOTE | 2024-02-18 15:02 | XR ---
EXAMINATION TYPE: XR chest 2V DATE OF EXAM: 02/18/2024 2:23 PM COMPARISON: Chest radiographs from 02/05/2024 CLINICAL INDICATION: Male, 73 years old with history of Abnormal labs; [facility] TECHNIQUE: XR chest 2V Frontal and lateral views of the chest. FINDINGS: Lungs/Pleura: There is no evidence of pleural effusion, focal consolidation, or pneumothorax. Pulmonary vascularity: Unremarkable. Heart/mediastinum: Cardiomediastinal silhouette is unremarkable. Single-lead cardiac conduction devic e overlying the left hemithorax with lead projecting over the right ventricle. Musculoskeletal: No acute osseous pathology. Midline sternotomy wires are noted. IMPRESSION: 1. No acute cardiopulmonary disease/process. 2. Cardiomegaly without evidence of heart failure. [facility], , 02/18/2024 2:59 PM
[2024-02-18 15:11] LABS: Platelet Count 89 k/uL (150-450)
[2024-02-18 15:12] LABS: Rouleaux Present
[2024-02-18 15:13] LABS: AST 659 U/L (17-59); Alkaline Phosphatase 215 U/L (38-126); Amylase 428 U/L (30-110); Lipase 2061 U/L (23-300); Potassium 5.9 mmol/L (3.5-5.1)
[2024-02-18 15:15] LABS: Blood Urea Nitrogen 148 mg/dL (9-20)
--- NOTE | 2024-02-18 17:11 | US ---
EXAMINATION TYPE: US gallbladder DATE OF EXAM: 02/18/2024 COMPARISON: 11/28/2023 CLINICAL INDICATION: Male, 73 years old with history of ams; Elevated enzymes TECHNIQUE: Grayscale and color Doppler imaging of the right upper quadrant was performed. FINDINGS: EXAM MEASUREMENTS: Liver Length: 16.7 cm Gallbladder Wall: 0.2 cm Right Kidney: 9.3 x 4.8 x 4.7 cm GERIATRIC ASSISTANT NOTES: Technical limitations, scanned upright in wheelchair, patient unable to ambulate onto stretcher. Pancreas: Obscured by bowel gas Liver: limited evaluation. heterogeneous Gallbladder: sludge Evidence for sonographic Turk's sign: no CBD: Obscured by overlying bowel gas Right Kidney: anechoic lesions noted, largest = 3.6 x 4.1 x 3.4cm IMPRESSION: 1. No evidence for acute process. 2. Hepatic steatosis. 3. Biliary sludge/small cholelithiasis. [facility], , 02/18/2024 5:09 PM
[2024-02-18 17:20] VITALS: RESP 16
--- NOTE | 2024-02-18 18:13 | CT ---
EXAMINATION TYPE: CT abdomen pelvis wo con DATE OF EXAM: 02/18/2024 5:45 PM COMPARISON: Ultrasound same day CLINICAL INDICATION: Male, 73 years old with history of ams; AMS. patient was sent by [facility] for a bnormal labs. TECHNIQUE: Axial CT abdomen pelvis wo con;Sagittal and coronal reformats were created on a separate workstation. Contrast used: mL of , (none if empty) Oral contrast used: without Oral Contrast (none if empty) CT DLP: 443.1 mGycm, Automated exposure control for dose reduction was used. FINDINGS: LOWER CHEST: The heart is enlarged for size. Coronary artery calcifications cardiac conduction lead t erminating in the right ventricle. Trace bilateral pleural effusions. Sternotomy wires partially visu alized. ABDOMEN LIVER: Unremarkable GALLBLADDER AND BILE DUCTS: Density in the gallbladder lumen PANCREAS: Unremarkable. SPLEEN: Unremarkable. ADRENAL GLANDS: Unremarkable. KIDNEYS AND URETERS: No evidence of hydronephrosis or renal calculus. The ureters are unremarkable. Simple appearing right renal cyst. Bilateral perinephric fat stranding changes. PELVIS BLADDER: No evidence for wall thickening or mass given limitations of exam. REPRODUCTIVE: Unremarkable. ABDOMEN & PELVIS STOMACH AND BOWEL: No evidence of bowel obstruction. The appendix is normal. PERITONEUM/RETROPERITONEUM: No evidence of pneumoperitoneum or free fluid. VASCULATURE: Severe atherosclerotic calcifications are present throughout the abdominal aorta and its branches. No evidence of aortic aneurysm. MUSCULOSKELETAL: No acute osseous abnormalities. Moderate disc degeneration changes are present throu ghout the thoracolumbar spine. LYMPH NODES: No gross evidence for lymphadenopathy. SOFT TISSUE/ABDOMINAL WALL: Unremarkable IMPRESSION: 1. No evidence for acute intra-abdominal process on this noncontrast limited exam. 2. Trace bilateral pleural effusions with cardiomegaly correlate with serum BNP to exclude congestiv e heart failure. 3. Severe atherosclerosis. 4. Right simple appearing renal cysts. 5. Biliary sludge. [facility], , 02/18/2024 6:11 PM
[2024-02-18 20:52] VITALS: BP 99/76; PULSE 64; TEMP 98.1
== END 2024-02-18 21:51 | disposition other institution (70) ==
LOC: EC 11:43
DX: K85.90 Acute pancreatitis without necrosis or infection, unspecified (principal); K75.9 Inflammatory liver disease, unspecified; N17.9 Acute kidney failure, unspecified; I13.0 Hypertensive heart and chronic kidney disease with heart failure and stage 1 through stage 4 chronic kidney disease, or unspecified chronic kidney disease; E11.22 Type 2 diabetes mellitus with diabetic chronic kidney disease; N18.9 Chronic kidney disease, unspecified; I50.9 Heart failure, unspecified; Z79.82 Long term (current) use of aspirin; Z79.899 Other long term (current) drug therapy
CPT/HCPCS: 36415; 71046; 74176; 76705; 80053; 82140; 82150; 82550; 83605; 83690; 83735; 84484; 85025; 85610; 85730; 86140; 87636; 93005; 99291